=== PATIENT | female | born 1960 | race Caucasian/White ===

== ENCOUNTER 2017-02-21 10:47 | Day surgery (SDC) | payer MEDICARE, MEDICAID ==
[~2017-02-21 10:47] MED LIST: PROPOFOL INJ 200 MG/20 ML VIAL IV ONE
[2017-02-21] MEDS ORDERED: SIMETHICONE 80 MG TAB.CHEW ONE ×2 (11:48→12:51)
[2017-02-21 13:30] VITALS: BP 110/62
--- NOTE | 2017-02-21 14:09 | Operative Report ---
Operative Report DATE OF SURGERY: 02/21/17 Operative Report: The risks benefits and alternatives of the procedure explained to the patient in detail and informed consent is obtained .A GIF Olympus video scope was inserted into the patient's mouth and hypopharynx, the esophagus is identified intubated and insufflated ,the scope was then advanced through the esophagus stomach and duodenum ,retroflexion maneuver is done, the esophagus stomach and first and second portions of the duodenum examined GIF 130 Olympus videoscope was then inserted through the stomach cavity. The surrounding area appears to be bleeding. I was able to evaluate between 60 and 70 cm of ileum. No AVMs are noted no blood is noted. Biopsies obtained. PREOPERATIVE DIAGNOSIS: GI bleeding POSTOPERATIVE DIAGNOSIS: Gastritis status post biopsy. 60-70 cm of ileum is evaluated, no AVMs or bleeding noted OPERATION: EGD with biopsy. SMINT with biopsy SURGEON: NELLI VASQUEZ ANESTHESIA: LMAC TISSUE REMOVED OR ALTERED: Biopsy to rule out Helicobacter pylori. COMPLICATIONS: None. ESTIMATED BLOOD LOSS: none. INTRAOPERATIVE FINDINGS: As described above. Esophagus normal. First and second portions of the duodenum normal. PROCEDURE: Patient tolerated the procedure well. No immediate postprocedure complications are noted. Patient is discharged in good condition. Discharge date 02/21/2017. Discharge diet: Regular. Discharge activity: Regular. 2-3 follow-up to discuss findings. Patient is instructed to call the office or proceed to the emergency room should there be any further problems or questions. We'll await on biopsies.
== END 2017-02-21 13:39 | disposition home or self-care (01) ==
LOC: END 10:47
PROVIDERS: ATTEND Internal Medicine Gastroenterology
PROC: 0DB68ZX Excision of Stomach, Via Natural or Artificial Opening Endoscopic, Diagnostic (ICD-10-PCS; principal; 2017-02-21 13:00)
PROC: 0DJD8ZZ Inspection of Lower Intestinal Tract, Via Natural or Artificial Opening Endoscopic (ICD-10-PCS; 2017-02-21 13:00)
DX: K29.50 Unspecified chronic gastritis without bleeding (principal); Z93.3 Colostomy status; G40.909 Epilepsy, unspecified, not intractable, without status epilepticus; Z85.038 Personal history of other malignant neoplasm of large intestine; Z88.0 Allergy status to penicillin; Z88.8 Allergy status to other drugs, medicaments and biological substances; Z88.5 Allergy status to narcotic agent
CPT/HCPCS: 43239; 44382; 88342 ×2; 88305 ×2; 74000; A9270; J2704; 740

== ENCOUNTER → 2017-02-28 | Outpatient (CLI) | payer MEDICARE, MEDICAID ==
--- NOTE | 2017-02-28 15:07 | RADIOLOGY REPORT (SQ) ---
EXAM DESCRIPTION: CT ABD/PELVIS WITH IV ORAL COMPLETED DATE/TIME: 02/28/2017 2:21 pm REASON FOR STUDY: PARA ILEOSTOMY HERNIA/PAIN R52 PAIN, UNSPECIFIED K94.19 OTHER COMPLICATIONS OF E NTEROSTOMY COMPARISON: 08/28/2015. TECHNIQUE: CT scan of the abdomen and pelvis performed with intravenous and oral contrast using ruy karan scanning technique with dynamic intravenous contrast injection. Images reviewed with lung, soft t issue, and bone windows. Reconstructed coronal and sagittal MPR images reviewed. Delayed images for e valuation of the urinary system also acquired. All images stored on PACS. All CT scanners at this facility use dose modulation, iterative reconstruction, and/or weight based d osing when appropriate to reduce radiation dose to as low as reasonably achievable (ALARA). [facility]: Dose Right [facility]: CareDose [facility]: Dose Right [facility]: Teradose 4D [facility]: Odilo CONTRAST TYPE AND DOSE: 89 mL Isovue 370- low osmolar. RENAL FUNCTION: Creatinine 0.5. RADIATION DOSE: 16.88 mGy. LIMITATIONS: None. FINDINGS: LOWER CHEST: No significant findings. No nodules or infiltrates. LIVER: Normal size. No masses or dilated ducts. SPLEEN: Normal size. No focal lesions. PANCREAS: No masses. No significant calcifications. No adjacent inflammation or peripancreatic fluid collections. Pancreatic duct not dilated. GALLBLADDER: Surgically absent. ADRENAL GLANDS: No significant masses or asymmetry. RIGHT KIDNEY AND URETER: No solid masses. No significant calcifications. No hydronephrosis or hyd roureter. LEFT KIDNEY AND URETER: No solid masses. No significant calcifications. No hydronephrosis or hydr oureter. AORTA AND VESSELS: No aneurysm. No dissection. Renal arteries, SMA, celiac without stenosis. RETROPERITONEUM: No retroperitoneal adenopathy, hemorrhage or masses. BOWEL AND PERITONEAL CAVITY: Previous colectomy with ostomy in the right lower quadrant. No obstruct ion. No visualized masses. No free fluid. No inflammatory changes or thickening of bowel wall. APPENDIX: Surgically absent. PELVIS: No significant masses. Normal bladder. No free fluid. ABDOMINAL WALL: No masses. No hernias. BONES: No significant or acute findings. OTHER: No other significant finding. Stimulator device in the posterior soft tissues. IMPRESSION: PREVIOUS SUBTOTAL COLECTOMY WITH OSTOMY IN THE RIGHT LOWER QUADRANT. NO PARASTOMAL ROBERT IA OR OTHER SIGNIFICANT FINDINGS IN RELATION TO THE OSTOMY. NO OTHER SIGNIFICANT OR ACUTE FINDINGS I N THE ABDOMEN OR PELVIS. TECHNICAL DOCUMENTATION: JOB ID: [id number] Quality ID # [id number]: Final reports with documentation of one or more dose reduction techniques (e.g., Au tomated exposure control, adjustment of the mA and/or kV according to patient size, use of iterative reconstruction technique) 2010 [employer]- All Rights Reserved
== END ==
LOC: RAD 13:11
PROVIDERS: ATTEND Surgery
DX: K94.19 Other complications of enterostomy (principal); R10.84 Generalized abdominal pain
CPT/HCPCS: 74177; 82565

== ENCOUNTER 2017-05-01 10:19 | Emergency (ER) | payer MEDICARE, MEDICAID ==
--- NOTE | 2017-05-01 10:56 | ER Document Report ---
HPI - HPI Patient complains to provider of: Bilateral ear pain Onset: Yesterday Onset/Duration: Sudden, Persistent Pain Level: 5 Context: 56-year-old female crying and moaning complaining that she has water in both of her ears after swimming in a pool yesterday. She wants water removed. No fever and no recent upper respiratory infection. Associated Symptoms: None Exacerbated by: Denies Relieved by: Denies Similar symptoms previously: Yes Recently seen / treated by doctor: No - ROS ROS below otherwise negative: Yes Systems Reviewed and Negative: Yes All other systems reviewed and negative - REPRODUCTIVE Reproductive: DENIES: : - DERM Skin Color: Normal Past Medical History - General Information source: Patient - Social History Smoking Status: Never Smoker Frequency of alcohol use: None Drug Abuse: None Lives with: Family Family History: Hypertension, Other Neurological Medical History: Reports: Hx Migraine, Hx Seizures - Last one 12 yrs ago Renal/ Medical History: Denies: Hx Peritoneal Dialysis Malignancy Medical History: Reports: Hx Colorectal Cancer - Status post chemoirradiation and complete colectomy Musculoskeltal Medical History: Reports Hx Arthritis - Back, Reports Hx Musculoskeletal Trauma Skin Medical History: Reports Hx Cellulitis Psychiatric Medical History: Reports: Hx Anxiety, Hx Depression Traumatic Medical History: Reports: Hx Fractures Past Surgical History: Reports: Hx Appendectomy, Hx Cholecystectomy, Hx Hysterectomy, Hx Ileostomy, Hx Kidney (Renal Surgery), Hx Neurologic Surgery, Hx Orthopedic Surgery, Hx Tonsillectomy - Immunizations Immunizations up to date: Yes Hx Diphtheria, Pertussis, Tetanus Vaccination: Yes Vertical Provider Document - CONSTITUTIONAL Agree With Documented VS: Yes Exam Limitations: No Limitations General Appearance: Severe Distress - Very distressed and emotional about the situation - INFECTION CONTROL TRAVEL OUTSIDE OF THE [place] IN LAST 30 DAYS: No - HEENT HEENT: Normal ENT Exam, Normocephalic. negative: Conjuctival Injection, Pharyngeal Erythema Notes: Both ear canals and and TMs are normal. No pain with pinna or tragus movement in either ear. There is no external ear swelling. No ear canal swelling. There is minimal wax in her right base ear canal. Mastoids are nontender. - NECK Neck: Supple. negative: Lymphadenopathy-Left, Lymphadenopathy-Right - RESPIRATORY Respiratory: Breath Sounds Normal, No Respiratory Distress - MUSCULOSKELETAL/EXTREMETIES Musculoskeletal/Extremeties: LIZZY BURT - NEURO Level of Consciousness: Awake, Alert, Appropriate, Agitated Motor/Sensory: No Motor Deficit, No Sensory Deficit - DERM Integumentary: Warm, Dry, No Rash Course - Re-evaluation Re-evalutation: 05/01/17 Exhibition of pain was out of proportion to the physical exam. Discharge - Discharge Clinical Impression: possible serous otitis media Eustachian tube dysfunction Qualifiers: Laterality: right Qualified Code(s): H69.81 - Other specified disorders of Eustachian tube, right ear Condition: Good Disposition: HOME, SELF-CARE Instructions: ENT, Anti-Inflammatory Medication ([facility]), Warm Packs ([facility]), Acetaminophen, Use of Diphenhydramine Additional Instructions: warm compess take the motrin and tylenol start antihistamine benadryl four times per day see ENT doctor if persists to er if worse Forms: Return to Work Referrals: ELIZABETH POWELL PA-C [Primary Care Provider] - Follow up as needed
[2017-05-01] MEDS ORDERED: IBUPROFEN 800 MG TABLET PO ONE (10:58)
[2017-05-01] MEDS ORDERED: ACETAMINOPHEN 325 MG TABLET PO ONE (10:58)
[2017-05-01] MEDS ORDERED: ONDANSETRON 4 MG TAB.RAPDIS PO ONE (10:58)
[2017-05-01 13:06] VITALS: BP 96/59
== END 2017-05-01 12:10 | disposition home or self-care (01) ==
LOC: ER 10:19
DX: H69.81 Other specified disorders of Eustachian tube, right ear (principal); H92.03 Otalgia, bilateral
CPT/HCPCS: 99282; A9270 ×2

== ENCOUNTER → 2017-06-27 | Outpatient (CLI) | payer MEDICARE, MEDICAID ==
--- NOTE | 2017-06-27 12:37 | RADIOLOGY REPORT (SQ) ---
EXAM DESCRIPTION: T SPINE AP/LAT COMPLETED DATE/TIME: 06/27/2017 11:06 am REASON FOR STUDY: PAIN IN THORACIC SPINE COMPARISON: None. NUMBER OF VIEWS: Two views. TECHNIQUE: AP and lateral radiographic images acquired of the thoracic spine. LIMITATIONS: None. FINDINGS: MINERALIZATION: Normal. ALIGNMENT: Normal. No scoliosis. VERTEBRAE: No fracture or bone lesion. Maintained height, normal segmentation. DISCS: No significant loss of height or significant narrowing. No large osteophytes. HARDWARE: None in the spine. MEDIASTINUM AND SOFT TISSUES: Normal heart size and aortic contour. No soft tissue abnormality. VISUALIZED LUNG FRENCH: Clear. OTHER: No other significant finding. IMPRESSION: NO SIGNIFICANT RADIOGRAPHIC FINDING IN THE THORACIC SPINE. TECHNICAL DOCUMENTATION: JOB ID: [id number] [employer]- All Rights Reserved
== END ==
LOC: RAD 10:47
PROVIDERS: ATTEND Pain Medicine Interventional Pain Medicine
DX: M54.6 Pain in thoracic spine (principal)
CPT/HCPCS: 72070

== ENCOUNTER 2017-07-22 14:18 | Emergency (ER) | payer MEDICARE, MEDICAID ==
[2017-07-22] MEDS ORDERED: PROMETHAZINE HCL INJ 25 MG/1 ML VIAL IV ONE (17:15)
--- NOTE | 2017-07-22 17:15 | ER Document Report ---
ED Medical Screen (RME) - General Chief Complaint: Vomiting Stated Complaint: VOMITING Time Seen by Provider: 07/22/17 16:52 Mode of Arrival: Ambulatory Information source: Patient Notes: Patient is a 57-year-old female that reports today with abdominal pain and flank pain. Patient had a colostomy on July 11 and was discharged home on July 17. Patient is not a very good historian so it is somewhat unclear why she had a colostomy placed. This colostomy was an actual revision of the first one, she had the location from her first one moved. Patient complains of diffuse abdominal pain. Patient states she has morphine at home. Patient states she has had nausea and vomiting since discharge and she has been able to keep her medicine down. TRAVEL OUTSIDE OF THE [place] IN LAST 30 DAYS: No - Related Data Allergies/Adverse Reactions: Penicillins Allergy (Severe, Verified 07/22/17 16:41) RASH, DIFFICULTY BREATHING prochlorperazine maleate [From Compazine] Adverse Reaction (Severe, Verified 16:41) VIOLENT BEHAVIOR haloperidol [From Haldol] Adverse Reaction (Intermediate, Verified 07/22/17 16: 41) Hyperactivity, HEADACHE metoclopramide HCl [From Reglan] Adverse Reaction (Intermediate, Verified 16:41) Hyperactivity ondansetron HCl [From Zofran] Adverse Reaction (Intermediate, Verified 07/22/17 16:41) VOMITING zolpidem [From Ambien] Adverse Reaction (Intermediate, Verified 07/22/17 16:41) SLEEP WALKING diazepam [From Valium] Adverse Reaction (Mild, Verified 07/22/17 16:41) CONFUSION,UNCOOPERATIVE Past Medical History - General Information source: Patient - Social History Cigarette use (# per day): No Chew tobacco use (# tins/day): No Frequency of alcohol use: None Drug Abuse: None Lives with: Family Family history: Reviewed & Not Pertinent Neurological Medical History: Reports: Hx Migraine, Hx Seizures - Last one 12 yrs ago Malignancy Medical History: Reports: Hx Colorectal Cancer - Status post chemoirradiation and complete colectomy Musculoskeltal Medical History: Reports Hx Arthritis - Back, Reports Hx Musculoskeletal Trauma Skin Medical History: Reports Hx Cellulitis Psychiatric Medical History: Reports: Hx Anxiety, Hx Depression Traumatic Medical History: Reports: Hx Fractures Past Surgical History: Reports: Hx Appendectomy, Hx Cholecystectomy, Hx Hysterectomy, Hx Ileostomy, Hx Kidney (Renal Surgery), Hx Neurologic Surgery, Hx Orthopedic Surgery, Hx Tonsillectomy - Immunizations Immunizations up to date: Yes Hx Diphtheria, Pertussis, Tetanus Vaccination: Yes Review of Systems - Review of Systems Gastrointestinal: See HPI, Abdominal pain, Nausea, Vomiting Genitourinary: See HPI, Flank pain Physical Exam - Vital signs Vitals: Temp Pulse Resp BP Pulse Ox 98.1 F 103 H 20 114/68 98 07/22/17 14:49 07/22/17 14:49 07/22/17 14:49 07/22/17 14:49 07/22/17 14:49 - Notes Notes: Physical Exam: General: Alert, appears well. HEENT: Normocephalic. Atraumatic. PERRLA. Extraocular movements intact. Oropharynx clear. Neck: Supple. Respiratory: No respiratory distress. Abdominal: Dressing over old incision, new incision stapled, colostomy in place , diffuse tenderness with palpation. No distension. Extremities: Moves all four extremities. Neurological: Normal cognition. AAOx4. Normal speech. Psychological: Normal affect. Normal Mood. Skin: Warm. Dry. Normal color. Course - Vital Signs Vital signs: Temp Pulse Resp BP Pulse Ox 98.1 F 103 H 20 114/68 98 07/22/17 14:49 07/22/17 14:49 07/22/17 14:49 07/22/17 14:49 07/22/17 14:49 Scribe Documentation - Scribe Written by Renate:: Renate Bejarano, 07/22/2017 1916 acting as scribe for :: Prince
[2017-07-22] MEDS ORDERED: MORPHINE SULFATE 10 MG/ML INJ IV ONE (17:16)
[2017-07-22] MEDS ORDERED: NORMAL SALINE 1000 ML 1,000 ML IV ONE (17:17)
[2017-07-22 19:32] LABS: ABSOLUTE BASOPHILS # (AUTO) 0.1 10^3/uL (0.0-0.2); ABSOLUTE EOSINOPHILS # (AUTO) 0.1 10^3/uL (0.0-0.6); ABSOLUTE LYMPHOCYTES (AUTO) 1.5 10^3/uL (0.5-4.7); ABSOLUTE MONOCYTES (AUTO) 0.8 10^3/uL (0.1-1.4); ABSOLUTE NEUT (AUTO) 7.9 10^3/uL (1.7-8.2); BASOPHILS % (AUTO) 0.6 % (0-2); EOSINOPHILS % (AUTO) 1.2 % (0-6); HEMATOCRIT 36.4 % (36.0-47.0); HEMOGLOBIN 12.9 g/dL (12.0-15.5); HGB HCT DIFFERENCE 2.3; LYMPHOCYTES % (AUTO) 14.1 % (13-45); MEAN CORPUSCULAR HEMOGLOBIN 33.7 pg (27.0-33.4); MEAN CORPUSCULAR HGB CONC 35.5 g/dL (32.0-36.0); MEAN CORPUSCULAR VOLUME 95 fl (80-97); MONOCYTES % (AUTO) 7.6 % (3-13); RED BLOOD COUNT 3.84 10^6/uL (3.72-5.28); RED CELL DISTRIBUTION WIDTH 12.9 % (11.5-14.0); SEGMENTED NEUTROPHILS % (AUTO) 76.5 % (42-78); WHITE BLOOD COUNT 10.4 10^3/uL (4.0-10.5)
[2017-07-22 19:49] LABS: ALANINE AMINOTRANSFERASE 33 U/L (9-52); ALBUMIN 4.2 g/dL (3.5-5.0); ALKALINE PHOSPHATASE 276 U/L (38-126); ANION GAP 18 (5-19); ASPARTATE AMINO TRANSFERASE 35 U/L (14-36); BILIRUBIN,DIRECT 0.6 mg/dL (0.0-0.4); BILIRUBIN,TOTAL 0.7 mg/dL (0.2-1.3); BLOOD UREA NITROGEN 14 mg/dL (7-20); CALCIUM 9.8 mg/dL (8.4-10.2); CARBON DIOXIDE 27 mmol/L (22-30); CHLORIDE 89 mmol/L (98-107); CREATININE RESULT 0.63 mg/dL (0.52-1.25); GLUCOSE 108 mg/dL (75-110); LIPASE 1439.3 U/L (23-300); POTASSIUM 3.1 mmol/L (3.6-5.0); SODIUM 133.6 mmol/L (137-145); TOTAL PROTEIN 8.1 g/dL (6.3-8.2)
[2017-07-22] MEDS ORDERED: NORMAL SALINE 1000 ML 1,000 ML IV PRN (20:08)
--- NOTE | 2017-07-22 20:10 | ER Document Report ---
ED GI/ - General Chief Complaint: Vomiting Stated Complaint: VOMITING Time Seen by Provider: 07/22/17 16:52 Mode of Arrival: Ambulatory Information source: Patient TRAVEL OUTSIDE OF THE [place] IN LAST 30 DAYS: No - HPI Patient complains to provider of: Abdominal pain, Vomiting Onset: Other - 3-4 days Timing/Duration: Persistent Quality of pain: Achy, Pressure, Sharp, Stabbing Severity at maximum: Moderate Severity in ED: Moderate Pain Level: 4 Location: Epigastric Associated symptoms: Nausea, Vomiting Exacerbated by: Denies Relieved by: Denies Similar symptoms previously: Yes Recently seen / treated by doctor: Yes Notes: 07/22/17 22:43 Patient is a 57-year-old female with a history of colon cancer requiring a colon resection several years ago, she had an ileostomy placed at that time, on July 11, just 11 short days ago patient had a revision of that surgery at [facility] in [place], she states since being discharged she has had difficulty tolerating p.o. intake, she has had decreased urine production and had increased upper abdominal pain, she denies any fevers, she has been having a decent amount of output from her ileostomy, patient takes both Phenergan and morphine at home which is not currently controlling her symptoms - Related Data Allergies/Adverse Reactions: Penicillins Allergy (Severe, Verified 07/22/17 16:41) RASH, DIFFICULTY BREATHING prochlorperazine maleate [From Compazine] Adverse Reaction (Severe, Verified 16:41) VIOLENT BEHAVIOR haloperidol [From Haldol] Adverse Reaction (Intermediate, Verified 07/22/17 16: 41) Hyperactivity, HEADACHE metoclopramide HCl [From Reglan] Adverse Reaction (Intermediate, Verified 16:41) Hyperactivity ondansetron HCl [From Zofran] Adverse Reaction (Intermediate, Verified 07/22/17 16:41) VOMITING zolpidem [From Ambien] Adverse Reaction (Intermediate, Verified 07/22/17 16:41) SLEEP WALKING diazepam [From Valium] Adverse Reaction (Mild, Verified 07/22/17 16:41) CONFUSION,UNCOOPERATIVE Past Medical History - General Information source: Patient - Social History Smoking Status: Never Smoker Cigarette use (# per day): No Chew tobacco use (# tins/day): No Frequency of alcohol use: None Drug Abuse: None Lives with: Family Family History: Hypertension, Other Patient has suicidal ideation: No Patient has homicidal ideation: No - Past Medical History Cardiac Medical History: Denies: Hx Coronary Artery Disease, Hx Heart Attack, Hx Hypertension Pulmonary Medical History: Denies: Hx Asthma, Hx Bronchitis, Hx COPD, Hx Pneumonia Neurological Medical History: Reports: Hx Migraine, Hx Seizures - Last one 12 yrs ago. Denies: Hx Cerebrovascular Accident Renal/ Medical History: Denies: Hx Peritoneal Dialysis Malignancy Medical History: Reports: Hx Colorectal Cancer - Status post chemoirradiation and complete colectomy Musculoskeltal Medical History: Reports Hx Arthritis - Back, Reports Hx Musculoskeletal Trauma Skin Medical History: Reports Hx Cellulitis Psychiatric Medical History: Reports: Hx Anxiety, Hx Depression Traumatic Medical History: Reports: Hx Fractures Past Surgical History: Reports: Hx Appendectomy, Hx Cholecystectomy, Hx Hysterectomy, Hx Ileostomy, Hx Kidney (Renal Surgery), Hx Neurologic Surgery, Hx Orthopedic Surgery, Hx Tonsillectomy - Immunizations Immunizations up to date: Yes Hx Diphtheria, Pertussis, Tetanus Vaccination: Yes Review of Systems - Review of Systems Constitutional: No symptoms reported EENT: No symptoms reported Cardiovascular: No symptoms reported Respiratory: No symptoms reported Gastrointestinal: See HPI, Abdominal pain, Nausea, Vomiting Genitourinary: No symptoms reported Female Genitourinary: No symptoms reported Musculoskeletal: No symptoms reported Skin: No symptoms reported Hematologic/Lymphatic: No symptoms reported Neurological/Psychological: No symptoms reported -: Yes All other systems reviewed and negative Physical Exam - Vital signs Vitals: Temp Pulse Resp BP Pulse Ox 98.1 F 103 H 20 114/68 98 07/22/17 14:49 07/22/17 14:49 07/22/17 14:49 07/22/17 14:49 07/22/17 14:49 Interpretation: Normal - General General appearance: Appears well, Alert - HEENT Head: Normocephalic, Atraumatic Eyes: Normal Pupils: PERRL - Respiratory Respiratory status: No respiratory distress Chest status: Nontender Breath sounds: Normal Chest palpation: Normal - Cardiovascular Rhythm: Regular Heart sounds: Normal auscultation Murmur: No - Abdominal Inspection: Other - Radha in place in mid-line wound which is healing well, no active drainage, erythema, mild distention, mild diffuse tenderness, increased in epigastric region, ileostomy in place in the right mid abdomen, a small amount of brownish liquid drainage - Back Back: Normal, Nontender - Extremities General upper extremity: Normal inspection, Nontender, Normal color, Normal ROM , Normal temperature General lower extremity: Normal inspection, Nontender, Normal color, Normal ROM , Normal temperature, Normal weight bearing. No: Brinda's sign - Neurological Neuro grossly intact: Yes Cognition: Normal Orientation: AAOx4 [place] Coma Scale Eye Opening: Spontaneous Demetria Coma Scale Verbal: Oriented Demetria Coma Scale Motor: Obeys Commands [place] Coma Scale Total: 15 Speech: Normal Motor strength normal: LUE, RUE, LLE, RLE Sensory: Normal - Psychological Associated symptoms: Normal affect, Normal mood - Skin Skin Temperature: Warm Skin Moisture: Dry Skin Color: Normal Course - Re-evaluation Re-evalutation: 07/22/17 20:11 A call was placed to [facility], requested callback from patient surgeon Dr. Lowery 07/22/17 20:56 Patient was discussed with Dr. Lowery who accepts patient for transfer, however there is currently a 48-96 hour wait list at [facility] Patient was discussed with our on-call surgeon, but Dr. Hennessy who agrees to consult on patient but states the patient is not currently in a position requiring surgery, therefore he recommends admission to the hospitalist service Patient was discussed with Dr. Craft who requested that abdominal imaging be obtained prior to excepting patient for admission 07/22/17 22:[address] scan was obtained and the results were discussed with the hospitalist who is now refusing to admit the patient stating that her symptoms appear to be the result of surgical complications This CT scan findings were discussed with the surgeon who states he will consult on the patient but the patient does not require surgery and therefore does not need to be admitted to his service, as she is afebrile and has no leukocytosis and therefore the small rim-enhancing fluid collection in the deep pelvis does not require surgical intervention at this time Patient has been accepted [facility], however as previously stated there is a long waiting list to get patient transferred there , therefore the emergency room will continue to hold patient and provide appropriate treatment until patient can be transferred to tertiary care center for further treatment - Vital Signs Vital signs: Temp Pulse Resp BP Pulse Ox 98.1 F 103 H 20 114/68 98 07/22/17 14:49 10/13/17 14:49 07/22/17 14:49 07/22/17 14:49 07/22/17 14:49 - Laboratory Result Diagrams: 07/22/17 19:15 07/22/17 19:15 Laboratory results interpreted by me: 07/22/17 07/22/17 07/22/17 19:15 19:15 21:09 [facility] 33.7 H Plt Count 514 H Sodium 133.6 L Potassium 3.1 L Chloride 89 L Direct Bilirubin 0.6 H Alkaline Phosphatase 276 H Lipase 1439.3 H Urine Ketones 20 H Urine Blood SMALL H Ur Leukocyte Esterase MODERATE H - Diagnostic Test Radiology reviewed: Image reviewed, Reports reviewed Discharge - Discharge Clinical Impression: Acute pancreatitis Qualifiers: Pancreatitis type: unspecified pancreatitis type Acute pancreatitis complication: unspecified Qualified Code(s): K85.90 - Acute pancreatitis without necrosis or infection, unspecified Condition: Fair Disposition: [facility]
--- NOTE | 2017-07-22 21:47 | RADIOLOGY REPORT (SQ) ---
EXAM DESCRIPTION: CT ABD/PELVIS WITH IV ONLY COMPLETED DATE/TIME: 07/22/2017 9:26 pm REASON FOR STUDY: abd pain, recent ileostomy revision, elev lipase COMPARISON: 02/28/2017 TECHNIQUE: CT scan of the abdomen and pelvis performed using helical scanning technique with dynamic intravenous contrast injection. No oral contrast. Images reviewed with lung, soft tissue, and bone windows. Reconstructed coronal and sagittal MPR images reviewed. Delayed images for evaluation of the urinary system also acquired. All images stored on PACS. All CT scanners at this facility use dose modulation, iterative reconstruction, and/or weight based d osing when appropriate to reduce radiation dose to as low as reasonably achievable (ALARA). [facility]: Dose Right [facility]: CareDose [facility]: Dose Right [facility]: Teradose 4D [facility]: [employer] CONTRAST TYPE AND DOSE: contrast/concentration: Isovue 370.00 mg/ml; Total Contrast Delivered: 79.0 ml; Total Saline Delivered: 68.1 ml RENAL FUNCTION: GFR > 60. RADIATION DOSE: Up-to-date CT equipment and radiation dose reduction techniques were employed. CTDIv ol: 11.0 - 15.1 mGy. DLP: 1329 mGy-cm.. LIMITATIONS: None. FINDINGS: LOWER CHEST: No significant findings. No nodules or infiltrates. LIVER: Normal size. No masses. No dilated ducts. SPLEEN: Normal size. No focal lesions. PANCREAS: No masses. No significant calcifications. No adjacent inflammation or peripancreatic fluid collections. Pancreatic duct not dilated. GALLBLADDER: Surgically absent. ADRENAL GLANDS: No significant masses or asymmetry. RIGHT KIDNEY AND URETER: No solid masses. No significant calcifications. No hydronephrosis or hyd roureter. LEFT KIDNEY AND URETER: No solid masses. No significant calcifications. No hydronephrosis or hydr oureter. AORTA AND VESSELS: No aneurysm. No dissection. Renal arteries, SMA, celiac without stenosis. RETROPERITONEUM: No retroperitoneal adenopathy, hemorrhage or masses. BOWEL AND PERITONEAL CAVITY: Stable postsurgical change related to prior subtotal colectomy. Patient 's original right lower quadrant ostomy has been taken down with new ileostomy in the right mid abdom en. No gross free air. No evidence of obstruction. APPENDIX: Surgically absent. PELVIS: Rim enhancing fluid collection deep within the pelvis seen on series 5, image 69, series 601, image 44, and series 602, image 45 measuring 2.3 x 2.8 x 1.4 cm. ABDOMINAL WALL: Expected postsurgical change. Otherwise unremarkable. BONES: No significant or acute findings. OTHER: No other significant finding. IMPRESSION: INTERVAL POSTSURGICAL CHANGE RELATED TO REVISION OF ILEOSTOMY DESCRIBED ABOVE. 2.8 C M RIM ENHANCING FLUID COLLECTION DEEP WITHIN THE PELVIS VERSUS MAY REPRESENT EARLY ABSCESS FORMATION WHICH IS LIKELY TOO SMALL THE DRAIN AT THIS TIME. CORRELATE WITH FEVER/ELEVATED WHITE BLOOD CELL COU NT TECHNICAL DOCUMENTATION: JOB ID: [id number] Quality ID # [id number]: Final reports with documentation of one or more dose reduction techniques (e.g., Au tomated exposure control, adjustment of the mA and/or kV according to patient size, use of iterative reconstruction technique) 2010 [employer]- All Rights Reserved
[2017-07-22 21:53] LABS: APPEARANCE,URINE CLOUDY; BILIRUBIN,URINE NEGATIVE (NEGATIVE); GLUCOSE, URINE NEGATIVE (NEGATIVE); KETONES,URINE 20 mg/dL (NEGATIVE); LEUKOCYTE ESTERASE,URINE MODERATE (NEGATIVE); NITRITE,URINE NEGATIVE (NEGATIVE); PROTEIN,URINE NEGATIVE (NEGATIVE); URINE SPECIFIC GRAVITY 1.008; UROBILINOGEN,URINE NEGATIVE mg/dL (<2.0)
[2017-07-22] MEDS: MORPHINE SULFATE 10 MG/ML INJ IV PRN (23:42)
[2017-07-22] MEDS: PROMETHAZINE HCL INJ 25 MG/1 ML VIAL IV PRN (23:43)
[2017-07-23] MEDS: NORMAL SALINE 1000 ML 1,000 ML IV PRN (00:14)
[2017-07-23] MEDS ORDERED: PHENOBARBITAL 64.8 MG TABLET PO ONE (00:30)
[2017-07-23] MEDS ORDERED: MEMANTINE HCL 10 MG TABLET PO ONE (00:30)
[2017-07-23] MEDS ORDERED: PROPRANOLOL HCL 40 MG TABLET PO ONE (00:30)
[2017-07-23] MEDS ORDERED: LEVETIRACETAM 500 MG TABLET PO ONE (00:30)
[2017-07-23] MEDS ORDERED: TOPIRAMATE 100 MG TABLET PO ONE (00:45)
[2017-07-23] MEDS ORDERED: LAMOTRIGINE 100 MG TABLET PO ONE (01:00)
--- NOTE | 2017-07-23 02:23 | CONSULTATION REPORT E ---
Consultation Report NAME: ELIZABETH FERRARI : 1960 AGE: 57Y DATE: 07/22/2017 TO: MARITZA FLYNN M.D. FROM: Michaela TRIVEDI, Requesting Physician REASON FOR CONSULTATION: Patient with pancreatitis, and status post revision of ileostomy 07/11 at [facility]. HISTORY OF PRESENT ILLNESS: This is a 57-year-old female who had revision of an ileostomy 07/11 at [facility], done by Dr. Lowery. The patient had a history of colon cancer about 10 years ago and had an ileostomy done at [place] by Dr. Yung. About 2 years ago developed a hernia that was operated at [facility], where they apparently removed her rectum for colon cancer. She was operated 07/11 at [facility] and discharged home on 07/17. She has been having nausea and vomiting and abdominal pains ever since. She also has severe migraines and had a nerve stimulator placed at the back of the head 5 years ago at [place] and recently placed in front of the head. She is quite anxious and almost tearful because of what is going to happen to her. In the emergency room, she had a CAT scan of the abdomen which showed fluid around the pancreas. Her amylases and lipases are markedly elevated. [facility] was called by ER physician and said that they are booked for the next 48-72 hours. PAST HISTORY: 1. History of colon cancer. 2. History of seizures. 3. L4 L5 disks. 4. History of migraine headaches and had surgery with placement of nerve stimulator at the back of the head and now at the front of the head. Initially this was placed at [facility] 5 years ago. 5. She had a laparoscopic cholecystectomy about 15 years ago at [facility]. MEDICATIONS: Takes medications for seizures. SOCIAL HISTORY: Denies alcohol or tobacco use or drug use. ALLERGIES: No known allergies. REVIEW OF SYSTEMS: Complains of headaches. Denies any visual or hearing problems. Complaining of chills. Complaining of abdominal pains and nausea and vomiting since discharge 07/17/2017. Denies any cough, chest pains. The ileostomy has been functioning well. Denies any loss of balance. GI as in HPI. Rest of the systems negative. PHYSICAL EXAMINATION: PSYCH: Well-developed, well-nourished 57-year-old female, alert and quite oriented and quite anxious. She is almost tearful since she feels she is not sure what is going to happen, despite assuring her that she needs to be treated with medical management for now. We will give her some pain medications and put on bowel rest. NECK: Supple. No thyromegaly. LUNGS: Clear. HEART: Regular sinus rhythm. ABDOMEN: Soft with diffuse tenderness. Has a low midline incision with stewart. The ileostomy has been functioning well. There is mild, diffuse tenderness. EXTREMITIES: No edema. IMPRESSION: Acute pancreatitis. PLANS: 1. Hydration. 2. Pain management. 3. Supportive measures. 4. The patient will eventually be transferred to [facility], where she had her recent surgery. 5. In the meantime, as far as the collection along the pancreas on the CAT scan, it does not look like this is infected at this time, since the patient is afebrile and the white count is normal. This will be monitored while awaiting transfer to [facility]. DICTATING PHYSICIAN: MARITZA FLYNN M.D. [id number] PHY#: [id number] ID: [id number] JOB#: [id number] ACCT: [id number] cc:MARITZA FLYNN M.D. >
[2017-07-23] MEDS: PROMETHAZINE HCL INJ 25 MG/1 ML VIAL IV PRN ×2 (08:19→14:58)
[2017-07-23] MEDS: MORPHINE SULFATE 10 MG/ML INJ IV PRN ×4 (08:19→22:44)
[2017-07-23] MEDS: PHENOBARBITAL 64.8 MG TABLET PO SCH ×2 (09:33→18:13)
[2017-07-23] MEDS: LEVETIRACETAM 500 MG TABLET PO SCH ×2 (09:36→18:15)
[2017-07-23] MEDS: LAMOTRIGINE 100 MG TABLET PO SCH ×2 (09:36→18:16)
[2017-07-23] MEDS: MEMANTINE HCL 10 MG TABLET PO SCH ×2 (09:37→18:16)
[2017-07-23] MEDS: TOPIRAMATE 100 MG TABLET PO SCH ×2 (09:37→18:17)
[2017-07-23] MEDS ORDERED: NORMAL SALINE 1000 ML 1,000 ML IV PRN (09:39)
--- NOTE | 2017-07-23 10:11 | ER Document Report ---
Doctor's Note Notes: 07/23/17 10:10 Patient sleeping comfortably on stretcher, easily awakens, reports that she does not feel much better at this point in time despite IV fluids, medications, patient also reports that she has not produced any urine since being in the emergency room, IV fluids will continue to be administered, as well as as needed pain meds and nausea meds, patient's home medications have been ordered as well, she will remain in the emergency room until a bed can be secured for her at tertiary care facility, otherwise patient remains stable at this point in time
[2017-07-23 11:18] LABS: ABSOLUTE EOSINOPHILS # (AUTO) 0.2 10^3/uL (0.0-0.6); ABSOLUTE LYMPHOCYTES (AUTO) 0.8 10^3/uL (0.5-4.7); ABSOLUTE MONOCYTES (AUTO) 0.6 10^3/uL (0.1-1.4); ABSOLUTE NEUT (AUTO) 5.9 10^3/uL (1.7-8.2); BASOPHILS % (AUTO) 0.6 % (0-2); EOSINOPHILS % (AUTO) 2.8 % (0-6); HEMATOCRIT 29.6 % (36.0-47.0); LYMPHOCYTES % (AUTO) 10.9 % (13-45); MEAN CORPUSCULAR HGB CONC 34.6 g/dL (32.0-36.0); MEAN CORPUSCULAR VOLUME 95 fl (80-97); RED CELL DISTRIBUTION WIDTH 12.8 % (11.5-14.0); SEGMENTED NEUTROPHILS % (AUTO) 77.7 % (42-78); WHITE BLOOD COUNT 7.5 10^3/uL (4.0-10.5)
[2017-07-23 11:21] LABS: HEMOGLOBIN 10.2 g/dL (12.0-15.5)
[2017-07-23 11:39] LABS: ALANINE AMINOTRANSFERASE 29 U/L (9-52); ALBUMIN 2.9 g/dL (3.5-5.0); ALKALINE PHOSPHATASE 166 U/L (38-126); ANION GAP 13 (5-19); ASPARTATE AMINO TRANSFERASE 27 U/L (14-36); BILIRUBIN,DIRECT 0.5 mg/dL (0.0-0.4); BILIRUBIN,TOTAL 0.5 mg/dL (0.2-1.3); BLOOD UREA NITROGEN 9 mg/dL (7-20); CALCIUM 8.3 mg/dL (8.4-10.2); CARBON DIOXIDE 24 mmol/L (22-30); CHLORIDE 102 mmol/L (98-107); CREATININE RESULT 0.54 mg/dL (0.52-1.25); GLUCOSE 76 mg/dL (75-110); LIPASE 1645.7 U/L (23-300); POTASSIUM 3.3 mmol/L (3.6-5.0); SODIUM 138.5 mmol/L (137-145)
[2017-07-23] MEDS: PROPRANOLOL HCL 40 MG TABLET PO SCH ×2 (14:59→18:17)
[2017-07-23] MEDS ORDERED: PROMETHAZINE HCL 25 MG TABLET PO PRN (22:22)
[2017-07-23] MEDS ORDERED: PROMETHAZINE HCL 25 MG TABLET PO SCH (22:30)
[2017-07-24] MEDS ORDERED: DIPHENHYDRAMINE HCL 50 MG/ML VIAL ONE (00:30)
[2017-07-24] MEDS ORDERED: DIPHENHYDRAMINE HCL 50 MG/ML VIAL IV ONE (00:32)
[2017-07-24] MEDS: MORPHINE SULFATE 10 MG/ML INJ IV PRN ×3 (03:48→13:24)
[2017-07-24] MEDS ORDERED: POTASSIUM CHLORIDE 10 MEQ TABLET.SA PO ONE (04:10)
[2017-07-24] MEDS: PROMETHAZINE HCL INJ 25 MG/1 ML VIAL IV PRN ×2 (07:55→14:29)
[2017-07-24] MEDS: NORMAL SALINE 1000 ML 1,000 ML IV PRN (08:02)
[2017-07-24] MEDS: LEVETIRACETAM 500 MG TABLET PO SCH (09:56)
[2017-07-24] MEDS: PROPRANOLOL HCL 40 MG TABLET PO SCH (09:57)
[2017-07-24] MEDS: PHENOBARBITAL 64.8 MG TABLET PO SCH (09:57)
[2017-07-24] MEDS: TOPIRAMATE 100 MG TABLET PO SCH (10:02)
[2017-07-24] MEDS: MEMANTINE HCL 10 MG TABLET PO SCH (10:02)
[2017-07-24] MEDS: LAMOTRIGINE 100 MG TABLET PO SCH (10:02)
[2017-07-24 10:09] LABS: ABSOLUTE BASOPHILS # (AUTO) 0.1 10^3/uL (0.0-0.2); ABSOLUTE EOSINOPHILS # (AUTO) 0.4 10^3/uL (0.0-0.6); ABSOLUTE LYMPHOCYTES (AUTO) 1.1 10^3/uL (0.5-4.7); ABSOLUTE MONOCYTES (AUTO) 0.4 10^3/uL (0.1-1.4); BASOPHILS % (AUTO) 1.2 % (0-2); EOSINOPHILS % (AUTO) 5.1 % (0-6); HEMATOCRIT 30.7 % (36.0-47.0); HEMOGLOBIN 10.7 g/dL (12.0-15.5); HGB HCT DIFFERENCE 1.4; LYMPHOCYTES % (AUTO) 15.6 % (13-45); MEAN CORPUSCULAR HEMOGLOBIN 33.4 pg (27.0-33.4); MEAN CORPUSCULAR HGB CONC 34.8 g/dL (32.0-36.0); MEAN CORPUSCULAR VOLUME 96 fl (80-97); MONOCYTES % (AUTO) 6.2 % (3-13); RED BLOOD COUNT 3.21 10^6/uL (3.72-5.28); RED CELL DISTRIBUTION WIDTH 12.8 % (11.5-14.0); SEGMENTED NEUTROPHILS % (AUTO) 71.9 % (42-78); WHITE BLOOD COUNT 6.9 10^3/uL (4.0-10.5)
[2017-07-24 10:26] LABS: ALANINE AMINOTRANSFERASE 34 U/L (9-52); ALBUMIN 3.1 g/dL (3.5-5.0); ALKALINE PHOSPHATASE 154 U/L (38-126); ANION GAP 18 (5-19); ASPARTATE AMINO TRANSFERASE 31 U/L (14-36); BILIRUBIN,DIRECT 0.5 mg/dL (0.0-0.4); BILIRUBIN,TOTAL 0.6 mg/dL (0.2-1.3); BLOOD UREA NITROGEN 5 mg/dL (7-20); CALCIUM 8.7 mg/dL (8.4-10.2); CARBON DIOXIDE 17 mmol/L (22-30); CHLORIDE 104 mmol/L (98-107); CREATININE RESULT 0.54 mg/dL (0.52-1.25); GLUCOSE 51 mg/dL (75-110); LIPASE 1088.4 U/L (23-300); POTASSIUM 3.2 mmol/L (3.6-5.0); SODIUM 138.5 mmol/L (137-145); TOTAL PROTEIN 6.1 g/dL (6.3-8.2)
--- NOTE | 2017-07-24 10:34 | ER Document Report ---
Doctor's Note Notes: 07/24/17 10:31 Reevaluation: Chart reviewed and patient interviewed briefly. Vital signs remained stable. Repeat laboratory values are pending. Patient states her pain is adequately controlled with morphine, but tends to recur when the morphine wears off. Likewise, the nausea has been recurrent and is adequately managed with Phenergan. She appears to be in no distress. Contact has been made with the transfer center at [facility], and they are optimistic that transfer can be accomplished sometime today.
[2017-07-24] MEDS ORDERED: DEXTROSE 5%-NORMAL SALINE 1,000 ML IV PRN (10:44)
[2017-07-24 11:15] VITALS: BP 127/76
--- NOTE | 2017-07-24 16:13 | ER Document Report ---
Doctor's Note Notes: 07/24/17 13:32 Patient resting comfortably on stretcher's, vital signs have been stable, labs today show slight decrease in her lipase, she reports that she is not feeling much better at this point in time, transport team is in the department to transport patient to tertiary [facility], patient remained stable for transport
[2017-07-27 12:03] LABS: LEVETIRACETAM (KEPPRA) 4.4 ug/mL (10.0-40.0)
== END 2017-07-24 15:54 | disposition short-term general hospital (02) ==
LOC: ER 14:18
DX: K85.90 Acute pancreatitis without necrosis or infection, unspecified (principal); R11.10 Vomiting, unspecified; R10.9 Unspecified abdominal pain; Z93.3 Colostomy status; Z88.0 Allergy status to penicillin; Z90.49 Acquired absence of other specified parts of digestive tract; Z90.710 Acquired absence of both cervix and uterus; Z85.038 Personal history of other malignant neoplasm of large intestine
CPT/HCPCS: 96376; 99285; 96361; 96374; 96375; 36415; 80177; 83690; 85025; 80053; 80175; 81001; 74177; J1200; J2270 ×3; A9270 ×12; J2550 ×3; J7030 ×3; J3490

== ENCOUNTER → 2017-09-29 | Outpatient (CLI) | payer MEDICARE, MEDICAID ==
--- NOTE | 2017-09-29 12:59 | RADIOLOGY REPORT (SQ) ---
EXAM DESCRIPTION: CHEST PA/LAT COMPLETED DATE/TIME: 09/29/2017 11:56 am REASON FOR STUDY: R06.02 SHORTNESS OF BREATH COMPARISON: Prior chest films 01/26/2016, 01/27/2016, 07/29/2016 EXAM PARAMETERS: NUMBER OF VIEWS: two views TECHNIQUE: Digital Frontal and Lateral radiographic views of the chest acquired. RADIATION DOSE: NA LIMITATIONS: none FINDINGS: LUNGS AND PLEURA: No opacities, masses or pneumothorax. No pleural effusion. MEDIASTINUM AND HILAR STRUCTURES: No masses or contour abnormalities. HEART AND VASCULAR STRUCTURES: Heart normal size. No evidence for failure. BONES: No acute findings. HARDWARE: Left-sided neurostimulator battery pack and leads over the left chest. Right-sided perman ent central line tip superior vena cava. OTHER: No other significant finding. IMPRESSION: No acute findings TECHNICAL DOCUMENTATION: JOB ID: [id number] [employer]- All Rights Reserved
== END ==
LOC: RAD 11:37
PROVIDERS: ATTEND Physician Assistant
DX: R06.02 Shortness of breath (principal)
CPT/HCPCS: 71020

== ENCOUNTER → 2017-12-28 | Outpatient (CLI) | payer MEDICARE, MEDICAID ==
[2017-12-28 10:45] LABS: ABSOLUTE EOSINOPHILS # (AUTO) 0.1 10^3/uL (0.0-0.6); ABSOLUTE LYMPHOCYTES (AUTO) 1.3 10^3/uL (0.5-4.7); ABSOLUTE MONOCYTES (AUTO) 0.3 10^3/uL (0.1-1.4); ABSOLUTE NEUT (AUTO) 3.4 10^3/uL (1.7-8.2); BASOPHILS % (AUTO) 0.8 % (0-2); EOSINOPHILS % (AUTO) 2.2 % (0-6); HEMATOCRIT 39.1 % (36.0-47.0); HEMOGLOBIN 13.1 g/dL (12.0-15.5); LYMPHOCYTES % (AUTO) 25.6 % (13-45); MEAN CORPUSCULAR HEMOGLOBIN 32.5 pg (27.0-33.4); MEAN CORPUSCULAR HGB CONC 33.5 g/dL (32.0-36.0); MEAN CORPUSCULAR VOLUME 97 fl (80-97); MONOCYTES % (AUTO) 5.8 % (3-13); PLATELET COUNT 244 10^3/uL (150-450); RED BLOOD COUNT 4.02 10^6/uL (3.72-5.28); RED CELL DISTRIBUTION WIDTH 13.6 % (11.5-14.0); SEGMENTED NEUTROPHILS % (AUTO) 65.6 % (42-78); TOTAL CELLS COUNTED % (AUTO) 100 %; WHITE BLOOD COUNT 5.1 10^3/uL (4.0-10.5)
[2017-12-28 11:16] LABS: ALANINE AMINOTRANSFERASE 55 U/L (9-52); ALKALINE PHOSPHATASE 124 U/L (38-126); ANION GAP 10 (5-19); ASPARTATE AMINO TRANSFERASE 52 U/L (14-36); BILIRUBIN,DIRECT 0.3 mg/dL (0.0-0.4); BILIRUBIN,TOTAL 0.3 mg/dL (0.2-1.3); BLOOD UREA NITROGEN 13 mg/dL (7-20); CALCIUM 9.5 mg/dL (8.4-10.2); CARBON DIOXIDE 25 mmol/L (22-30); CHLORIDE 110 mmol/L (98-107); GLUCOSE 94 mg/dL (75-110); IRON 131.6 ug/dL (37-170); POTASSIUM 4.1 mmol/L (3.6-5.0); SODIUM 144.9 mmol/L (137-145); TOTAL PROTEIN 7.2 g/dL (6.3-8.2)
--- NOTE | 2017-12-28 11:33 | RADIOLOGY REPORT (SQ) ---
EXAM DESCRIPTION: CTA NECK; CTA HEAD COMPLETED DATE/TIME: 12/28/2017 11:09 am REASON FOR STUDY: DIZZINESS AND GIDDINESS (R42) R42 DIZZINESS AND GIDDINESS G25.81 RESTLESS LEGS S YNDROME COMPARISON: [address] brain exams 2007, most recently 06/15/[address] cervical spine exams since 2007 TECHNIQUE: Axial dynamic scanning technique with dynamic contrast enhancement through the extra-auto crane driver nial carotid and vertebral arteries. Multiplanar reconstruction. 3-D MIPS and Volume-rendered imag es acquired at the workstation and saved to PACS. Images are reviewed in soft tissue, bone, lung w indows. Axial dynamic scanning technique with dynamic contrast enhancement through the intracranial [place] W illis. Multiplanar reconstruction. 3-D MIPS and Volume-rendered images acquired at the workstation and saved to PACS. All CT scanners at this facility use dose modulation, iterative reconstruction, and/or weight based d osing when appropriate to reduce radiation dose to as low as reasonably achievable (ALARA). [facility]: Dose Right [facility]: CareDose [facility]: Dose Right [facility]: Teradose 4D [facility]: Conecta 2 CONTRAST TYPE AND DOSE: contrast/concentration: Isovue 370.00 mg/ml; Total Contrast Delivered: 80.0 ml; Total Saline Delivered: 74.9 ml RENAL FUNCTION: Creatinine 0.8 LIMITATIONS: None. FINDINGS: AORTIC ARCH: Normal three-vessel origin. Bilateral subclavian arteries are patent. No d issection. RIGHT CAROTIDS: Patent common, internal and external carotid arteries without suggestion of significa nt stenosis or irregular plaque. No dissection. RIGHT VERTEBRAL: Patent. No dissection. LEFT CAROTIDS: Patent common, internal and external carotid arteries without suggestion of significan t stenosis or irregular plaque. No dissection. LEFT VERTEBRAL: Patent. No dissection. [place]: No [place] stenosis, vascular malformation, or aneurysm. OTHER: No abnormal brain parenchymal enhancement. Ventricles and extra-axial CSF spaces are normal. There are atelectasis scalp over the left frontal region and bilateral occipital regions. Neck soft tissues are unremarkable. Major salivary glands are normal. Set naso, kye, hypopharynx no rmal. No adenopathy. Normal cervical spine. Normal lung apices. Right-sided permanent central line tip in the superior vena cava. Left upper chest battery pack for electrodes. OTHER: 3-D reconstructions confirm findings. IMPRESSION: NORMAL CTA OF THE [place] AND EXTRA-CRANIAL CAROTID AND VERTEBRAL ARTERIES. COMMENT: Quality ID #195: Measurements of distal internal carotid diameter were used as the denomina tor for stenosis measurement. TECHNICAL DOCUMENTATION: JOB ID: [id number] Quality ID # 436: Final reports with documentation of one or more dose reduction techniques (e.g., Au tomated exposure control, adjustment of the mA and/or kV according to patient size, use of iterative reconstruction technique) 2010 [employer]- All Rights Reserved Reading location - IP/workstation name: [facility]
--- NOTE | 2017-12-28 11:33 | RADIOLOGY REPORT (SQ) ---
EXAM DESCRIPTION: CTA NECK; CTA HEAD COMPLETED DATE/TIME: 12/28/2017 11:09 am REASON FOR STUDY: DIZZINESS AND GIDDINESS (R42) R42 DIZZINESS AND GIDDINESS G25.81 RESTLESS LEGS S YNDROME COMPARISON: [address] brain exams 2007, most recently 06/15/[address] cervical spine exams since 2007 TECHNIQUE: Axial dynamic scanning technique with dynamic contrast enhancement through the extra-aircraft parts assembler nial carotid and vertebral arteries. Multiplanar reconstruction. 3-D MIPS and Volume-rendered imag es acquired at the workstation and saved to PACS. Images are reviewed in soft tissue, bone, lung w indows. Axial dynamic scanning technique with dynamic contrast enhancement through the intracranial [place] W illis. Multiplanar reconstruction. 3-D MIPS and Volume-rendered images acquired at the workstation and saved to PACS. All CT scanners at this facility use dose modulation, iterative reconstruction, and/or weight based d osing when appropriate to reduce radiation dose to as low as reasonably achievable (ALARA). [facility]: Dose Right [facility]: CareDose [facility]: Dose Right [facility]: Teradose 4D [facility]: Proxible CONTRAST TYPE AND DOSE: contrast/concentration: Isovue 370.00 mg/ml; Total Contrast Delivered: 80.0 ml; Total Saline Delivered: 74.9 ml RENAL FUNCTION: Creatinine 0.8 LIMITATIONS: None. FINDINGS: AORTIC ARCH: Normal three-vessel origin. Bilateral subclavian arteries are patent. No d issection. RIGHT CAROTIDS: Patent common, internal and external carotid arteries without suggestion of significa nt stenosis or irregular plaque. No dissection. RIGHT VERTEBRAL: Patent. No dissection. LEFT CAROTIDS: Patent common, internal and external carotid arteries without suggestion of significan t stenosis or irregular plaque. No dissection. LEFT VERTEBRAL: Patent. No dissection. [place]: No [place] stenosis, vascular malformation, or aneurysm. OTHER: No abnormal brain parenchymal enhancement. Ventricles and extra-axial CSF spaces are normal. There are atelectasis scalp over the left frontal region and bilateral occipital regions. Neck soft tissues are unremarkable. Major salivary glands are normal. Set naso, kye, hypopharynx no rmal. No adenopathy. Normal cervical spine. Normal lung apices. Right-sided permanent central line tip in the superior vena cava. Left upper chest battery pack for electrodes. OTHER: 3-D reconstructions confirm findings. IMPRESSION: NORMAL CTA OF THE [place] AND EXTRA-CRANIAL CAROTID AND VERTEBRAL ARTERIES. COMMENT: Quality ID #195: Measurements of distal internal carotid diameter were used as the denomina tor for stenosis measurement. TECHNICAL DOCUMENTATION: JOB ID: [id number] Quality ID # 436: Final reports with documentation of one or more dose reduction techniques (e.g., Au tomated exposure control, adjustment of the mA and/or kV according to patient size, use of iterative reconstruction technique) 2010 [employer]- All Rights Reserved Reading location - IP/workstation name: [facility]
== END ==
LOC: RAD 09:29
PROVIDERS: ATTEND Psychiatry & Neurology Neurology
DX: G25.81 Restless legs syndrome (principal); G40.909 Epilepsy, unspecified, not intractable, without status epilepticus; R06.02 Shortness of breath; R42 Dizziness and giddiness
CPT/HCPCS: 36415; 70496; 70498; 80053; 82565; 83540; 84443; 85025

== ENCOUNTER 2018-03-05 13:22 | Observation (INO) | payer MEDICARE, MEDICAID ==
[2018-03-05] MEDS ORDERED: ASPIRIN 81 MG TABLET, CHEWABLE PO ONE (13:28)
--- NOTE | 2018-03-05 13:28 | ER Document Report ---
ED General - General Stated Complaint: CHEST PAIN Time Seen by Provider: 03/05/18 13:28 Mode of Arrival: Medic Information source: Patient TRAVEL OUTSIDE OF THE [place] IN LAST 30 DAYS: No - HPI Notes: 57-year-old female with a past medical history of seizures, CVA ileostomy presents to the emergency room via EMS today for complaints of left-sided chest pain with nausea that radiated to left arm and shot through her back while she was at religious approximately 3 hours ago, pain lasted for approximately 20 minutes. Reports pain is subsided. 324 baby aspirin was given in the ambulance. Reports pain was sharp and sudden with onset. Denies any trauma. Patient states she was sitting when the pain had occurred. Denies any shortness of breath. Patient denies any new medications. Patient does not take a baby aspirin. patient was recently consulted with Dr. So, cardiology, where she had a stress test is done last year however she is not sure of the results. Patient is a poor historian. Denies fevers, chills, palpitations, shortness of breath, dyspnea, vomiting, diarrhea, abdominal pain , hematuria,blurred vision, double vision, loss of vision, speech changes, LH, dizziness, syncope, headaches, wheezing, ST, URI, neck pain, weakness, bowel or bladder dysfunction, saddle anesthesia, numbness or tingling in bilateral upper or lower extremities equally, muscle paralysis, weakness in bilateral upper or lower extremities equally or rash. Denies IV drug use. - Related Data Allergies/Adverse Reactions: Penicillins Allergy (Severe, Verified 03/05/18 14:50) RASH, DIFFICULTY BREATHING prochlorperazine maleate [From Compazine] Adverse Reaction (Severe, Verified 14:50) VIOLENT BEHAVIOR haloperidol [From Haldol] Adverse Reaction (Intermediate, Verified 03/05/18 14: 50) Hyperactivity, HEADACHE metoclopramide HCl [From Reglan] Adverse Reaction (Intermediate, Verified 14:50) Hyperactivity ondansetron HCl [From Zofran] Adverse Reaction (Intermediate, Verified 03/05/18 14:50) VOMITING zolpidem [From Ambien] Adverse Reaction (Intermediate, Verified 03/05/18 14:50) SLEEP WALKING diazepam [From Valium] Adverse Reaction (Mild, Verified 03/05/18 14:50) CONFUSION,UNCOOPERATIVE Past Medical History - General Information source: Patient - Social History Smoking Status: Unknown if Ever Smoked Family History: Reviewed & Not Pertinent, Hypertension, Other - Past Medical History Cardiac Medical History: Denies: Hx Coronary Artery Disease, Hx Heart Attack, Hx Hypertension Pulmonary Medical History: Denies: Hx Asthma, Hx Bronchitis, Hx COPD, Hx Pneumonia Neurological Medical History: Reports: Hx Migraine, Hx Seizures - Last one 12 yrs ago. Denies: Hx Cerebrovascular Accident Renal/ Medical History: Denies: Hx Peritoneal Dialysis Malignancy Medical History: Reports: Hx Colorectal Cancer - Status post chemoirradiation and complete colectomy Musculoskeltal Medical History: Reports Hx Arthritis - Back, Reports Hx Musculoskeletal Trauma Skin Medical History: Reports Hx Cellulitis Psychiatric Medical History: Reports: Hx Anxiety, Hx Depression Traumatic Medical History: Reports: Hx Fractures Past Surgical History: Reports: Hx Appendectomy, Hx Cholecystectomy, Hx Hysterectomy, Hx Ileostomy, Hx Kidney (Renal Surgery), Hx Neurologic Surgery, Hx Orthopedic Surgery, Hx Tonsillectomy - Immunizations Immunizations up to date: Yes Hx Diphtheria, Pertussis, Tetanus Vaccination: Yes Review of Systems - Review of Systems Constitutional: See HPI EENT: No symptoms reported Cardiovascular: See HPI Respiratory: No symptoms reported Gastrointestinal: No symptoms reported Genitourinary: No symptoms reported Female Genitourinary: No symptoms reported Musculoskeletal: No symptoms reported Skin: No symptoms reported Hematologic/Lymphatic: No symptoms reported Neurological/Psychological: No symptoms reported Physical Exam - Vital signs Vitals: Pulse Ox 98 03/05/18 13:55 - Notes Notes: PHYSICAL EXAMINATION: GENERAL: Well-appearing, well-nourished and in no acute distress. HEAD: Atraumatic, normocephalic. EYES: Pupils equal round and reactive to light, extraocular movements intact, conjunctiva are normal. ENT: Nares patent, oropharynx clear without exudates. Moist mucous membranes. NECK: Normal range of motion, supple without lymphadenopathy LUNGS: Breath sounds clear to auscultation bilaterally and equal. No wheezes rales or rhonchi. HEART: bradycardia, normal rhythm without murmurs ABDOMEN: Soft, nontender, nondistended abdomen. No guarding, no rebound. No masses appreciated. Female : deferred Musculoskeletal: Normal range of motion, no pitting or edema. No cyanosis. NEUROLOGICAL: Cranial nerves grossly intact. Normal speech, normal gait. Normal sensory, motor exams PSYCH: Normal mood, normal affect. SKIN: Warm, Dry, normal turgor, no rashes or lesions noted. Course - Re-evaluation Re-evalutation: 03/05/18 17:41 57-year-old female with a past medical history of seizures CVA, colon cancer with ileostomy presents today for complaints of left-sided chest pain that radiates to left arm that occurred while she was at religious approximately 4 hours ago, sharp pain to left-sided chest with nausea that lasted for approximately 20 minutes, patient was sitting and not exerting herself. Denies any trauma to chest. Patient given 324 an ambulance. Patient has remained bradycardic in sinus rhythm. Cardiac enzymes negative. CBC negative for any leukocytosis, patient does have stable anemia. CMP negative for renal insufficiency hepatic deficiency, electrolytes without disturbances. Patient has remained chest pain-free since arrival to the ER. Patient given Phenergan for nausea, patient states she takes this at home. Patient states she felt a little sleepy from Phenergan. Patient was resting heart rate did go to 42 bpm in normal sinus rhythm. When patient awoke in, heart rate maintained at 50-55 bpm, patient's speech is clear, alert and orientated. On previous review of EKGs, patient has been bradycardic in normal sinus rhythm. EKG negative for STEMI. Consulted with Dr. Papi Branch, hospitalist at 1715, regarding patient's previous history of being evaluated by cardiology where a stress test was performed however patient does not know stress test results, left sided chest pain that radiated down left arm with bradycardia. Will observe overnight for chest pain for unstable angina with bradycardia. - Vital Signs Vital signs: Temp Pulse Resp BP Pulse Ox 9 L 92/58 L 94 03/05/18 16:01 03/05/18 16:09 03/05/18 16:01 - Laboratory Result Diagrams: 03/05/18 14:42 03/05/18 14:42 Laboratory results interpreted by me: 03/05/18 03/05/18 14:42 14:42 RBC 3.55 L Hgb 11.8 L Hct 34.7 L MCV 98 H Eosinophils % 6.1 H Chloride 112 H Carbon Dioxide 21 L AST 41 H Alkaline Phosphatase 134 H - EKG Interpretation by Ga EKG shows normal: Sinus rhythm Rate: Bradycardia Rhythm: NSR Additional EKG results interpreted by me: 03/05/18 16:49 Second EKG shows heart rate 53, normal sinus rhythm. Initial EKG heart rate sinus bradycardia Discharge - Discharge Clinical Impression: Unstable angina Condition: Good Disposition: ADMITTED OBSERVATION Admitting Provider: Hospitalist - Dr. Turpin On[facility] Unit Admitted: Telemetry
[2018-03-05] MEDS ORDERED: PROMETHAZINE HCL INJ 25 MG/1 ML VIAL IV ONE (13:37)
--- NOTE | 2018-03-05 14:22 | RADIOLOGY REPORT (SQ) ---
EXAM DESCRIPTION: CHEST SINGLE VIEW COMPLETED DATE/TIME: 03/05/2018 2:06 pm REASON FOR STUDY: cp COMPARISON: 09/29/2017 NUMBER OF VIEWS: One view. TECHNIQUE: Single frontal radiographic image of the chest acquired. LIMITATIONS: None. FINDINGS: LUNGS AND PLEURA: Subsegmental airspace disease left lower lobe most likely atelectasis. MEDIASTINUM AND HILAR STRUCTURES: Stable heart size and mediastinal structures. HEART AND VASCULAR STRUCTURES: Stable appearance. SUPPORT DEVICES: Appropriate location without change. BONES: No acute findings. OTHER: No other significant finding. IMPRESSION: Atelectasis. TECHNICAL DOCUMENTATION: JOB ID: [id number] [employer]- All Rights Reserved Reading location - IP/workstation name: [email or web address]
--- NOTE | 2018-03-05 14:43 | EKG REPORT ---
SEVERITY:- BORDERLINE ECG - SINUS RHYTHM BORDERLINE T ABNORMALITIES, INFERIOR LEADS : Confirmed by: Panchito Landin MD 05-Mar-2018 14:43:23
[2018-03-05 15:13] LABS: ABSOLUTE BASOPHILS # (AUTO) 0.1 10^3/uL (0.0-0.2); ABSOLUTE EOSINOPHILS # (AUTO) 0.3 10^3/uL (0.0-0.6); ABSOLUTE LYMPHOCYTES (AUTO) 1.8 10^3/uL (0.5-4.7); ABSOLUTE MONOCYTES (AUTO) 0.4 10^3/uL (0.1-1.4); EOSINOPHILS % (AUTO) 6.1 % (0-6); HEMATOCRIT 34.7 % (36.0-47.0); HEMOGLOBIN 11.8 g/dL (12.0-15.5); LYMPHOCYTES % (AUTO) 31.5 % (13-45); MEAN CORPUSCULAR HEMOGLOBIN 33.1 pg (27.0-33.4); MEAN CORPUSCULAR HGB CONC 33.9 g/dL (32.0-36.0); MEAN CORPUSCULAR VOLUME 98 fl (80-97); PLATELET COUNT 224 10^3/uL (150-450); RED BLOOD COUNT 3.55 10^6/uL (3.72-5.28); RED CELL DISTRIBUTION WIDTH 13.5 % (11.5-14.0); SEGMENTED NEUTROPHILS % (AUTO) 54.4 % (42-78); TOTAL CELLS COUNTED % (AUTO) 100 %; WHITE BLOOD COUNT 5.6 10^3/uL (4.0-10.5)
[2018-03-05 15:19] LABS: INTERNATIONAL RATION (INR) 0.94; PROTHROMBIN TIME 13.1 SEC (11.4-15.4)
[2018-03-05 15:20] LABS: ALANINE AMINOTRANSFERASE 42 U/L (9-52); ALBUMIN 3.6 g/dL (3.5-5.0); ALKALINE PHOSPHATASE 134 U/L (38-126); ANION GAP 9 (5-19); ASPARTATE AMINO TRANSFERASE 41 U/L (14-36); BILIRUBIN,DIRECT 0.3 mg/dL (0.0-0.4); BILIRUBIN,TOTAL 0.4 mg/dL (0.2-1.3); BLOOD UREA NITROGEN 12 mg/dL (7-20); CALCIUM 9.2 mg/dL (8.4-10.2); CARBON DIOXIDE 21 mmol/L (22-30); CHLORIDE 112 mmol/L (98-107); CREATINE KINASE 47 U/L (30-135); GLUCOSE 78 mg/dL (75-110); POTASSIUM 4.5 mmol/L (3.6-5.0); SODIUM 142.2 mmol/L (137-145); TOTAL PROTEIN 6.8 g/dL (6.3-8.2)
[2018-03-05 15:32] LABS: CREATINE KINASE MB 0.24 ng/mL (<4.55)
[2018-03-05 15:34] LABS: TROPONIN I < 0.012 ng/mL
[2018-03-05] MEDS: NORMAL SALINE 1000 ML 1,000 ML IV PRN ×2 (16:49→21:51)
--- NOTE | 2018-03-05 18:18 | PDOC H&P ---
History of Present Illness Admission Date/PCP: 03/05/18 17:30 ELIZABETH POWELL PA-C Patient complains of: Chest pain History of Present Illness: ELIZABETH FERRARI is a 57 year old female, with history of CVA, seizure disorder, colon cancer status post ileostomy. She presented to the ED with complaint of chest pain while at [employer]. Radiates up to left jaw. Has had problems with nausea, takes Phenergan. Also has had problems with chest pain, reports had stress test in past but not sure of the result. She does not take nitroglycerin at home. Evaluation in the ED revealed no ischemic changes. Patient treated with aspirin and nitro with some relief. He was referred for admission for further evaluation and to rule out CO. Patient denies palpitations, has some chronic abdominal discomfort, chronic pain syndrome including in the back for which she takes morphine. Denies vomiting, no dysuria , no urinary frequency. Past Medical History Cardiac Medical History: Denies: Coronary Artery Disease, Myocardial Infarction, Hypertension Pulmonary Medical History: Denies: Asthma, Bronchitis, Chronic Obstructive Pulmonary Disease (COPD), Pneumonia Neurological Medical History: Reports: Migraine, Seizures - Last one 12 yrs ago Malignancy Medical History: Reports: Colorectal Cancer - Status post chemoirradiation and complete colectomy Musculoskeltal Medical History: Reports: Arthritis - Back Psychiatric Medical History: Reports: Depression Hematology: Denies: Anemia Past Surgical History Past Surgical History: Reports: Appendectomy, Cholecystectomy, Hysterectomy, Ileostomy, Orthopedic Surgery, Tonsillectomy Social History Smoking Status: Unknown if Ever Smoked Frequency of Alcohol Use: None Hx Recreational Drug Use: No Hx Prescription Drug Abuse: No Family History Family History: Reviewed & Not Pertinent, Hypertension, Other Parental Family History Reviewed: Yes Children Family History Reviewed: Unknown Sibling(s) Family History Reviewed.: Unknown Medication/Allergy Home Medications: Lamotrigine [Lamictal] 200 mg PO BID 10/28/11 Memantine HCl [Namenda 10 mg Tablet] 10 mg PO BID 10/28/11 Propranolol HCl 80 mg PO BID 10/28/11 Topiramate [Topamax] 150 mg PO BID #0 10/28/11 Levetiracetam [Keppra] 250 mg PO BID 02/18/17 Phenobarbital [Phenobarbital 64.8 Mg Tablet] 2 tab PO BID 07/22/17 Allergies/Adverse Reactions: Penicillins Allergy (Severe, Verified 03/05/18 14:50) RASH, DIFFICULTY BREATHING prochlorperazine maleate [From Compazine] Adverse Reaction (Severe, Verified 14:50) VIOLENT BEHAVIOR haloperidol [From Haldol] Adverse Reaction (Intermediate, Verified 03/05/18 14: 50) Hyperactivity, HEADACHE metoclopramide HCl [From Reglan] Adverse Reaction (Intermediate, Verified 14:50) Hyperactivity ondansetron HCl [From Zofran] Adverse Reaction (Intermediate, Verified 03/05/18 14:50) VOMITING zolpidem [From Ambien] Adverse Reaction (Intermediate, Verified 03/05/18 14:50) SLEEP WALKING diazepam [From Valium] Adverse Reaction (Mild, Verified 03/05/18 14:50) CONFUSION,UNCOOPERATIVE Review of Systems Review of Systems: As in HPI. Otherwise patient poor historian. Physical Exam Vital Signs: Temp Pulse Resp BP Pulse Ox 9 L 92/58 L 94 03/05/18 16:01 03/05/18 16:09 03/05/18 16:01 GENERAL: Well-developed, no acute distress HEENT: Normocephalic/atraumatic NECK supple, no JVD CARDIOVASCULAR: RRR, normal S1-S2 LUNGS: CTA bilaterally ABDOMEN: Soft, mild diffuse tenderness, no rebound or guarding, has ileostomy NL bowel sounds EXTREMITIES: No edema, clubbing, cyanosis NEUROLOGICAL: Alert, oriented x 3, no acute weakness Results Laboratory Results: 03/05/18 03/05/18 14:42 14:42 RBC 3.55 L Hgb 11.8 L Hct 34.7 L MCV 98 H Eosinophils % 6.1 H Chloride 112 H Carbon Dioxide 21 L AST 41 H Alkaline Phosphatase 134 H Impressions: Chest X-Ray 03/05/18 13:28 IMPRESSION: Atelectasis. Assessment & Plan - Diagnosis (1) Chest pain Qualifiers: Ischemic chest pain type: unspecified angina pectoris type Is this a current diagnosis for this admission?: Yes Plan: We will admit to 24 hours observation. Check serial troponin to rule out CO. We will treat with nitro, aspirin, O2 if hypoxia. We will order Lexiscan Cardiolite to evaluate for ischemia (2) Chronic pain syndrome Is this a current diagnosis for this admission?: Yes Plan: Resume home medications. (4) Migraine Is this a current diagnosis for this admission?: Yes Plan: Stable. Resume home medications. (5) Seizure disorder Is this a current diagnosis for this admission?: Yes Plan: Resume home meds.
[2018-03-05 18:26] LABS: CREATINE KINASE MB < 0.22 ng/mL (<4.55); TROPONIN I < 0.012 ng/mL
[2018-03-05] MEDS ORDERED: MORPHINE SULFATE IR 30 MG TABLET PO PRN (21:12)
[2018-03-05] MEDS: MEMANTINE HCL 10 MG TABLET PO SCH (21:51)
[2018-03-05] MEDS: PHENOBARBITAL 64.8 MG TABLET PO SCH (21:51)
[2018-03-05] MEDS: LAMOTRIGINE 100 MG TABLET PO SCH (21:51)
[2018-03-05] MEDS: PROPRANOLOL HCL 40 MG TABLET PO SCH (21:51)
[2018-03-05] MEDS: LEVETIRACETAM 500 MG TABLET PO SCH (21:51)
--- NOTE | 2018-03-05 23:22 | EKG REPORT ---
SEVERITY:- ABNORMAL ECG - SINUS BRADYCARDIA NONSPECIFIC T ABNORMALITIES, ANTERIOR LEADS : Confirmed by: Panchito Landin MD 05-Mar-2018 23:22:00
[2018-03-06] MEDS: NITROGLYCERIN 2% OINTMENT 1 GM PACKET TP SCH ×3 (01:46→11:29)
[2018-03-06 07:18] LABS: HEMATOCRIT 32.1 % (36.0-47.0); HEMOGLOBIN 10.8 g/dL (12.0-15.5); MEAN CORPUSCULAR HEMOGLOBIN 33.3 pg (27.0-33.4); MEAN CORPUSCULAR HGB CONC 33.8 g/dL (32.0-36.0); MEAN CORPUSCULAR VOLUME 98 fl (80-97); PLATELET COUNT 192 10^3/uL (150-450); RED BLOOD COUNT 3.26 10^6/uL (3.72-5.28); RED CELL DISTRIBUTION WIDTH 13.5 % (11.5-14.0); WHITE BLOOD COUNT 4.5 10^3/uL (4.0-10.5)
[2018-03-06 07:41] LABS: ANION GAP 9 (5-19); BLOOD UREA NITROGEN 9 mg/dL (7-20); CALCIUM 8.3 mg/dL (8.4-10.2); CARBON DIOXIDE 24 mmol/L (22-30); CHLORIDE 112 mmol/L (98-107); GLUCOSE 80 mg/dL (75-110); POTASSIUM 4.3 mmol/L (3.6-5.0); SODIUM 144.8 mmol/L (137-145)
[2018-03-06 08:33] VITALS: BP 102/55
[2018-03-06] MEDS ORDERED: ENOXAPARIN SODIUM INJ 40 MG/0.4 ML DISP.SYRIN SUBCUT SCH (10:00)
[2018-03-06] MEDS ORDERED: ASPIRIN 81 MG TABLET, ENT COATED PO SCH (10:00)
[2018-03-06] MEDS: MEMANTINE HCL 10 MG TABLET PO SCH (10:25)
[2018-03-06] MEDS: PHENOBARBITAL 64.8 MG TABLET PO SCH (10:25)
[2018-03-06] MEDS: LAMOTRIGINE 100 MG TABLET PO SCH (10:25)
[2018-03-06] MEDS: LEVETIRACETAM 500 MG TABLET PO SCH (10:25)
[2018-03-06] MEDS: PROPRANOLOL HCL 40 MG TABLET PO SCH (10:35)
--- NOTE | 2018-03-06 20:48 | PDOC DISCHARGE SUMMARY ---
General - Admit/Disc Date/PCP Admission Date/Primary Care Provider: 03/05/18 17:30 ELIZABETH POWELL PA-C Discharge Date: 03/06/18 - Discharge Diagnosis (1) Chest pain Is this a current diagnosis for this admission?: Yes (2) Chronic pain syndrome Is this a current diagnosis for this admission?: Yes (4) Migraine Is this a current diagnosis for this admission?: Yes (5) Seizure disorder Is this a current diagnosis for this admission?: Yes - Additional Information Prescriptions: Propranolol HCl 60 mg PO Q12 #60 tablet Home Medications: Lamotrigine [Lamictal] 200 mg PO Q12 10/28/11 Memantine HCl [Namenda 10 mg Tablet] 10 mg PO Q12 10/28/11 Topiramate [Topamax] 150 mg PO Q12 #0 10/28/11 Levetiracetam [Keppra] 250 mg PO Q12 02/18/17 Phenobarbital [Phenobarbital 64.8 mg Tablet] 129.6 mg PO Q12 07/22/17 Aspirin [Ecotrin 81 mg EC Tablet] 81 mg PO DAILY tabec 03/06/18 Diclofenac Sodium [Voltaren] 75 mg PO Q12 03/06/18 Gabapentin [Neurontin 300 mg Capsule] 600 mg PO Q12 03/06/18 Levorphanol Tartrate [Levo-Dromoran] 2 mg PO Q6HP PRN 03/06/18 Morphine Sulfate [Morphine Ir 30 mg Tablet] 30 mg PO Q6HP PRN 03/06/18 Oxycodone HCl [Oxy-Ir 5 mg Tablet] 20 mg PO Q6HP PRN 03/06/18 Propranolol HCl 60 mg PO Q12 #60 tablet 03/06/18 Rizatriptan Benzoate [Maxalt] 10 mg PO ASDIR PRN 03/06/18 History of Present Illness History of Present Illness: Patient admitted after presentation to the ED as in HPI below: ELIZABETH FERRARI is a 57 year old female, with history of CVA, seizure disorder, colon cancer status post ileostomy. She presented to the ED with complaint of chest pain while at [employer]. Radiates up to left jaw. Has had problems with nausea, takes Phenergan. Also has had problems with chest pain, reports had stress test in past but not sure of the result. She does not take nitroglycerin at home. Evaluation in the ED revealed no ischemic changes. Patient treated with aspirin and nitro with some relief. He was referred for admission for further evaluation and to rule out TX. Patient denies palpitations, has some chronic abdominal discomfort, chronic pain syndrome including in the back for which she takes morphine. Denies vomiting, no dysuria , no urinary frequency. Hospital Course Hospital Course: Patient was admitted to the hospitalist service. She ruled out for TX with serial troponin 3. She was bradycardic in the 50s and her propranolol, which she took at 120 mg twice daily, was held. Her chest pain has resolved. I suspect part of her symptoms were secondary to bradycardia from the medication. She states the propranolol was increased to this dose because of her migraines. She admitted that her chest pain symptoms seem related to the increase of the propranolol dose. Lexiscan Cardiolite was ordered, but patient refused to do that today, stating she just had one recently with her dairy supplies sales representative, Dr. oS. She is doing better, no more chest pain, and requesting to be discharged. She will follow-up with her dairy supplies sales representative in 1-3 days. She is also to follow with her PCP within 1 week. She states that she did well with regards to her chest symptoms when she was on propanolol 60 mg twice a day before it was increased to the current dose. She is being discharged on a decreased dose of propanolol at 60 mg every 12 due to bradycardia. Again, she is to follow-up with her pcp in 1 week, and with her [employer] supplies sales representative Dr. Sheikh in 1 to 3 days Physical Exam Vital Signs: Temp Pulse Resp BP Pulse Ox 98.7 F 60 16 102/55 L 100 03/06/18 07:57 03/06/18 07:57 03/06/18 07:57 03/06/18 07:57 03/06/18 07:57 Intake & Output 03/05/18 03/06/18 03/07/18 06:59 06:59 06:59 Intake Total 1422 Balance 1422 Weight 76.9 kg GEN: NAD, well-developed, well-nourished CV: RRR, NL S1S2 LUNGS: CTA bilaterally ABDOMEN Soft, NT, +BS EXTERMITIES: No e/c/c NEURO: Alert, oriented 3, nonfocal Results Laboratory Results: 03/06/18 06:55 03/06/18 06:55 03/06/18 03/06/18 06:55 06:55 WBC 4.5 RBC 3.26 L Hgb 10.8 L Hct 32.1 L MCV 98 H MCH 33.3 MCHC 33.8 RDW 13.5 Plt Count 192 Sodium 144.8 Potassium 4.3 Chloride 112 H Carbon Dioxide 24 Anion Gap 9 BUN 9 Creatinine 0.63 Est GFR ( Amer) > 60 Est GFR (Non-Af Amer) > 60 Glucose 80 Calcium 8.3 L 03/05/18 03/05/18 17:35 17:35 Creatine Kinase 39 CK-MB (CK-2) < 0.22 Troponin I < 0.012 Impressions: Chest X-Ray 03/05/18 13:28 IMPRESSION: Atelectasis. Qualifiers - * PATIENT BEING DISCHARGED WITH ANY OF THE FOLLOWING DIAGNOSIS: No
== END 2018-03-06 14:20 | disposition home or self-care (01) ==
LOC: ER 13:22 → EH 17:30 → 4N 20:00
PROVIDERS: ADMIT Internal Medicine; ATTEND Internal Medicine
DX: R07.9 Chest pain, unspecified (principal); G89.4 Chronic pain syndrome; G43.909 Migraine, unspecified, not intractable, without status migrainosus; G40.909 Epilepsy, unspecified, not intractable, without status epilepticus; R00.1 Bradycardia, unspecified; R11.0 Nausea; Z79.82 Long term (current) use of aspirin; Z79.899 Other long term (current) drug therapy; Z93.2 Ileostomy status; Z85.038 Personal history of other malignant neoplasm of large intestine; Z86.73 Personal history of transient ischemic attack (TIA), and cerebral infarction without residual deficits; Z79.891 Long term (current) use of opiate analgesic; Z90.49 Acquired absence of other specified parts of digestive tract; Z92.21 Personal history of antineoplastic chemotherapy; Z92.3 Personal history of irradiation; Z82.49 Family history of ischemic heart disease and other diseases of the circulatory system; Z90.710 Acquired absence of both cervix and uterus
CPT/HCPCS: 93005; 36591; 99285; 96374; 36415; 82553; 82550; 83690; 85025; 85027; 85610; 85730; 80048; 80053; 84484; 83880; 71045; 93010; G0378 ×3; A9270 ×11; J2550; J3490; J7030; J1642

== ENCOUNTER 2018-04-10 16:38 | Emergency (ER) | payer MEDICARE, MEDICAID ==
[2018-04-10] MEDS ORDERED: METOCLOPRAMIDE HCL INJ/PF 10 MG/2 ML SDV IV ONE (18:05)
[2018-04-10] MEDS ORDERED: NORMAL SALINE 1000 ML 1,000 ML IV ONE (18:05)
[2018-04-10] MEDS ORDERED: DIPHENHYDRAMINE HCL 50 MG/ML VIAL IV ONE (18:06)
[2018-04-10] MEDS ORDERED: FENTANYL CITRATE INJ/PF 100 MCG/2 ML AMPUL IV ONE (18:06)
--- NOTE | 2018-04-10 18:29 | ER Document Report ---
ED Allergic Reaction - General Mode of Arrival: Ambulatory Information source: Patient TRAVEL OUTSIDE OF THE [place] IN LAST 30 DAYS: No <BRI GOLDBERG - Last Filed: 04/10/18 20:41> <CLIVE PEÑA - Last Filed: 04/12/18 19:14> - General Chief Complaint: Allergic Reaction Stated Complaint: POSSIBLE ALLERGIC REACTION Time Seen by Provider: 04/10/18 16:53 Notes: 57 year old female presenting today with complaints of a possible allergic reaction to a shot of rocephin that she was given secondary to pneumonia by her PCP. Patient states she had chest burning and a hot feeling across her chest with an associated headache and shortness of breath. Patient states she was given epinephrine by her PCP prior to arrival here. (BRI GOLDBERG) - Related Data Allergies/Adverse Reactions: Penicillins Allergy (Severe, Verified 03/05/18 14:50) RASH, DIFFICULTY BREATHING prochlorperazine maleate [From Compazine] Adverse Reaction (Severe, Verified 14:50) VIOLENT BEHAVIOR haloperidol [From Haldol] Adverse Reaction (Intermediate, Verified 03/05/18 14: 50) Hyperactivity, HEADACHE metoclopramide HCl [From Reglan] Adverse Reaction (Intermediate, Verified 14:50) Hyperactivity ondansetron HCl [From Zofran] Adverse Reaction (Intermediate, Verified 03/05/18 14:50) VOMITING zolpidem [From Ambien] Adverse Reaction (Intermediate, Verified 03/05/18 14:50) SLEEP WALKING diazepam [From Valium] Adverse Reaction (Mild, Verified 03/05/18 14:50) CONFUSION,UNCOOPERATIVE Past Medical History - General Information source: Patient - Social History Smoking Status: Former Smoker Cigarette use (# per day): No Chew tobacco use (# tins/day): No Frequency of alcohol use: None Drug Abuse: None Lives with: Family Family History: Reviewed & Not Pertinent, Hypertension, Other Patient has suicidal ideation: No Patient has homicidal ideation: No Neurological Medical History: Reports: Hx Migraine, Hx Seizures - Last one 12 yrs ago Malignancy Medical History: Reports: Hx Colorectal Cancer - Status post chemoirradiation and complete colectomy Musculoskeltal Medical History: Reports Hx Arthritis - Back, Reports Hx Musculoskeletal Trauma Skin Medical History: Reports Hx Cellulitis Psychiatric Medical History: Reports: Hx Anxiety, Hx Depression Traumatic Medical History: Reports: Hx Fractures Past Surgical History: Reports: Hx Appendectomy, Hx Cholecystectomy, Hx Hysterectomy, Hx Ileostomy, Hx Kidney (Renal Surgery), Hx Neurologic Surgery, Hx Orthopedic Surgery, Hx Tonsillectomy - Immunizations Immunizations up to date: Yes Hx Diphtheria, Pertussis, Tetanus Vaccination: Yes <BRI GOLDBERG - Last Filed: 04/10/18 20:41> Review of Systems - Review of Systems Constitutional: No symptoms reported EENT: denies: Blurred vision, Double vision Cardiovascular: No symptoms reported Respiratory: See HPI, Short of breath Gastrointestinal: No symptoms reported Genitourinary: No symptoms reported Female Genitourinary: No symptoms reported Musculoskeletal: No symptoms reported Skin: No symptoms reported Hematologic/Lymphatic: No symptoms reported Neurological/Psychological: See HPI, Headaches -: Yes All other systems reviewed and negative <BRI GOLDBERG - Last Filed: 04/10/18 20:41> Physical Exam <BRI GOLDBERG - Last Filed: 04/10/18 20:41> <CLIVE PEÑA - Last Filed: 04/12/18 19:14> - Vital signs Vitals: Temp Pulse Resp BP Pulse Ox 98.5 F 65 20 119/79 98 04/10/18 17:15 04/10/18 17:15 04/10/18 17:15 04/10/18 17:15 04/10/18 17:15 - Notes Notes: Physical Exam: General: Alert, appears well. HEENT: Normocephalic. Atraumatic. PERRL. Extraocular movements intact. Oropharynx clear. Neck: Supple. Non-tender. Respiratory: No respiratory distress. Clear and equal breath sounds bilaterally. Cardiovascular: Regular rate and rhythm. Abdominal: Normal Inspection. Non-tender. No distension. Normal Bowel Sounds. Back: Non-tender. No deformity or step off. Extremities: Moves all four extremities. Upper extremities: Normal inspection. Normal ROM. Lower extremities: Normal inspection. No edema. Normal ROM. Neurological: Normal cognition. AAOx4. Normal speech. Psychological: Normal affect. Normal Mood. Skin: Warm. Dry. Normal color. (BRI GOLDBERG) Course - Laboratory Result Diagrams: 04/10/18 19:04 04/10/18 19:04 <BRI GOLDBERG - Last Filed: 04/10/18 20:41> - Laboratory Result Diagrams: 04/10/18 19:04 04/10/18 19:04 <CLIVE PEÑA - Last Filed: 04/12/18 19:14> - Re-evaluation Re-evalutation: 04/10/18 20:35 Patient's found to have left lower lobe pneumonia. labs within normal limits nonsignificant normal vitals oxygenating in 100% on room air. Will place patient on Levaquin and follow-up with primary care for reevaluation later this week. Return precautions provided. Will treat for community acquired pneumonia. (CLIVE PEÑA) - Vital Signs Vital signs: Temp Pulse Resp BP Pulse Ox 97.5 F 65 18 107/76 99 04/10/18 21:39 04/10/18 17:15 04/10/18 21:39 04/10/18 21:39 04/10/18 21:39 - Laboratory Laboratory results interpreted by me: 04/10/18 04/10/18 19:04 19:04 RBC 3.52 L Hgb 11.3 L Hct 33.8 L AST 43 H Alkaline Phosphatase 223 H Discharge <BRI GOLDBERG - Last Filed: 04/10/18 20:41> <CLIVE PEÑA - Last Filed: 04/12/18 19:14> - Discharge Clinical Impression: Pneumonia Qualifiers: Pneumonia type: due to unspecified organism Laterality: left Lung location: lower lobe of lung Qualified Code(s): J18.1 - Lobar pneumonia, unspecified organism Condition: Good Disposition: HOME, SELF-CARE Prescriptions: Levofloxacin [Levaquin 750 mg Tablet] 750 mg PO DAILY 7 Days #7 tablet Referrals: ELIZABETH POWELL PA-C [Primary Care Provider] - Follow up as needed (Plesae follow- up with your family doctor later this week for reevaluation.) Scribe Attestation: 04/12/18 19:14 I personally performed the services described documentation, reviewed and edited the documentation which was dictated to describe my presence, and it accurately records my words and actions. (CLIVE PEÑA) Scribe Documentation - Scribe Written by Scribe:: Renate Bejarano, [id number] acting as scribe for :: Jesus <BRI GOLDBERG - Last Filed: 04/10/18 20:41>
[2018-04-10] MEDS ORDERED: ALBUTEROL SULFATE HFA (90 MCG/PUFF) 8 GM MDI (1 MDI/ER DISP) IH ONE (18:33)
--- NOTE | 2018-04-10 18:36 | RADIOLOGY REPORT (SQ) ---
EXAM DESCRIPTION: CHEST 2 VIEWS COMPLETED DATE/TIME: 04/10/2018 6:28 pm REASON FOR STUDY: cough congestion COMPARISON: 09/29/2017 EXAM PARAMETERS: NUMBER OF VIEWS: two views TECHNIQUE: Digital Frontal and Lateral radiographic views of the chest acquired. RADIATION DOSE: NA LIMITATIONS: none FINDINGS: LUNGS AND PLEURA: Parenchymal opacity with air bronchograms at the left base. Right lung clear. MEDIASTINUM AND HILAR STRUCTURES: No masses or contour abnormalities. HEART AND VASCULAR STRUCTURES: Heart normal size. No evidence for failure. BONES: No acute findings. HARDWARE: Venous access catheter. Stimulator device. OTHER: No other significant finding. IMPRESSION: Left lower lobe pneumonia. TECHNICAL DOCUMENTATION: JOB ID: [id number] [employer]- All Rights Reserved Reading location - IP/workstation name: [email or web address]
[2018-04-10 19:18] LABS: ABSOLUTE EOSINOPHILS # (AUTO) 0.2 10^3/uL (0.0-0.6); ABSOLUTE MONOCYTES (AUTO) 0.7 10^3/uL (0.1-1.4); ABSOLUTE NEUT (AUTO) 4.7 10^3/uL (1.7-8.2); BASOPHILS % (AUTO) 0.5 % (0-2); EOSINOPHILS % (AUTO) 2.9 % (0-6); HEMATOCRIT 33.8 % (36.0-47.0); HEMOGLOBIN 11.3 g/dL (12.0-15.5); LYMPHOCYTES % (AUTO) 26.2 % (13-45); MEAN CORPUSCULAR HEMOGLOBIN 32.2 pg (27.0-33.4); MEAN CORPUSCULAR HGB CONC 33.5 g/dL (32.0-36.0); MEAN CORPUSCULAR VOLUME 96 fl (80-97); MONOCYTES % (AUTO) 9.4 % (3-13); PLATELET COUNT 348 10^3/uL (150-450); RED BLOOD COUNT 3.52 10^6/uL (3.72-5.28); RED CELL DISTRIBUTION WIDTH 13.2 % (11.5-14.0); TOTAL CELLS COUNTED % (AUTO) 100 %; WHITE BLOOD COUNT 7.7 10^3/uL (4.0-10.5)
[2018-04-10 19:39] LABS: ALANINE AMINOTRANSFERASE 42 U/L (9-52); ALBUMIN 3.9 g/dL (3.5-5.0); ALKALINE PHOSPHATASE 223 U/L (38-126); ANION GAP 11 (5-19); ASPARTATE AMINO TRANSFERASE 43 U/L (14-36); BILIRUBIN,DIRECT 0.3 mg/dL (0.0-0.4); BILIRUBIN,TOTAL 0.3 mg/dL (0.2-1.3); BLOOD UREA NITROGEN 16 mg/dL (7-20); CALCIUM 9.2 mg/dL (8.4-10.2); CARBON DIOXIDE 26 mmol/L (22-30); CHLORIDE 101 mmol/L (98-107); GLUCOSE 85 mg/dL (75-110); POTASSIUM 4.4 mmol/L (3.6-5.0); SODIUM 138.3 mmol/L (137-145); TOTAL PROTEIN 7.5 g/dL (6.3-8.2)
[2018-04-10 21:53] VITALS: BP 107/76
== END 2018-04-10 21:53 | disposition home or self-care (01) ==
LOC: ER 16:38
DX: J18.1 Lobar pneumonia, unspecified organism (principal); R51 Headache; R06.02 Shortness of breath; R20.8 Other disturbances of skin sensation; Z87.891 Personal history of nicotine dependence; Z85.048 Personal history of other malignant neoplasm of rectum, rectosigmoid junction, and anus; Z92.3 Personal history of irradiation; Z92.21 Personal history of antineoplastic chemotherapy; Z88.0 Allergy status to penicillin
CPT/HCPCS: 36591; 99284; 96361; 96374; 96375; 36415; 83735; 85025; 80053; 71046; J1200; J3010; J7030; J3490

== ENCOUNTER 2018-10-30 07:43 | Day surgery (SDC) | payer MEDICARE, MEDICAID ==
[2018-10-30 10:06] VITALS: BP 96/54
--- NOTE | 2018-10-30 13:29 | Operative Report ---
Operative Report DATE OF SURGERY: 10/30/18 Operative Report: The risks, benefits and alternatives of the procedure including the risk of bleeding, perforation requiring surgery have been explained to the patient in detail and informed consent is obtained. The patient is placed in the left, lateral decubital position. Timeout was called. Propofol medication is administered. Colonoscopy was performed through the stoma. The scope was advanced until small intestinal mucosa was noted biopsies are obtained. The risks benefits and alternatives of the procedure explained to the patient in detail and informed consent is obtained.A GIF Olympus video scope was inserted into the patient's mouth and hypopharynx ,the esophagus is identified intubated and insufflated, the scope was then advanced through the esophagus stomach and duodenum ,retroflexion maneuver is done, the esophagus stomach and first and second portions of the duodenum examined. PREOPERATIVE DIAGNOSIS: Change in bowel habits. Epigastric pain POSTOPERATIVE DIAGNOSIS: Ileitis status post biopsy rule out Crohn's disease. Gastritis. Gastric erosions status post biopsy OPERATION: Colonoscopy through stoma with biopsies. EGD with biopsies SURGEON: NELLI VASQUEZ ANESTHESIA: LMAC TISSUE REMOVED OR ALTERED: As noted above. COMPLICATIONS: None. ESTIMATED BLOOD LOSS: None. INTRAOPERATIVE FINDINGS: As noted above. PROCEDURE: Patient tolerated the procedure well. No immediate postprocedure comp occasions are noted. Patient discharged in good condition. Discharge date 10/30/2018. Discharge diet: Regular. Discharge activity: Regular. 2-3-week follow-up to discuss findings. Patient is instructed to call the office or proceed to the emergency room should there be any further problems or questions. I will wait on the pathology.
== END 2018-10-30 09:30 | disposition home or self-care (01) ==
LOC: END 07:43
PROVIDERS: ATTEND Internal Medicine Gastroenterology
DX: K29.50 Unspecified chronic gastritis without bleeding (principal); K52.9 Noninfective gastroenteritis and colitis, unspecified; Z85.038 Personal history of other malignant neoplasm of large intestine; G89.4 Chronic pain syndrome; L40.50 Arthropathic psoriasis, unspecified; G40.909 Epilepsy, unspecified, not intractable, without status epilepticus; Z88.0 Allergy status to penicillin; Z88.8 Allergy status to other drugs, medicaments and biological substances
CPT/HCPCS: 43239; 45380; 88342 ×2; 88305 ×2; J2704

== ENCOUNTER 2018-11-22 18:41 | Inpatient (IN) | payer MEDICARE, MEDICAID ==
[2018-11-22] MEDS ORDERED: METHYLPREDNISOLONE INJ 125 MG/2 ML SDV IV ONE (19:43)
[2018-11-22] MEDS ORDERED: IPRATROPIUM/ALBUTEROL 0.5-2.5 MG/3 ML AMPUL NEB ONE (19:43)
--- NOTE | 2018-11-22 19:45 | ER Document Report ---
ED Medical Screen (RME) - General Chief Complaint: Weakness Stated Complaint: SICK Time Seen by Provider: 11/22/18 19:40 Primary Care Provider: ELIZABETH POWELL PA-C [Primary Care Provider] - Follow up as needed Notes: Chief complaint: Difficulty breathing History of complain:( obtained from----patient) 58 years old female presents today with shortness of breath and wheezing coughing yellow-green sputum for the last few days. PHYSICAL EXAMINATION: GENERAL: Appears in moderate discomfort HEAD: Atraumatic, normocephalic. EYES: Pupils equal round and reactive to light, extraocular movements intact, conjunctiva are normal. ENT: Nares patent, oropharynx clear without exudates. Moist mucous membranes. NECK: Normal range of motion, supple without lymphadenopathy LUNGS: Decreased breath sounds bilaterally. Report air movement. No obvious wheezing heard. HEART: Regular rate and rhythm without murmurs ABDOMEN: Soft, nontender, nondistended abdomen. No guarding, no rebound. No masses appreciated. Examination of genitals-deferred Musculoskeletal: Normal range of motion, no pitting or edema. No cyanosis. NEUROLOGICAL: Cranial nerves grossly intact. Normal speech, normal gait. Normal sensory, motor exams PSYCH: Normal mood, normal affect. SKIN: Warm, Dry, normal turgor, no rashes or lesions noted. Dictation was performed using [employer] voice recognition software TRAVEL OUTSIDE OF THE [place] IN LAST 30 DAYS: No - Related Data Allergies/Adverse Reactions: Penicillins Allergy (Severe, Verified 11/22/18 18:42) RASH, DIFFICULTY BREATHING prochlorperazine maleate [From Compazine] Adverse Reaction (Severe, Verified 11/22/18 18:42) VIOLENT BEHAVIOR haloperidol [From Haldol] Adverse Reaction (Intermediate, Verified 11/22/18 18:42) Hyperactivity, HEADACHE metoclopramide HCl [From Reglan] Adverse Reaction (Intermediate, Verified 11/22/18 18:42) Hyperactivity ondansetron HCl [From Zofran] Adverse Reaction (Intermediate, Verified 11/22/18 18:42) VOMITING zolpidem [From Ambien] Adverse Reaction (Intermediate, Verified 11/22/18 18:42) SLEEP WALKING diazepam [From Valium] Adverse Reaction (Mild, Verified 11/22/18 18:42) CONFUSION,UNCOOPERATIVE Past Medical History - Social History Family history: Reviewed & Not Pertinent - Past Medical History Cardiac Medical History: Denies: Hx Coronary Artery Disease, Hx Heart Attack, Hx Hypertension Pulmonary Medical History: Denies: Hx Asthma, Hx Bronchitis, Hx COPD, Hx Pneumonia Neurological Medical History: Reports: Hx Migraine, Hx Seizures - Last one 12 yrs ago. Denies: Hx Cerebrovascular Accident Renal/ Medical History: Denies: Hx Peritoneal Dialysis Malignancy Medical History: Reports: Hx Colorectal Cancer - Status post chemoirradiation and complete colectomy Musculoskeltal Medical History: Reports Hx Arthritis - PSORIATIC, Reports Hx Musculoskeletal Trauma Skin Medical History: Reports Hx Cellulitis Psychiatric Medical History: Reports: Hx Anxiety, Hx Depression Traumatic Medical History: Reports: Hx Fractures Past Surgical History: Reports: Hx Appendectomy, Hx Cholecystectomy, Hx Hysterectomy, Hx Ileostomy, Hx Kidney (Renal Surgery), Hx Neurologic Surgery, Hx Orthopedic Surgery, Hx Tonsillectomy - Immunizations Immunizations up to date: Yes Hx Diphtheria, Pertussis, Tetanus Vaccination: Yes Physical Exam - Vital signs Vitals: Temp Pulse Resp BP Pulse Ox 98.3 F 92 16 107/79 95 11/22/18 19:21 11/22/18 19:21 11/22/18 19:21 11/22/18 19:21 11/22/18 19:21 Course - Vital Signs Vital signs: Temp Pulse Resp BP Pulse Ox 98.3 F 92 16 107/79 95 11/22/18 19:21 11/22/18 19:21 11/22/18 19:21 11/22/18 19:21 11/22/18 19:21 Doctor's Discharge - Discharge Referrals: ELIZABETH POWELL PA-C [Primary Care Provider] - Follow up as needed
--- NOTE | 2018-11-22 20:26 | RADIOLOGY REPORT (SQ) ---
EXAM DESCRIPTION: XR CHEST 1 VIEW COMPLETED DATE/TME: 11/22/2018 19:44 CLINICAL HISTORY: 58 years, Female, Shortness of breath and wheezing/ COMPARISON: None. NUMBER OF VIEWS: TECHNIQUE: LIMITATIONS: None. FINDINGS: There is possible emphysema. No evidence of acute pulmonary infiltrate or pleural effusion. The heart and mediastinum are unremarkable. There is a right-sided Port-A-Cath, with its tip in the superior vena cava. IMPRESSION: Possible emphysema. copyright 2010 [employer]- All Rights Reserved
[2018-11-22] MEDS: ALBUTEROL SULFATE 0.083% NEB 2.5 MG/3 ML AMPUL NEB SCH ×2 (20:39→23:23)
[2018-11-22] MEDS ORDERED: NORMAL SALINE 1000 ML 1,000 ML IV ONE (22:47)
[2018-11-22] MEDS ORDERED: PROMETHAZINE HCL INJ 25 MG/1 ML VIAL IV ONE (22:53)
[2018-11-22] MEDS ORDERED: METHYLPREDNISOLONE INJ 125 MG/2 ML SDV ONE (23:15)
--- NOTE | 2018-11-23 00:23 | EKG REPORT ---
SEVERITY:- ABNORMAL ECG - SINUS RHYTHM ABNORMAL T, CONSIDER ISCHEMIA, DIFFUSE LEADS : Confirmed by: Marisa Arthur MD 23-Nov-2018 00:22:37
[2018-11-23 00:29] LABS: VENOUS BLOOD BASE EXCESS -6.2 mmol/L; VENOUS BLOOD HCO3 21.3 mmol/L (20-32); VENOUS BLOOD PCO2 49.8 mmHg (35-63); VENOUS BLOOD PH 7.25 (7.30-7.42)
[2018-11-23 00:34] LABS: ABSOLUTE LYMPHOCYTES (AUTO) 1.3 10^3/uL (0.5-4.7); ABSOLUTE MONOCYTES (AUTO) 0.7 10^3/uL (0.1-1.4); BASOPHILS % (AUTO) 0.2 % (0-2); EOSINOPHILS % (AUTO) 0.1 % (0-6); HEMATOCRIT 35.5 % (36.0-47.0); HEMOGLOBIN 12.3 g/dL (12.0-15.5); LYMPHOCYTES % (AUTO) 14.6 % (13-45); MEAN CORPUSCULAR HGB CONC 34.7 g/dL (32.0-36.0); MEAN CORPUSCULAR VOLUME 95 fl (80-97); MONOCYTES % (AUTO) 8.1 % (3-13); PLATELET COUNT 218 10^3/uL (150-450); RED BLOOD COUNT 3.73 10^6/uL (3.72-5.28); RED CELL DISTRIBUTION WIDTH 13.9 % (11.5-14.0); TOTAL CELLS COUNTED % (AUTO) 100 %; WHITE BLOOD COUNT 9.1 10^3/uL (4.0-10.5)
[2018-11-23 00:43] LABS: PROTHROMBIN TIME 13.7 SEC (11.4-15.4)
[2018-11-23 00:57] LABS: ALANINE AMINOTRANSFERASE 34 U/L (9-52); ALBUMIN 3.9 g/dL (3.5-5.0); ALKALINE PHOSPHATASE 172 U/L (38-126); ANION GAP 14 (5-19); ASPARTATE AMINO TRANSFERASE 84 U/L (14-36); BILIRUBIN,TOTAL 0.5 mg/dL (0.2-1.3); BLOOD UREA NITROGEN 48 mg/dL (7-20); CARBON DIOXIDE 20 mmol/L (22-30); CHLORIDE 103 mmol/L (98-107); GLUCOSE 96 mg/dL (75-110); POTASSIUM 3.7 mmol/L (3.6-5.0); SODIUM 137.4 mmol/L (137-145); TOTAL PROTEIN 7.1 g/dL (6.3-8.2)
[2018-11-23 01:06] LABS: ACETAMINOPHEN < 10 ug/mL (10-30); ALCOHOL < 10 mg/dL (NONE DETECTED); SALICYLATE < 1.0 mg/dL (2.0-20.0)
--- NOTE | 2018-11-23 02:03 | RADIOLOGY REPORT (SQ) ---
CT HEAD WITHOUT IV CONTRAST HISTORY: Altered mental status. COMPARISON: None. TECHNIQUE: CT scan of the brain without IV contrast. This exam was performed according to our departmental dose-optimization program, which includes automated exposure control, adjustment of the mA and/or kV according to patient size and/or use of iterative reconstruction technique. FINDINGS: Evaluation of the bifrontal region is limited by overlying streak artifact. The ventricles, cisterns, and sulci are unremarkable. No focal white matter lesions are seen. No evidence of acute infarction, intracranial hemorrhage, extra-axial fluid collection, or midline shift. No air-fluid levels are seen in the paranasal sinuses to suggest acute sinusitis. No depressed skull fracture. IMPRESSION: No acute intracranial findings.
--- NOTE | 2018-11-23 02:06 | RADIOLOGY REPORT (SQ) ---
CT ABDOMEN PELVIS WITH IV CONTRAST HISTORY: Epigastric pain. COMPARISON: 07/22/2017 TECHNIQUE: CT scan of the abdomen and pelvis with IV contrast. This exam was performed according to our departmental dose-optimization program, which includes automated exposure control, adjustment of the mA and/or kV according to patient size and/or use of iterative reconstruction technique. FINDINGS: There is scattered areas of atelectasis/parenchymal scarring in the lower lobes. No pleural or pericardial effusions are seen. There is no hiatal hernia. There has been a prior cholecystectomy. The liver, spleen, pancreas, adrenal glands, and kidneys are unremarkable. No obstructing urinary stones are identified. There has been a prior hysterectomy. A right upper quadrant ostomy is noted. No evidence of small bowel obstruction or parastomal hernia. There has been prior subtotal colectomy and appendectomy. No intraperitoneal free fluid or free air is seen. No acute osseous findings are appreciated. The aorta is normal caliber. IMPRESSION: Prior right upper quadrant ostomy without evidence of parastomal hernia or small bowel obstruction.
[2018-11-23 02:31] LABS: ARTERIAL BLOOD BASE EXCESS -4.7 mmol/L; ARTERIAL BLOOD H2CO3 1.66 mmol/L (1.05-1.35); ARTERIAL BLOOD HCO3 23.1 mmol/L (20-24); ARTERIAL BLOOD O2 SATURATION 25.2 % (94-98); ARTERIAL BLOOD PH 7.24 (7.35-7.45); ARTERIAL BLOOD TOTAL CO2 24.8 mmol/L (21-25)
[2018-11-23 02:32] LABS: ARTERIAL BLOOD FIO2 ROOMAIR
[2018-11-23 02:33] LABS: ARTERIAL BLOOD PO2 20.2 mmHg (80-100)
[2018-11-23] MEDS ORDERED: NALOXONE HCL INJ/PF 0.4 MG/1 ML SDV IV ONE (03:08)
[2018-11-23] MEDS ORDERED: PROMETHAZINE HCL INJ 25 MG/1 ML VIAL ONE (03:31)
--- NOTE | 2018-11-23 03:44 | ER Document Report ---
Entered by BEN ESTRADA SCRIBE 11/22/18 [id number] Acting as scribe for:JAYSON BLACKMAN DO ED General - General Chief Complaint: Weakness Stated Complaint: SICK Time Seen by Provider: 11/22/18 19:40 Mode of Arrival: Ambulatory Information source: Patient Notes: Patient is a 58 year old female with a history of colon cancer (currently in remission) presents the emergency department complaining of multiple symptoms including general malaise, weakness, cough and congestion and confusion onset 2 weeks ago. Patient states she has not felt well for approximately 2 weeks. Son at bedside states the patient has had decreased appetite and weakness further stating the patient has been laying in bed all day for the past week. Son reports having to carry the patient because she is too weak to walk. He also reports confusion onset 1 week ago further stating she is far from baseline. Patient states she has not changed any of her doses of pain medications in several months. States she has not taken any extra doses of any of her pain medications. TRAVEL OUTSIDE OF THE [place] IN LAST 30 DAYS: No - Related Data Allergies/Adverse Reactions: Penicillins Allergy (Severe, Verified 11/22/18 18:42) RASH, DIFFICULTY BREATHING prochlorperazine maleate [From Compazine] Adverse Reaction (Severe, Verified 11/22/18 18:42) VIOLENT BEHAVIOR haloperidol [From Haldol] Adverse Reaction (Intermediate, Verified 11/22/18 18:42) Hyperactivity, HEADACHE metoclopramide HCl [From Reglan] Adverse Reaction (Intermediate, Verified 11/22/18 18:42) Hyperactivity ondansetron HCl [From Zofran] Adverse Reaction (Intermediate, Verified 11/22/18 18:42) VOMITING zolpidem [From Ambien] Adverse Reaction (Intermediate, Verified 11/22/18 18:42) SLEEP WALKING diazepam [From Valium] Adverse Reaction (Mild, Verified 11/22/18 18:42) CONFUSION,UNCOOPERATIVE Past Medical History - General Information source: Patient, Relative - Social History Smoking Status: Never Smoker Chew tobacco use (# tins/day): No Frequency of alcohol use: None Drug Abuse: None Family History: Reviewed & Not Pertinent, Hypertension, Other Patient has suicidal ideation: No Patient has homicidal ideation: No Neurological Medical History: Reports: Hx Migraine, Hx Seizures - Last one 12 yrs ago Malignancy Medical History: Reports: Hx Colorectal Cancer - Status post chemoirradiation and complete colectomy Musculoskeletal Medical History: Reports Hx Arthritis - PSORIATIC, Reports Hx Musculoskeletal Trauma Skin Medical History: Reports Hx Cellulitis Psychiatric Medical History: Reports: Hx Anxiety, Hx Depression Traumatic Medical History: Reports: Hx Fractures Past Surgical History: Reports: Hx Appendectomy, Hx Cholecystectomy, Hx Hysterectomy, Hx Ileostomy, Hx Kidney (Renal Surgery), Hx Neurologic Surgery, Hx Orthopedic Surgery, Hx Tonsillectomy - Immunizations Immunizations up to date: Yes Hx Diphtheria, Pertussis, Tetanus Vaccination: Yes Review of Systems - Review of Systems Constitutional: See HPI, Malaise, Weakness EENT: No symptoms reported Cardiovascular: See HPI, Dizziness Respiratory: See HPI, Cough Gastrointestinal: See HPI, Nausea Genitourinary: No symptoms reported Female Genitourinary: No symptoms reported Musculoskeletal: No symptoms reported Skin: No symptoms reported Hematologic/Lymphatic: No symptoms reported Neurological/Psychological: No symptoms reported -: Yes All other systems reviewed and negative Physical Exam - Vital signs Vitals: Temp Pulse Resp BP Pulse Ox 98.3 F 92 16 107/79 95 11/22/18 19:21 11/22/18 19:21 11/22/18 19:21 11/22/18 19:21 11/22/18 19:21 - Notes Notes: GENERAL: Awake, repetitive questioning, slow to respond, vacant gaze. No acute distress. HEAD: Normocephalic, atraumatic. EYES: Pupils equal, round, and reactive to light. Extraocular movements intact. ENT: Oral mucosa moist, tongue midline. NECK: Full range of motion. Supple. Trachea midline. LUNGS: Clear to auscultation bilaterally, no wheezes, rales, or rhonchi. No respiratory distress. HEART: Regular rate and rhythm. No murmurs, gallops, or rubs. ABDOMEN: Soft, tender to palpation to the epigastrum, ostomy in RUQ draining brown liquid. Non-distended. Bowel sounds present in all 4 quadrants. EXTREMITIES: Moves all 4 extremities spontaneously. No edema, radial and dorsalis pedis pulses 2/4 bilaterally. No cyanosis. NEUROLOGICAL: Awake and oriented to person and place, initially states the year is 2021 although she states the President is Trump. Repetitive questions, slow to respond, vacant gaze. Normal speech. Cranial nerves II through XII grossly intact. Biceps and patellar DTRs 2+ bilaterally. No focal deficits, no facial droop. PSYCH: Flat affect, appears somewhat suspicious SKIN: Warm, dry, normal turgor. No rashes or lesions noted. Course - Re-evaluation Re-evalutation: 11/23/18 03:41 CBC unremarkable, coags unremarkable, CMP shows acute renal failure with a BUN of 48 and creatinine of 1.7, lactic acid is normal, total and direct bilirubin are normal, ammonia is normal, test is negative, salicylates, acetaminophen and alcohol are on undetectable. Lamictal level is pending. Chest x-ray shows emphysema despite the fact that the patient has never smoked and does not have a significant occupational history or exposure to secondhand smoke. Venous blood gas shows acidosis with a pH of 7.25, this is likely metabolic as her PCO2 is 49.8. I do not have any source for a metabolic acidosis at this time. I did perform a CT scan of the head considering her altered mental status, generalized weakness and repetitive questioning and confusion, this was negative for any acute process. I also performed a CT scan of the abdomen pelvis given her epigastric tenderness to palpation, this was negative for acute process although it does show sequelae of multiple surgeries including cholecystectomy, hysterectomy, appendectomy and subtotal colectomy. I then discussed this case with Dr. Craft the hospitalist generation mechanic helper who requested that we do a trial of Narcan 0.4 mg IV given her large doses of narcotic pain medications. Patient became quite symptomatic, is vomiting, has rhinorrhea, is yawning and is complaining of abdominal pain and muscle cramping. Patient has been given Phenergan 25 mg IV to help control her vomiting. Narcan should hopefully be wearing off shortly. Buildup of narcotics in her system does not appear to be the cause of her alteration in mental status. Discussed the patient with Dr. Craft again who accepts the patient to his service on the telemetry care unit in observation status. Requests thyroid functions and a random cortisol level. - Vital Signs Vital signs: Temp Pulse Resp BP Pulse Ox 98.4 F 92 14 111/64 96 11/23/18 02:01 11/22/18 19:21 11/23/18 03:01 11/23/18 03:01 11/23/18 03:01 - Laboratory Result Diagrams: 11/23/18 00:10 11/23/18 00:10 Laboratory results interpreted by me: 11/23/18 11/23/18 11/23/18 00:10 00:10 00:10 Hct 35.5 L Carbonic Acid ABG pH ABG pCO2 ABG pO2 ABG O2 Saturation VBG pH Carbon Dioxide 20 L BUN 48 H Creatinine 1.70 H Est GFR ( Amer) 38 L Est GFR (Non-Af Amer) 31 L Lactic Acid 0.6 L Calcium 8.0 L AST 84 H Alkaline Phosphatase 172 H Salicylates Acetaminophen 11/23/18 11/23/18 11/23/18 00:10 00:10 01:50 Hct Carbonic Acid 1.66 H ABG pH 7.24 L ABG pCO2 55.0 H ABG pO2 20.2 L* ABG O2 Saturation 25.2 L VBG pH 7.25 L Carbon Dioxide BUN Creatinine Est GFR ( Amer) Est GFR (Non-Af Amer) Lactic Acid Calcium AST Alkaline Phosphatase Salicylates < 1.0 L Acetaminophen < 10 L - EKG Interpretation by Me Additional EKG results interpreted by me: 11/23/18 03:43 EKG shows sinus rhythm at a rate of 71, normal axis, normal intervals, no ST segment elevations, there is slight ST segment depressions in 2, 3, aVF, V3 and V4 with associated T wave inversions in 3, aVF, V1 through V4 which are un changed from prior EKG on 03/05/2018 per my interpretation. Discharge - Discharge Clinical Impression: Metabolic acidosis, History of colon cancer, Chronic pain syndrome Altered mental status Qualifiers: Altered mental status type: disorientation Qualified Code(s): R41.0 - Disorientation, unspecified Condition: Fair Disposition: ADMITTED OBSERVATION Admitting Provider: Hospitalist - [facility] Unit Admitted: Telemetry Scribe Attestation: 11/23/18 04:30 I personally performed the services described in the documentation, reviewed and edited the documentation which was dictated to the scribe in my presence, and it accurately records my words and actions. I personally performed the services described in the documentation, reviewed and edited the documentation which was dictated to the scribe in my presence, and it accurately records my words and actions.
[2018-11-23 03:45] LABS: FREE T3 3.95 pg/mL (2.77-5.27); FREE T4 (FREE THYROXINE) 1.95 ng/dL (0.78-2.19)
[2018-11-23] MEDS ORDERED: PROMETHAZINE HCL INJ 25 MG/1 ML VIAL IV ONE (03:52)
[2018-11-23 03:59] LABS: THYROID STIMULATING HORMONE 0.85 uIU/mL (0.47-4.68)
[2018-11-23] MEDS ORDERED: MAG HYDROX/AL HYDROX/SIMETH SUSP 30 ML UDCUP PO PRN (04:12)
[2018-11-23] MEDS ORDERED: ONDANSETRON 4 MG TAB.RAPDIS PO PRN (04:12)
[2018-11-23] MEDS ORDERED: ACETAMINOPHEN 325 MG TABLET PO PRN (04:12)
[2018-11-23] MEDS ORDERED: IPRATROPIUM/ALBUTEROL 0.5-2.5 MG/3 ML AMPUL NEB PRN (04:12)
[2018-11-23] MEDS ORDERED: MAGNESIUM HYDROXIDE SUSP 30 ML UDCUP PO PRN (04:12)
[2018-11-23 04:36] LABS: PHOSPHORUS 3.2 mg/dL (2.5-4.5)
[2018-11-23 05:02] LABS: CREATINE KINASE MB 9.09 ng/mL (<4.55); TROPONIN I < 0.012 ng/mL
[2018-11-23] MEDS: HEPARIN SOD (PORCINE) 5,000 UNIT/ML 1 ML SYRINGE SUBCUT SCH ×3 (06:02→21:59)
[2018-11-23] MEDS: NORMAL SALINE 1000 ML 1,000 ML IV PRN ×2 (06:17→08:35)
--- NOTE | 2018-11-23 06:31 | PDOC H&P ---
History of Present Illness Admission Date/PCP: 11/23/18 03:49 ELIZABETH POWELL PA-C Patient complains of: Shortness of breath and chest pain History of Present Illness: ELIZABETH FERRARI is a 58 year old female with a past medical history of colon cancer status post ileostomy, dementia, CVA, seizure disorder last greater than 10 years ago, depression, and opiate dependent chronic pain. She presents with several days of upper respiratory complaints, chest pain, shortness of breath, falls and fatigue. In the emergency room she is found hypotensive with expressive aphasia and to appearing sedated prompting a trial of Narcan 0.4 resulting in immediate withdrawal symptoms. She is subsequently more alert and responsive but repeating the same answer despite different questions. She is a very poor historian but is able to deny recent change in medications. Her workup reveals acute renal failure and rhabdomyolysis. She receives an IV fluid challenge and referred to the hospitalist for admission. Patient refuses urine sample, calls to her son go to voicemail. Past Medical History Cardiac Medical History: Denies: Coronary Artery Disease, Myocardial Infarction, Hypertension Pulmonary Medical History: Denies: Asthma, Bronchitis, Chronic Obstructive Pulmonary Disease (COPD), Pneumonia Neurological Medical History: Reports: Migraine, Seizures - Last one 12 yrs ago Malignancy Medical History: Reports: Colorectal Cancer - Status post chem oirradiation and complete colectomy Musculoskeltal Medical History: Reports: Arthritis - PSORIATIC Psychiatric Medical History: Reports: Depression Hematology: Denies: Anemia Past Surgical History Past Surgical History: Reports: Appendectomy, Cholecystectomy, Hysterectomy, Ileostomy, Orthopedic Surgery, Tonsillectomy Social History Information Source: Patient, Emergency Med Personnel, [facility] Records Lives with: Family Smoking Status: Never Smoker Frequency of Alcohol Use: None Hx Recreational Drug Use: No Drugs: None Hx Prescription Drug Abuse: No - Advance Directive Resuscitation Status: Full Code Family History Family History: Hypertension, Other Parental Family History Reviewed: Yes Children Family History Reviewed: Yes Sibling(s) Family History Reviewed.: Yes Medication/Allergy Home Medications: Lamotrigine [Lamictal] 200 mg PO Q12 10/28/11 Memantine HCl [Namenda 10 mg Tablet] 10 mg PO Q12 10/28/11 Topiramate [Topamax] 150 mg PO Q12 #0 10/28/11 Levetiracetam [Keppra] 250 mg PO Q12 02/18/17 Phenobarbital [Phenobarbital 64.8 mg Tablet] 129.6 mg PO Q12 07/22/17 Diclofenac Sodium [Voltaren] 75 mg PO Q12 03/06/18 Gabapentin [Neurontin 300 mg Capsule] 600 mg PO Q12 03/06/18 Levorphanol Tartrate [Levo-Dromoran] 2 mg PO QID 03/06/18 Morphine Sulfate [Morphine Ir 30 mg Tablet] 30 mg PO QID 03/06/18 Oxycodone HCl [Oxy-Ir 5 mg Tablet] 20 mg PO Q6HP PRN 03/06/18 Propranolol HCl 60 mg PO Q12 #60 tablet 03/06/18 Rizatriptan Benzoate [Maxalt] 10 mg PO ASDIR PRN 03/06/18 Allergies/Adverse Reactions: Penicillins Allergy (Severe, Verified 11/22/18 18:42) RASH, DIFFICULTY BREATHING prochlorperazine maleate [From Compazine] Adverse Reaction (Severe, Verified 11/22/18 18:42) VIOLENT BEHAVIOR haloperidol [From Haldol] Adverse Reaction (Intermediate, Verified 11/22/18 18:42) Hyperactivity, HEADACHE metoclopramide HCl [From Reglan] Adverse Reaction (Intermediate, Verified 11/22/18 18:42) Hyperactivity ondansetron HCl [From Zofran] Adverse Reaction (Intermediate, Verified 11/22/18 18:42) VOMITING zolpidem [From Ambien] Adverse Reaction (Intermediate, Verified 11/22/18 18:42) SLEEP WALKING diazepam [From Valium] Adverse Reaction (Mild, Verified 11/22/18 18:42) CONFUSION,UNCOOPERATIVE Review of Systems ROS unobtainable: Due to mental status Physical Exam Vital Signs: Temp Pulse Resp BP Pulse Ox 97.4 F 77 16 115/65 95 11/23/18 05:10 11/23/18 05:18 11/23/18 05:10 11/23/18 05:10 11/23/18 05:10 Intake & Output 11/21/18 11/22/18 11/23/18 11:59 11:59 11:59 Intake Total 0 Balance 0 Weight 78.2 kg General appearance: PRESENT: disheveled, mild distress, well-developed, well- nourished Head exam: PRESENT: atraumatic, normocephalic Eye exam: PRESENT: conjunctiva pink, EOMI, PERRLA. ABSENT: scleral icterus Ear exam: PRESENT: normal external ear exam Mouth exam: PRESENT: moist, tongue midline Neck exam: ABSENT: carotid bruit, JVD, lymphadenopathy, thyromegaly Respiratory exam: PRESENT: clear to auscultation duane. ABSENT: rales, rhonchi, wheezes Cardiovascular exam: PRESENT: RRR. ABSENT: diastolic murmur, rubs, systolic murmur Pulses: PRESENT: normal dorsalis pedis pul Vascular exam: PRESENT: normal capillary refill GI/Abdominal exam: PRESENT: normal bowel sounds, soft. ABSENT: distended, guard ing, mass, organolmegaly, rebound, tenderness Rectal exam: PRESENT: deferred Extremities exam: PRESENT: full ROM. ABSENT: calf tenderness, clubbing, pedal edema Neurological exam: PRESENT: alert, altered, awake, oriented to person, oriented to place, CN II-XII grossly intact, aphasic Psychiatric exam: PRESENT: flat affect Skin exam: PRESENT: dry, intact, warm. ABSENT: cyanosis, rash Results Laboratory Results: 11/23/18 00:10 11/23/18 00:10 11/23/18 11/23/18 11/23/18 00:10 00:10 00:10 WBC 9.1 RBC 3.73 Hgb 12.3 Hct 35.5 L MCV 95 MCH 33.0 MCHC 34.7 RDW 13.9 Plt Count 218 Seg Neutrophils % 77.0 Lymphocytes % 14.6 Monocytes % 8.1 Eosinophils % 0.1 Basophils % 0.2 Absolute Neutrophils 7.0 Absolute Lymphocytes 1.3 Absolute Monocytes 0.7 Absolute Eosinophils 0.0 Absolute Basophils 0.0 Carbonic Acid HCO3/H2CO3 Ratio ABG pH ABG pCO2 ABG pO2 ABG HCO3 ABG O2 Saturation ABG Base Excess VBG pH VBG pCO2 VBG HCO3 VBG Base Excess FiO2 Sodium 137.4 Potassium 3.7 Chloride 103 Carbon Dioxide 20 L Anion Gap 14 BUN 48 H Creatinine 1.70 H Est GFR ( Amer) 38 L Est GFR (Non-Af Amer) 31 L Glucose 96 Lactic Acid 0.6 L Calcium 8.0 L Phosphorus Magnesium Total Bilirubin 0.5 AST 84 H ALT 34 Alkaline Phosphatase 172 H Ammonia Total Protein 7.1 Albumin 3.9 TSH Free T4 Free T3 pg/mL Serum HCG, Qual 11/23/18 11/23/18 11/23/18 00:10 00:10 00:10 WBC RBC Hgb Hct MCV MCH MCHC RDW Plt Count Seg Neutrophils % Lymphocytes % Monocytes % Eosinophils % Basophils % Absolute Neutrophils Absolute Lymphocytes Absolute Monocytes Absolute Eosinophils Absolute Basophils Carbonic Acid HCO3/H2CO3 Ratio ABG pH ABG pCO2 ABG pO2 ABG HCO3 ABG O2 Saturation ABG Base Excess VBG pH 7.25 L VBG pCO2 49.8 VBG HCO3 21.3 VBG Base Excess -6.2 FiO2 Sodium Potassium Chloride Carbon Dioxide Anion Gap BUN Creatinine Est GFR ( Amer) Est GFR (Non-Af Amer) Glucose Lactic Acid Calcium Phosphorus Magnesium Total Bilirubin AST ALT Alkaline Phosphatase Ammonia 10.7 Total Protein Albumin TSH Free T4 Free T3 pg/mL Serum HCG, Qual NEGATIVE 11/23/18 11/23/18 11/23/18 00:10 00:10 01:50 WBC RBC Hgb Hct MCV MCH MCHC RDW Plt Count Seg Neutrophils % Lymphocytes % Monocytes % Eosinophils % Basophils % Absolute Neutrophils Absolute Lymphocytes Absolute Monocytes Absolute Eosinophils Absolute Basophils Carbonic Acid Cancelled HCO3/H2CO3 Ratio Cancelled ABG pH Cancelled ABG pCO2 Cancelled ABG pO2 Cancelled ABG HCO3 Cancelled ABG O2 Saturation Cancelled ABG Base Excess Cancelled VBG pH VBG pCO2 VBG HCO3 VBG Base Excess FiO2 Cancelled Sodium Potassium Chloride Carbon Dioxide Anion Gap BUN Creatinine Est GFR ( Amer) Est GFR (Non-Af Amer) Glucose Lactic Acid Calcium Phosphorus 3.2 Magnesium 2.4 H Total Bilirubin AST ALT Alkaline Phosphatase Ammonia Total Protein Albumin TSH 0.85 Free T4 1.95 Free T3 pg/mL 3.95 Serum HCG, Qual 11/23/18 01:50 WBC RBC Hgb Hct MCV MCH MCHC RDW Plt Count Seg Neutrophils % Lymphocytes % Monocytes % Eosinophils % Basophils % Absolute Neutrophils Absolute Lymphocytes Absolute Monocytes Absolute Eosinophils Absolute Basophils Carbonic Acid 1.66 H HCO3/H2CO3 Ratio 13:1 ABG pH 7.24 L ABG pCO2 55.0 H ABG pO2 20.2 L* ABG HCO3 23.1 ABG O2 Saturation 25.2 L ABG Base Excess -4.7 VBG pH VBG pCO2 VBG HCO3 VBG Base Excess FiO2 ROOMAIR Sodium Potassium Chloride Carbon Dioxide Anion Gap BUN Creatinine Est GFR ( Amer) Est GFR (Non-Af Amer) Glucose Lactic Acid Calcium Phosphorus Magnesium Total Bilirubin AST ALT Alkaline Phosphatase Ammonia Total Protein Albumin TSH Free T4 Free T3 pg/mL Serum HCG, Qual 11/23/18 11/23/18 00:10 00:10 Creatine Kinase 2321 H CK-MB (CK-2) 9.09 H Troponin I < 0.012 Impressions: Chest X-Ray 11/22/18 19:44 IMPRESSION: Possible emphysema. copyright 2010 [employer]- All Rights Reserved Head CT 11/22/18 22:49 IMPRESSION: No acute intracranial findings. Abdomen/Pelvis CT 11/22/18 22:53 IMPRESSION: Prior right upper quadrant ostomy without evidence of parastomal hernia or small bowel obstruction. Assessment & Plan - Diagnosis (1) Acute encephalopathy Is this a current diagnosis for this admission?: Yes Plan: No fever, neck rigidity, leukocytosis. Suspected polypharmacy, supportive care (2) Acute renal failure Is this a current diagnosis for this admission?: Yes Plan: Likely secondary to rhabdomyolysis from recurrent fall. IV fluid challenge, avoid nephrotoxic meds and doses follow-up chemistry. (3) Rhabdomyolysis Is this a current diagnosis for this admission?: Yes Plan: Secondary to falls and sedentary state. IV fluid challenge, follow-up serial CK (4) Polypharmacy Is this a current diagnosis for this admission?: Yes Plan: Patient's medication reconciliation includes Levopharnel, OxyIR 30 4 times daily, OxyIR 20 every 8 6 as needed, phenobarbital 130 every 12, Lamictal, Keppra, Topamax, Namenda. Follow-up Lamictal level. Wean narcotics as tolerated. Consider pain management consult, urine drug screen and database query (5) Chronic pain Is this a current diagnosis for this admission?: Yes Plan: Attempt opiate weaning, follow-up urinalysis, drug screen, consider database query and pain management consultation. (6) Dementia Is this a current diagnosis for this admission?: Yes Plan: Unclear etiology, continue Namenda - Time Time Spent: 50 to 70 Minutes - Inpatient Certification Medical Necessity: Need Close Monitoring Due to Risk of Patient Decompensation
[2018-11-23 07:42] LABS: CREATINE KINASE MB 7.78 ng/mL (<4.55); TROPONIN I 0.013 ng/mL
[2018-11-23] MEDS: IPRATROPIUM/ALBUTEROL 0.5-2.5 MG/3 ML AMPUL NEB SCH ×2 (07:50→16:21)
[2018-11-23 09:35] LABS: ARTERIAL BLOOD H2CO3 0.96 mmol/L (1.05-1.35); ARTERIAL BLOOD HCO3 16.7 mmol/L (20-24); ARTERIAL BLOOD O2 SATURATION 93.1 % (94-98); ARTERIAL BLOOD PCO2 31.9 mmHg (35-45); ARTERIAL BLOOD PH 7.34 (7.35-7.45); ARTERIAL BLOOD PO2 69.2 mmHg (80-100); ARTERIAL BLOOD TOTAL CO2 17.7 mmol/L (21-25)
[2018-11-23 09:37] LABS: ARTERIAL BLOOD FIO2 ROOMAIR
[2018-11-23] MEDS ORDERED: (PENDING PHARMACY ID) (Rizatriptan Benzoate [Maxalt] 10 MG) PO PRN (09:50)
[2018-11-23 09:53] LABS: APPEARANCE,URINE CLEAR; BILIRUBIN,URINE NEGATIVE (NEGATIVE); GLUCOSE, URINE NEGATIVE (NEGATIVE); KETONES,URINE 80 mg/dL (NEGATIVE); LEUKOCYTE ESTERASE,URINE NEGATIVE (NEGATIVE); NITRITE,URINE NEGATIVE (NEGATIVE); PROTEIN,URINE 30 mg/dL (NEGATIVE); URINE SPECIFIC GRAVITY 1.033; UROBILINOGEN,URINE NEGATIVE mg/dL (<2.0)
[2018-11-23 09:57] LABS: COLOR,URINE YELLOW
[2018-11-23] MEDS ORDERED: (PENDING PHARMACY ID) (Diclofenac Sodium [Voltaren] 75 MG) PO SCH (10:00)
[2018-11-23] MEDS ORDERED: (PENDING PHARMACY ID) (Levetiracetam [Keppra] 250 MG) PO SCH (10:00)
[2018-11-23] MEDS ORDERED: PROPRANOLOL HCL 80 MG PO SCH (10:00)
[2018-11-23] MEDS ORDERED: (PENDING PHARMACY ID) (Lamotrigine [Lamictal] 200 MG) PO SCH (10:00)
[2018-11-23] MEDS ORDERED: NORMAL SALINE 1000 ML 1,000 ML IV PRN (10:21)
[2018-11-23] MEDS: MORPHINE SULFATE IR 30 MG TABLET PO SCH ×3 (11:12→17:58)
[2018-11-23] MEDS: LEVETIRACETAM ORAL SOLN 500 MG/5 ML UDCUP PO SCH ×2 (11:17→21:56)
[2018-11-23] MEDS: SULFASALAZINE 500 MG TABLET.DR PO SCH ×2 (11:18→21:57)
[2018-11-23] MEDS: LAMOTRIGINE 100 MG TABLET PO SCH ×2 (11:18→21:56)
[2018-11-23] MEDS: TOPIRAMATE 100 MG TABLET PO SCH ×2 (11:19→22:08)
[2018-11-23] MEDS: DOCUSATE SODIUM 100 MG CAPSULE PO SCH ×2 (11:20→17:58)
[2018-11-23] MEDS: DICLOFENAC SODIUM 25 MG TABLET.DR PO SCH ×2 (11:20→21:56)
[2018-11-23] MEDS: MEMANTINE HCL 10 MG TABLET PO SCH ×2 (11:20→21:56)
[2018-11-23] MEDS: PROPRANOLOL HCL 40 MG TABLET PO SCH ×3 (11:21→18:10)
[2018-11-23] MEDS: GABAPENTIN 300 MG CAPSULE PO SCH ×2 (11:27→21:57)
[2018-11-23 15:14] LABS: CREATINE KINASE MB 5.52 ng/mL (<4.55)
[2018-11-23 15:18] LABS: TROPONIN I < 0.012 ng/mL
--- NOTE | 2018-11-23 15:29 | RADIOLOGY REPORT (SQ) ---
EXAM DESCRIPTION: NM LUNG VENT/PERF SCAN COMPLETED DATE/TIME: 11/23/2018 3:05 pm REASON FOR STUDY: hypoxia hypotension chest pain COMPARISON: 11/22/2018 chest films RADIONUCLIDE AND DOSE: 31.2 millicuries TC-99m MAA Intravenous 5.4 millicuries TC-99m DTPA Inhaled aerosol TECHNIQUE: Eight views of the lungs acquired post ventilation of DTPA aerosol. AP and PA views of t he lungs acquired following injection of MAA. Patient refused further imaging LIMITATIONS: None. FINDINGS: VENTILATION: Symmetric and homogeneous distribution of DTPA aerosol during ventilatory pha se. No significant areas of photopenia. PERFUSION: Perfusion images with normal homogenous activity and no wedge-shaped or segmental defects. No ventilation-perfusion mismatches. OTHER: No other significant finding. IMPRESSION: NORMAL VENTILATION-PERFUSION LUNG SCAN. NEGATIVE FOR PULMONARY EMBOLI. TECHNICAL DOCUMENTATION: JOB ID: [id number] [employer]- All Rights Reserved Reading location - IP/workstation name: [email or web address]
--- NOTE | 2018-11-23 17:30 | RADIOLOGY REPORT (SQ) ---
EXAM DESCRIPTION: CT CHEST WITHOUT COMPLETED DATE/TIME: 11/23/2018 5:17 pm REASON FOR STUDY: hypoxia J96.91 RESPIRATORY FAILURE, UNSPECIFIED WITH HYPOXIA COMPARISON: 2010. TECHNIQUE: CT scan performed of the chest without intravenous contrast. Images reviewed with lung, soft tissue and bone windows. Reconstructed coronal and sagittal MPR images reviewed. All images st ored on PACS. All CT scanners at this facility use dose modulation, iterative reconstruction, and/or weight based d osing when appropriate to reduce radiation dose to as low as reasonably achievable (ALARA). [facility]: Dose Right [facility]: CareDose [facility]: Dose Right [facility]: Teradose 4D [facility]: [employer] RADIATION DOSE: CT Rad equipment meets quality standard of care and radiation dose reduction techniq ues were employed. CTDIvol: 9.8 mGy. DLP: 365 mGy-cm. mGy. LIMITATIONS: No technical limitations. FINDINGS: LUNGS AND PLEURA: Patchy ground-glass attenuation in both lungs with relative sparing of t he right upper lobe. More focal consolidation along the left major fissure and in both lower lobes. No effusions. HILAR AND MEDIASTINAL STRUCTURES: No identified masses or abnormal nodes. No obvious aneurysm. HEART AND VASCULAR STRUCTURES: No aneurysm. No pericardial effusion. UPPER ABDOMEN: No significant findings. Limited exam. THYROID AND OTHER SOFT TISSUES: No masses. No adenopathy. BONES: No significant finding. HARDWARE: Left-sided pacemaker. Right-sided port tip in the SVC. OTHER: No other significant findings. IMPRESSION: Bilateral pneumonia. TECHNICAL DOCUMENTATION: JOB ID: [id number] Quality ID # [id number]: Final reports with documentation of one or more dose reduction techniques (e.g., Au tomated exposure control, adjustment of the mA and/or kV according to patient size, use of iterative reconstruction technique) 2010 [employer]- All Rights Reserved Reading location - IP/workstation name: [email or web address]
--- NOTE | 2018-11-23 18:21 | Progress Note ---
Provider Note Provider Note: This is 58 years old female patient brought by EMS for shortness of breath and acute confusional state. Patient has been on multiple opiates pain medications and also she has been on multiple antiepileptic medications. When I see her this morning patient is awake alert she only oriented to place but she is she does not know her date of or her home address. I reviewed her medications and her lab. Accept this patient and I will follow her.
[2018-11-24] MEDS: MORPHINE SULFATE IR 30 MG TABLET PO SCH ×5 (00:37→20:23)
[2018-11-24] MEDS: PROPRANOLOL HCL 40 MG TABLET PO SCH ×4 (00:39→17:38)
[2018-11-24] MEDS: HEPARIN SOD (PORCINE) 5,000 UNIT/ML 1 ML SYRINGE SUBCUT SCH ×3 (05:26→21:47)
[2018-11-24] MEDS ORDERED: DIPHENHYDRAMINE HCL 25 MG CAPSULE ONE (06:53)
[2018-11-24 07:43] LABS: HEPATITIS A AB IGM Negative (Negative); HEPATITIS B CORE AB IGM Negative (Negative); HEPATITS B SURFACE ANTIGEN Negative (Negative)
[2018-11-24] MEDS: IPRATROPIUM/ALBUTEROL 0.5-2.5 MG/3 ML AMPUL NEB SCH ×4 (07:45→23:51)
[2018-11-24 08:04] LABS: HEPATITIS C VIRUS ANTIBODY <0.1 s/co ratio (0.0-0.9)
[2018-11-24 08:49] LABS: ANION GAP 9 (5-19); BLOOD UREA NITROGEN 16 mg/dL (7-20); CALCIUM 8.1 mg/dL (8.4-10.2); CARBON DIOXIDE 25 mmol/L (22-30); CHLORIDE 106 mmol/L (98-107); GLUCOSE 96 mg/dL (75-110); POTASSIUM 3.1 mmol/L (3.6-5.0); SODIUM 139.7 mmol/L (137-145)
[2018-11-24 09:08] LABS: A TYPE INFLUENZA AG NEGATIVE (NEGATIVE); B INFLUENZA AG NEGATIVE (NEGATIVE)
[2018-11-24] MEDS: LEVETIRACETAM ORAL SOLN 500 MG/5 ML UDCUP PO SCH ×2 (09:14→21:45)
[2018-11-24] MEDS: MEMANTINE HCL 10 MG TABLET PO SCH ×2 (09:16→21:46)
[2018-11-24] MEDS: DICLOFENAC SODIUM 25 MG TABLET.DR PO SCH ×2 (09:16→21:47)
[2018-11-24] MEDS: GUAIFENESIN 600 MG TABLET.SA PO SCH ×2 (09:17→17:37)
[2018-11-24] MEDS: SULFASALAZINE 500 MG TABLET.DR PO SCH ×2 (09:17→21:45)
[2018-11-24] MEDS: GABAPENTIN 300 MG CAPSULE PO SCH ×2 (09:17→21:46)
[2018-11-24] MEDS: TOPIRAMATE 100 MG TABLET PO SCH ×2 (09:17→21:46)
[2018-11-24] MEDS: PROMETHAZINE HCL 25 MG TABLET PO PRN ×3 (09:17→21:46)
[2018-11-24] MEDS: LAMOTRIGINE 100 MG TABLET PO SCH ×2 (09:18→21:46)
[2018-11-24] MEDS: DOCUSATE SODIUM 100 MG CAPSULE PO SCH ×2 (09:19→17:38)
[2018-11-24] MEDS ORDERED: MORPHINE SULFATE IR 30 MG TABLET PO ONE (09:30)
[2018-11-24] MEDS ORDERED: POTASSIUM CHLORIDE 10 MEQ CAPSULE.ER PO ONE (13:55)
--- NOTE | 2018-11-24 14:11 | PDOC PROGRESS REPORT ---
Subjective Progress Note for:: 11/24/18 Subjective:: This is unfortunate 58 years old female patient with past medical history of colon cancer status post chemoradiation and complete colectomy and status post ileostomy, dementia, history of CVA, seizure disorder, chronic pain syndrome, depression and COPD, brought by EMS for shortness of breath and acute confusional state. Patient has been on multiple opiates pain medications and also she has been on multiple antiepileptic medications. I discontinued most of her pain medication except her extended release morphine sulfate. This morning patient is more awake alert and conversant. She complains of back pain. I witnessed also while she is intermittently coughing. Has been started on Mucinex. Her morning labs revealed mild hypokalemia with potassium of 3.1 which is repleted. We will check her BMP in a.m. Reason For Visit: ACUTE RENAL FAILURE Physical Exam Vital Signs: Temp Pulse Resp BP Pulse Ox 98.2 F 74 18 99/55 L 96 11/24/18 11:33 11/24/18 11:33 11/24/18 11:33 11/24/18 11:33 11/24/18 11:33 Intake & Output 11/23/18 11/24/18 11/25/18 06:59 06:59 06:59 Intake Total 1000 2100 Balance 1000 2100 Weight 78.2 kg 78.2 kg General appearance: PRESENT: no acute distress Head exam: PRESENT: atraumatic Eye exam: PRESENT: conjunctiva pink Mouth exam: PRESENT: moist Neck exam: ABSENT: carotid bruit, JVD, lymphadenopathy, thyromegaly Respiratory exam: PRESENT: clear to auscultation duane. ABSENT: rales, rhonchi, wheezes Cardiovascular exam: PRESENT: RRR. ABSENT: diastolic murmur, rubs, systolic murmur GI/Abdominal exam: PRESENT: normal bowel sounds, soft, other - Colostomy bag in situ. ABSENT: distended, guarding, mass, organolmegaly, rebound, tenderness Neurological exam: PRESENT: alert, awake Results Laboratory Results: 11/23/18 00:10 11/24/18 06:45 11/24/18 06:45 Sodium 139.7 Potassium 3.1 L Chloride 106 Carbon Dioxide 25 Anion Gap 9 BUN 16 Creatinine 0.68 Est GFR ( Amer) > 60 Est GFR (Non-Af Amer) > 60 Glucose 96 Calcium 8.1 L 02/14/19 02/14/19 02/14/19 00:10 00:10 06:52 Creatine Kinase 2321 H 2283 H CK-MB (CK-2) 9.09 H Troponin I < 0.012 11/23/18 11/23/18 11/23/18 06:52 14:30 14:30 Creatine Kinase 1536 H CK-MB (CK-2) 7.78 H 5.52 H Troponin I 0.013 < 0.012 Impressions: Chest X-Ray 11/22/18 19:44 IMPRESSION: Possible emphysema. copyright 2010 [employer]- All Rights Reserved Head CT 11/22/18 22:49 IMPRESSION: No acute intracranial findings. Abdomen/Pelvis CT 11/22/18 22:53 IMPRESSION: Prior right upper quadrant ostomy without evidence of parastomal hernia or small bowel obstruction. Chest CT 11/23/18 00:00 IMPRESSION: Bilateral pneumonia. Lung Scan-VQ NM 11/23/18 00:00 IMPRESSION: NORMAL VENTILATION-PERFUSION LUNG SCAN. NEGATIVE FOR PULMONARY EMBOLI. Assessment & Plan - Diagnosis (1) Acute encephalopathy Is this a current diagnosis for this admission?: Yes Plan: Due to polypharmacy. It is improving. (2) Acute kidney injury Is this a current diagnosis for this admission?: Yes Plan: Patient has been treated with normal saline and her creatinine trended down to normal. (3) COPD (chronic obstructive pulmonary disease) Qualifiers: Emphysema type: unspecified Is this a current diagnosis for this admission?: Yes Plan: Continue as needed bronchodilators. (4) Seizure disorder Is this a current diagnosis for this admission?: Yes Plan: In remission and her last seizure activity was 10 years ago. Continue her home antiepileptic medications (5) History of colon cancer Is this a current diagnosis for this admission?: Yes Plan: Status post chemoradiation, total colectomy and ileostomy. (6) Depression Is this a current diagnosis for this admission?: Yes Plan: Continue home medication (7) Chronic pain syndrome Is this a current diagnosis for this admission?: Yes Plan: I will continue her home extended release morphine sulfate. Most of her opiate medications has been discontinued since admission.
[2018-11-24] MEDS: NORMAL SALINE 1000 ML 1,000 ML IV PRN (20:29)
[2018-11-25] MEDS: PROPRANOLOL HCL 40 MG TABLET PO SCH ×2 (00:05→05:04)
[2018-11-25] MEDS: MORPHINE SULFATE IR 30 MG TABLET PO SCH ×2 (02:54→09:58)
[2018-11-25] MEDS: NORMAL SALINE 1000 ML 1,000 ML IV PRN ×2 (02:56→09:55)
[2018-11-25] MEDS: HEPARIN SOD (PORCINE) 5,000 UNIT/ML 1 ML SYRINGE SUBCUT SCH (05:03)
[2018-11-25 06:21] LABS: ANION GAP 8 (5-19); BLOOD UREA NITROGEN 9 mg/dL (7-20); CARBON DIOXIDE 24 mmol/L (22-30); CHLORIDE 111 mmol/L (98-107); CREATINE KINASE 473 U/L (30-135); GLUCOSE 96 mg/dL (75-110); POTASSIUM 3.5 mmol/L (3.6-5.0); SODIUM 142.5 mmol/L (137-145)
[2018-11-25] MEDS: IPRATROPIUM/ALBUTEROL 0.5-2.5 MG/3 ML AMPUL NEB SCH (07:43)
[2018-11-25] MEDS: LEVETIRACETAM ORAL SOLN 500 MG/5 ML UDCUP PO SCH (09:55)
[2018-11-25] MEDS: DICLOFENAC SODIUM 25 MG TABLET.DR PO SCH (09:57)
[2018-11-25] MEDS: GABAPENTIN 300 MG CAPSULE PO SCH (09:58)
[2018-11-25] MEDS: SULFASALAZINE 500 MG TABLET.DR PO SCH (09:59)
[2018-11-25] MEDS: TOPIRAMATE 100 MG TABLET PO SCH (09:59)
[2018-11-25] MEDS: DOCUSATE SODIUM 100 MG CAPSULE PO SCH (10:00)
[2018-11-25] MEDS: MEMANTINE HCL 10 MG TABLET PO SCH (10:00)
[2018-11-25] MEDS: LAMOTRIGINE 100 MG TABLET PO SCH (10:00)
[2018-11-25] MEDS: GUAIFENESIN 600 MG TABLET.SA PO SCH (10:00)
--- NOTE | 2018-11-25 11:28 | PDOC DISCHARGE SUMMARY ---
General - Admit/Disc Date/PCP Admission Date/Primary Care Provider: 11/24/18 12:46 ELIZABETH POWELL PA-C Discharge Date: 11/25/18 - Discharge Diagnosis (1) Acute encephalopathy Is this a current diagnosis for this admission?: Yes (2) Acute kidney injury Is this a current diagnosis for this admission?: Yes (3) COPD (chronic obstructive pulmonary disease) Is this a current diagnosis for this admission?: Yes (4) Seizure disorder Is this a current diagnosis for this admission?: Yes (5) History of colon cancer Is this a current diagnosis for this admission?: Yes (6) Depression Is this a current diagnosis for this admission?: Yes (7) Chronic pain syndrome Is this a current diagnosis for this admission?: Yes - Additional Information Resuscitation Status: Full Code Home Medications: Lamotrigine [Lamictal] 200 mg PO Q12 10/28/11 Memantine HCl [Namenda 10 mg Tablet] 10 mg PO Q12 10/28/11 Topiramate [Topamax] 150 mg PO Q12 #0 10/28/11 Levetiracetam [Keppra] 250 mg PO Q12 02/18/17 Phenobarbital [Phenobarbital 64.8 mg Tablet] 129.6 mg PO Q12 07/22/17 Diclofenac Sodium [Voltaren] 75 mg PO Q12 03/06/18 Levorphanol Tartrate [Levo-Dromoran] 2 mg PO QID 03/06/18 Morphine Sulfate [Morphine Ir 30 mg Tablet] 30 mg PO QID 03/06/18 Oxycodone HCl [Oxy-Ir 5 mg Tablet] 20 mg PO Q6HP PRN 03/06/18 Rizatriptan Benzoate [Maxalt] 10 mg PO ASDIR PRN 03/06/18 Adalimumab [Humira Pen] 40 mg SQ Q14D 11/23/18 Gabapentin [Neurontin] 600 mg PO Q12 11/23/18 Propranolol HCl [Inderal Xl] 80 mg PO Q12 11/23/18 Sulfasalazine 500 mg PO Q12 11/23/18 History of Present Illness History of Present Illness: ELIZABETH FERRARI is a 58 year old female with a past medical history of colon cancer status post ileostomy, dementia, CVA, seizure disorder last greater than 10 years ago, depression, and opiate dependent chronic pain. She presents with several days of upper respiratory complaints, chest pain, shortness of breath, falls and fatigue. In the emergency room she is found hypotensive with expressive aphasia and to appearing sedated prompting a trial of Narcan 0.4 resulting in immediate withdrawal symptoms. She is subsequently more alert and responsive but repeating the same answer despite different questions. She is a very poor historian but is able to deny recent change in medications. Her workup reveals acute renal failure and rhabdomyolysis. She receives an IV fluid challenge and referred to the hospitalist for admission. Patient refuses urine sample, calls to her son go to [employer]. Hospital Course Hospital Course: This is unfortunate 58 years old female patient with past medical h istory of colon cancer status post chemoradiation and complete colectomy and status post ileostomy, dementia, history of CVA, seizure disorder, chronic pain syndrome, depression and COPD, brought by EMS for shortness of breath and acute confusional state. Patient has been on multiple opiates pain medications and also she has been on multiple antiepileptic medications. I discontinued most of her pain medication except her extended release morphine sulfate. This morning I seen and examined the patient at the bedside. I found her dressed up ready to go home. Patient reports that she feels much better she wants to go home. Her blood pressure on the monitor read as 97/46 but on manual BP apparatus the blood pressure is 110/57. I have a lengthy discussion with the patient regarding the consequence of. Taking multiple opiate analgesics. I told her to keep with the long-acting morphine sulfate and to discontinue the other opiate analgesics. Patient is stable enough to be discharged today. Physical Exam Vital Signs: Temp Pulse Resp BP Pulse Ox 98.3 F 74 16 97/46 L 97 11/25/18 08:53 11/25/18 08:53 11/25/18 08:53 11/25/18 08:53 11/25/18 08:53 Intake & Output 11/24/18 11/25/18 11/26/18 06:59 06:59 06:59 Intake Total 2100 1640 1000 Balance 2100 1640 1000 Weight 78.2 kg 78.1 kg General appearance: PRESENT: no acute distress Head exam: PRESENT: atraumatic Mouth exam: PRESENT: moist Neck exam: ABSENT: carotid bruit, JVD, lymphadenopathy, thyromegaly Respiratory exam: PRESENT: clear to auscultation duane. ABSENT: rales, rhonchi, wheezes Cardiovascular exam: PRESENT: RRR. ABSENT: diastolic murmur, rubs, systolic murmur GI/Abdominal exam: PRESENT: normal bowel sounds, soft, other - Left ileostomy. ABSENT: distended, guarding, mass, organolmegaly, rebound, tenderness Neurological exam: PRESENT: alert, awake, oriented to time, oriented to situation Results Laboratory Results: 11/23/18 00:10 11/25/18 05:26 11/25/18 05:26 Sodium 142.5 Potassium 3.5 L Chloride 111 H Carbon Dioxide 24 Anion Gap 8 BUN 9 Creatinine 0.56 Est GFR ( Amer) > 60 Est GFR (Non-Af Amer) > 60 Glucose 96 Calcium 8.0 L 11/23/18 11/23/18 11/23/18 00:10 00:10 06:52 Creatine Kinase 2321 H 2283 H CK-MB (CK-2) 9.09 H Troponin I < 0.012 11/23/18 11/23/18 11/23/18 06:52 14:30 14:30 Creatine Kinase 1536 H CK-MB (CK-2) 7.78 H 5.52 H Troponin I 0.013 < 0.012 11/25/18 05:26 Creatine Kinase 473 H CK-MB (CK-2) Troponin I Impressions: Chest X-Ray 11/22/18 19:44 IMPRESSION: Possible emphysema. copyright 2010 [employer] All Rights Reserved Head CT 11/22/18 22:49 IMPRESSION: No acute intracranial findings. Abdomen/Pelvis CT 11/22/18 22:53 IMPRESSION: Prior right upper quadrant ostomy without evidence of parastomal hernia or small bowel obstruction. Chest CT 11/23/18 00:00 IMPRESSION: Bilateral pneumonia. Lung Scan-VQ NM 11/23/18 00:00 IMPRESSION: NORMAL VENTILATION-PERFUSION LUNG SCAN. NEGATIVE FOR PULMONARY EMBOLI. Qualifiers - * PATIENT BEING DISCHARGED WITH ANY OF THE FOLLOWING DIAGNOSIS: No
[2018-11-25 11:50] VITALS: BP 110/64
== END 2018-11-25 13:45 | disposition home or self-care (01) | DRG 92 ==
LOC: ER 18:41 → EH 11-23 03:49 → 4N 11-23 05:15 → OBSVTOIN 11-24 12:46
PROVIDERS: ADMIT Internal Medicine; ATTEND Internal Medicine
DX: G92 Toxic encephalopathy (principal); N17.9 Acute kidney failure, unspecified; E87.2 Acidosis; M62.82 Rhabdomyolysis; R47.01 Aphasia; T42.6X5A Adverse effect of other antiepileptic and sedative-hypnotic drugs, initial encounter; T42.3X5A Adverse effect of barbiturates, initial encounter; J44.9 Chronic obstructive pulmonary disease, unspecified; E87.6 Hypokalemia; G40.909 Epilepsy, unspecified, not intractable, without status epilepticus; G89.4 Chronic pain syndrome; F41.8 Other specified anxiety disorders; F03.90 Unspecified dementia, unspecified severity, without behavioral disturbance, psychotic disturbance, mood disturbance, and anxiety; Y92.098 Other place in other non-institutional residence as the place of occurrence of the external cause; Z85.038 Personal history of other malignant neoplasm of large intestine; Z90.49 Acquired absence of other specified parts of digestive tract; Z93.2 Ileostomy status; Z79.891 Long term (current) use of opiate analgesic; Z79.899 Other long term (current) drug therapy
CPT/HCPCS: 36415; 36600; 70450; 71045; 71250; 74177; 78582; 80048; 80053; 80074; 80175; 80307; 81001; 82140; 82533; 82550; 82553; 82803; 83605; 83735; 84100; 84439; 84443; 84481; 84484; 84703; 85025; 85610; 85652; 87040; 87086; 87088; 87804; 93005; 93010; 94640; 96361; 96374; 96375; 96376; 99285; A9540; A9567; G0378; J1644; J2310; J2550; J2930; J3490; J7030; J7620; Q9969; S0119

== ENCOUNTER 2018-12-28 11:05 | Inpatient (IN) | payer MEDICARE, MEDICAID ==
[2018-12-28] MEDS ORDERED: MORPHINE SULFATE 10 MG/ML INJ IV ONE (11:31)
[2018-12-28 12:26] LABS: ABSOLUTE BASOPHILS # (AUTO) 0.1 10^3/uL (0.0-0.2); ABSOLUTE EOSINOPHILS # (AUTO) 0.1 10^3/uL (0.0-0.6); ABSOLUTE LYMPHOCYTES (AUTO) 1.5 10^3/uL (0.5-4.7); ABSOLUTE MONOCYTES (AUTO) 1.2 10^3/uL (0.1-1.4); ABSOLUTE NEUT (AUTO) 7.9 10^3/uL (1.7-8.2); BASOPHILS % (AUTO) 0.5 % (0-2); EOSINOPHILS % (AUTO) 1.2 % (0-6); HEMATOCRIT 30.3 % (36.0-47.0); HEMOGLOBIN 10.3 g/dL (12.0-15.5); LYMPHOCYTES % (AUTO) 14.1 % (13-45); MEAN CORPUSCULAR HGB CONC 34.1 g/dL (32.0-36.0); MEAN CORPUSCULAR VOLUME 100 fl (80-97); MONOCYTES % (AUTO) 11.4 % (3-13); PLATELET COUNT 243 10^3/uL (150-450); RED BLOOD COUNT 3.04 10^6/uL (3.72-5.28); RED CELL DISTRIBUTION WIDTH 14.6 % (11.5-14.0); SEGMENTED NEUTROPHILS % (AUTO) 72.8 % (42-78); TOTAL CELLS COUNTED % (AUTO) 100 %; WHITE BLOOD COUNT 10.9 10^3/uL (4.0-10.5)
--- NOTE | 2018-12-28 12:28 | RADIOLOGY REPORT (SQ) ---
EXAM DESCRIPTION: CHEST SINGLE VIEW COMPLETED DATE/TIME: 12/28/2018 12:20 pm REASON FOR STUDY: hypoxia, L chest pain COMPARISON: 11/22/2018 NUMBER OF VIEWS: One view. TECHNIQUE: Single frontal radiographic image of the chest acquired. LIMITATIONS: None. FINDINGS: LUNGS AND PLEURA: Segmental airspace disease with air bronchograms left lower lobe. MEDIASTINUM AND HEART: Stable heart size and mediastinal structures. SUPPORT DEVICES: Appropriate location without change. BONY STRUCTURES: No acute findings. HARDWARE: None. OTHER: No other significant finding. IMPRESSION: Left lower lobe pneumonia. Reading location - IP/workstation name: [email or web address]
[2018-12-28 12:41] LABS: INTERNATIONAL RATION (INR) 1.07; PROTHROMBIN TIME 14.4 SEC (11.4-15.4)
[2018-12-28 12:47] LABS: ALANINE AMINOTRANSFERASE 75 U/L (9-52); ALBUMIN 3.5 g/dL (3.5-5.0); ALKALINE PHOSPHATASE 352 U/L (38-126); ASPARTATE AMINO TRANSFERASE 111 U/L (14-36); BILIRUBIN,DIRECT 2.4 mg/dL (0.0-0.4); BLOOD UREA NITROGEN 13 mg/dL (7-20); CALCIUM 8.7 mg/dL (8.4-10.2); CARBON DIOXIDE 21 mmol/L (22-30); CHLORIDE 99 mmol/L (98-107); CREATINE KINASE 1265 U/L (30-135); GLUCOSE 99 mg/dL (75-110); POTASSIUM 3.6 mmol/L (3.6-5.0); TOTAL PROTEIN 6.8 g/dL (6.3-8.2)
[2018-12-28 12:52] LABS: ANION GAP 13 (5-19); SODIUM 133.1 mmol/L (137-145)
[2018-12-28] MEDS ORDERED: VANCOMYCIN HCL INJ 1000 MG VIAL IV ONE (13:04)
[2018-12-28] MEDS ORDERED: CEFEPIME 2 GM/D5W RTU 2 GM/50 ML RTUPB IV ONE ×2 (13:04→23:28)
[2018-12-28] MEDS ORDERED: NORMAL SALINE 1000 ML 1,000 ML IV ONE ×2 (13:04→19:15)
[2018-12-28] MEDS ORDERED: IPRATROPIUM/ALBUTEROL 0.5-2.5 MG/3 ML AMPUL NEB ONE (13:05)
[2018-12-28] MEDS ORDERED: LEVOFLOXACIN 750 MG/D5W RTU 750 MG/150 ML RTUPB IV ONE (13:05)
[2018-12-28 13:11] LABS: CREATINE KINASE MB 3.46 ng/mL (<4.55); NT PRO BNP 954 pg/mL (5-900)
[2018-12-28 13:13] LABS: TROPONIN I < 0.012 ng/mL
--- NOTE | 2018-12-28 13:23 | ER Document Report ---
ED General - General Chief Complaint: Chest Pressure Stated Complaint: CHEST PAIN Time Seen by Provider: 12/28/18 11:20 Primary Care Provider: ELIZABETH POWELL PA-C [Primary Care Provider] - Follow up as needed TRAVEL OUTSIDE OF THE [place] IN LAST 30 DAYS: No - HPI Notes: Patient is a 58-year-old female with multiple medical issues who comes into the emergency department for evaluation of left-sided chest pressure, cough, fever. She states her symptoms have been present for the last several days. She denies any nausea or vomiting. States she is eating and drinking normally. Normal bowel movements. No cuts or rashes. She was hospitalized last month. She was actually seen by her primary care provider, who sent her to the emergency department for further evaluation. She states her fever earlier today was 103 F orally. - Related Data Allergies/Adverse Reactions: Penicillins Allergy (Severe, Verified 11/22/18 18:42) RASH, DIFFICULTY BREATHING prochlorperazine maleate [From Compazine] Adverse Reaction (Severe, Verified 18:42) VIOLENT BEHAVIOR haloperidol [From Haldol] Adverse Reaction (Intermediate, Verified 11/22/18 18:42) Hyperactivity, HEADACHE metoclopramide HCl [From Reglan] Adverse Reaction (Intermediate, Verified 11/22/18 18:42) Hyperactivity ondansetron HCl [From Zofran] Adverse Reaction (Intermediate, Verified 11/22/18 18:42) VOMITING zolpidem [From Ambien] Adverse Reaction (Intermediate, Verified 11/22/18 18:42) SLEEP WALKING diazepam [From Valium] Adverse Reaction (Mild, Verified 11/22/18 18:42) CONFUSION,UNCOOPERATIVE ondansetron [From Zofran] Adverse Reaction (Verified 11/24/18 08:13) Past Medical History - General Information source: Patient - Social History Smoking Status: Never Smoker Chew tobacco use (# tins/day): No Frequency of alcohol use: None Drug Abuse: None Family History: Hypertension, Other Patient has suicidal ideation: No Patient has homicidal ideation: No - Past Medical History Cardiac Medical History: Denies: Hx Coronary Artery Disease, Hx Heart Attack, Hx Hypertension Pulmonary Medical History: Reports: Hx Pneumonia Denies: Hx Asthma, Hx Bronchitis, Hx COPD Neurological Medical History: Reports: Hx Migraine, Hx Seizures - Last one 12 yrs ago. Denies: Hx Cerebrovascular Accident Renal/ Medical History: Denies: Hx Peritoneal Dialysis Malignancy Medical History: Reports: Hx Colorectal Cancer - Status post chemoirradiation and complete colectomy Musculoskeletal Medical History: Reports Hx Arthritis - PSORIATIC, Reports Hx M usculoskeletal Trauma Skin Medical History: Reports Hx Cellulitis Psychiatric Medical History: Reports: Hx Anxiety, Hx Depression Traumatic Medical History: Reports: Hx Fractures Past Surgical History: Reports: Hx Appendectomy, Hx Bowel Surgery - colostomy bag, Hx Cholecystectomy, Hx Hysterectomy, Hx Ileostomy, Hx Kidney (Renal Surgery), Hx Neurologic Surgery, Hx Orthopedic Surgery, Hx Tonsillectomy - Immunizations Immunizations up to date: Yes Hx Diphtheria, Pertussis, Tetanus Vaccination: Yes Review of Systems - Review of Systems Constitutional: Fever, Malaise, Weakness EENT: No symptoms reported Cardiovascular: See HPI Respiratory: See HPI Gastrointestinal: No symptoms reported Genitourinary: No symptoms reported Musculoskeletal: No symptoms reported Skin: No symptoms reported Neurological/Psychological: No symptoms reported Physical Exam - Vital signs Vitals: Temp 99.9 F 12/28/18 11:28 Notes: Blood pressure 82/41, heart rate 71, oxygen 81% on 2 L, respiratory rate 14 and unlabored - Notes Notes: Vital signs reviewed, please refer to chart. Patient is in a mild amount of distress secondary to pain. Patient is normocephalic, atraumatic. Pupils equal round, reactive to light. Neck is supple without meningismus. Heart is regular rate and rhythm. Lungs show diminished breath sounds in the left base. Abdomen is soft, nontender, normoactive bowel sounds throughout. Extremities without cyanosis, clubbing, edema. Peripheral pulses are equal. Skin is warm and dry. Patient is awake, alert, neurological exam is nonfocal. Course - Re-evaluation Re-evalutation: 12/28/18 13:32 Patient presents emergency department for evaluation of left-sided chest pain. Her pain is easily reproducible with the slightest touch to the left side of the chest. She is hypoxic, blood pressure is moderately low upon arrival. She is given IV fluids. Laboratory investigations reveal an elevated CPK, findings consistent with rhabdomyolysis. Her renal function is unremarkable. Chest x- ray reveals a left lower lobe pneumonia. I did review this patient's recent medical history. She was admitted to the hospital just over a month ago with polypharmacy. Secondary to this she was covered for healthcare associated pneumonia. She was administered cefepime, vancomycin, Levaquin. She was feeling significantly improved after pain medication. I spoke with Leslie De Jesus NP, who will admit the patient for further care. - Vital Signs Vital signs: Temp Pulse Resp BP Pulse Ox 99.9 F 12/28/18 11:28 - Laboratory Result Diagrams: 12/28/18 12:00 12/28/18 12:00 Laboratory results interpreted by me: 12/28/18 12/28/18 12/28/18 12:00 12:00 12:00 WBC 10.9 H RBC 3.04 L Hgb 10.3 L Hct 30.3 L MCV 100 H MCH 34.0 H RDW 14.6 H APTT Sodium 133.1 L Carbon Dioxide 21 L Total Bilirubin 3.0 H Direct Bilirubin 2.4 H AST 111 H ALT 75 H Alkaline Phosphatase 352 H Creatine Kinase 1265 H NT-Pro-B Natriuret Pep 954 H 12/28/18 12:00 WBC RBC Hgb Hct MCV MCH RDW APTT 38.0 H Sodium Carbon Dioxide Total Bilirubin Direct Bilirubin AST ALT Alkaline Phosphatase Creatine Kinase NT-Pro-B Natriuret Pep - Diagnostic Test Radiology reviewed: Reports reviewed - Left lower lobe pneumonia Discharge - Discharge Clinical Impression: Pneumonia, Hypoxia, Rhabdomyolysis Condition: Stable Disposition: ADMITTED INPATIENT Unit Admitted: Telemetry Referrals: ELIZABETH POWELL PA-C [Primary Care Provider] - Follow up as needed
[2018-12-28] MEDS ORDERED: ACETAMINOPHEN 325 MG TABLET PO PRN (13:45)
[2018-12-28] MEDS ORDERED: (PENDING PHARMACY ID) (Rizatriptan Benzoate [Maxalt] 10 MG) PO PRN (18:11)
[2018-12-28] MEDS: OXYCODONE HCL IR 5 MG TABLET PO PRN (19:03)
--- NOTE | 2018-12-28 20:06 | PDOC H&P ---
History of Present Illness Admission Date/PCP: 12/28/18 14:59 ELIZABETH POWELL PA-C Patient complains of: L SIDED CHEST PAIN History of Present Illness: ELIZABETH FERRARI is a 58 year old female with a PMH of Colon cancer s/p ileostomy, dementia, CVA, seizure disorder, depression, psoriatic arthritis, migraines, back pain on chronically on opiates. The patient presents to [facility] with a 3 day history of L sided chest pain. The patient states her pain is sharp, non-radiati ng, and intermittent in nature. Pain is worse with inhalation, movement or palpation. She took motrin, MS contin and oxycodone for her pain but offered little relief. The patient states her pain is so severe it keeps her awake at night. In addition to her chest pain, the patient endorses GONZALEZ, non-productive cough and mild ataxia. The patient denies N/V/D. Self reports TMAX 103 when at PCP's office this week. Of note, the patient was recently admitted to [facility] last month and diagnosed with bilateral PNA seen on CT. Upon arrival to the ED, her CXR revealed LLL PNA. EKG showed NSR, inverted t waves in limb leads, unchanged from last month. Laboratory studies reveal mild hyponatremia, hyperbilirubinemia, transaminitis, and an elevated CK. The patient was treated with 1L IVF bolus and IV antibiotics - levaquin, vancomycin and cefepime by ED provider. Plan to admit to hospitalist service for healthcare associated PNA. Past Medical History Cardiac Medical History: Denies: Coronary Artery Disease, Myocardial Infarction, Hypertension Pulmonary Medical History: Reports: Pneumonia Denies: Asthma, Bronchitis, Chronic Obstructive Pulmonary Disease (COPD) Neurological Medical History: Reports: Migraine, Seizures - Last one 12 yrs ago Malignancy Medical History: Reports: Colorectal Cancer - Status post chemoirradiation and complete colectomy Musculoskeltal Medical History: Reports: Arthritis - PSORIATIC Psychiatric Medical History: Reports: Depression Hematology: Denies: Anemia Past Surgical History Past Surgical History: Reports: Appendectomy, Cholecystectomy, Hysterectomy, Ileostomy, Orthopedic Surgery, Tonsillectomy Social History Information Source: Patient Lives with: Family Smoking Status: Never Smoker Frequency of Alcohol Use: None Hx Recreational Drug Use: No Drugs: None Hx Prescription Drug Abuse: No - Advance Directive Resuscitation Status: Full Code Family History Family History: Hypertension, Malignancy - mother - ovarian, father - colon, Other Parental Family History Reviewed: Yes Children Family History Reviewed: No Sibling(s) Family History Reviewed.: Yes Medication/Allergy Home Medications: Diclofenac Sodium [Voltaren] 75 mg PO BID 12/28/18 Lamotrigine [Lamictal] 200 mg PO BID 12/28/18 Levetiracetam [Keppra] 250 mg PO BID 12/28/18 Memantine HCl [Namenda 10 mg Tablet] 10 mg PO BID 12/28/18 Morphine Sulfate [Morphine Ir 30 mg Tablet] 30 mg PO Q6 12/28/18 Phenobarbital [Phenobarbital 64.8 mg Tablet] 2 tab PO Q12 12/28/18 Promethazine HCl [Phenergan 25 mg Tablet] 25 mg PO Q8HP PRN 12/28/18 RX: Gabapentin [Neurontin] 600 mg PO QHS 12/28/18 RX: Oxycodone HCl 20 mg PO Q6 12/28/18 RX: Propranolol HCl 80 mg PO BID 12/28/18 Rizatriptan Benzoate [Maxalt] 10 mg PO DAILYP PRN 12/28/18 Topiramate [Topamax 100 mg Tablet] 150 mg PO BID 12/28/18 Allergies/Adverse Reactions: Penicillins Allergy (Severe, Verified 11/22/18 18:42) RASH, DIFFICULTY BREATHING prochlorperazine maleate [From Compazine] Adverse Reaction (Severe, Verified 11/22/18 18:42) VIOLENT BEHAVIOR haloperidol [From Haldol] Adverse Reaction (Intermediate, Verified 11/22/18 18:42) Hyperactivity, HEADACHE metoclopramide HCl [From Reglan] Adverse Reaction (Intermediate, Verified 11/22/18 18:42) Hyperactivity ondansetron HCl [From Zofran] Adverse Reaction (Intermediate, Verified 11/22/18 18:42) VOMITING zolpidem [From Ambien] Adverse Reaction (Intermediate, Verified 11/22/18 18:42) SLEEP WALKING diazepam [From Valium] Adverse Reaction (Mild, Verified 11/22/18 18:42) CONFUSION,UNCOOPERATIVE ondansetron [From Zofran] Adverse Reaction (Verified 11/24/18 08:13) Review of Systems All systems: reviewed and no additional remarkable complaints except as stated Physical Exam Vital Signs: Temp Pulse Resp BP Pulse Ox 99.2 F 65 12 91/56 L 97 12/28/18 16:29 12/28/18 16:29 12/28/18 16:29 12/28/18 16:29 12/28/18 18:04 Intake & Output 12/27/18 12/28/18 12/29/18 06:59 06:59 06:59 Intake Total 1050 Balance 1050 Weight 81.8 kg General appearance: PRESENT: no acute distress, well-developed, well-nourished Head exam: PRESENT: atraumatic Eye exam: PRESENT: conjunctiva pink, PERRLA Mouth exam: PRESENT: dry mucosa, tongue midline Neck exam: PRESENT: full ROM Respiratory exam: PRESENT: clear to auscultation duane, symmetrical, unlabored Cardiovascular exam: PRESENT: RRR Pulses: PRESENT: normal radial pulses, normal dorsalis pedis pul Vascular exam: PRESENT: normal capillary refill GI/Abdominal exam: PRESENT: soft. ABSENT: distended, tenderness Rectal exam: PRESENT: deferred Extremities exam: PRESENT: full ROM. ABSENT: pedal edema Musculoskeletal exam: PRESENT: full ROM, normal inspection Neurological exam: PRESENT: alert, awake, oriented to person, oriented to place, oriented to time, oriented to situation Psychiatric exam: PRESENT: appropriate affect Skin exam: PRESENT: dry, intact, normal color Results Laboratory Results: 12/28/18 12:00 12/28/18 12:00 12/28/18 12/28/18 12/28/18 12:00 12:00 12:00 WBC 10.9 H RBC 3.04 L Hgb 10.3 L Hct 30.3 L MCV 100 H MCH 34.0 H MCHC 34.1 RDW 14.6 H Plt Count 243 Seg Neutrophils % 72.8 Lymphocytes % 14.1 Monocytes % 11.4 Eosinophils % 1.2 Basophils % 0.5 Absolute Neutrophils 7.9 Absolute Lymphocytes 1.5 Absolute Monocytes 1.2 Absolute Eosinophils 0.1 Absolute Basophils 0.1 Sodium 133.1 L Potassium 3.6 Chloride 99 Carbon Dioxide 21 L Anion Gap 13 BUN 13 Creatinine 0.80 Est GFR ( Amer) > 60 Est GFR (Non-Af Amer) > 60 Glucose 99 Lactic Acid 0.7 Calcium 8.7 Total Bilirubin 3.0 H AST 111 H ALT 75 H Alkaline Phosphatase 352 H Total Protein 6.8 Albumin 3.5 12/28/18 12/28/18 12:00 12:00 Creatine Kinase 1265 H CK-MB (CK-2) 3.46 Troponin I < 0.012 NT-Pro-B Natriuret Pep 954 H Impressions: Chest X-Ray 12/28/18 11:29 IMPRESSION: Left lower lobe pneumonia. Status: Imported from PACS Assessment and Plan - Diagnosis (1) Pneumonia Is this a current diagnosis for this admission?: Yes Plan: Healthcare associated PNA Admitted to [facility] last month, diagnosed with bilateral PNA on CT LLL PNA seen on CXR today Supplemental O2 for SPO2>90% Sputum cultures pending Blood cultures pending Continue Cefepime 2G q8h, appropriate treatment for HAP (2) Chronic pain Qualifiers: Chronic pain type: chronic pain syndrome Qualified Code(s): G89.4 - Chronic pain syndrome Is this a current diagnosis for this admission?: Yes Plan: Followed by outpatient pain service for chronic back pain MS contin and oxycodone at home (3) History of colon cancer Is this a current diagnosis for this admission?: Yes Plan: History of colon cancer s/p chemoradiation s/p ileostomy (4) Seizure disorder Is this a current diagnosis for this admission?: Yes Plan: H seizure disorder Continue home dose keppra (5) Dementia Is this a current diagnosis for this admission?: Yes Plan: H dementia continue Namenda Encourage day/night cues Ambulate twice per shift - Time Time Spent with patient: 15-24 minutes Medications reviewed and adjusted accordingly: Yes Anticipated discharge: Home - Inpatient Certification Based on my medical assessment, after consideration of the patient's comorbidities, presenting symptoms, or acuity I expect that the services needed warrant INPATIENT care.: Yes I certify that my determination is in accordance with my understanding of Medicare's requirements for reasonable and necessary INPATIENT services [42 CFR 412.3e].: Yes Medical Necessity: Need for IV Antibiotics
[2018-12-28] MEDS: NORMAL SALINE 1000 ML 1,000 ML IV PRN (20:50)
--- NOTE | 2018-12-28 22:44 | EKG REPORT ---
SEVERITY:- ABNORMAL ECG - SINUS RHYTHM ABNORMAL T, CONSIDER ISCHEMIA, DIFFUSE LEADS : Confirmed by: Aj Spivey 28-Dec-2018 22:43:25
[2018-12-28] MEDS: FAMOTIDINE 20 MG TABLET PO SCH (23:13)
[2018-12-28] MEDS: TOPIRAMATE 100 MG TABLET PO SCH (23:13)
[2018-12-28] MEDS: PHENOBARBITAL 64.8 MG TABLET PO SCH (23:13)
[2018-12-28] MEDS: DICLOFENAC SODIUM 25 MG TABLET.DR PO SCH (23:15)
[2018-12-28] MEDS: GABAPENTIN 300 MG CAPSULE PO SCH (23:16)
[2018-12-28] MEDS: LEVETIRACETAM 500 MG TABLET PO SCH (23:16)
[2018-12-28] MEDS: PROPRANOLOL HCL 40 MG TABLET PO SCH (23:17)
[2018-12-28] MEDS: LAMOTRIGINE 100 MG TABLET PO SCH (23:17)
[2018-12-28] MEDS: CEFEPIME 2 GM/D5W RTU 2 GM/50 ML RTUPB IV SCH (23:58)
[2018-12-29] MEDS: KETOROLAC TROMETHAMINE INJ/PF 30 MG/1 ML SDV IV PRN ×2 (00:05→21:54)
[2018-12-29] MEDS: PROMETHAZINE HCL INJ 25 MG/1 ML VIAL IV PRN ×2 (00:06→21:55)
[2018-12-29 06:47] LABS: ABSOLUTE BASOPHILS # (AUTO) 0.1 10^3/uL (0.0-0.2); ABSOLUTE EOSINOPHILS # (AUTO) 0.2 10^3/uL (0.0-0.6); ABSOLUTE LYMPHOCYTES (AUTO) 0.9 10^3/uL (0.5-4.7); ABSOLUTE MONOCYTES (AUTO) 0.9 10^3/uL (0.1-1.4); ABSOLUTE NEUT (AUTO) 6.9 10^3/uL (1.7-8.2); BASOPHILS % (AUTO) 0.7 % (0-2); EOSINOPHILS % (AUTO) 2.3 % (0-6); HEMATOCRIT 27.1 % (36.0-47.0); HEMOGLOBIN 9.4 g/dL (12.0-15.5); MEAN CORPUSCULAR HEMOGLOBIN 34.5 pg (27.0-33.4); MEAN CORPUSCULAR HGB CONC 34.7 g/dL (32.0-36.0); MEAN CORPUSCULAR VOLUME 100 fl (80-97); MONOCYTES % (AUTO) 9.9 % (3-13); PLATELET COUNT 228 10^3/uL (150-450); RED BLOOD COUNT 2.72 10^6/uL (3.72-5.28); RED CELL DISTRIBUTION WIDTH 14.3 % (11.5-14.0); SEGMENTED NEUTROPHILS % (AUTO) 77.1 % (42-78); TOTAL CELLS COUNTED % (AUTO) 100 %
[2018-12-29 07:28] LABS: ALANINE AMINOTRANSFERASE 59 U/L (9-52); ALBUMIN 3.2 g/dL (3.5-5.0); ALKALINE PHOSPHATASE 278 U/L (38-126); ANION GAP 7 (5-19); ASPARTATE AMINO TRANSFERASE 63 U/L (14-36); BILIRUBIN,DIRECT 1.8 mg/dL (0.0-0.4); BILIRUBIN,TOTAL 2.4 mg/dL (0.2-1.3); BLOOD UREA NITROGEN 10 mg/dL (7-20); CALCIUM 8.6 mg/dL (8.4-10.2); CARBON DIOXIDE 24 mmol/L (22-30); CHLORIDE 107 mmol/L (98-107); GLUCOSE 84 mg/dL (75-110); POTASSIUM 3.2 mmol/L (3.6-5.0); SODIUM 138.4 mmol/L (137-145); TOTAL PROTEIN 6.9 g/dL (6.3-8.2)
[2018-12-29] MEDS: MEMANTINE HCL 10 MG TABLET PO SCH ×2 (09:35→17:25)
[2018-12-29] MEDS: PHENOBARBITAL 64.8 MG TABLET PO SCH ×2 (09:35→22:02)
[2018-12-29] MEDS: TOPIRAMATE 100 MG TABLET PO SCH ×2 (09:36→22:03)
[2018-12-29] MEDS: FAMOTIDINE 20 MG TABLET PO SCH ×2 (09:36→22:02)
[2018-12-29] MEDS: LEVETIRACETAM 500 MG TABLET PO SCH ×2 (09:36→22:00)
[2018-12-29] MEDS: ENOXAPARIN SODIUM INJ 30 MG/0.3 ML DISP.SYRIN SUBCUT SCH (09:37)
[2018-12-29] MEDS: LAMOTRIGINE 100 MG TABLET PO SCH ×2 (09:37→22:01)
[2018-12-29] MEDS: DICLOFENAC SODIUM 25 MG TABLET.DR PO SCH ×2 (09:37→22:04)
[2018-12-29] MEDS: PROPRANOLOL HCL 40 MG TABLET PO SCH ×2 (09:38→23:48)
[2018-12-29] MEDS: MORPHINE SULFATE IR 30 MG TABLET PO PRN ×2 (09:44→15:43)
[2018-12-29] MEDS: CEFEPIME 2 GM/D5W RTU 2 GM/50 ML RTUPB IV SCH ×2 (09:47→21:52)
[2018-12-29] MEDS ORDERED: (PENDING PHARMACY ID) (Lamotrigine [Lamictal] 200 MG) PO SCH (10:00)
[2018-12-29] MEDS ORDERED: (PENDING PHARMACY ID) (Diclofenac Sodium [Voltaren] 75 MG) PO SCH (10:00)
[2018-12-29] MEDS ORDERED: PROPRANOLOL HCL 80 MG PO SCH (10:00)
[2018-12-29] MEDS ORDERED: (PENDING PHARMACY ID) (Levetiracetam [Keppra] 250 MG) PO SCH (10:00)
--- NOTE | 2018-12-29 18:07 | PDOC PROGRESS REPORT ---
Subjective Progress Note for:: 12/29/18 Subjective:: ELIZABETH FERRARI is a 58 year old female with a PMH of Colon cancer s/p ileostomy, dementia, CVA, seizure disorder, depression, psoriatic arthritis, migraines, back pain on chronically on opiates. Patient seen this morning on rounds. She is resting comfortably in bed on supplemental oxygen. She still endorses sharp left-sided anterior chest wall pain with inhalation, movement and palpation. Patient states that she feels better with the use of supplemental oxygen. Lungs clear to auscultation. Diminished in the left lower lobe. Patient states she has been able to ambulate in the room and to the restroom without difficulty. Plan for CTA chest to evaluate for PE and/or other cardiopulmonary pathology Reason For Visit: PNEUMONIA Physical Exam Vital Signs: Temp Pulse Resp BP Pulse Ox 98.2 F 70 20 93/54 L 98 12/29/18 15:20 12/29/18 15:20 12/29/18 15:20 12/29/18 15:20 12/29/18 15:20 Intake & Output 12/28/18 12/29/18 12/30/18 06:59 06:59 06:59 Intake Total 2575 1322 Balance 2575 1322 Weight 83.1 kg General appearance: PRESENT: no acute distress, well-developed, well-nourished Head exam: PRESENT: atraumatic, normocephalic Eye exam: PRESENT: conjunctiva pink, EOMI, PERRLA. ABSENT: scleral icterus Ear exam: PRESENT: normal external ear exam Mouth exam: PRESENT: moist, tongue midline Neck exam: ABSENT: carotid bruit, JVD, lymphadenopathy, thyromegaly Respiratory exam: PRESENT: clear to auscultation duane, symmetrical, unlabored. ABSENT: rales, rhonchi, wheezes Cardiovascular exam: PRESENT: RRR. ABSENT: diastolic murmur, rubs, systolic murmur Pulses: PRESENT: normal radial pulses, normal dorsalis pedis pul Vascular exam: PRESENT: normal capillary refill GI/Abdominal exam: PRESENT: normal bowel sounds, soft. ABSENT: distended, guard ing, mass, organolmegaly, rebound, tenderness Rectal exam: PRESENT: deferred Extremities exam: PRESENT: full ROM. ABSENT: calf tenderness, clubbing, pedal edema Neurological exam: PRESENT: alert, awake, oriented to person, oriented to place, oriented to time, oriented to situation Psychiatric exam: PRESENT: appropriate affect, normal mood. ABSENT: homicidal ideation, suicidal ideation Skin exam: PRESENT: dry, intact, warm. ABSENT: cyanosis, rash Results Laboratory Results: 12/29/18 05:41 12/29/18 05:41 12/29/18 12/29/18 05:41 05:41 WBC 9.0 RBC 2.72 L Hgb 9.4 L Hct 27.1 L MCV 100 H MCH 34.5 H MCHC 34.7 RDW 14.3 H Plt Count 228 Seg Neutrophils % 77.1 Lymphocytes % 10.0 L Monocytes % 9.9 Eosinophils % 2.3 Basophils % 0.7 Absolute Neutrophils 6.9 Absolute Lymphocytes 0.9 Absolute Monocytes 0.9 Absolute Eosinophils 0.2 Absolute Basophils 0.1 Sodium 138.4 Potassium 3.2 L Chloride 107 Carbon Dioxide 24 Anion Gap 7 BUN 10 Creatinine 0.70 Est GFR ( Amer) > 60 Est GFR (Non-Af Amer) > 60 Glucose 84 Calcium 8.6 Total Bilirubin 2.4 H AST 63 H ALT 59 H Alkaline Phosphatase 278 H Total Protein 6.9 Albumin 3.2 L 12/28/18 12/28/18 12/29/18 12:00 12:00 05:41 Creatine Kinase 1265 H CK-MB (CK-2) 3.46 Troponin I < 0.012 NT-Pro-B Natriuret Pep 954 H 1500 H Impressions: Chest X-Ray 12/28/18 11:29 IMPRESSION: Left lower lobe pneumonia. Status: Imported from PACS Assessment and Plan - Diagnosis (1) Pneumonia Is this a current diagnosis for this admission?: Yes Plan: Healthcare associated PNA Admitted to [facility] last month, diagnosed with bilateral PNA on CT LLL PNA seen on CXR today Supplemental O2 for SPO2>90% Sputum cultures pending Blood cultures pending Continue Cefepime 2G q8h, appropriate treatment for HAP (2) Chronic pain Qualifiers: Chronic pain type: chronic pain syndrome Qualified Code(s): G89.4 - Chronic pain syndrome Is this a current diagnosis for this admission?: Yes Plan: Followed by outpatient pain service for chronic back pain MS contin and oxycodone at home (3) History of colon cancer Is this a current diagnosis for this admission?: Yes Plan: History of colon cancer s/p chemoradiation s/p ileostomy (4) Seizure disorder Is this a current diagnosis for this admission?: Yes Plan: PMH seizure disorder Continue home dose keppra (5) Dementia Is this a current diagnosis for this admission?: Yes Plan: PMH dementia continue Namenda Encourage day/night cues Ambulate twice per shift (6) Chest pain Qualifiers: Ischemic chest pain type: unspecified angina pectoris type Is this a current diagnosis for this admission?: Yes Plan: Patient endorses sharp left anterior chest wall pain Worse with inhalation, movement and palpation Patient currently taking home dose regimen of MS Contin and oxycodone Will initiate IV steroids Plan for CT chest to evaluate for PE and/or other cardio pulmonary pathology - Time Time Spent with patient: 15-24 minutes Medications reviewed and adjusted accordingly: Yes Anticipated discharge: Home - Inpatient Certification Based on my medical assessment, after consideration of the patient's comorbidities, presenting symptoms, or acuity I expect that the services needed warrant INPATIENT care.: Yes I certify that my determination is in accordance with my understanding of Medicare's requirements for reasonable and necessary INPATIENT services [42 CFR 412.3e].: Yes Medical Necessity: Need For Continuous Telemetry Monitoring, Risk of Complication if Not Cared For in Hospital
--- NOTE | 2018-12-29 20:09 | RADIOLOGY REPORT (SQ) ---
EXAM DESCRIPTION: CT CHEST ANGIOGRAPHY WITHOUT THEN WITH IV CONTRAST COMPLETED DATE/TME: 12/29/2018 00:00 CLINICAL HISTORY: 58 years Female Evaluate for PE tardus breath COMPARISON: 11/23/2018 TECHNIQUE: Contiguous axial images were obtained through the chest during the infusion of IV contrast. Reformatted images obtained. MIP reformatted images obtained. This exam was performed according to our department optimization program which includes automated exposure control, adjustment of the mA and/or kv according to patient size and/or use of iterative reconstruction technique. FINDINGS: Left pleural effusion with loculated fluid in the major fissure. No evidence of pulmonary embolus. No evidence of aortic dissection. Scattered small mediastinal and hilar lymph nodes. No significant pericardial effusion. Areas of atelectasis in the right lower lobe. Infiltrate and atelectasis in the left upper and lower lobe. There is an area of masslike consolidation in the lingula with convex margins. The possibility of a developing mass cannot be excluded on the basis of this exam. This measures 3 x 2.8 cm. Possibility of developing abscess could also be considered. IMPRESSION:No evidence of pulmonary embolus There has been progression of atelectasis and infiltrate in the left lower lobe and left upper lobe when compared to the previous examination with a focal area of masslike density in the lingula with convex margins. The possibility of developing abscess or mass is not excluded. Recommend continued follow-up Left pleural effusion with fluid loculated in the fissure Small amount of atelectasis in the right lung base
[2018-12-29] MEDS: GABAPENTIN 300 MG CAPSULE PO SCH (22:02)
--- NOTE | 2018-12-29 22:54 | EKG REPORT ---
SEVERITY:- BORDERLINE ECG - SINUS RHYTHM BORDERLINE T ABNORMALITIES, INFERIOR LEADS : Confirmed by: Aj Spivey 29-Dec-2018 22:54:12
[2018-12-30] MEDS ORDERED: METHYLPREDNISOLONE INJ 40 MG/1 ML SDV IV ONE (08:00)
[2018-12-30 08:38] LABS: HEMATOCRIT 26.6 % (36.0-47.0); HEMOGLOBIN 9.1 g/dL (12.0-15.5); MEAN CORPUSCULAR HEMOGLOBIN 33.9 pg (27.0-33.4); MEAN CORPUSCULAR HGB CONC 34.2 g/dL (32.0-36.0); MEAN CORPUSCULAR VOLUME 99 fl (80-97); PLATELET COUNT 263 10^3/uL (150-450); RED BLOOD COUNT 2.68 10^6/uL (3.72-5.28); RED CELL DISTRIBUTION WIDTH 14.3 % (11.5-14.0)
[2018-12-30 08:51] LABS: ALANINE AMINOTRANSFERASE 49 U/L (9-52); ALBUMIN 2.9 g/dL (3.5-5.0); ALKALINE PHOSPHATASE 275 U/L (38-126); ANION GAP 9 (5-19); ASPARTATE AMINO TRANSFERASE 31 U/L (14-36); BILIRUBIN,DIRECT 0.9 mg/dL (0.0-0.4); BILIRUBIN,TOTAL 1.1 mg/dL (0.2-1.3); BLOOD UREA NITROGEN 7 mg/dL (7-20); CALCIUM 7.9 mg/dL (8.4-10.2); CARBON DIOXIDE 23 mmol/L (22-30); CHLORIDE 109 mmol/L (98-107); GLUCOSE 94 mg/dL (75-110); POTASSIUM 3.2 mmol/L (3.6-5.0); SODIUM 140.5 mmol/L (137-145); TOTAL PROTEIN 5.6 g/dL (6.3-8.2)
[2018-12-30] MEDS: CEFEPIME 2 GM/D5W RTU 2 GM/50 ML RTUPB IV SCH ×2 (09:24→22:32)
[2018-12-30] MEDS: NORMAL SALINE 1000 ML 1,000 ML IV PRN ×2 (09:28→22:25)
[2018-12-30] MEDS: MEMANTINE HCL 10 MG TABLET PO SCH ×3 (10:18→17:52)
[2018-12-30] MEDS: LAMOTRIGINE 100 MG TABLET PO SCH ×3 (10:18→22:32)
[2018-12-30] MEDS: PROPRANOLOL HCL 40 MG TABLET PO SCH ×3 (10:18→22:31)
[2018-12-30] MEDS: TOPIRAMATE 100 MG TABLET PO SCH ×3 (10:18→22:33)
[2018-12-30] MEDS: PHENOBARBITAL 64.8 MG TABLET PO SCH ×3 (10:18→22:30)
[2018-12-30] MEDS: ENOXAPARIN SODIUM INJ 30 MG/0.3 ML DISP.SYRIN SUBCUT SCH (10:18)
[2018-12-30] MEDS: FAMOTIDINE 20 MG TABLET PO SCH ×2 (10:18→22:30)
[2018-12-30] MEDS: LEVETIRACETAM 500 MG TABLET PO SCH ×3 (10:18→22:30)
[2018-12-30] MEDS: DICLOFENAC SODIUM 25 MG TABLET.DR PO SCH ×3 (10:19→22:34)
[2018-12-30] MEDS: MORPHINE SULFATE IR 30 MG TABLET PO PRN ×2 (11:55→17:52)
[2018-12-30] MEDS: METHYLPREDNISOLONE INJ 40 MG/1 ML SDV IV SCH ×2 (15:22→22:26)
--- NOTE | 2018-12-30 15:23 | PDOC PROGRESS REPORT ---
Subjective Progress Note for:: 12/30/18 Subjective:: No adverse events overnight. Yesterday and overnight the patient was complaining of pain in whenever somebody would come back into check on the patient again later she would be asleep. There was some concern that was she was getting sedating medication from an exogenous source, because this morning she was very somnolent and her blood pressure and heart rates were low without is having giving her any of her medications yet. This morning when I talked to her she did seem a bit somnolent and she was intermittently slurring some of her words. Reason For Visit: PNEUMONIA Physical Exam Vital Signs: Temp Pulse Resp BP Pulse Ox 97.8 F 74 18 116/65 99 12/30/18 11:46 12/30/18 11:46 12/30/18 11:46 12/30/18 11:46 12/30/18 11:46 Intake & Output 12/29/18 12/30/18 12/31/18 06:59 06:59 06:59 Intake Total 2574 2021 286 Balance 2574 2021 286 Weight 83.1 kg 82.1 kg General appearance: PRESENT: no acute distress, cooperative, disheveled, obese Respiratory exam: PRESENT: crackles - Left mid and lower chest, unlabored. ABSENT: chest wall tenderness, prolonged expiratory phas, rhonchi, symmetrical, tachypnea, wheezes Cardiovascular exam: PRESENT: RRR, +S1, +S2 Pulses: PRESENT: normal carotid pulses Vascular exam: PRESENT: normal capillary refill GI/Abdominal exam: PRESENT: normal bowel sounds, soft. ABSENT: distended, guarding, rigid, tenderness Extremities exam: ABSENT: clubbing, pedal edema Musculoskeletal exam: PRESENT: normal inspection. ABSENT: deformity Neurological exam: PRESENT: awake, oriented to person, oriented to place, oriented to situation Psychiatric exam: PRESENT: flat affect Skin exam: PRESENT: dry, warm Results Laboratory Results: 12/30/18 08:20 12/30/18 08:20 12/30/18 12/30/18 08:20 08:20 WBC 6.0 RBC 2.68 L Hgb 9.1 L Hct 26.6 L MCV 99 H MCH 33.9 H MCHC 34.2 RDW 14.3 H Plt Count 263 Sodium 140.5 Potassium 3.2 L Chloride 109 H Carbon Dioxide 23 Anion Gap 9 BUN 7 Creatinine 0.59 Est GFR ( Amer) > 60 Est GFR (Non-Af Amer) > 60 Glucose 94 Calcium 7.9 L Magnesium 2.0 Total Bilirubin 1.1 AST 31 ALT 49 Alkaline Phosphatase 275 H Total Protein 5.6 L Albumin 2.9 L 12/28/18 12/28/18 12/29/18 12:00 12:00 05:41 Creatine Kinase 1265 H CK-MB (CK-2) 3.46 Troponin I < 0.012 NT-Pro-B Natriuret Pep 954 H 1500 H Impressions: Chest X-Ray 12/28/18 11:29 IMPRESSION: Left lower lobe pneumonia. Chest/Abdomen CTA 12/29/18 00:00 IMPRESSION:No evidence of pulmonary embolus There has been progression of atelectasis and infiltrate in the left lower lobe and left upper lobe when compared to the previous examination with a focal area of masslike density in the lingula with convex margins. The possibility of developing abscess or mass is not excluded. Recommend continued follow-up Left pleural effusion with fluid loculated in the fissure Small amount of atelectasis in the right lung base Assessment and Plan - Diagnosis (1) Pneumonia Qualifiers: Pneumonia type: due to unspecified organism Laterality: left Lung location: lower lobe of lung Qualified Code(s): J18.1 - Lobar pneumonia, unspecified organism Is this a current diagnosis for this admission?: Yes Plan: Cultures are pending, still trying to get a sputum culture, continue current antibiotics. Encourage ambulation and aggressive pulmonary toilet. (2) Rhabdomyolysis Qualifiers: Rhabdomyolysis type: non-traumatic Qualified Code(s): M62.82 - Rhabdomyolysis Is this a current diagnosis for this admission?: Yes Plan: Was very mild to begin with, and we are encouraging oral hydration (3) Opiate dependence, continuous Is this a current diagnosis for this admission?: Yes Plan: Were concerned that she might be taking some of her own medications, because we have not been giving her anything and she is been looking sedated. We watched her for a while and she became more awake as time went by her blood pressure heart rate came up. We will monitor for clues of exogenous medication administration. (4) Hypokalemia Is this a current diagnosis for this admission?: Yes Plan: Will replace with an oral supplement. - Time Time Spent with patient: 25-34 minutes
[2018-12-30] MEDS ORDERED: POTASSIUM CHLORIDE 10 MEQ CAPSULE.ER PO ONE (16:00)
[2018-12-30] MEDS: PROMETHAZINE HCL INJ 25 MG/1 ML VIAL IV PRN (22:25)
[2018-12-30] MEDS: KETOROLAC TROMETHAMINE INJ/PF 30 MG/1 ML SDV IV PRN (22:29)
[2018-12-30] MEDS: GABAPENTIN 300 MG CAPSULE PO SCH (22:30)
[2018-12-31] MEDS: NORMAL SALINE 1000 ML 1,000 ML IV PRN ×2 (04:47→17:00)
[2018-12-31] MEDS: METHYLPREDNISOLONE INJ 40 MG/1 ML SDV IV SCH ×3 (06:09→21:18)
[2018-12-31] MEDS: MORPHINE SULFATE IR 30 MG TABLET PO PRN ×3 (07:53→20:06)
--- NOTE | 2018-12-31 09:11 | RADIOLOGY REPORT (SQ) ---
EXAM DESCRIPTION: CHEST SINGLE VIEW COMPLETED DATE/TIME: 12/31/2018 8:55 am REASON FOR STUDY: left lower lobe pneumonia COMPARISON: 12/28/2018. FINDINGS: Single-view chest AP portable upright at approximately 0827 hours. No change in lines. Persistent density left base. Partially obscured by battery pack. No pneumothorax or new infiltrate s. Stable cardiomediastinal silhouette. IMPRESSION: Stable chest. TECHNICAL DOCUMENTATION: JOB ID: [id number] Reading location - IP/workstation name: [email or web address]
[2018-12-31 09:25] LABS: ANION GAP 11 (5-19); BLOOD UREA NITROGEN 7 mg/dL (7-20); CALCIUM 8.9 mg/dL (8.4-10.2); CARBON DIOXIDE 21 mmol/L (22-30); CHLORIDE 111 mmol/L (98-107); GLUCOSE 123 mg/dL (75-110); POTASSIUM 3.9 mmol/L (3.6-5.0); SODIUM 142.7 mmol/L (137-145)
[2018-12-31] MEDS: CEFEPIME 2 GM/D5W RTU 2 GM/50 ML RTUPB IV SCH ×2 (09:31→21:17)
[2018-12-31] MEDS: MEMANTINE HCL 10 MG TABLET PO SCH ×2 (09:31→17:00)
[2018-12-31] MEDS: LEVETIRACETAM 500 MG TABLET PO SCH ×2 (09:31→21:19)
[2018-12-31] MEDS: PHENOBARBITAL 64.8 MG TABLET PO SCH ×2 (09:31→21:21)
[2018-12-31] MEDS: TOPIRAMATE 100 MG TABLET PO SCH ×2 (09:32→21:17)
[2018-12-31] MEDS: DICLOFENAC SODIUM 25 MG TABLET.DR PO SCH ×2 (09:32→21:18)
[2018-12-31] MEDS: LAMOTRIGINE 100 MG TABLET PO SCH ×2 (09:33→21:20)
[2018-12-31] MEDS: PROPRANOLOL HCL 40 MG TABLET PO SCH ×2 (09:33→21:20)
[2018-12-31] MEDS: ENOXAPARIN SODIUM INJ 30 MG/0.3 ML DISP.SYRIN SUBCUT SCH (09:33)
[2018-12-31] MEDS: FAMOTIDINE 20 MG TABLET PO SCH ×2 (09:34→21:21)
--- NOTE | 2018-12-31 15:17 | PDOC PROGRESS REPORT ---
Subjective Progress Note for:: 12/31/18 Subjective:: No adverse events overnight. She is sitting on the edge of the bed eating lunch watching television. She looked comfortable whenever came in the room but when I open the door and she saw that it was me, she started to grimace and immediately started telling me how much pain she was in. She is able to get up and ambulate independently but says that after she been walking around for a while the pain is just too intense. Cough remains nonproductive. Reason For Visit: PNEUMONIA Physical Exam Vital Signs: Temp Pulse Resp BP Pulse Ox 97.8 F 66 19 111/62 100 12/31/18 13:00 12/31/18 14:00 12/31/18 13:00 12/31/18 13:00 12/31/18 13:00 Intake & Output 12/30/18 12/31/18 01/01/19 06:59 06:59 06:59 Intake Total 2021 2652 404 Balance 2021 265 404 Weight 82.1 kg 83.5 kg General appearance: PRESENT: no acute distress, cooperative, disheveled, obese Respiratory exam: PRESENT: crackles - Left mid and lower chest, unlabored. ABSENT: chest wall tenderness, prolonged expiratory phas, rhonchi, symmetrical, tachypnea, wheezes Cardiovascular exam: PRESENT: RRR, +S1, +S2 Pulses: PRESENT: normal carotid pulses Vascular exam: PRESENT: normal capillary refill GI/Abdominal exam: PRESENT: normal bowel sounds, soft. ABSENT: distended, guarding, rigid, tenderness Extremities exam: ABSENT: clubbing, pedal edema Musculoskeletal exam: PRESENT: normal inspection. ABSENT: deformity Neurological exam: PRESENT: awake, oriented to person, oriented to place, oriented to situation Psychiatric exam: PRESENT: flat affect Skin exam: PRESENT: dry, warm Results Laboratory Results: 12/30/18 08:20 12/31/18 08:14 12/31/18 08:14 Sodium 142.7 Potassium 3.9 Chloride 111 H Carbon Dioxide 21 L Anion Gap 11 BUN 7 Creatinine 0.70 Est GFR ( Amer) > 60 Est GFR (Non-Af Amer) > 60 Glucose 123 H Calcium 8.9 12/28/18 12/28/18 12/29/18 12:00 12:00 05:41 Creatine Kinase 1265 H CK-MB (CK-2) 3.46 Troponin I < 0.012 NT-Pro-B Natriuret Pep 954 H 1500 H Impressions: Chest/Abdomen CTA 12/29/18 00:00 IMPRESSION:No evidence of pulmonary embolus There has been progression of atelectasis and infiltrate in the left lower lobe and left upper lobe when compared to the previous examination with a focal area of masslike density in the lingula with convex margins. The possibility of developing abscess or mass is not excluded. Recommend continued follow-up Left pleural effusion with fluid loculated in the fissure Small amount of atelectasis in the right lung base Chest X-Ray 12/31/18 00:00 IMPRESSION: Stable chest. Assessment and Plan - Diagnosis (1) Pneumonia Qualifiers: Pneumonia type: due to unspecified organism Laterality: left Lung location: lower lobe of lung Qualified Code(s): J18.1 - Lobar pneumonia, unspecified organism Is this a current diagnosis for this admission?: Yes Plan: Cultures are pending, still trying to get a sputum culture, continue current antibiotics. Encourage ambulation and aggressive pulmonary toilet. Because of the appearance of the chest CT, I looked at old images, and found a CT scan from November of this year. She appears to have had something developing in the same region where the pneumonia is seen on the current chest CT. I am not sure the significance of this, and despite her improvement clinically, her chest x-ray is unchanged. I will likely get pulmonology to come see her in consultation tomorrow. (2) Rhabdomyolysis Qualifiers: Rhabdomyolysis type: non-traumatic Qualified Code(s): M62.82 - Rhabdomyolysis Is this a current diagnosis for this admission?: Yes Plan: Was very mild to begin with, and we are encouraging oral hydration (3) Opiate dependence, continuous Is this a current diagnosis for this admission?: Yes Plan: Were watching closely for signs of oversedation, and because she looked comfortable when I first came into the room, I will declined to increase her pain medication. (4) Hypokalemia Is this a current diagnosis for this admission?: Yes Plan: Resolved, replaced with an oral supplement. - Time Time Spent with patient: 25-34 minutes
[2018-12-31] MEDS: GABAPENTIN 300 MG CAPSULE PO SCH (21:21)
[2018-12-31] MEDS: KETOROLAC TROMETHAMINE INJ/PF 30 MG/1 ML SDV IV PRN (21:36)
[2018-12-31] MEDS: PROMETHAZINE HCL INJ 25 MG/1 ML VIAL IV PRN (21:36)
[2019-01-01] MEDS: MORPHINE SULFATE IR 30 MG TABLET PO PRN ×3 (02:44→17:09)
[2019-01-01] MEDS: NORMAL SALINE 1000 ML 1,000 ML IV PRN ×2 (05:18→16:04)
[2019-01-01] MEDS: METHYLPREDNISOLONE INJ 40 MG/1 ML SDV IV SCH ×3 (05:18→22:21)
[2019-01-01] MEDS: CEFEPIME 2 GM/D5W RTU 2 GM/50 ML RTUPB IV SCH ×2 (10:02→22:24)
[2019-01-01] MEDS: DICLOFENAC SODIUM 25 MG TABLET.DR PO SCH ×2 (10:05→22:21)
[2019-01-01] MEDS: PROPRANOLOL HCL 40 MG TABLET PO SCH ×2 (10:05→22:22)
[2019-01-01] MEDS: LAMOTRIGINE 100 MG TABLET PO SCH ×2 (10:05→22:21)
[2019-01-01] MEDS: MEMANTINE HCL 10 MG TABLET PO SCH ×2 (10:06→17:09)
[2019-01-01] MEDS: TOPIRAMATE 100 MG TABLET PO SCH ×2 (10:06→22:23)
[2019-01-01] MEDS: FAMOTIDINE 20 MG TABLET PO SCH ×2 (10:06→22:22)
[2019-01-01] MEDS: PHENOBARBITAL 64.8 MG TABLET PO SCH ×2 (10:06→22:22)
[2019-01-01] MEDS: LEVETIRACETAM 500 MG TABLET PO SCH ×2 (10:06→22:21)
[2019-01-01] MEDS: ENOXAPARIN SODIUM INJ 40 MG/0.4 ML DISP.SYRIN SUBCUT SCH (10:07)
[2019-01-01] MEDS: KETOROLAC TROMETHAMINE INJ/PF 30 MG/1 ML SDV IV PRN ×2 (13:14→22:30)
[2019-01-01] MEDS: PROMETHAZINE HCL INJ 25 MG/1 ML VIAL IV PRN (13:24)
--- NOTE | 2019-01-01 13:31 | PDOC PROGRESS REPORT ---
Subjective Progress Note for:: 01/01/19 Subjective:: No adverse events overnight. No fevers. Cough is been nonproductive. Patient was sitting on the edge of the bed leaning on the food tray watching television when I came into the room, looks comfortable initially and when I asked how she was doing she began to talk in a crying voice without tears about how painful her breathing was. She is breathing comfortably on room air. Reason For Visit: PNEUMONIA Physical Exam Vital Signs: Temp Pulse Resp BP Pulse Ox 98.4 F 62 15 117/73 97 01/01/19 12:00 01/01/19 12:00 01/01/19 12:00 01/01/19 12:00 01/01/19 12:00 Intake & Output 12/31/18 01/01/19 01/02/19 06:59 06:59 06:59 Intake Total 2652 2912 50 Balance 2652 2912 50 Weight 83.5 kg 84.2 kg General appearance: PRESENT: no acute distress, cooperative, disheveled, obese Respiratory exam: PRESENT: crackles - Left mid and lower chest, unlabored. ABSENT: chest wall tenderness, prolonged expiratory phas, rhonchi, symmetrical, tachypnea, wheezes Cardiovascular exam: PRESENT: RRR, +S1, +S2 Pulses: PRESENT: normal carotid pulses Vascular exam: PRESENT: normal capillary refill GI/Abdominal exam: PRESENT: normal bowel sounds, soft. ABSENT: distended, guarding, rigid, tenderness Extremities exam: ABSENT: clubbing, pedal edema Musculoskeletal exam: PRESENT: normal inspection. ABSENT: deformity Neurological exam: PRESENT: awake, oriented to person, oriented to place, oriented to situation Psychiatric exam: PRESENT: flat affect Skin exam: PRESENT: dry, warm Results Laboratory Results: 12/30/18 08:20 12/31/18 08:14 12/28/18 12/28/18 12/29/18 12:00 12:00 05:41 Creatine Kinase 1265 H CK-MB (CK-2) 3.46 Troponin I < 0.012 NT-Pro-B Natriuret Pep 954 H 1500 H Impressions: Chest/Abdomen CTA 12/29/18 00:00 IMPRESSION:No evidence of pulmonary embolus There has been progression of atelectasis and infiltrate in the left lower lobe and left upper lobe when compared to the previous examination with a focal area of masslike density in the lingula with convex margins. The possibility of developing abscess or mass is not excluded. Recommend continued follow-up Left pleural effusion with fluid loculated in the fissure Small amount of atelectasis in the right lung base Chest X-Ray 12/31/18 00:00 IMPRESSION: Stable chest. Assessment and Plan - Diagnosis (1) Pneumonia Qualifiers: Pneumonia type: due to unspecified organism Laterality: left Lung location: lower lobe of lung Qualified Code(s): J18.1 - Lobar pneumonia, unspecified organism Is this a current diagnosis for this admission?: Yes Plan: Cultures are pending, still trying to get a sputum culture, continue current antibiotics. Encourage ambulation and aggressive pulmonary toilet. Because of the appearance of the chest CT, I looked at old images, and found a CT scan from November of this year. She appears to have had something developing in the same region where the pneumonia is seen on the current chest CT. I am going to repeat the CT scan to see if this area has started to break up and resolve, and if it has not then I will consult pulmonology. (2) Rhabdomyolysis Qualifiers: Rhabdomyolysis type: non-traumatic Qualified Code(s): M62.82 - Rhabdomyolysis Is this a current diagnosis for this admission?: Yes Plan: Was very mild to begin with, and we are encouraging oral hydration (3) Opiate dependence, continuous Is this a current diagnosis for this admission?: Yes Plan: Were watching closely for signs of oversedation, and because she looked comfortable when I first came into the room, I will declined to increase her pain medication. (4) Hypokalemia Is this a current diagnosis for this admission?: Yes Plan: Resolved, replaced with an oral supplement. - Time Time Spent with patient: 25-34 minutes
[2019-01-01] MEDS: OXYCODONE HCL IR 5 MG TABLET PO PRN (14:59)
--- NOTE | 2019-01-01 18:02 | RADIOLOGY REPORT (SQ) ---
EXAM DESCRIPTION: CT CHEST WITH COMPLETED DATE/TIME: 01/01/2019 5:37 pm REASON FOR STUDY: masslike density in left chest on prior ct COMPARISON: 12/29/2018 TECHNIQUE: CT scan of the chest performed using helical scanning technique with dynamic intravenous contrast injection. Images reviewed with lung, soft tissue and bone windows. Reconstructed coronal and sagittal MPR and MIP images reviewed. All images stored on PACS. All CT scanners at this facility use dose modulation, iterative reconstruction, and/or weight based d osing when appropriate to reduce radiation dose to as low as reasonably achievable (ALARA). [facility]: Dose Right [facility]: CareDose [facility]: Dose Right [facility]: Teradose 4D [facility]: UNX CONTRAST TYPE AND DOSE: contrast/concentration: Isovue mg/ml; Total Contrast Delivered: 80.0 ml; To valerie Saline Delivered: 55.0 ml RENAL FUNCTION: BUN 17 creatinine 0.7 RADIATION DOSE: CT Rad equipment meets quality standard of care and radiation dose reduction techniq ues were employed. CTDIvol: 11.6 mGy. DLP: 453 mGy-cm. . LIMITATIONS: None. FINDINGS: LUNGS AND PLEURA: Mild ground-glass infiltrates in the upper lobes. Moderate left pleural effusion. Airspace disease in the left lower lobe and in the lingula. Masslike density described i n the lingula on the prior study is less prominent currently. HILAR AND MEDIASTINAL STRUCTURES: No identified masses or abnormal nodes. HEART AND VASCULAR STRUCTURES: No aneurysm or dissection. No central pulmonary emboli. No pericardi al effusion. HARDWARE: Pacemaker. UPPER ABDOMEN: No significant findings. Limited exam. THYROID AND OTHER SOFT TISSUES: No masses. No adenopathy. BONES: No significant finding. OTHER: No other significant finding. IMPRESSION: Improving airspace disease in the left lower lobe and the lingula. Pneumonia versus ate lectasis. Masslike density described in the lingula on the prior study is less prominent. Left pleu ral effusion persists. Recommend additional follow-up after treatment. TECHNICAL DOCUMENTATION: JOB ID: [id number] Quality ID # [id number]: Final reports with documentation of one or more dose reduction techniques (e.g., Au tomated exposure control, adjustment of the mA and/or kV according to patient size, use of iterative reconstruction technique) 2010 [employer]- All Rights Reserved Reading location - IP/workstation name: [email or web address]
[2019-01-01] MEDS: GABAPENTIN 300 MG CAPSULE PO SCH (22:22)
[2019-01-02] MEDS: MORPHINE SULFATE IR 30 MG TABLET PO PRN ×3 (03:08→19:53)
[2019-01-02] MEDS: NORMAL SALINE 1000 ML 1,000 ML IV PRN ×2 (03:38→13:39)
[2019-01-02] MEDS: PROMETHAZINE HCL INJ 25 MG/1 ML VIAL IV PRN ×3 (03:38→23:59)
[2019-01-02] MEDS: KETOROLAC TROMETHAMINE INJ/PF 30 MG/1 ML SDV IV PRN (04:43)
[2019-01-02] MEDS: METHYLPREDNISOLONE INJ 40 MG/1 ML SDV IV SCH ×3 (05:56→21:17)
[2019-01-02] MEDS: MEMANTINE HCL 10 MG TABLET PO SCH ×2 (09:30→17:04)
[2019-01-02] MEDS: CEFEPIME 2 GM/D5W RTU 2 GM/50 ML RTUPB IV SCH ×2 (09:30→21:14)
[2019-01-02] MEDS: FAMOTIDINE 20 MG TABLET PO SCH ×2 (09:30→21:15)
[2019-01-02] MEDS: PHENOBARBITAL 64.8 MG TABLET PO SCH ×2 (09:31→21:15)
[2019-01-02] MEDS: LEVETIRACETAM 500 MG TABLET PO SCH ×2 (09:31→21:21)
[2019-01-02] MEDS: TOPIRAMATE 100 MG TABLET PO SCH ×2 (09:31→21:16)
[2019-01-02] MEDS: ENOXAPARIN SODIUM INJ 40 MG/0.4 ML DISP.SYRIN SUBCUT SCH (09:31)
[2019-01-02] MEDS: DICLOFENAC SODIUM 25 MG TABLET.DR PO SCH ×2 (09:32→21:15)
[2019-01-02] MEDS: LAMOTRIGINE 100 MG TABLET PO SCH ×2 (09:32→21:15)
[2019-01-02] MEDS: PROPRANOLOL HCL 40 MG TABLET PO SCH ×2 (09:33→21:30)
[2019-01-02] MEDS: OXYCODONE HCL IR 5 MG TABLET PO PRN (13:39)
[2019-01-02] MEDS ORDERED: KETOROLAC TROMETHAMINE INJ/PF 30 MG/1 ML SDV IV ONE (16:30)
[2019-01-02] MEDS: DOXYCYCLINE HYCLATE 100 MG in DEXTROSE 5%-WATER 250 ML IV SCH (17:02)
[2019-01-02] MEDS: GABAPENTIN 300 MG CAPSULE PO SCH (21:15)
[2019-01-02] MEDS ORDERED: DIPHENHYDRAMINE HCL 50 MG/ML VIAL IV SCH (22:00)
[2019-01-03] MEDS: DOXYCYCLINE HYCLATE 100 MG in DEXTROSE 5%-WATER 250 ML IV SCH ×2 (05:24→17:32)
[2019-01-03] MEDS: METHYLPREDNISOLONE INJ 40 MG/1 ML SDV IV SCH ×3 (05:28→21:14)
[2019-01-03 05:50] LABS: ABSOLUTE LYMPHOCYTES (AUTO) 1.5 10^3/uL (0.5-4.7); ABSOLUTE MONOCYTES (AUTO) 0.4 10^3/uL (0.1-1.4); ABSOLUTE NEUT (AUTO) 4.3 10^3/uL (1.7-8.2); BASOPHILS % (AUTO) 0.3 % (0-2); EOSINOPHILS % (AUTO) 0.3 % (0-6); HEMATOCRIT 26.1 % (36.0-47.0); HEMOGLOBIN 8.9 g/dL (12.0-15.5); LYMPHOCYTES % (AUTO) 23.8 % (13-45); MEAN CORPUSCULAR HEMOGLOBIN 33.6 pg (27.0-33.4); MEAN CORPUSCULAR VOLUME 99 fl (80-97); MONOCYTES % (AUTO) 5.8 % (3-13); PLATELET COUNT 338 10^3/uL (150-450); RED BLOOD COUNT 2.64 10^6/uL (3.72-5.28); RED CELL DISTRIBUTION WIDTH 14.2 % (11.5-14.0); SEGMENTED NEUTROPHILS % (AUTO) 69.8 % (42-78); TOTAL CELLS COUNTED % (AUTO) 100 %; WHITE BLOOD COUNT 6.2 10^3/uL (4.0-10.5)
[2019-01-03 06:22] LABS: ALANINE AMINOTRANSFERASE 46 U/L (9-52); ALBUMIN 2.7 g/dL (3.5-5.0); ALKALINE PHOSPHATASE 281 U/L (38-126); ANION GAP 7 (5-19); ASPARTATE AMINO TRANSFERASE 34 U/L (14-36); BILIRUBIN,DIRECT 0.3 mg/dL (0.0-0.4); BILIRUBIN,TOTAL 0.4 mg/dL (0.2-1.3); BLOOD UREA NITROGEN 7 mg/dL (7-20); CALCIUM 8.5 mg/dL (8.4-10.2); CARBON DIOXIDE 24 mmol/L (22-30); CHLORIDE 113 mmol/L (98-107); GLUCOSE 92 mg/dL (75-110); PHOSPHORUS 3.2 mg/dL (2.5-4.5); POTASSIUM 3.7 mmol/L (3.6-5.0); SODIUM 143.8 mmol/L (137-145); TOTAL PROTEIN 5.7 g/dL (6.3-8.2)
[2019-01-03] MEDS: PROPRANOLOL HCL 40 MG TABLET PO SCH ×2 (09:03→21:13)
[2019-01-03] MEDS: MEMANTINE HCL 10 MG TABLET PO SCH ×2 (09:12→17:32)
[2019-01-03] MEDS: DICLOFENAC SODIUM 25 MG TABLET.DR PO SCH ×2 (09:12→21:15)
[2019-01-03] MEDS: FAMOTIDINE 20 MG TABLET PO SCH ×2 (09:12→21:15)
[2019-01-03] MEDS: LEVETIRACETAM 500 MG TABLET PO SCH ×2 (09:12→21:14)
[2019-01-03] MEDS: LAMOTRIGINE 100 MG TABLET PO SCH ×2 (09:13→21:24)
[2019-01-03] MEDS: MORPHINE SULFATE IR 30 MG TABLET PO PRN ×2 (09:13→15:30)
[2019-01-03] MEDS: PHENOBARBITAL 64.8 MG TABLET PO SCH ×2 (09:13→21:14)
[2019-01-03] MEDS: TOPIRAMATE 100 MG TABLET PO SCH ×2 (09:13→21:15)
[2019-01-03] MEDS: CEFEPIME 2 GM/D5W RTU 2 GM/50 ML RTUPB IV SCH ×2 (09:14→21:19)
[2019-01-03] MEDS: ENOXAPARIN SODIUM INJ 40 MG/0.4 ML DISP.SYRIN SUBCUT SCH (09:15)
[2019-01-03 10:28] LABS: ARTERIAL BLOOD BASE EXCESS -2.6 mmol/L; ARTERIAL BLOOD H2CO3 1.01 mmol/L (1.05-1.35); ARTERIAL BLOOD HCO3 21.2 mmol/L (20-24); ARTERIAL BLOOD PCO2 33.6 mmHg (35-45); ARTERIAL BLOOD PH 7.42 (7.35-7.45); ARTERIAL BLOOD PO2 72.7 mmHg (80-100); ARTERIAL BLOOD TOTAL CO2 22.2 mmol/L (21-25)
[2019-01-03 10:29] LABS: ARTERIAL BLOOD FIO2 21%
[2019-01-03 11:57] LABS: TOTAL PROTEIN 5.5 g/dL (6.3-8.2)
[2019-01-03 12:26] LABS: ABSOLUTE RETICS # 0.036 10^6/uL (0.028-0.122); RETICULOCYTE COUNT (AUTO) 1.36 % (0.66-2.85)
[2019-01-03 12:46] LABS: IRON(TIBC) 76.2 ug/dL (37-170)
[2019-01-03] MEDS: OXYCODONE HCL IR 5 MG TABLET PO PRN (13:45)
[2019-01-03] MEDS: NORMAL SALINE 1000 ML 1,000 ML IV PRN ×2 (13:46→16:27)
[2019-01-03 13:51] LABS: FOLATE 3.33 ng/mL (>2.76)
--- NOTE | 2019-01-03 14:51 | PDOC PROGRESS REPORT ---
Subjective Progress Note for:: 01/02/19 Subjective:: The patient is resting in her bed. She states she is having pain in her back and overall just does not feel well. We discussed getting an echocardiogram of her heart and she is agreeable. She also is agreeable to a pulmonology consult. She has a markedly abnormal CT scan of the chest. She denies fever or shaking chills. No chest pain or heart palpitations. She states she has a cough at times but she is stable and not too short of breath on room air. No nausea vomiting or diarrhea. No urinary complaints Reason For Visit: PNEUMONIA Physical Exam Vital Signs: Temp Pulse Resp BP Pulse Ox 98.6 F 55 L 16 115/65 95 01/03/19 12:02 01/03/19 14:00 01/03/19 12:02 01/03/19 12:02 01/03/19 12:02 Intake & Output 01/02/19 01/03/19 01/04/19 06:59 06:59 06:59 Intake Total 3870 3626 300 Balance 3870 3626 300 Weight 86.9 kg 86.5 kg General appearance: PRESENT: no acute distress, well-nourished, other - Somewhat ill-appearing Head exam: PRESENT: atraumatic, normocephalic Mouth exam: PRESENT: moist, tongue midline Neck exam: ABSENT: carotid bruit, JVD, lymphadenopathy, thyromegaly Respiratory exam: PRESENT: decreased breath sounds, rales. ABSENT: rhonchi, wheezes Cardiovascular exam: PRESENT: RRR. ABSENT: diastolic murmur, rubs, systolic murmur GI/Abdominal exam: PRESENT: normal bowel sounds, soft. ABSENT: distended, guarding, mass, organolmegaly, rebound, tenderness Rectal exam: PRESENT: deferred Extremities exam: PRESENT: full ROM. ABSENT: calf tenderness, clubbing, pedal edema Neurological exam: PRESENT: alert, awake, oriented to person, oriented to place, oriented to time, oriented to situation, CN II-XII grossly intact. ABSENT: motor sensory deficit Psychiatric exam: PRESENT: appropriate affect, normal mood. ABSENT: homicidal ideation, suicidal ideation Skin exam: PRESENT: dry, intact, warm. ABSENT: cyanosis, rash Results Laboratory Results: 01/03/19 05:25 01/03/19 05:25 0301/03/19 01/03/19 05:25 05:25 05:25 WBC 6.2 RBC 2.64 L Hgb 8.9 L Hct 26.1 L MCV 99 H MCH 33.6 H MCHC 34.0 RDW 14.2 H Plt Count 338 Seg Neutrophils % 69.8 Lymphocytes % 23.8 Monocytes % 5.8 Eosinophils % 0.3 Basophils % 0.3 Absolute Neutrophils 4.3 Absolute Lymphocytes 1.5 Absolute Monocytes 0.4 Absolute Eosinophils 0.0 Absolute Basophils 0.0 Retic Count (auto) Absolute Retic Carbonic Acid HCO3/H2CO3 Ratio ABG pH ABG pCO2 ABG pO2 ABG HCO3 ABG O2 Saturation ABG Base Excess FiO2 Sodium 143.8 Potassium 3.7 Chloride 113 H Carbon Dioxide 24 Anion Gap 7 BUN 7 Creatinine 0.61 Est GFR ( Amer) > 60 Est GFR (Non-Af Amer) > 60 Glucose 92 Calcium 8.5 Phosphorus 3.2 Magnesium 1.9 Iron 76.2 TIBC 266 % Saturation 29 Ferritin 101.00 Total Bilirubin 0.4 AST 34 ALT 46 Alkaline Phosphatase 281 H Total Protein 5.7 L Albumin 2.7 L Vitamin B12 227.0 L Folate 3.33 01/03/19 01/03/19 01/03/19 05:25 10:12 10:59 WBC RBC Hgb Hct MCV MCH MCHC RDW Plt Count Seg Neutrophils % Lymphocytes % Monocytes % Eosinophils % Basophils % Absolute Neutrophils Absolute Lymphocytes Absolute Monocytes Absolute Eosinophils Absolute Basophils Retic Count (auto) 1.36 Absolute Retic 0.036 Carbonic Acid 1.01 L HCO3/H2CO3 Ratio 20:1 ABG pH 7.42 ABG pCO2 33.6 L ABG pO2 72.7 L ABG HCO3 21.2 ABG O2 Saturation 95.0 ABG Base Excess -2.6 FiO2 21% Sodium Potassium Chloride Carbon Dioxide Anion Gap BUN Creatinine Est GFR ( Amer) Est GFR (Non-Af Amer) Glucose Calcium Phosphorus Magnesium Iron TIBC % Saturation Ferritin Total Bilirubin AST ALT Alkaline Phosphatase Total Protein 5.5 L Albumin Vitamin B12 Folate 12/28/18 18:10 Blood Blood Culture - Final NO GROWTH IN 5 DAYS 12/28/18 12:00 Blood Blood Culture - Final NO GROWTH IN 5 DAYS 12/28/18 12/28/18 12/29/18 12:00 12:00 05:41 Creatine Kinase 1265 H CK-MB (CK-2) 3.46 Troponin I < 0.012 NT-Pro-B Natriuret Pep 954 H 1500 H 01/02/19 16:05 Creatine Kinase CK-MB (CK-2) Troponin I NT-Pro-B Natriuret Pep 3410 H Impressions: Chest/Abdomen CTA 12/29/18 00:00 IMPRESSION:No evidence of pulmonary embolus There has been progression of atelectasis and infiltrate in the left lower lobe and left upper lobe when compared to the previous examination with a focal area of masslike density in the lingula with convex margins. The possibility of developing abscess or mass is not excluded. Recommend continued follow-up Left pleural effusion with fluid loculated in the fissure Small amount of atelectasis in the right lung base Chest X-Ray 12/31/18 00:00 IMPRESSION: Stable chest. Chest CT 01/01/19 00:00 IMPRESSION: Improving airspace disease in the left lower lobe and the lingula. Pneumonia versus atelectasis. Masslike density described in the lingula on the prior study is less prominent. Left pleural effusion persists. Recommend additional follow-up after treatment. Assessment and Plan - Diagnosis (1) Acute respiratory failure with hypoxia Is this a current diagnosis for this admission?: Yes Plan: This was transient and has resolved secondary to her underlying pneumonia. She did have increased work of breathing at the time of admission. She was found to be hypoxic and was placed on 2 L. She later dropped down to 81% on 2 L of oxygen and her oxygen had to be increased. This improved rather quickly with therapy and she has since been weaned off of oxygen. Her respiratory failure is due to underlying pneumonia. She also has a markedly abnormal CT scan of her chest as well as a pleural effusion. Continue aggressive breathing treatments, good pulmonary toilet and therapy will be outlined below (2) Pneumonia Qualifiers: Pneumonia type: due to unspecified organism Laterality: left Lung location: lower lobe of lung Qualified Code(s): J18.1 - Lobar pneumonia, unspecified organism Is this a current diagnosis for this admission?: Yes Plan: At this point she has been treated for a gram-negative or atypical pneumonia. Unfortunately she has not been able to give them a sputum sample. I am going to order Legionella antigen, strep pneumo and mycoplasma as well. (3) Pleural effusion Is this a current diagnosis for this admission?: Yes Plan: Noted on CT chest. I am going to get pulmonology to see the patient. (4) Seizure disorder Is this a current diagnosis for this admission?: Yes Plan: She has had no seizures during this hospitalization. Continue Lamictal. (5) Migraines Is this a current diagnosis for this admission?: Yes Plan: Continue Topamax. No complaints of headache today (6) Psoriatic arthritis Is this a current diagnosis for this admission?: Yes Plan: No evidence of flare (7) Cognitive changes Is this a current diagnosis for this admission?: Yes Plan: Possibly due to early dementia (8) Opiate dependence, continuous Is this a current diagnosis for this admission?: Yes Plan: She will continue her home dose of opiates. I have not escalated her narcotics. (9) Chronic pain Is this a current diagnosis for this admission?: Yes Plan: Chronic pain with continuous opiate use. Stable (10) Obesity (BMI 30.0-34.9) Is this a current diagnosis for this admission?: Yes Plan: Continue to encourage good p.o. intake. (11) Anemia Is this a current diagnosis for this admission?: Yes Plan: Stable. (12) Hypokalemia Is this a current diagnosis for this admission?: Yes Plan: Resolved, replaced with an oral supplement. (13) Elevated liver function tests Is this a current diagnosis for this admission?: Yes Plan: Of undetermined significance. She has an elevated alkaline phosphatase
--- NOTE | 2019-01-03 14:59 | PDOC PROGRESS REPORT ---
Subjective Progress Note for:: 01/03/19 Subjective:: The patient is a 58-year-old female who was admitted to the hospital with underlying pneumonia. She has multiple medical problems that will be outlined below. Overall she has been receiving IV cefepime and doxycycline. Her pneumonia has improved however she has a markedly abnormal CT scan of the chest. Pulmonology evaluated her today and she is scheduled to have a thoracentesis sometime in the near future. Today she is resting in the bed. She is having some pain in her back when she takes a deep breath. She has had no fever or shaking chills. No chest pain or heart palpitations. She gets short of breath when she moves around. No nausea vomiting or diarrhea. No urinary complaints. Reason For Visit: PNEUMONIA Physical Exam Vital Signs: Temp Pulse Resp BP Pulse Ox 98.6 F 55 L 16 115/65 95 01/03/19 12:02 01/03/19 14:00 01/03/19 12:02 01/03/19 12:02 01/03/19 12:02 Intake & Output 01/02/19 01/03/19 01/04/19 06:59 06:59 06:59 Intake Total 3870 3626 300 Balance 3870 3626 300 Weight 86.9 kg 86.5 kg General appearance: PRESENT: well-developed, other - Somewhat ill-appearing Head exam: PRESENT: atraumatic, normocephalic Respiratory exam: PRESENT: clear to auscultation duane. ABSENT: rales, rhonchi, wheezes Cardiovascular exam: PRESENT: RRR. ABSENT: diastolic murmur, rubs, systolic murmur GI/Abdominal exam: PRESENT: normal bowel sounds, soft. ABSENT: distended, guarding, mass, organolmegaly, rebound, tenderness Rectal exam: PRESENT: deferred Extremities exam: PRESENT: full ROM. ABSENT: calf tenderness, clubbing, pedal edema Neurological exam: PRESENT: alert, awake, oriented to person, oriented to place, oriented to time, oriented to situation, CN II-XII grossly intact. ABSENT: motor sensory deficit Psychiatric exam: PRESENT: appropriate affect, normal mood. ABSENT: homicidal ideation, suicidal ideation Skin exam: PRESENT: dry, intact, warm. ABSENT: cyanosis, rash Results Laboratory Results: 01/03/19 05:25 01/03/19 05:25 01/03/19 01/03/19 01/03/19 05:25 05:25 05:25 WBC 6.2 RBC 2.64 L Hgb 8.9 L Hct 26.1 L MCV 99 H MCH 33.6 H MCHC 34.0 RDW 14.2 H Plt Count 338 Seg Neutrophils % 69.8 Lymphocytes % 23.8 Monocytes % 5.8 Eosinophils % 0.3 Basophils % 0.3 Absolute Neutrophils 4.3 Absolute Lymphocytes 1.5 Absolute Monocytes 0.4 Absolute Eosinophils 0.0 Absolute Basophils 0.0 Retic Count (auto) Absolute Retic Carbonic Acid HCO3/H2CO3 Ratio ABG pH ABG pCO2 ABG pO2 ABG HCO3 ABG O2 Saturation ABG Base Excess FiO2 Sodium 143.8 Potassium 3.7 Chloride 113 H Carbon Dioxide 24 Anion Gap 7 BUN 7 Creatinine 0.61 Est GFR ( Amer) > 60 Est GFR (Non-Af Amer) > 60 Glucose 92 Calcium 8.5 Phosphorus 3.2 Magnesium 1.9 Iron 76.2 TIBC 266 % Saturation 29 Ferritin 101.00 Total Bilirubin 0.4 AST 34 ALT 46 Alkaline Phosphatase 281 H Total Protein 5.7 L Albumin 2.7 L Vitamin B12 227.0 L Folate 3.33 01/03/19 01/03/19 01/03/19 05:25 10:12 10:59 WBC RBC Hgb Hct MCV MCH MCHC RDW Plt Count Seg Neutrophils % Lymphocytes % Monocytes % Eosinophils % Basophils % Absolute Neutrophils Absolute Lymphocytes Absolute Monocytes Absolute Eosinophils Absolute Basophils Retic Count (auto) 1.36 Absolute Retic 0.036 Carbonic Acid 1.01 L HCO3/H2CO3 Ratio 20:1 ABG pH 7.42 ABG pCO2 33.6 L ABG pO2 72.7 L ABG HCO3 21.2 ABG O2 Saturation 95.0 ABG Base Excess -2.6 FiO2 21% Sodium Potassium Chloride Carbon Dioxide Anion Gap BUN Creatinine Est GFR ( Amer) Est GFR (Non-Af Amer) Glucose Calcium Phosphorus Magnesium Iron TIBC % Saturation Ferritin Total Bilirubin AST ALT Alkaline Phosphatase Total Protein 5.5 L Albumin Vitamin B12 Folate 12/28/18 18:10 Blood Blood Culture - Final NO GROWTH IN 5 DAYS 12/28/18 12:00 Blood Blood Culture - Final NO GROWTH IN 5 DAYS 12/28/18 12/28/18 12/29/18 12:00 12:00 05:41 Creatine Kinase 1265 H CK-MB (CK-2) 3.46 Troponin I < 0.012 NT-Pro-B Natriuret Pep 954 H 1500 H 01/02/19 16:05 Creatine Kinase CK-MB (CK-2) Troponin I NT-Pro-B Natriuret Pep 3410 H Impressions: Chest/Abdomen CTA 12/29/18 00:00 IMPRESSION:No evidence of pulmonary embolus There has been progression of atelectasis and infiltrate in the left lower lobe and left upper lobe when compared to the previous examination with a focal area of masslike density in the lingula with convex margins. The possibility of developing abscess or mass is not excluded. Recommend continued follow-up Left pleural effusion with fluid loculated in the fissure Small amount of atelectasis in the right lung base Chest X-Ray 12/31/18 00:00 IMPRESSION: Stable chest. Chest CT 01/01/19 00:00 IMPRESSION: Improving airspace disease in the left lower lobe and the lingula. Pneumonia versus atelectasis. Masslike density described in the lingula on the prior study is less prominent. Left pleural effusion persists. Recommend additional follow-up after treatment. Assessment and Plan - Diagnosis (1) Acute respiratory failure with hypoxia Is this a current diagnosis for this admission?: Yes Plan: This was transient and has resolved secondary to her underlying pneumonia. She did have increased work of breathing at the time of admission. She was found to be hypoxic and was placed on 2 L. She later dropped down to 81% on 2 L of oxygen and her oxygen had to be increased. This improved rather quickly with therapy and she has since been weaned off of oxygen. Her respiratory failure is due to underlying pneumonia as well as pleural effusion. She also has a markedly abnormal CT scan of her chest as well as a pleural effusion. Continue aggressive breathing treatments, good pulmonary toilet and therapy will be outlined below (2) Pneumonia Qualifiers: Pneumonia type: due to unspecified organism Laterality: left Lung location: lower lobe of lung Qualified Code(s): J18.1 - Lobar pneumonia, unspecified organism Is this a current diagnosis for this admission?: Yes Plan: At this point she has been treated for a gram-negative or atypical pneumonia. Unfortunately she has not been able to give them a sputum sample. I am going to order Legionella antigen, strep pneumo and mycoplasma as well. Continue IV cefepime and doxycycline (3) Pleural effusion Is this a current diagnosis for this admission?: Yes Plan: She is scheduled to have a diagnostic and therapeutic pleural effusion. Dr. Rosa feels like this may give us some information as to whether this is a parapneumonic effusion. She does have a history of underlying malignancy which is concerning. CT scan cannot rule out a mass lesion. Her pleural fluid will be sent for the usual studies as well as cytology (4) Seizure disorder Is this a current diagnosis for this admission?: Yes Plan: She has had no seizures during this hospitalization. Continue Lamictal. (5) Migraines Is this a current diagnosis for this admission?: Yes Plan: Continue Topamax. No complaints of headache today (6) Psoriatic arthritis Is this a current diagnosis for this admission?: Yes Plan: No evidence of flare (7) Cognitive changes Is this a current diagnosis for this admission?: Yes (8) Opiate dependence, continuous Is this a current diagnosis for this admission?: Yes (9) Chronic pain Is this a current diagnosis for this admission?: Yes (10) Obesity (BMI 30.0-34.9) Is this a current diagnosis for this admission?: Yes (11) Anemia Is this a current diagnosis for this admission?: Yes (12) Hypokalemia Is this a current diagnosis for this admission?: Yes (13) Elevated liver function tests Is this a current diagnosis for this admission?: Yes - Time Time Spent with patient: 35 or more minutes - Inpatient Certification Medical Necessity: Other - Inpatient hospitalization remains necessary. The patient is requiring parenteral therapies. She has a markedly abnormal CT scan that needs further workup. She is going to have a diagnostic and therapeutic thoracentesis performed probably tomorrow. Timing of disposition will be determined by her clinical course
[2019-01-03] MEDS: PROMETHAZINE HCL INJ 25 MG/1 ML VIAL IV PRN (16:38)
[2019-01-03 16:54] LABS: A TYPE INFLUENZA AG NEGATIVE (NEGATIVE); B INFLUENZA AG NEGATIVE (NEGATIVE)
[2019-01-03] MEDS: DIPHENHYDRAMINE HCL 50 MG/ML VIAL IV SCH (21:13)
[2019-01-03] MEDS: GABAPENTIN 300 MG CAPSULE PO SCH (21:15)
--- NOTE | 2019-01-03 22:42 | XCELERA REPORT ---
[address] [address] Transthoracic Echocardiogram Report Name: ELIZABETH FERRARI Age: 58 yrs Gender: Female : 1960 Patient Status: Inpatient Patient Location: [address] [place], [place] [id number] Study Date: 01/02/2019 07:03 PM Height: 60 in Weight: 191 lb BSA: 1.8 m2 Procedure: A two-dimensional transthoracic echocardiogram with color flow Doppler was performed. The study was technically difficult with many images being suboptimal in quality. Reason For Study: CHF History: CHF. Ordering Physician: SONNY HOUGH Performed By: Shayna Parada Interpretation Summary The left ventricle is normal in size. There is normal left ventricular wall thickness. LV EF is > THAN 60% The left ventricular ejection fraction is within normal limits. Doppler measurements suggest normal left ventricular diastolic function The left ventricular wall motion is normal. There is no thrombus. The right ventricle is normal in size and function. The right atrium is normal. The left atrial size is normal. There is no evidence of mitral valve prolapse. There is no vegetation seen on the mitral valve. There is no mitral valve stenosis. There is no aortic valvular vegetation. There is no aortic valve stenosis There is no LVOT obstruction. There is a trace to mild amount of aortic regurgitation There is no tricuspid stenosis. There is a mild to moderate amount of tricuspid regurgitation There is moderate pulmonary hypertension by echo RVSP is 48 to 53 mm of Hg , with R mean of 15 to 20. There is no pulmonic valvular stenosis. There is a trace amount of pulmonic regurgitation The aortic root is normal size. The inferior vena cava appeared dilated and decreased < 50% with respiration (RAP 15-20 mmHg) There is no pericardial effusion. Large left pleural effusion. MMode/2D Measurements & Calculations RVDd: 2.7 cm LVIDd: 5.1 cm FS: 37.1 % Ao root diam: 2.7 cm IVSd: 1.0 cm LVIDs: 3.2 cm EDV(Teich): 125.2 mlAo root area: 5.7 cm2 LVPWd: 0.77 cmESV(Teich): 41.7 ml LA dimension: 3.2 cm EF(Teich): 66.7 % LVLs ap4: 3.9 cm ESV(MOD-sp4): 11.0 ml Doppler Measurements & Calculations MV E max alexis: MV dec time: Ao V2 max: AI max alexis: 87.7 cm/sec 0.14 sec 115.1 cm/sec 258.4 cm/sec MV A max alexis: Ao max P.3 mmHg AI max P.4 mmHg 65.8 cm/sec AI dec slope: MV E/A: 1.3 123.4 cm/sec2 AI P1/2t: 613.4 msec LV V1 max PG: PA V2 max: PI end-d alexis: TR max alexis: 3.1 mmHg 73.0 cm/sec 144.2 cm/sec 286.7 cm/sec LV V1 max: PA max PG: TR max P.9 mmHg 87.7 cm/sec 2.1 mmHg AV P1/2t-pr_phl: 609.5 msec Left Ventricle The left ventricle is normal in size. There is normal left ventricular wall thickness. LV EF is > THAN 60%. The left ventricular ejection fraction is within normal limits. Doppler measurements suggest normal left ventricular diastolic function. The left ventricular wall motion is normal. There is no thrombus. Right Ventricle The right ventricle is normal in size and function. Atria The right atrium is normal. The left atrial size is normal. Mitral Valve There is no evidence of mitral valve prolapse. There is no vegetation seen on the mitral valve. There is no mitral valve stenosis. There is a trace amount of mitral regurgitation. Aortic Valve There is no aortic valvular vegetation. There is no aortic valve stenosis. There is no LVOT obstruction. There is a trace to mild amount of aortic regurgitation. Tricuspid Valve There is no tricuspid stenosis. There is a mild to moderate amount of tricuspid regurgitation. There is moderate pulmonary hypertension by echo. RVSP is 48 to 53 mm of Hg , with R mean of 15 to 20. Pulmonic Valve There is no pulmonic valvular stenosis. There is a trace amount of pulmonic regurgitation. Great Vessels The aortic root is normal size. The inferior vena cava appeared dilated and decreased < 50% with respiration (RAP 15-20 mmHg). Effusions There is no pericardial effusion. Large left pleural effusion. : SONNY HOUGH, Marisa
[2019-01-04] MEDS: PROMETHAZINE HCL INJ 25 MG/1 ML VIAL IV PRN ×2 (00:02→10:07)
[2019-01-04] MEDS: MORPHINE SULFATE IR 30 MG TABLET PO PRN ×2 (05:44→15:27)
[2019-01-04] MEDS: METHYLPREDNISOLONE INJ 40 MG/1 ML SDV IV SCH ×3 (05:46→23:11)
[2019-01-04] MEDS: DOXYCYCLINE HYCLATE 100 MG in DEXTROSE 5%-WATER 250 ML IV SCH ×2 (05:50→17:39)
[2019-01-04] MEDS: NORMAL SALINE 1000 ML 1,000 ML IV PRN ×2 (05:52→17:39)
[2019-01-04 07:33] LABS: ABSOLUTE EOSINOPHILS # (AUTO) 0.1 10^3/uL (0.0-0.6); ABSOLUTE LYMPHOCYTES (AUTO) 1.6 10^3/uL (0.5-4.7); ABSOLUTE MONOCYTES (AUTO) 0.3 10^3/uL (0.1-1.4); ABSOLUTE NEUT (AUTO) 4.6 10^3/uL (1.7-8.2); BASOPHILS % (AUTO) 0.5 % (0-2); EOSINOPHILS % (AUTO) 0.8 % (0-6); HEMATOCRIT 28.4 % (36.0-47.0); HEMOGLOBIN 9.6 g/dL (12.0-15.5); LYMPHOCYTES % (AUTO) 24.3 % (13-45); MEAN CORPUSCULAR HEMOGLOBIN 33.4 pg (27.0-33.4); MEAN CORPUSCULAR HGB CONC 33.8 g/dL (32.0-36.0); MEAN CORPUSCULAR VOLUME 99 fl (80-97); MONOCYTES % (AUTO) 5.1 % (3-13); PLATELET COUNT 417 10^3/uL (150-450); RED BLOOD COUNT 2.87 10^6/uL (3.72-5.28); RED CELL DISTRIBUTION WIDTH 14.2 % (11.5-14.0); SEGMENTED NEUTROPHILS % (AUTO) 69.3 % (42-78); TOTAL CELLS COUNTED % (AUTO) 100 %; WHITE BLOOD COUNT 6.7 10^3/uL (4.0-10.5)
[2019-01-04 07:59] LABS: ALBUMIN 2.7 g/dL (3.5-5.0); ANION GAP 8 (5-19); BLOOD UREA NITROGEN 9 mg/dL (7-20); CALCIUM 8.4 mg/dL (8.4-10.2); CARBON DIOXIDE 25 mmol/L (22-30); CHLORIDE 106 mmol/L (98-107); GLUCOSE 94 mg/dL (75-110); PHOSPHORUS 3.1 mg/dL (2.5-4.5); POTASSIUM 3.6 mmol/L (3.6-5.0); SODIUM 138.6 mmol/L (137-145)
[2019-01-04] MEDS: CEFEPIME 2 GM/D5W RTU 2 GM/50 ML RTUPB IV SCH ×3 (09:52→23:10)
[2019-01-04] MEDS: LEVETIRACETAM 500 MG TABLET PO SCH ×2 (09:53→23:08)
[2019-01-04] MEDS: PHENOBARBITAL 64.8 MG TABLET PO SCH ×2 (09:53→23:11)
[2019-01-04] MEDS: FAMOTIDINE 20 MG TABLET PO SCH ×2 (09:53→23:10)
[2019-01-04] MEDS: LAMOTRIGINE 100 MG TABLET PO SCH ×2 (09:53→23:09)
[2019-01-04] MEDS: TOPIRAMATE 100 MG TABLET PO SCH ×2 (09:53→23:11)
[2019-01-04] MEDS: MEMANTINE HCL 10 MG TABLET PO SCH ×2 (09:53→17:39)
[2019-01-04] MEDS: ENOXAPARIN SODIUM INJ 40 MG/0.4 ML DISP.SYRIN SUBCUT SCH (09:54)
[2019-01-04] MEDS: PROPRANOLOL HCL 40 MG TABLET PO SCH ×2 (09:54→23:07)
[2019-01-04] MEDS: DICLOFENAC SODIUM 25 MG TABLET.DR PO SCH ×2 (09:55→23:31)
[2019-01-04] MEDS ORDERED: SUMATRIPTAN SUCCINATE 25 MG TABLET PO PRN (10:19)
--- NOTE | 2019-01-04 14:09 | PDOC PROGRESS REPORT ---
Subjective Progress Note for:: 01/04/19 Subjective:: She is seen resting in bedside chair. She is awake, alert, oriented x3. She denies any chest pain, shortness of breath or dyspnea at rest. She states she becomes easily dyspneic with minimal exertion. She denies any fevers or chills overnight. She denies any nausea, vomiting or abdominal pain. She denies any dysuria or diarrhea. She denies any significant arthralgias or myalgias except for her right lower back where the effusion is. She is waiting to have her thoracentesis. Remaining review of systems are negative. Reason For Visit: PNEUMONIA Physical Exam Vital Signs: Temp Pulse Resp BP Pulse Ox 98.5 F 55 L 12 138/71 H 95 01/04/19 13:17 01/04/19 13:17 01/04/19 13:17 01/04/19 13:17 01/04/19 13:17 Intake & Output 01/03/19 01/04/19 01/05/19 06:59 06:59 06:59 Intake Total 3626 4252 300 Balance 3626 4252 300 Weight 86.5 kg 86.6 kg General appearance: PRESENT: no acute distress, well-developed, well-nourished Head exam: PRESENT: atraumatic, normocephalic Eye exam: PRESENT: conjunctiva pink, EOMI, PERRLA. ABSENT: scleral icterus Ear exam: PRESENT: normal external ear exam Mouth exam: PRESENT: moist, tongue midline Neck exam: ABSENT: carotid bruit, JVD, lymphadenopathy, thyromegaly Respiratory exam: PRESENT: decreased breath sounds - left base, symmetrical, unlabored. ABSENT: rales, rhonchi, wheezes Cardiovascular exam: PRESENT: RRR. ABSENT: diastolic murmur, rubs, systolic murmur Pulses: PRESENT: normal dorsalis pedis pul Vascular exam: PRESENT: normal capillary refill GI/Abdominal exam: PRESENT: normal bowel sounds, soft. ABSENT: distended, guarding, mass, organolmegaly, rebound, tenderness Rectal exam: PRESENT: deferred Extremities exam: PRESENT: full ROM. ABSENT: calf tenderness, clubbing, pedal edema Musculoskeletal exam: PRESENT: ambulatory, full ROM, normal inspection Neurological exam: PRESENT: alert, awake, oriented to person, oriented to place, oriented to time, oriented to situation, CN II-XII grossly intact. ABSENT: motor sensory deficit Psychiatric exam: PRESENT: appropriate affect, normal mood. ABSENT: homicidal ideation, suicidal ideation Skin exam: PRESENT: dry, intact, warm. ABSENT: cyanosis, rash Results Laboratory Results: 01/04/19 05:45 01/04/19 05:45 01/03/19 01/04/19 01/04/19 05:25 05:45 05:45 WBC 6.7 RBC 2.87 L Hgb 9.6 L Hct 28.4 L MCV 99 H MCH 33.4 MCHC 33.8 RDW 14.2 H Plt Count 417 Seg Neutrophils % 69.3 Lymphocytes % 24.3 Monocytes % 5.1 Eosinophils % 0.8 Basophils % 0.5 Absolute Neutrophils 4.6 Absolute Lymphocytes 1.6 Absolute Monocytes 0.3 Absolute Eosinophils 0.1 Absolute Basophils 0.0 Sodium 138.6 Potassium 3.6 Chloride 106 Carbon Dioxide 25 Anion Gap 8 BUN 9 Creatinine 0.61 Est GFR ( Amer) > 60 Est GFR (Non-Af Amer) > 60 Glucose 94 Calcium 8.4 Phosphorus 3.1 Magnesium 1.9 Iron 76.2 TIBC 266 % Saturation 29 Ferritin 101.00 Albumin 2.7 L Vitamin B12 227.0 L Folate 3.33 12/28/18 12/28/18 12/29/18 12:00 12:00 05:41 Creatine Kinase 1265 H CK-MB (CK-2) 3.46 Troponin I < 0.012 NT-Pro-B Natriuret Pep 954 H 1500 H 01/02/19 16:05 Creatine Kinase CK-MB (CK-2) Troponin I NT-Pro-B Natriuret Pep 3410 H Impressions: Chest/Abdomen CTA 12/29/18 00:00 IMPRESSION:No evidence of pulmonary embolus There has been progression of atelectasis and infiltrate in the left lower lobe and left upper lobe when compared to the previous examination with a focal area of masslike density in the lingula with convex margins. The possibility of developing abscess or mass is not excluded. Recommend continued follow-up Left pleural effusion with fluid loculated in the fissure Small amount of atelectasis in the right lung base Chest X-Ray 12/31/18 00:00 IMPRESSION: Stable chest. Chest CT 01/01/19 00:00 IMPRESSION: Improving airspace disease in the left lower lobe and the lingula. Pneumonia versus atelectasis. Masslike density described in the lingula on the prior study is less prominent. Left pleural effusion persists. Recommend additional follow-up after treatment. Assessment and Plan - Diagnosis (1) Acute respiratory failure with hypoxia Is this a current diagnosis for this admission?: Yes Plan: This was transient and has resolved secondary to her underlying pneumonia. She did have increased work of breathing at the time of admission. She was found to be hypoxic and was placed on 2 L. She later dropped down to 81% on 2 L of oxygen and her oxygen had to be increased. This improved rather quickly with therapy and she has since been weaned off of oxygen. Her respiratory failure is due to underlying pneumonia as well as pleural effusion. She also has a markedly abnormal CT scan of her chest as well as a pleural effusion. Continue aggressive breathing treatments, good pulmonary toilet and present medications. She was seen by Dr. Rosa, assistant production editor. He feels she should undergo thoracentesis which is scheduled for later today of the left pleural effusion. (3) Pneumonia Qualifiers: Pneumonia type: due to unspecified organism Laterality: left Lung location: lower lobe of lung Qualified Code(s): J18.1 - Lobar pneumonia, unspecified organism Is this a current diagnosis for this admission?: Yes Plan: At this point she has been treated for a gram-negative or atypical pneumonia. Unfortunately she has not been able to give them a sputum sample. I am going to order Legionella antigen, strep pneumo and mycoplasma as well. Continue IV cefepime and doxycycline (4) Psoriatic arthritis Is this a current diagnosis for this admission?: Yes Plan: No evidence of flare (5) Seizure disorder Is this a current diagnosis for this admission?: Yes Plan: She has had no seizures during this hospitalization. Continue Lamictal. (6) COPD (chronic obstructive pulmonary disease) Qualifiers: Emphysema type: unspecified Is this a current diagnosis for this admission?: Yes Plan: Continue current inhalers and nebulizer treatments. (7) Chronic pain syndrome Is this a current diagnosis for this admission?: Yes Plan: Continue home medications. (9) History of colon cancer Is this a current diagnosis for this admission?: Yes Plan: History of colon cancer s/p chemoradiation s/p ileostomy - Time Time Spent with patient: 25-34 minutes Total Critical Time (Minutes): 35 Medications reviewed and adjusted accordingly: Yes Anticipated discharge: Home Within: within 48 hours - Inpatient Certification Based on my medical assessment, after consideration of the patient's comorbidities, presenting symptoms, or acuity I expect that the services needed warrant INPATIENT care.: Yes I certify that my determination is in accordance with my understanding of Medicare's requirements for reasonable and necessary INPATIENT services [42 CFR 412.3e].: Yes Medical Necessity: Failure to Improve With Outpatient Therapy, Significant Comorbidiites Make Outpatient Treatment Too Risky, Need for IV Antibiotics, Risk of Complication if Not Cared For in Hospital
--- NOTE | 2019-01-04 15:03 | RADIOLOGY REPORT (SQ) ---
EXAM DESCRIPTION: U/S CHEST COMPLETED DATE/TIME: 01/04/2019 2:24 pm REASON FOR STUDY: L pleural effusion COMPARISON: CT chest 01/01/2019, 12/29/2018, 11/23/2018 Chest films 12/28/2018, 11/22/2018 TECHNIQUE: Ultrasound of the right and left chest was performed to assess pleural effusions prior to possible thoracentesis. Grayscale and cine loop images saved to pac's LIMITATIONS: None. FINDINGS: No significant right pleural effusion. There is trace pleural fluid in the left posterior costophrenic sulcus. This is less prominent than on CT exam 01/01/2019. No thoracentesis was performed. IMPRESSION: No right pleural effusion Near complete resolution of the left pleural effusion compared to chest CT 01/01/2019. No thoracentes is was performed. TECHNICAL DOCUMENTATION: JOB ID: [id number] [employer]- All Rights Reserved Reading location - IP/workstation name: [email or web address]
[2019-01-04] MEDS: DIPHENHYDRAMINE HCL 50 MG/ML VIAL IV SCH (23:05)
[2019-01-04] MEDS: GABAPENTIN 300 MG CAPSULE PO SCH (23:10)
[2019-01-05] MEDS: PROMETHAZINE HCL INJ 25 MG/1 ML VIAL IV PRN ×3 (01:33→13:48)
[2019-01-05] MEDS: METHYLPREDNISOLONE INJ 40 MG/1 ML SDV IV SCH ×2 (05:27→13:20)
[2019-01-05] MEDS: DOXYCYCLINE HYCLATE 100 MG in DEXTROSE 5%-WATER 250 ML IV SCH (05:28)
[2019-01-05] MEDS: MORPHINE SULFATE IR 30 MG TABLET PO PRN ×2 (08:33→16:04)
[2019-01-05] MEDS: PHENOBARBITAL 64.8 MG TABLET PO SCH (10:39)
[2019-01-05] MEDS: DICLOFENAC SODIUM 25 MG TABLET.DR PO SCH (10:39)
[2019-01-05] MEDS: MEMANTINE HCL 10 MG TABLET PO SCH ×2 (10:39→17:08)
[2019-01-05] MEDS: TOPIRAMATE 100 MG TABLET PO SCH (10:39)
[2019-01-05] MEDS: PROPRANOLOL HCL 40 MG TABLET PO SCH (10:40)
[2019-01-05] MEDS: LEVETIRACETAM 500 MG TABLET PO SCH (10:40)
[2019-01-05] MEDS: FAMOTIDINE 20 MG TABLET PO SCH (10:40)
[2019-01-05] MEDS: ENOXAPARIN SODIUM INJ 40 MG/0.4 ML DISP.SYRIN SUBCUT SCH (10:41)
[2019-01-05] MEDS: LAMOTRIGINE 100 MG TABLET PO SCH (10:41)
[2019-01-05] MEDS: CEFEPIME 2 GM/D5W RTU 2 GM/50 ML RTUPB IV SCH (10:46)
--- NOTE | 2019-01-05 13:10 | RADIOLOGY REPORT (SQ) ---
EXAM DESCRIPTION: CHEST 2 VIEWS COMPLETED DATE/TIME: 01/05/2019 12:44 pm REASON FOR STUDY: Follow up pneumonia COMPARISON: 12/31/2018 EXAM PARAMETERS: NUMBER OF VIEWS: two views TECHNIQUE: Digital Frontal and Lateral radiographic views of the chest acquired. RADIATION DOSE: NA LIMITATIONS: none FINDINGS: LUNGS AND PLEURA: There is improved aeration in the left lung base. Cannot exclude a smal l pleural effusion. MEDIASTINUM AND HILAR STRUCTURES: No masses or contour abnormalities. HEART AND VASCULAR STRUCTURES: Heart normal size. No evidence for failure. BONES: No acute findings. HARDWARE: Neurostimulator. Injection port on the right. OTHER: No other significant finding. IMPRESSION: Improved aeration in the left lung base. There appears to be a small left pleural effus ion. TECHNICAL DOCUMENTATION: JOB ID: [id number] [employer] All Rights Reserved Reading location - IP/workstation name: [email or web address]
[2019-01-05] MEDS: OXYCODONE HCL IR 5 MG TABLET PO PRN (13:38)
--- NOTE | 2019-01-05 14:56 | PDOC DISCHARGE SUMMARY ---
General - Admit/Disc Date/PCP Admission Date/Primary Care Provider: 12/28/18 14:59 ELIZABETH POWELL PA-C Discharge Date: 01/05/19 - Discharge Diagnosis (1) Acute respiratory failure with hypoxia Is this a current diagnosis for this admission?: Yes (3) Pneumonia Is this a current diagnosis for this admission?: Yes (4) Psoriatic arthritis Is this a current diagnosis for this admission?: Yes (5) Seizure disorder Is this a current diagnosis for this admission?: Yes (6) COPD (chronic obstructive pulmonary disease) Is this a current diagnosis for this admission?: Yes (7) Chronic pain syndrome Is this a current diagnosis for this admission?: Yes (9) History of colon cancer Is this a current diagnosis for this admission?: Yes - Additional Information Resuscitation Status: Full Code Discharge Activity: Activity As Tolerated, Balance Activity w/Rest Prescriptions: Doxycycline Hyclate [Vibramycin 100 mg Tablet] 100 mg PO Q12 #8 tablet Prednisone [Deltasone] 40 mg PO DAILY #10 tablet Home Medications: Diclofenac Sodium [Voltaren] 75 mg PO BID 12/28/18 Gabapentin [Neurontin] 600 mg PO QHS 12/28/18 Lamotrigine [Lamictal] 200 mg PO BID 12/28/18 Levetiracetam [Keppra] 250 mg PO BID 12/28/18 Memantine HCl [Namenda 10 mg Tablet] 10 mg PO BID 12/28/18 Morphine Sulfate [Morphine Ir 30 mg Tablet] 30 mg PO Q6 12/28/18 Oxycodone HCl 20 mg PO Q6 12/28/18 Phenobarbital [Phenobarbital 64.8 mg Tablet] 2 tab PO Q12 12/28/18 Promethazine HCl [Phenergan 25 mg Tablet] 25 mg PO Q8HP PRN 12/28/18 Propranolol HCl 80 mg PO BID 12/28/18 Rizatriptan Benzoate [Maxalt] 10 mg PO DAILYP PRN 12/28/18 Topiramate [Topamax 100 mg Tablet] 150 mg PO BID 12/28/18 Doxycycline Hyclate [Vibramycin 100 mg Tablet] 100 mg PO Q12 #8 tablet 01/05/19 Prednisone [Deltasone] 40 mg PO DAILY #10 tablet 01/05/19 History of Present Illness Patient complains of: Left lower back pain History of Present Illness: ELIZABETH FERRARI is a 58 year old female with a PMH of Colon cancer s/p ileostomy, dementia, CVA, seizure disorder, depression, psoriatic arthritis, migraines, back pain on chronically on opiates. The patient presents to [facility] with a 3 day history of L sided chest pain. The patient states her pain is sharp, non- radiating, and intermittent in nature. Pain is worse with inhalation, movement or palpation. She took motrin, MS contin and oxycodone for her pain but offered little relief. The patient states her pain is so severe it keeps her awake at night. In addition to her chest pain, the patient endorses GONZALEZ, non-productive cough and mild ataxia. The patient denies N/V/D. Self reports TMAX 103 when at PCP's office this week. Of note, the patient was recently admitted to [facility] last month and diagnosed with bilateral PNA seen on CT. Upon arrival to the ED, her CXR revealed LLL PNA. EKG showed NSR, inverted t waves in limb leads, unchanged from last month. Laboratory studies reveal mild hyponatremia, hyperbilirubinemia, transaminitis, and an elevated CK. The patient was treated with 1L IVF bolus and IV antibiotics - levaquin, vancomycin and cefepime by ED provider. Plan to admit to hospitalist service for healthcare associated PNA. Hospital Course Hospital Course: The patient is a 58-year-old female who was admitted to the hospital with underlying pneumonia. She has multiple medical problems that will be outlined below. Overall she has been receiving IV cefepime and doxycycline. Her pneumonia has improved however she has a markedly abnormal CT scan of the chest. In Shop Service Technician, Dr. Rosa, saw the patient in consult. He ordered he thoracentesis to be done on her left pleural effusion. This was scheduled for 01/04/2019, patient went to X ray ultrasound showed very small left pleural effusion therefore the radiologist did not feel it would be worth the risk to perform. She was therefore sent back to the floor. She has been off oxygen the end several last days. Changes to complain of pain at the left lung base. Repeat chest x-ray today shows marked improvement of the aeration of the left lower lobe. There is a very small pleural effusion remaining. She will be discharged home today with completion of 10 days of antibiotic therapy. She will follow-up with her primary care provider in the next 1 week. Follow-up with Dr. Rosa is available to make sure her pleural effusion has resolved. Physical Exam Vital Signs: Temp Pulse Resp BP Pulse Ox 98.0 F 74 19 132/81 H 93 01/05/19 11:36 01/05/19 11:36 01/05/19 11:36 01/05/19 11:36 01/05/19 11:36 Intake & Output 01/04/19 01/05/19 01/06/19 06:59 06:59 06:59 Intake Total 4252 2347 1272 Balance 4252 2347 1272 Weight 86.6 kg 86.6 kg General appearance: PRESENT: no acute distress, obese, well-developed, well- nourished Head exam: PRESENT: atraumatic, normocephalic Eye exam: PRESENT: conjunctiva pink, EOMI, PERRLA. ABSENT: scleral icterus Ear exam: PRESENT: normal external ear exam Mouth exam: PRESENT: moist, tongue midline Neck exam: ABSENT: carotid bruit, JVD, lymphadenopathy, thyromegaly Respiratory exam: PRESENT: crackles - Left base, symmetrical, unlabored Cardiovascular exam: PRESENT: RRR. ABSENT: diastolic murmur, rubs, systolic murmur Pulses: PRESENT: normal dorsalis pedis pul Vascular exam: PRESENT: normal capillary refill GI/Abdominal exam: PRESENT: normal bowel sounds, soft. ABSENT: distended, guarding, mass, organolmegaly, rebound, tenderness Rectal exam: PRESENT: deferred Extremities exam: PRESENT: full ROM. ABSENT: calf tenderness, clubbing, pedal edema Musculoskeletal exam: PRESENT: ambulatory, full ROM, tenderness - Left posterior lower thoracic region Neurological exam: PRESENT: alert, awake, oriented to person, oriented to place, oriented to time, oriented to situation, CN II-XII grossly intact. ABSENT: motor sensory deficit Psychiatric exam: PRESENT: appropriate affect, normal mood. ABSENT: homicidal ideation, suicidal ideation Skin exam: PRESENT: dry, intact, warm. ABSENT: cyanosis, rash Results Laboratory Results: 01/04/19 05:45 01/04/19 05:45 01/02/19 16:10 Clean Catch Midstream Legionella Urinary Antigen - Final 12/28/18 12/28/18 12/29/18 12:00 12:00 05:41 Creatine Kinase 1265 H CK-MB (CK-2) 3.46 Troponin I < 0.012 NT-Pro-B Natriuret Pep 954 H 1500 H 01/02/19 16:05 Creatine Kinase CK-MB (CK-2) Troponin I NT-Pro-B Natriuret Pep 3410 H Impressions: Chest/Abdomen CTA 12/29/18 00:00 IMPRESSION:No evidence of pulmonary embolus There has been progression of atelectasis and infiltrate in the left lower lobe and left upper lobe when compared to the previous examination with a focal area of masslike density in the lingula with convex margins. The possibility of developing abscess or mass is not excluded. Recommend continued follow-up Left pleural effusion with fluid loculated in the fissure Small amount of atelectasis in the right lung base Chest CT 01/01/19 00:00 IMPRESSION: Improving airspace disease in the left lower lobe and the lingula. Pneumonia versus atelectasis. Masslike density described in the lingula on the prior study is less prominent. Left pleural effusion persists. Recommend additional follow-up after treatment. Chest Ultrasound 01/04/19 09:36 IMPRESSION: No right pleural effusion Near complete resolution of the left pleural effusion compared to chest CT 01/01/2019. No thoracentesis was performed. Chest X-Ray 01/05/19 00:00 IMPRESSION: Improved aeration in the left lung base. There appears to be a small left pleural effusion. Qualifiers - * PATIENT BEING DISCHARGED WITH ANY OF THE FOLLOWING DIAGNOSIS: No Plan Discharge Plan: Home with family Time Spent: Less than 30 Minutes
[2019-01-05 16:14] VITALS: BP 122/64
[2019-01-05] MEDS ORDERED: DOXYCYCLINE HYCLATE 100 MG TABLET PO SCH (22:00)
[2019-01-06] MEDS ORDERED: PREDNISONE 20 MG TABLET PO SCH (10:00)
[2019-01-08 07:11] LABS: MYCOPLASMA PNEUMONIAE IGG AB 199 U/mL (0-99); MYCOPLASMA PNEUMONIAE IGM AB <770 U/mL (0-769)
--- NOTE | 2019-01-08 11:32 | PDOC CONSULTATION ---
Consultation Consult Date: 01/03/19 Attending physician:: SONNY HOUGH Consult reason:: p effusion/abn CT scan History of Present Illness Admission Date/PCP: 12/28/18 14:59 ELIZABETH POWELL PA-C History of Present Illness: ELIZABETH FERRARI is a 58 year old female 58-year-old female with multiple medical problems, including, long-standing dementia, history of a hospital-acquired of pneumonitis is approximately less she is less than 30 days since her prior admission and returns now with a left lower lobe pneumonia had a history of colon cancer. Past Medical History Cardiac Medical History: Denies: Coronary Artery Disease, Myocardial Infarction, Hypertension Pulmonary Medical History: Reports: Pneumonia Denies: Asthma, Bronchitis, Chronic Obstructive Pulmonary Disease (COPD) Neurological Medical History: Reports: Migraine, Seizures - Last one 12 yrs ago Malignancy Medical History: Reports: Colorectal Cancer - Status post chemoirradiation and complete colectomy Musculoskeltal Medical History: Reports: Arthritis - PSORIATIC Psychiatric Medical History: Reports: Depression Hematology: Denies: Anemia Past Surgical History Past Surgical History: Reports: Appendectomy, Cholecystectomy, Hysterectomy, Ileostomy, Orthopedic Surgery, Tonsillectomy Social History Information Source: [facility], [facility] Records Lives with: Family Smoking Status: Never Smoker Frequency of Alcohol Use: None Hx Recreational Drug Use: No Drugs: None Hx Prescription Drug Abuse: No - Advance Directive Resuscitation Status: Full Code Family History Family History: Hypertension, Malignancy - mother - ovarian, father - colon, Ot her Parental Family History Reviewed: No Children Family History Reviewed: No Sibling(s) Family History Reviewed.: No Medication/Allergy Home Medications: Diclofenac Sodium [Voltaren] 75 mg PO BID 12/28/18 Gabapentin [Neurontin] 600 mg PO QHS 12/28/18 Lamotrigine [Lamictal] 200 mg PO BID 12/28/18 Levetiracetam [Keppra] 250 mg PO BID 12/28/18 Memantine HCl [Namenda 10 mg Tablet] 10 mg PO BID 12/28/18 Morphine Sulfate [Morphine Ir 30 mg Tablet] 30 mg PO Q6 12/28/18 Oxycodone HCl 20 mg PO Q6 12/28/18 Phenobarbital [Phenobarbital 64.8 mg Tablet] 2 tab PO Q12 12/28/18 Promethazine HCl [Phenergan 25 mg Tablet] 25 mg PO Q8HP PRN 12/28/18 Propranolol HCl 80 mg PO BID 12/28/18 Rizatriptan Benzoate [Maxalt] 10 mg PO DAILYP PRN 12/28/18 Topiramate [Topamax 100 mg Tablet] 150 mg PO BID 12/28/18 Doxycycline Hyclate [Vibramycin 100 mg Tablet] 100 mg PO Q12 #8 tablet 01/05/19 Prednisone [Deltasone] 40 mg PO DAILY #10 tablet 01/05/19 Allergies/Adverse Reactions: Penicillins Allergy (Severe, Verified 11/22/18 18:42) RASH, DIFFICULTY BREATHING prochlorperazine maleate [From Compazine] Adverse Reaction (Severe, Verified 11/22/18 18:42) VIOLENT BEHAVIOR haloperidol [From Haldol] Adverse Reaction (Intermediate, Verified 11/22/18 18:42) Hyperactivity, HEADACHE metoclopramide HCl [From Reglan] Adverse Reaction (Intermediate, Verified 0 11/22/18 18:42) Hyperactivity ondansetron HCl [From Zofran] Adverse Reaction (Intermediate, Verified 11/22/18 18:42) VOMITING zolpidem [From Ambien] Adverse Reaction (Intermediate, Verified 11/22/18 18:42) SLEEP WALKING diazepam [From Valium] Adverse Reaction (Mild, Verified 11/22/18 18:42) CONFUSION,UNCOOPERATIVE ondansetron [From Zofran] Adverse Reaction (Verified 11/24/18 08:13) Review of Systems ROS unobtainable: Due to mental status Physical Exam Vital Signs: Temp Pulse Resp BP Pulse Ox 98.3 F 47 L 12 134/78 H 97 01/03/19 08:35 01/03/19 08:35 01/03/19 08:35 01/03/19 08:35 01/03/19 08:35 Intake & Output 01/02/19 01/03/19 01/04/19 06:59 06:59 06:59 Intake Total 3870 3626 Balance 3870 3626 Weight 86.9 kg 86.5 kg General appearance: PRESENT: no acute distress, disheveled, obese. ABSENT: cooperative Head exam: PRESENT: atraumatic, normocephalic Eye exam: PRESENT: conjunctiva pale, EOMI. ABSENT: nystagmus, periorbital swelling, scleral icterus Mouth exam: PRESENT: dry mucosa, neck supple, tongue midline Neck exam: ABSENT: carotid bruit, full ROM, JVD, lymphadenopathy, meningismus, tenderness, thyromegaly, tracheal deviation, tracheostomy, other Respiratory exam: PRESENT: crackles, decreased breath sounds, prolonged expiratory phas, rhonchi, unlabored. ABSENT: retraction, stridor Cardiovascular exam: PRESENT: RRR, +S1, +S2 Pulses: PRESENT: normal radial pulses GI/Abdominal exam: PRESENT: soft Extremities exam: ABSENT: calf tenderness, clubbing, joint swelling Musculoskeletal exam: ABSENT: ambulatory, deformity, dislocation Neurological exam: PRESENT: altered, awake Psychiatric exam: PRESENT: flat affect Skin exam: PRESENT: dry, warm Results Laboratory Results: 01/03/19 05:25 01/03/19 05:25 01/03/19 01/03/19 05:25 05:25 WBC 6.2 RBC 2.64 L Hgb 8.9 L Hct 26.1 L MCV 99 H MCH 33.6 H MCHC 34.0 RDW 14.2 H Plt Count 338 Seg Neutrophils % 69.8 Lymphocytes % 23.8 Monocytes % 5.8 Eosinophils % 0.3 Basophils % 0.3 Absolute Neutrophils 4.3 Absolute Lymphocytes 1.5 Absolute Monocytes 0.4 Absolute Eosinophils 0.0 Absolute Basophils 0.0 Sodium 143.8 Potassium 3.7 Chloride 113 H Carbon Dioxide 24 Anion Gap 7 BUN 7 Creatinine 0.61 Est GFR ( Amer) > 60 Est GFR (Non-Af Amer) > 60 Glucose 92 Calcium 8.5 Phosphorus 3.2 Magnesium 1.9 Total Bilirubin 0.4 AST 34 ALT 46 Alkaline Phosphatase 281 H Total Protein 5.7 L Albumin 2.7 L 12/28/18 18:10 Blood Blood Culture - Final NO GROWTH IN 5 DAYS 12/28/18 12:00 Blood Blood Culture - Final NO GROWTH IN 5 DAYS 12/28/18 12/28/18 12/29/18 12:00 12:00 05:41 Creatine Kinase 1265 H CK-MB (CK-2) 3.46 Troponin I < 0.012 NT-Pro-B Natriuret Pep 954 H 1500 H 01/02/19 16:05 Creatine Kinase CK-MB (CK-2) Troponin I NT-Pro-B Natriuret Pep 3410 H Impressions: Chest/Abdomen CTA 12/29/18 00:00 IMPRESSION:No evidence of pulmonary embolus There has been progression of atelectasis and infiltrate in the left lower lobe and left upper lobe when compared to the previous examination with a focal area of masslike density in the lingula with convex margins. The possibility of developing abscess or mass is not excluded. Recommend continued follow-up Left pleural effusion with fluid loculated in the fissure Small amount of atelectasis in the right lung base Chest X-Ray 12/31/18 00:00 IMPRESSION: Stable chest. Chest CT 01/01/19 00:00 IMPRESSION: Improving airspace disease in the left lower lobe and the lingula. Pneumonia versus atelectasis. Masslike density described in the lingula on the prior study is less prominent. Left pleural effusion persists. Recommend additional follow-up after treatment. Assessment & Plan - Diagnosis (1) COPD (chronic obstructive pulmonary disease) Qualifiers: Emphysema type: unspecified Is this a current diagnosis for this admission?: Yes Plan: Current bronchodilator therapy long-term prognosis poor as there are so many other comorbidities (2) Dementia Qualifiers: Alzheimer's disease onset: late-onset Is this a current diagnosis for this admission?: Yes Plan: Currently this is unchanged from the past
== END 2019-01-05 18:24 | disposition home or self-care (01) | DRG 193 ==
LOC: ER 11:05 → EH 14:59 → 4N 16:28
PROVIDERS: ADMIT Internal Medicine; ATTEND Internal Medicine
PROC: 3E0F73Z Introduction of Anti-inflammatory into Respiratory Tract, Via Natural or Artificial Opening (ICD-10-PCS; principal; 2018-12-28)
DX: J18.1 Lobar pneumonia, unspecified organism (principal); J96.01 Acute respiratory failure with hypoxia; E87.1 Hypo-osmolality and hyponatremia; M62.82 Rhabdomyolysis; F11.20 Opioid dependence, uncomplicated; L40.50 Arthropathic psoriasis, unspecified; G40.909 Epilepsy, unspecified, not intractable, without status epilepticus; J44.9 Chronic obstructive pulmonary disease, unspecified; G89.4 Chronic pain syndrome; F03.90 Unspecified dementia, unspecified severity, without behavioral disturbance, psychotic disturbance, mood disturbance, and anxiety; F32.9 Major depressive disorder, single episode, unspecified; E66.9 Obesity, unspecified; E87.6 Hypokalemia; D64.9 Anemia, unspecified; F41.9 Anxiety disorder, unspecified; Z68.31 Body mass index [BMI] 31.0-31.9, adult; Z85.038 Personal history of other malignant neoplasm of large intestine; Z79.891 Long term (current) use of opiate analgesic; Z79.899 Other long term (current) drug therapy; Z86.73 Personal history of transient ischemic attack (TIA), and cerebral infarction without residual deficits; Z92.21 Personal history of antineoplastic chemotherapy; Z90.49 Acquired absence of other specified parts of digestive tract; Z90.710 Acquired absence of both cervix and uterus; Z93.2 Ileostomy status; Z88.0 Allergy status to penicillin; Z88.8 Allergy status to other drugs, medicaments and biological substances; Z82.49 Family history of ischemic heart disease and other diseases of the circulatory system; Z80.41 Family history of malignant neoplasm of ovary; Z80.0 Family history of malignant neoplasm of digestive organs
CPT/HCPCS: 36415; 36600; 71045; 71046; 71260; 71275; 76604; 80048; 80053; 80069; 80076; 82550; 82553; 82607; 82728; 82746; 82803; 83540; 83550; 83605; 83615; 83735; 83880; 84155; 84484; 85025; 85027; 85045; 85610; 85730; 86738; 87040; 87804; 93005; 93010; 93306; 94668; 94799; J0692; J1200; J1650; J1885; J1956; J2270; J2550; J2920; J3370; J3490; J7030; J7060; J7620

== ENCOUNTER → 2019-01-18 | Outpatient (CLI) | payer MEDICARE, MEDICAID ==
--- NOTE | 2019-01-23 12:46 | WOMENS IMAGING REPORT ---
EXAM DESCRIPTION: 3D SCREENING MAMMO BILAT COMPLETED DATE/TIME: 01/18/2019 9:19 am REASON FOR STUDY: Z12.31 ENCOUNTER FOR SCREENING MAMMOGRAM FOR MALIGNANT NEOPLASM OF BREAST Z12.31 ENCNTR SCREEN MAMMOGRAM FOR MALIGNANT NEOPLASM OF BONG COMPARISON: 12/23/2015 and 12/21/2013. TECHNIQUE: Standard craniocaudal and mediolateral oblique views of each breast recorded using digita l acquisition and breast tomosynthesis. LIMITATIONS: None. FINDINGS: No masses, calcifications or architectural distortion. No areas of suspicion. Read with the assistance of CAD. .[facility] - R2 Cenova Version 1.3 .[facility] Imaging - R2 Cenova Version 2.1 .[facility] - R2 Cenova Version 2.4 .[facility] - R2 Cenova Version 2.4 .[facility] - R2 [employer] Version 9.2 IMPRESSION: NORMAL MAMMOGRAM. BIRADS 1. BREAST DENSITY: b. There are scattered areas of fibroglandular density. BIRAD: 1 NEGATIVE RECOMMENDATION: ROUTINE SCREENING COMMENT: The patient has been notified of the results by letter per SA requirements. Additional no tification policies are in place for contacting patient with suspicious or incomplete findings. Quality ID #225: The [employer] recommends an annual screening mammogram for women aged 40 years or over. This facility utilizes a reminder system to ensure that all patients receive reminder letters, and/or direct phone calls for appointments. This includes reminders for routine scr eening mammograms, diagnostic mammograms, or other Breast Imaging Interventions when appropriate. Th is patient will be placed in the appropriate reminder system. The [employer] (ACR) has developed recommendations for screening MRI of the breast s in certain patient populations, to be used in conjunction with mammography. Breast MRI surveillanc e may be appropriate for women with more than 20% lifetime risk of developing breast cancer as deter mined by genetic testing, significant family history of the disease, or history of mantle radiation f or Hodgkins Disease. ACR Practice Guidelines 2008. DBT Technology DBT is a type of tomographic mammography. With conventional mammography, overlapping breast tissue ma y make lesions difficult to detect, even with good compression. DBT uses an x-ray tube that rotates a round the breast, taking images at different angles. These images are then combined to create thin sl ices of the breast that the radiologist can view as a 3D reconstruction. The [employer] unit can perform full-field digital mammograms (2D imaging); or DBT (3D imaging); or both, in a combination mode that quickly performs both the mammogram and the tomosynthesis scan while the breast is still compressed. PQRS 6045F: Fluoroscopic imaging is not utilized for breast tomosynthesis. TECHNICAL DOCUMENTATION: FINDING NUMBER: (1) ASSESSMENT: (1) JOB ID: [id number] [employer]- All Rights Reserved Reading location - IP/workstation name: [email or web address]
== END ==
LOC: WI 08:47
PROVIDERS: ATTEND Physician Assistant
DX: Z12.31 Encounter for screening mammogram for malignant neoplasm of breast (principal)
CPT/HCPCS: 77063; 77067

== ENCOUNTER → 2019-02-08 | Outpatient (CLI) | payer MEDICARE, MEDICAID ==
--- NOTE | 2019-02-08 17:36 | RADIOLOGY REPORT (SQ) ---
EXAM DESCRIPTION: CHEST 2 VIEWS COMPLETED DATE/TIME: 02/08/2019 5:10 pm REASON FOR STUDY: R05 COUGH COMPARISON: 01/05/2019 EXAM PARAMETERS: NUMBER OF VIEWS: two views TECHNIQUE: Digital Frontal and Lateral radiographic views of the chest acquired. RADIATION DOSE: NA LIMITATIONS: none FINDINGS: LUNGS AND PLEURA: No opacities, masses or pneumothorax. No pleural effusion. MEDIASTINUM AND HILAR STRUCTURES: No masses or contour abnormalities. HEART AND VASCULAR STRUCTURES: Heart normal size. No evidence for failure. BONES: No acute findings. HARDWARE: Injection port on the right. Neural stimulator on the left. OTHER: No other significant finding. IMPRESSION: NO ACUTE RADIOGRAPHIC FINDING IN THE CHEST. TECHNICAL DOCUMENTATION: JOB ID: [id number] [employer]- All Rights Reserved Reading location - IP/workstation name: [email or web address]
== END ==
LOC: RAD 16:34
PROVIDERS: ATTEND Physician Assistant
DX: R05 Cough (principal)
CPT/HCPCS: 71046

== ENCOUNTER 2019-05-28 07:44 | Day surgery (SDC) | payer MEDICARE, MEDICAID ==
[2019-05-28 09:22] VITALS: BP 116/65
--- NOTE | 2019-05-28 12:56 | Operative Report ---
Operative Report DATE OF SURGERY: 05/28/19 PREOPERATIVE DIAGNOSIS: Follow-up ulcer POSTOPERATIVE DIAGNOSIS: Duodenitis. Gastritis status post biopsy OPERATION: EGD with biopsy SURGEON: NELLI VASQUEZ ANESTHESIA: LMAC TISSUE REMOVED OR ALTERED: As noted above. COMPLICATIONS: None. ESTIMATED BLOOD LOSS: None. INTRAOPERATIVE FINDINGS: As noted above. PROCEDURE: The risks benefits and alternatives of the procedure explained to the patient in detail and informed consent is obtained.A GIF Olympus video scope was inserted into the patient's mouth and hypopharynx, the esophagus is identified intubated and insufflated ,the scope was then advanced through the esophagus stomach and duodenum, retroflexion maneuver is done ,the esophagus stomach and first and second portions of the duodenum examined. Patient tolerated the procedure well. No immediate postprocedure complications are noted. Patient is discharged in good condition. Discharge date 05/28/2019. Discharge diet: Regular. Discharge activity: Regular. 2 to 3-week follow-up to discuss findings. Patient is instructed to call the office or proceed to the emergency room should there be any further problems or questions. Wait on the pathology.
== END 2019-05-28 09:21 | disposition home or self-care (01) ==
LOC: END 07:44
PROVIDERS: ATTEND Internal Medicine Gastroenterology
DX: K29.80 Duodenitis without bleeding (principal); K29.50 Unspecified chronic gastritis without bleeding; Z09 Encounter for follow-up examination after completed treatment for conditions other than malignant neoplasm; Z87.11 Personal history of peptic ulcer disease
CPT/HCPCS: 88342 ×2; 88305 ×2; 00731; J2704; J1642; 43239; 731

== ENCOUNTER → 2019-08-13 | Outpatient (CLI) | payer MEDICARE, MEDICAID ==
--- NOTE | 2019-08-13 13:30 | RADIOLOGY REPORT (SQ) ---
EXAM DESCRIPTION: CT CHEST WITHOUT COMPLETED DATE/TIME: 08/13/2019 10:51 am REASON FOR STUDY: COPD (J44.9) J44.9 CHRONIC OBSTRUCTIVE PULMONARY DISEASE, UNSPECIFIED COMPARISON: 01/01/2019 TECHNIQUE: CT scan performed of the chest without intravenous contrast. Images reviewed with lung, soft tissue and bone windows. Reconstructed coronal and sagittal MPR images reviewed. All images st ored on PACS. All CT scanners at this facility use dose modulation, iterative reconstruction, and/or weight based d osing when appropriate to reduce radiation dose to as low as reasonably achievable (ALARA). [facility]: Dose Right [facility]: CareDose [facility]: Dose Right [facility]: Teradose 4D [facility]: [employer] RADIATION DOSE: CT Rad equipment meets quality standard of care and radiation dose reduction techniq ues were employed. CTDIvol: 7.6 mGy. DLP: 284 mGy-cm. mGy. LIMITATIONS: No technical limitations. FINDINGS: LUNGS AND PLEURA: Mild pleural thickening along the left major fissure. Bandlike scarring in the middle lobe. Patchy areas of interlobular septal thickening medial right lower lobe. No con solidation or fibrosis. No effusions. HILAR AND MEDIASTINAL STRUCTURES: No identified masses or abnormal nodes. No obvious aneurysm. HEART AND VASCULAR STRUCTURES: No aneurysm. No pericardial effusion. UPPER ABDOMEN: No significant findings. Limited exam. THYROID AND OTHER SOFT TISSUES: Neurostimulator. Right-sided central line. BONES: Nothing acute. HARDWARE: See above. OTHER: No other significant findings. IMPRESSION: Resolved pneumonia. Mild chronic interstitial changes. TECHNICAL DOCUMENTATION: JOB ID: [id number] Quality ID # [id number]: Final reports with documentation of one or more dose reduction techniques (e.g., Au tomated exposure control, adjustment of the mA and/or kV according to patient size, use of iterative reconstruction technique) 2010 [employer]- All Rights Reserved Reading location - IP/workstation name: [email or web address]
== END ==
LOC: RAD 10:29
PROVIDERS: ATTEND Internal Medicine Pulmonary Disease
DX: J44.9 Chronic obstructive pulmonary disease, unspecified (principal); J18.9 Pneumonia, unspecified organism
CPT/HCPCS: 71250

== ENCOUNTER → 2020-02-08 | Outpatient (CLI) | payer MEDICARE, MEDICAID ==
--- NOTE | 2020-02-08 11:03 | ER RDC ASSESSMENT REPORT ---
Intake - In the Last 14 days Have you traveled outside [place]?: No Have you been in close contact with someone CONFIRMED: No Worked in Healthcare?: No - Symptoms Subjective Fever([place] feverish): No Chills: No Muscule Aches: No Runny Nose: Yes Sore Throat: Yes Cough (New or worsening chronic cough): Yes Shortness of breath: Yes Nausea or Vomiting: Yes Headache: No Abdominal Pain: No Diarrhea(3 or more loose stools in last 24 hours): No - Do you have any of the following Chronic lung disease: Asthma or emphysema or COPD: Yes Chronic Lung Disease Comment: Has a history of asthma states he gets pneumonia every year Cystic Fibrosis: No Diabetes: No High Blood Pressure: No Cardiovascular Disease: No Chronic Kidney Disease: No Chronic Liver Disease: No Chronic blood disorder like Sickle Cell Disease: No Weak immune system due to disease or medication: No Neurologic condition that limits movement: Yes Neurological Condition Comment: History of seizures Developmental delay - Moderate to Severe: No Recent (within past 2 weeks) or current : No Morbid Obesity (>100 pounds over ideal weight): No Obesity Comment: Height 5 feet 5 inches weight 188 pounds Other Comment: Has history of rectal removal and has an ostomy - Objective Temperature: 97.6 F Pulse Rate: 73 Respiratory Rate: 20 Blood Pressure: 125/80 O2 Sat by Pulse Oximetry: 97 Objective: Given above, testing performed: If Testing Performed: Test Specimen Type Sent to General - General Information source: Patient Notes: Patient has an extensive history long history of asthma with reported gets pneumonia every year has been taking 3 inhalers reports started feeling ill a week or so ago and worsening in the last few days saw PCP via telemedicine 2 days ago. Here at [facility] today for COVID testing. - Related Data Allergies/Adverse Reactions: Penicillins Allergy (Severe, Verified 05/28/19 07:55) RASH, DIFFICULTY BREATHING prochlorperazine maleate [From Compazine] Adverse Reaction (Severe, Verified 05/28/19 07:55) VIOLENT BEHAVIOR haloperidol [From Haldol] Adverse Reaction (Intermediate, Verified 05/28/19 07:55) Hyperactivity, HEADACHE metoclopramide HCl [From Reglan] Adverse Reaction (Intermediate, Verified 05/28/19 07:55) Hyperactivity ondansetron HCl [From Zofran] Adverse Reaction (Intermediate, Verified 05/28/19 07:55) VOMITING zolpidem [From Ambien] Adverse Reaction (Intermediate, Verified 05/28/19 07:55) SLEEP WALKING diazepam [From Valium] Adverse Reaction (Mild, Verified 05/28/19 07:55) CONFUSION,UNCOOPERATIVE ondansetron [From Zofran] Adverse Reaction (Verified 05/28/19 07:55) Past Medical History - Social History Smoking Status: Never Smoker Family History: Hypertension, Malignancy, Other - Past Medical History Cardiac Medical History: Denies: Hx Coronary Artery Disease, Hx Heart Attack, Hx Hypertension Pulmonary Medical History: Reports: Hx Pneumonia Denies: Hx Asthma, Hx Bronchitis, Hx COPD Neurological Medical History: Reports: Hx Migraine, Hx Seizures - Last one 14 yrs ago. Denies: Hx Cerebrovascular Accident Renal/ Medical History: Denies: Hx Peritoneal Dialysis Malignancy Medical History: Reports: Hx Colorectal Cancer - Status post chemoirradiation and complete colectomy Musculoskeletal Medical History: Reports Hx Arthritis - PSORIATIC, Reports Hx Musculoskeletal Trauma Skin Medical History: Reports Hx Cellulitis Psychiatric Medical History: Reports: Hx Anxiety, Hx Depression Traumatic Medical History: Reports: Hx Fractures Past Surgical History: Reports: Hx Appendectomy, Hx Bowel Surgery - colostomy bag, Hx Cholecystectomy, Hx Hysterectomy, Hx Ileostomy, Hx Kidney (Renal Surgery), Hx Neurologic Surgery, Hx Orthopedic Surgery, Hx Tonsillectomy Physical Exam - General General appearance: Appears well, Alert In distress: None Notes: PHYSICAL EXAMINATION: GENERAL: Well-appearing and in no acute distress. HEAD: Atraumatic, normocephalic. EYES: sclera anicteric, conjunctiva are normal. ENT: nares patent. Moist mucous membranes. NECK: Normal range of motion, supple without lymphadenopathy LUNGS: CTAB and equal. No wheezes rales or rhonchi. Lung sounds clear. dry cough with deep breath. HEART: Regular rate and rhythm without murmurs ABDOMEN: Soft, nontender, normal bowel sounds, no guarding. EXTREMITIES: . No cyanosis. NEUROLOGICAL: Normal speech. PSYCH: Normal mood, normal affect. SKIN: Warm, Dry, normal turgor, Diagnostic Results Laboratory Results: Patient instructed negative rapid strep and negative rapid flu results. Pending strep culture pending COVID testing results. patient provided instructions regarding COVID to include: As a person under investigation for Covid 19, the [facility] of Health and Human Services, division of public health advises you to adhere to the following guidance until your test results are reported to you. If your test result is positive, you will receive additional information from your provider and your local health department at that time. Remain at home until you are cleared by the health provider or public health authorities. Keep a log of visitors to your home, notify any visitors to your home of your isolation status. If you plan to move to a new address or leave the county, notify the local health department in your County. Call your doctor or seek care if you have an urgent medical need. Before seeking medical care, call ahead to get instructions from the provider before arriving at the medical office clinic or hospital. Notify them that you are being tested for the virus that causes Covid 19 so that arrangements can be made, as necessary, to prevent transmission to others in the healthcare setting. Next, notify the local health department in your county. If a medical emergency arises and you need to call 911, inform the first responders that you are being tested for the virus that causes Covid 19. Next, notify the local health department in your county. Patient Education/Counseling Counseling/Education: Patient presents with upper respiratory symptoms worrisome for possible Covid 19. Patient does not have emergency worring symptoms such as difficulty breathing, shortness of breath, chest pain, pressure, confusion or cyanosis. Patient appears suitable for discharge. Instructed to Follow up with PCP, DEVON Velasquez. To ED for persistent or worsening symptoms. Patient's vital signs are stable and patient is nontoxic in appearance. Good return precautions have been discussed with patient, patient verbalized understanding and is agreeable with discharge plan of care at this time. RDC Discharge - Discharge Clinical Impression: COVID - 19 SCREENING Condition: Stable Disposition: Home; Selfcare
[2020-02-08 11:30] VITALS: BP 125/80
[2020-02-08 12:29] LABS: A TYPE INFLUENZA AG NEGATIVE (NEGATIVE); B INFLUENZA AG NEGATIVE (NEGATIVE)
== END ==
LOC: RDC 10:43
PROVIDERS: ATTEND Nurse Practitioner Family
DX: Z20.828 Contact with and (suspected) exposure to other viral communicable diseases (principal); R06.02 Shortness of breath; R05 Cough; R11.0 Nausea; R09.89 Other specified symptoms and signs involving the circulatory and respiratory systems; J45.909 Unspecified asthma, uncomplicated; R56.9 Unspecified convulsions; L40.50 Arthropathic psoriasis, unspecified; Z85.038 Personal history of other malignant neoplasm of large intestine; Z87.01 Personal history of pneumonia (recurrent); Z88.0 Allergy status to penicillin; Z88.8 Allergy status to other drugs, medicaments and biological substances
CPT/HCPCS: 87070; 87880; 87804; U0003; G0463; 87635; 99211

== ENCOUNTER → 2020-03-11 | Outpatient (CLI) | payer MEDICARE, MEDICAID ==
--- NOTE | 2020-03-11 11:49 | RADIOLOGY REPORT (SQ) ---
EXAM DESCRIPTION: CHEST PA/LATERAL IMAGES COMPLETED DATE/TIME: 03/11/2020 10:42 am REASON FOR STUDY: HEMOPTYSIS COMPARISON: 07/06/2019. EXAM PARAMETERS: NUMBER OF VIEWS: two views TECHNIQUE: Digital Frontal and Lateral radiographic views of the chest acquired. RADIATION DOSE: NA LIMITATIONS: none FINDINGS: LUNGS AND PLEURA: Faint airspace disease in the medial right middle lobe. No pleural effu josesito. No pneumothorax. MEDIASTINUM AND HILAR STRUCTURES: No masses or contour abnormalities. HEART AND VASCULAR STRUCTURES: Heart normal size. No evidence for failure. BONES: No acute findings. HARDWARE: Vascular port. Stimulator device. OTHER: No other significant finding. IMPRESSION: POSSIBLE INFILTRATE/PNEUMONIA IN THE MEDIAL RIGHT MIDDLE LOBE. TECHNICAL DOCUMENTATION: JOB ID: [id number] 2010 [employer]- All Rights Reserved Reading location - IP/workstation name: [email or web address]
== END ==
LOC: OD 10:20
PROVIDERS: ATTEND Internal Medicine Pulmonary Disease
DX: R04.2 Hemoptysis (principal)
CPT/HCPCS: 71046

== ENCOUNTER 2020-03-19 18:20 | Emergency (ER) | payer MEDICARE, MEDICAID ==
[2020-03-19 19:56] LABS: ABSOLUTE BASOPHILS # (AUTO) 0.1 10^3/uL (0.0-0.2); ABSOLUTE EOSINOPHILS # (AUTO) 0.2 10^3/uL (0.0-0.6); ABSOLUTE LYMPHOCYTES (AUTO) 2.6 10^3/uL (0.5-4.7); ABSOLUTE MONOCYTES (AUTO) 0.6 10^3/uL (0.1-1.4); ABSOLUTE NEUT (AUTO) 3.4 10^3/uL (1.7-8.2); BASOPHILS % (AUTO) 0.9 % (0-2); EOSINOPHILS % (AUTO) 2.4 % (0-6); HEMATOCRIT 38.4 % (36.0-47.0); HEMOGLOBIN 13.2 g/dL (12.0-15.5); LYMPHOCYTES % (AUTO) 38.6 % (13-45); MEAN CORPUSCULAR HEMOGLOBIN 35.4 pg (27.0-33.4); MEAN CORPUSCULAR HGB CONC 34.5 g/dL (32.0-36.0); MEAN CORPUSCULAR VOLUME 103 fl (80-97); MONOCYTES % (AUTO) 8.8 % (3-13); PLATELET COUNT 355 10^3/uL (150-450); RED BLOOD COUNT 3.73 10^6/uL (3.72-5.28); RED CELL DISTRIBUTION WIDTH 14.1 % (11.5-14.0); SEGMENTED NEUTROPHILS % (AUTO) 49.3 % (42-78); TOTAL CELLS COUNTED % (AUTO) 100 %; WHITE BLOOD COUNT 6.8 10^3/uL (4.0-10.5)
--- NOTE | 2020-03-19 19:56 | RADIOLOGY REPORT (SQ) ---
EXAM DESCRIPTION: CHEST SINGLE VIEW IMAGES COMPLETED DATE/TIME: 03/19/2020 7:39 pm REASON FOR STUDY: SOB COMPARISON: 03/11/2020 EXAM PARAMETERS: NUMBER OF VIEWS: One view. TECHNIQUE: Single frontal radiographic view of the chest acquired. RADIATION DOSE: NA LIMITATIONS: None. FINDINGS: LUNGS AND PLEURA: There is improvement in the appearance of the lung bases common with the re is still some opacification in the region of the middle lobe. MEDIASTINUM AND HILAR STRUCTURES: No masses. Contour normal. HEART AND VASCULAR STRUCTURES: Heart normal in size. Normal vasculature. BONES: No acute findings. HARDWARE: Injection port. Neurostimulator. OTHER: No other significant finding. IMPRESSION: There appear to be chronic changes in the lung bases, but cannot entirely exclude limite d in right middle lobe pneumonia. TECHNICAL DOCUMENTATION: JOB ID: [id number] 2010 [employer]- All Rights Reserved Reading location - IP/workstation name: [email or web address]
[2020-03-19 20:13] LABS: ALBUMIN 4.4 g/dL (3.5-5.0); ALKALINE PHOSPHATASE 166 U/L (38-126); ANION GAP 8 (5-19); ASPARTATE AMINO TRANSFERASE 55 U/L (14-36); BILIRUBIN,TOTAL 0.4 mg/dL (0.2-1.3); BLOOD UREA NITROGEN 13 mg/dL (7-20); CALCIUM 9.3 mg/dL (8.4-10.2); CARBON DIOXIDE 23 mmol/L (22-30); CHLORIDE 106 mmol/L (98-107); GLUCOSE 100 mg/dL (75-110); POTASSIUM 4.2 mmol/L (3.6-5.0); TOTAL PROTEIN 8.5 g/dL (6.3-8.2)
[2020-03-19] MEDS ORDERED: HYDROMORPHONE HCL INJ/PF 2 MG/ML AMPULE IV ONE (20:56)
[2020-03-19] MEDS ORDERED: PROMETHAZINE HCL INJ 25 MG/1 ML VIAL IV ONE (20:56)
[2020-03-19] MEDS ORDERED: DIPHENHYDRAMINE HCL 50 MG/ML VIAL IV ONE (20:57)
[2020-03-19] MEDS ORDERED: HEPARIN SOD (PORCINE) 1,000 UNIT/ML 10 ML VIAL IV ONE (22:37)
--- NOTE | 2020-03-19 22:38 | ER Document Report ---
ED General - General Chief Complaint: Shortness Of Breath Stated Complaint: DIFFICULTY BREATHING Time Seen by Provider: 03/19/20 20:17 Primary Care Provider: ELIZABETH NIETO PA-C [Primary Care Provider] - Follow up as needed MINDI GONG MD [ACTIVE STAFF] - Follow up as needed Notes: 59 year old female arrives with several weeks - 12 or so - of cough and feeling poorly. Cough triggered emesis. No fever or chills. She has been covid tested thru this and levaquin and then zpak and now cephalosporin are being used. 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 TRAVEL OUTSIDE OF THE [place] IN LAST 30 DAYS: No - HPI Severity: Moderate Associated symptoms: None - Related Data Allergies/Adverse Reactions: Penicillins Allergy (Severe, Verified 03/19/20 18:47) RASH, DIFFICULTY BREATHING prochlorperazine maleate [From Compazine] Adverse Reaction (Severe, Verified 03/19/20 18:47) VIOLENT BEHAVIOR haloperidol [From Haldol] Adverse Reaction (Intermediate, Verified 03/19/20 18 :47) Hyperactivity, HEADACHE metoclopramide HCl [From Reglan] Adverse Reaction (Intermediate, Verified 03/19/20 18:47) Hyperactivity ondansetron HCl [From Zofran] Adverse Reaction (Intermediate, Verified 03/19/20 18:47) VOMITING zolpidem [From Ambien] Adverse Reaction (Intermediate, Verified 03/19/20 18:47) SLEEP WALKING diazepam [From Valium] Adverse Reaction (Mild, Verified 03/19/20 18:47) CONFUSION,UNCOOPERATIVE ondansetron [From Zofran] Adverse Reaction (Verified 03/19/20 18:47) Home Medications: Cefpoximine Past Medical History - Social History Smoking Status: Former Smoker Family History: Hypertension, Malignancy, Other Patient has homicidal ideation: No - Past Medical History Cardiac Medical History: Denies: Hx Coronary Artery Disease, Hx Heart Attack, Hx Hypertension Pulmonary Medical History: Reports: Hx Pneumonia Denies: Hx Asthma, Hx Bronchitis, Hx COPD Neurological Medical History: Reports: Hx Migraine, Hx Seizures - Last one 14 yrs ago. Denies: Hx Cerebrovascular Accident Renal/ Medical History: Denies: Hx Peritoneal Dialysis Malignancy Medical History: Reports: Hx Colorectal Cancer - Status post chemoirradiation and complete colectomy Musculoskeletal Medical History: Reports Hx Arthritis - PSORIATIC, Reports Hx Musculoskeletal Trauma Skin Medical History: Reports Hx Cellulitis Psychiatric Medical History: Reports: Hx Anxiety, Hx Depression Traumatic Medical History: Reports: Hx Fractures Past Surgical History: Reports: Hx Appendectomy, Hx Bowel Surgery - colostomy bag, Hx Cholecystectomy, Hx Hysterectomy, Hx Ileostomy, Hx Kidney (Renal Surg padma), Hx Neurologic Surgery, Hx Orthopedic Surgery, Hx Tonsillectomy - Immunizations Immunizations up to date: Yes Hx Diphtheria, Pertussis, Tetanus Vaccination: Yes Review of Systems - Review of Systems Constitutional: No symptoms reported EENT: No symptoms reported Cardiovascular: No symptoms reported Respiratory: No symptoms reported Gastrointestinal: No symptoms reported Genitourinary: No symptoms reported Female Genitourinary: No symptoms reported Musculoskeletal: No symptoms reported Skin: No symptoms reported Hematologic/Lymphatic: No symptoms reported Neurological/Psychological: No symptoms reported Physical Exam - Vital signs Vitals: Temp Pulse Resp BP Pulse Ox 97.8 F 72 18 112/86 H 95 03/19/20 18:47 03/19/20 18:47 03/19/20 18:47 03/19/20 18:47 03/19/20 18:47 Interpretation: Normal - General General appearance: Appears well, Alert - HEENT Head: Normocephalic, Atraumatic Eyes: Normal Pupils: PERRL - Respiratory Respiratory status: No respiratory distress Chest status: Nontender Breath sounds: Normal Chest palpation: Normal - Cardiovascular Rhythm: Regular Heart sounds: Normal auscultation Murmur: No - Abdominal Inspection: Normal Distension: No distension Bowel sounds: Normal Tenderness: Nontender Organomegaly: No organomegaly - Back Back: Normal, Nontender - Extremities General upper extremity: Normal inspection, Nontender, Normal color, Normal ROM, Normal temperature General lower extremity: Normal inspection, Nontender, Normal color, Normal ROM, Normal temperature, Normal weight bearing. No: Brinda's sign - Neurological Neuro grossly intact: Yes Cognition: Normal Orientation: AAOx4 [place] Coma Scale Eye Opening: Spontaneous [place] Coma Scale Verbal: Oriented [place] Coma Scale Motor: Obeys Commands [place] Coma Scale Total: 15 Speech: Normal Motor strength normal: LUE, RUE, LLE, RLE Sensory: Normal - Psychological Associated symptoms: Normal affect, Normal mood - Skin Skin Temperature: Warm Skin Moisture: Dry Skin Color: Normal Course - Re-evaluation Re-evalutation: 03/19/20 22:40 MDM 59 year old female arrives with cough and some post tussive emesis. Frustrated at her length of illness. Deals with chronic pain. No acs indicators and feel she may follow up. She does have local follow up Dr. Nieto and Pulmonary - Dr. Joseph. She tells me she will follow up. Fells improved after treatment here and still taking cephalosporin. - Vital Signs Vital signs: Temp Pulse Resp BP Pulse Ox 97.4 F 56 L 16 105/56 L 90 L 03/19/20 22:55 03/19/20 22:55 03/19/20 22:55 03/19/20 22:55 03/19/20 22:55 - Laboratory Result Diagrams: 03/19/20 19:00 03/19/20 19:00 Laboratory results interpreted by me: 03/19/20 03/19/20 19:00 19:00 MCV 103 H MCH 35.4 H RDW 14.1 H Sodium 136.9 L Est GFR (MDRD) Non-Af 55 L AST 55 H Alkaline Phosphatase 166 H Total Protein 8.5 H - Diagnostic Test Radiology reviewed: Image reviewed, Reports reviewed Discharge - Discharge Clinical Impression: Cough Emesis Qualifiers: Vomiting type: unspecified Vomiting Intractability: non-intractable Nausea presence: with nausea Qualified Code(s): R11.2 - Nausea with vomiting, unspecified Condition: Stable Disposition: HOME, SELF-CARE Instructions: Dyspnea, Nonspecific ([facility]), Nausea or Vomiting, Nonspecific ([facility]), Vomiting ([facility]) Additional Instructions: Rest, fluids, medicines as directed. Please return here for chest pain, shortness of breath or other concerns. Prescriptions: Promethazine HCl [Phenergan 25 mg Tablet] 1 - 2 tab PO Q6H PRN #10 tablet PRN Reason: Promethazine HCl 12.5 mg RC TID #8 supp.rect Referrals: ELIZABETH NIETO PA-C [Primary Care Provider] - Follow up as needed MINDI GONG MD [ACTIVE STAFF] - Follow up as needed
[2020-03-19 23:02] VITALS: BP 105/56
--- NOTE | 2020-03-20 07:47 | EKG REPORT ---
SEVERITY:- ABNORMAL ECG - SINUS RHYTHM REPOL ABNRM SUGGESTS ISCHEMIA, ANT-LAT LEADS : Confirmed by: Marisa Arthur MD 20-Mar-2020 07:47:04
== END 2020-03-19 23:15 | disposition home or self-care (01) ==
LOC: ER 18:20
DX: R05 Cough (principal); R11.2 Nausea with vomiting, unspecified; G89.29 Other chronic pain; Z87.01 Personal history of pneumonia (recurrent); Z87.891 Personal history of nicotine dependence; Z85.048 Personal history of other malignant neoplasm of rectum, rectosigmoid junction, and anus; Z92.21 Personal history of antineoplastic chemotherapy; Z92.3 Personal history of irradiation; Z88.0 Allergy status to penicillin
CPT/HCPCS: 93005; 99285; 96374; 96375; 36415; 85025; 80053; 84484; 71045; 93010; J1200; J1170; J2550; J1642; J1644

== ENCOUNTER 2020-04-24 10:23 | Emergency (ER) | payer MEDICARE, MEDICAID ==
--- NOTE | 2020-04-24 11:07 | RADIOLOGY REPORT (SQ) ---
EXAM DESCRIPTION: CHEST SINGLE VIEW IMAGES COMPLETED DATE/TIME: 04/24/2020 10:55 am REASON FOR STUDY: cough COMPARISON: 03/19/2020 NUMBER OF VIEWS: One view. TECHNIQUE: Single frontal radiographic image of the chest acquired. LIMITATIONS: Overlying breast tissue. FINDINGS: LUNGS AND PLEURA: Patchy increased density in the lung bases without consolidation. No ef fusions. MEDIASTINUM AND HEART: Stable heart size and mediastinal structures. SUPPORT DEVICES: Appropriate location without change. BONY STRUCTURES: No acute findings. HARDWARE: None. OTHER: No other significant finding. IMPRESSION: Atelectasis or developing pneumonia in the lower lobes. Reading location - IP/workstation name: [email or web address]
[2020-04-24 11:52] LABS: ABSOLUTE BASOPHILS # (AUTO) 0.1 10^3/uL (0.0-0.2); ABSOLUTE EOSINOPHILS # (AUTO) 0.4 10^3/uL (0.0-0.6); ABSOLUTE LYMPHOCYTES (AUTO) 1.9 10^3/uL (0.5-4.7); ABSOLUTE MONOCYTES (AUTO) 0.6 10^3/uL (0.1-1.4); ABSOLUTE NEUT (AUTO) 2.6 10^3/uL (1.7-8.2); BASOPHILS % (AUTO) 1.3 % (0-2); EOSINOPHILS % (AUTO) 7.2 % (0-6); HEMATOCRIT 36.2 % (36.0-47.0); HEMOGLOBIN 12.3 g/dL (12.0-15.5); LYMPHOCYTES % (AUTO) 34.1 % (13-45); MEAN CORPUSCULAR HEMOGLOBIN 34.7 pg (27.0-33.4); MEAN CORPUSCULAR HGB CONC 34.1 g/dL (32.0-36.0); MEAN CORPUSCULAR VOLUME 102 fl (80-97); MONOCYTES % (AUTO) 10.3 % (3-13); PLATELET COUNT 240 10^3/uL (150-450); RED BLOOD COUNT 3.56 10^6/uL (3.72-5.28); SEGMENTED NEUTROPHILS % (AUTO) 47.1 % (42-78); TOTAL CELLS COUNTED % (AUTO) 100 %; WHITE BLOOD COUNT 5.5 10^3/uL (4.0-10.5)
[2020-04-24 12:21] LABS: ALKALINE PHOSPHATASE 155 U/L (38-126); ANION GAP 8 (5-19); ASPARTATE AMINO TRANSFERASE 41 U/L (14-36); BLOOD UREA NITROGEN 7 mg/dL (7-20); CALCIUM 9.1 mg/dL (8.4-10.2); CARBON DIOXIDE 24 mmol/L (22-30); CHLORIDE 105 mmol/L (98-107); GLUCOSE 102 mg/dL (75-110); TOTAL PROTEIN 8.3 g/dL (6.3-8.2)
[2020-04-24 12:45] LABS: BILIRUBIN,TOTAL 0.4 mg/dL (0.2-1.3)
[2020-04-24] MEDS ORDERED: PROMETHAZINE HCL INJ 25 MG/1 ML VIAL IV ONE (14:46)
[2020-04-24] MEDS ORDERED: DIPHENHYDRAMINE HCL 50 MG/ML VIAL IV ONE (14:47)
[2020-04-24] MEDS ORDERED: NORMAL SALINE 1000 ML 1,000 ML IV ONE (14:53)
[2020-04-24] MEDS ORDERED: CLINDAMYCIN 600 MG/D5W RTU 600 MG/50 ML RTUPB IV ONE (15:01)
--- NOTE | 2020-04-24 15:04 | ER Document Report ---
ED Respiratory Problem - General Chief Complaint: Cough Stated Complaint: COUGH,CONGESTION,VOMITING Time Seen by Provider: 04/24/20 14:08 Primary Care Provider: MINDI ROSA MD [ACTIVE STAFF] - Follow up tomorrow Mode of Arrival: Ambulatory Information source: Patient Notes: Patient presents stating that she has had a cough for the past 4 months. Patient states she has been on various antibiotics. Patient states that she received a call from her drive in waiter/waitress office and they told her she should just come here to get admitted. Patient reports some nausea. Patient reports subjective fever. Patient reports a history of COPD. TRAVEL OUTSIDE OF THE [place] IN LAST 30 DAYS: No - HPI Patient complains to provider of: COPD, Cough. No: Asthma Onset: Other - 4 months Duration: Continuous Quality of pain: No pain Associated symptoms: Cough. denies: Bloody cough, Congestion, Fever, Wheezing Similar symptoms previously: Yes Recently seen / treated by doctor: Yes - Related Data Allergies/Adverse Reactions: Penicillins Allergy (Severe, Verified 03/19/20 18:47) RASH, DIFFICULTY BREATHING prochlorperazine maleate [From Compazine] Adverse Reaction (Severe, Verified 03/19/20 18:47) VIOLENT BEHAVIOR haloperidol [From Haldol] Adverse Reaction (Intermediate, Verified 03/19/20 18:47) Hyperactivity, HEADACHE metoclopramide HCl [From Reglan] Adverse Reaction (Intermediate, Verified 03/19/20 18:47) Hyperactivity ondansetron HCl [From Zofran] Adverse Reaction (Intermediate, Verified 03/19/20 18:47) VOMITING zolpidem [From Ambien] Adverse Reaction (Intermediate, Verified 03/19/20 18:47) SLEEP WALKING diazepam [From Valium] Adverse Reaction (Mild, Verified 03/19/20 18:47) CONFUSION,UNCOOPERATIVE ondansetron [From Zofran] Adverse Reaction (Verified 03/19/20 18:47) Past Medical History - General Information source: Patient - Social History Smoking Status: Never Smoker Frequency of alcohol use: None Drug Abuse: None Lives with: Family Family History: Hypertension, Malignancy, Other - Past Medical History Cardiac Medical History: Denies: Hx Coronary Artery Disease, Hx Heart Attack, Hx Hypertension Pulmonary Medical History: Reports: Hx Pneumonia Denies: Hx Asthma, Hx Bronchitis, Hx COPD Neurological Medical History: Reports: Hx Migraine, Hx Seizures - Last one 14 yrs ago. Denies: Hx Cerebrovascular Accident Renal/ Medical History: Denies: Hx Peritoneal Dialysis Malignancy Medical History: Reports: Hx Colorectal Cancer - Status post chemoirradiation and complete colectomy Musculoskeletal Medical History: Reports Hx Arthritis - PSORIATIC, Reports Hx Musculoskeletal Trauma Skin Medical History: Reports Hx Cellulitis Psychiatric Medical History: Reports: Hx Anxiety, Hx Depression Traumatic Medical History: Reports: Hx Fractures Past Surgical History: Reports: Hx Appendectomy, Hx Bowel Surgery - colostomy bag, Hx Cholecystectomy, Hx Hysterectomy, Hx Ileostomy, Hx Kidney (Renal Surgery), Hx Neurologic Surgery, Hx Orthopedic Surgery, Hx Tonsillectomy - Immunizations Immunizations up to date: Yes Hx Diphtheria, Pertussis, Tetanus Vaccination: Yes Review of Systems - Review of Systems Constitutional: Recent illness - pneumonia. denies: Fever EENT: No symptoms reported Cardiovascular: No symptoms reported Respiratory: Cough Gastrointestinal: Nausea. denies: Abdominal pain, Vomiting Genitourinary: No symptoms reported Female Genitourinary: No symptoms reported Musculoskeletal: No symptoms reported. denies: Back pain Skin: No symptoms reported Hematologic/Lymphatic: No symptoms reported Neurological/Psychological: No symptoms reported Physical Exam - Vital signs Vitals: Temp Pulse Resp BP Pulse Ox 98.9 F 81 22 H 93/68 L 93 04/24/20 10:29 04/24/20 10:29 04/24/20 10:29 04/24/20 10:29 04/24/20 10:29 - General General appearance: Appears well, Alert In distress: None - HEENT Head: Normocephalic, Atraumatic Eyes: Normal Conjunctiva: Normal Nasal: Normal Mouth/Lips: Normal Mucous membranes: Normal Pharynx: Normal Neck: Normal, Supple. No: Lymphadenopathy - Respiratory Respiratory status: No respiratory distress Chest status: Nontender Breath sounds: Nonproductive cough. No: Rales, Rhonchi, Stridor, Wheezing Chest palpation: Normal - Cardiovascular Rhythm: Regular Heart sounds: S1 appreciated, S2 appreciated - Abdominal Inspection: Morbidly Obese Distension: No distension Tenderness: Nontender Organomegaly: No organomegaly - Back Back: Normal, Nontender - Extremities General upper extremity: Normal inspection, Normal strength General lower extremity: Normal inspection, Normal strength - Neurological Neuro grossly intact: Yes Cognition: Normal [place] Coma Scale Eye Opening: Spontaneous [place] Coma Scale Verbal: Oriented [place] Coma Scale Motor: Obeys Commands [place] Coma Scale Total: 15 - Psychological Associated symptoms: Normal affect, Normal mood - Skin Skin Temperature: Warm Skin Moisture: Dry Skin Color: Normal Course - Re-evaluation Re-evalutation: 04/24/20 15:[address] Rosa patient's drive in waiter/waitress regarding her presentation as patient states that she was sent here at the direction of the drive in waiter/waitress office for further evaluation. Patient has right middle lobe syndrome and had a recent culture that did grow out staph that was sensitive to clindamycin. Dr. Rosa advises placing patient on IV clindamycin ideally as an outpatient. He states that oral medicines have not been effective as patient reports seeing the pills in her ileostomy. Dr. Rosa plans to attempt to eventually get patient referred to [facility] for lobectomy. 04/24/20 16:30 Consulted with hospital line installation supervisor, Akilah, regarding process needed to help patient get outpatient antibiotic infusion. Instrument And Electrical Technician states that his office needs to call the infusion floor to provide them with the orders that the ER staff does not typically initiate outpatient infusions. Spoke with Dr. Rosa's light armored vehicle officer about patient need for outpatient antibiotic administration, and for the need for the order for the medicines to come from his office. mobility manager states that she is spoke with the patient daily and that she was concerned that patient would require admission. mobility manager advised that per Dr. Rosa he felt that admission would be inappropriate use o f resources when her care could be managed on outpatient basis. Staff water resource project manager states that she is aware that patient takes care of her grandchild and would have issues with child development professor were she to have to come to the hospital for infusions. mobility manager was advised that patient would still have the childcare issue even if she was admitted as children are not allowed to stay in house with admitted patients. mobility manager states that she has not been able to get patient established with [facility] for [facility] infusions as they do not have capable staff that can manage Port-A-Cath. mobility manager states she will relay to Dr. Rosa the need for the orders to establish outpatient infusions. 04/24/20 17:30 Discussed with patient plan of care. Patient states that she does have the childcare issue resolved as another family member will be taking the child to stay with someone while she is getting her infusions. Patient advised that she will need to go to her drive in waiter/waitress office for follow-up and that they will initiate the orders to get her infusion started. - Vital Signs Vital signs: Temp Pulse Resp BP Pulse Ox 97.6 F 51 L 16 107/64 95 04/24/20 17:29 04/24/20 17:29 04/24/20 17:29 04/24/20 17:29 04/24/20 17:29 - Laboratory Result Diagrams: 04/24/20 11:27 04/24/20 11:27 Laboratory results interpreted by me: 04/24/20 04/24/20 11:27 11:27 RBC 3.56 L MCV 102 H MCH 34.7 H Eos % (Auto) 7.2 H Sodium 136.9 L AST 41 H Alkaline Phosphatase 155 H Total Protein 8.3 H - Diagnostic Test Radiology reviewed: Image reviewed, Reports reviewed Discharge - Discharge Clinical Impression: Right middle lobe syndrome Condition: Stable Disposition: HOME, SELF-CARE Instructions: Clindamycin ([facility]), Pneumonia ([facility]) Additional Instructions: Return immediately for any new or worsening symptoms Followup with your primary care provider, call tomorrow to make a followup appointment Follow-up with Dr. Rosa's office. The office staff will contact the infusion center to get you set up for scheduled infusions of your antibiotic. Referrals: MINDI ROSA MD [ACTIVE STAFF] - Follow up tomorrow
[2020-04-24 17:29] VITALS: BP 107/64
== END 2020-04-24 18:06 | disposition home or self-care (01) ==
LOC: ER 10:23
DX: J98.19 Other pulmonary collapse (principal); J44.9 Chronic obstructive pulmonary disease, unspecified; R05 Cough; R11.0 Nausea; Z87.01 Personal history of pneumonia (recurrent); Z88.0 Allergy status to penicillin; Z93.2 Ileostomy status
CPT/HCPCS: 36591; 99283; 96375; 96365; 36415; 87040; 83605; 85025; 80053; 71045; J1200; J2550; J7030; J1642

== ENCOUNTER 2020-05-01 12:53 | Inpatient (IN) | payer MEDICARE, MEDICAID ==
[2020-05-01] MEDS ORDERED: AZITHROMYCIN INJ 500 MG VIAL IV ONE (13:52)
[2020-05-01] MEDS ORDERED: CEFTRIAXONE 1 GM/D5W RTU 1 GM/50 ML RTUPB IV ONE (13:52)
--- NOTE | 2020-05-01 13:53 | ER Document Report ---
ED General - General Chief Complaint: Direct Admit/Private MD Stated Complaint: DIRECT ADMIT Time Seen by Provider: 05/01/20 13:52 Notes: Patient presents with ongoing cough shortness of breath. Diagnosed with right middle lobe pneumonia as outpatient. Tried oral antibiotics per pulmonology but they went in her G-tube and came out rapidly through diarrhea not being absorbed so she was sent here for admission for IV antibiotics. Was supposed to be a direct admission but there are no beds so she is checked in the emergency department. TRAVEL OUTSIDE OF THE [place] IN LAST 30 DAYS: No - Related Data Allergies/Adverse Reactions: Penicillins Allergy (Severe, Verified 03/19/20 18:47) RASH, DIFFICULTY BREATHING prochlorperazine maleate [From Compazine] Adverse Reaction (Severe, Verified 03/19/20 18:47) VIOLENT BEHAVIOR haloperidol [From Haldol] Adverse Reaction (Intermediate, Verified 03/19/20 18:47) Hyperactivity, HEADACHE metoclopramide HCl [From Reglan] Adverse Reaction (Intermediate, Verified 03/19/20 18:47) Hyperactivity ondansetron HCl [From Zofran] Adverse Reaction (Intermediate, Verified 03/19/20 18:47) VOMITING zolpidem [From Ambien] Adverse Reaction (Intermediate, Verified 03/19/20 18:47) SLEEP WALKING diazepam [From Valium] Adverse Reaction (Mild, Verified 03/19/20 18:47) CONFUSION,UNCOOPERATIVE ondansetron [From Zofran] Adverse Reaction (Verified 03/19/20 18:47) Past Medical History - Social History Smoking Status: Former Smoker Family History: Hypertension, Malignancy, Other - Past Medical History Cardiac Medical History: Denies: Hx Coronary Artery Disease, Hx Heart Attack, Hx Hypertension Pulmonary Medical History: Reports: Hx Pneumonia Denies: Hx Asthma, Hx Bronchitis, Hx COPD Neurological Medical History: Reports: Hx Migraine, Hx Seizures - Last one 14 yrs ago. Denies: Hx Cerebrovascular Accident Renal/ Medical History: Denies: Hx Peritoneal Dialysis Malignancy Medical History: Reports: Hx Colorectal Cancer - Status post chemoirradiation and complete colectomy Musculoskeletal Medical History: Reports Hx Arthritis - PSORIATIC, Reports Hx Musculoskeletal Trauma Skin Medical History: Reports Hx Cellulitis Psychiatric Medical History: Reports: Hx Anxiety, Hx Depression Traumatic Medical History: Reports: Hx Fractures Past Surgical History: Reports: Hx Appendectomy, Hx Bowel Surgery - colostomy bag, Hx Cholecystectomy, Hx Hysterectomy, Hx Ileostomy, Hx Kidney (Renal Surgery), Hx Neurologic Surgery, Hx Orthopedic Surgery, Hx Tonsillectomy - Immunizations Immunizations up to date: Yes Hx Diphtheria, Pertussis, Tetanus Vaccination: Yes Physical Exam - Vital signs Vitals: Temp Pulse Resp BP Pulse Ox 99.1 F 64 20 90/66 L 96 05/01/20 13:22 05/01/20 13:22 05/01/20 13:22 05/01/20 13:22 05/01/20 13:22 Course - Re-evaluation Re-evalutation: 05/01/20 15:36 For pneumonia with related cardioembolic secondary to autonomic dysfunction. X- ray shows bilateral infiltrates the patient appears stable with normal saturation Culture given Rocephin as a throw. Requested Phenergan Benadrylordered Pressure on the soft side but is up walking around and looks well. Will give fluids. Discussed with Kedar for admission. - Vital Signs Vital signs: Temp Pulse Resp BP Pulse Ox 99.1 F 64 20 90/66 L 92 05/01/20 13:22 05/01/20 13:22 05/01/20 13:22 05/01/20 13:22 05/01/20 15:07 - Laboratory Result Diagrams: 05/01/20 14:40 05/01/20 14:40 Laboratory results interpreted by me: 05/01/20 14:40 RBC 3.40 L Hgb 11.8 L Hct 34.7 L MCV 102 H MCH 34.8 H RDW 14.1 H Eos % (Auto) 6.1 H - Diagnostic Test Radiology reviewed: Image reviewed, Reports reviewed Discharge - Discharge Clinical Impression: Shortness of breath Condition: Good Disposition: ADMITTED OBSERVATION Admitting Provider: Kedar (Hospitalist) Unit Admitted: Medical Floor
[2020-05-01] MEDS ORDERED: PROMETHAZINE HCL INJ 25 MG/1 ML VIAL IV ONE (14:35)
[2020-05-01] MEDS ORDERED: DIPHENHYDRAMINE HCL 50 MG/ML VIAL IV ONE (14:35)
[2020-05-01 14:56] LABS: ABSOLUTE EOSINOPHILS # (AUTO) 0.4 10^3/uL (0.0-0.6); ABSOLUTE LYMPHOCYTES (AUTO) 2.3 10^3/uL (0.5-4.7); ABSOLUTE MONOCYTES (AUTO) 0.6 10^3/uL (0.1-1.4); ABSOLUTE NEUT (AUTO) 2.9 10^3/uL (1.7-8.2); BASOPHILS % (AUTO) 0.6 % (0-2); EOSINOPHILS % (AUTO) 6.1 % (0-6); HEMATOCRIT 34.7 % (36.0-47.0); HEMOGLOBIN 11.8 g/dL (12.0-15.5); LYMPHOCYTES % (AUTO) 36.4 % (13-45); MEAN CORPUSCULAR HEMOGLOBIN 34.8 pg (27.0-33.4); MEAN CORPUSCULAR HGB CONC 34.1 g/dL (32.0-36.0); MEAN CORPUSCULAR VOLUME 102 fl (80-97); MONOCYTES % (AUTO) 10.1 % (3-13); PLATELET COUNT 270 10^3/uL (150-450); RED CELL DISTRIBUTION WIDTH 14.1 % (11.5-14.0); SEGMENTED NEUTROPHILS % (AUTO) 46.8 % (42-78); TOTAL CELLS COUNTED % (AUTO) 100 %; VENOUS BLOOD BASE EXCESS -3.3 mmol/L; VENOUS BLOOD HCO3 23.2 mmol/L (20-32); VENOUS BLOOD PCO2 46.7 mmHg (35-63); VENOUS BLOOD PH 7.31 (7.30-7.42); WHITE BLOOD COUNT 6.2 10^3/uL (4.0-10.5)
[2020-05-01 15:04] LABS: INTERNATIONAL RATION (INR) 1.07; PROTHROMBIN TIME 13.9 SEC (11.4-15.4)
[2020-05-01] MEDS ORDERED: RINGERS SOLUTION,LACTATED 1,000 ML IV ONE (15:38)
[2020-05-01 15:46] LABS: ALBUMIN 3.7 g/dL (3.5-5.0); ALKALINE PHOSPHATASE 149 U/L (38-126); ANION GAP 5 (5-19); ASPARTATE AMINO TRANSFERASE 44 U/L (14-36); BILIRUBIN,TOTAL 0.3 mg/dL (0.2-1.3); BLOOD UREA NITROGEN 11 mg/dL (7-20); CALCIUM 8.1 mg/dL (8.4-10.2); CARBON DIOXIDE 22 mmol/L (22-30); CHLORIDE 109 mmol/L (98-107); GLUCOSE 90 mg/dL (75-110); TOTAL PROTEIN 7.7 g/dL (6.3-8.2)
[2020-05-01] MEDS ORDERED: MORPHINE SULFATE 10 MG/ML INJ IV ONE (17:57)
--- NOTE | 2020-05-01 18:19 | PDOC H&P ---
History of Present Illness Admission Date/PCP: 05/01/20 16:39 ELIZABETH POWELL PA-C Patient complains of: IV ABX. Severe dehydration History of Present Illness: ELIZABETH FERRARI is a 59 year old female patient of Dr. Rosa has been feeling poorly from a staph aureus pneumonia for over 1 month. She has had a colectomy and medications in pill form seem to pass through the GI tract without dissolving/absorbing. Dr. Rosa tried liquid form of antibiotics and they seem to be ineffective. She reports a cough since December. She was previously tested for COVID and was negative. She feels extremely weak. She gets lightheaded when changing positions. She has had poor appetite and is very dry. Her cough is productive she will have thick greenish tinged mucus and then slightly reddish mucus. She was sent over for admission for IV antibiotics since they have been unable to set up outpatient antibiotics because of her Port-A-Cath. Past Medical History Cardiac Medical History: Denies: Coronary Artery Disease, Myocardial Infarction, Hypertension Pulmonary Medical History: Reports: Pneumonia Denies: Asthma, Bronchitis, Chronic Obstructive Pulmonary Disease (COPD) Neurological Medical History: Reports: Migraine, Seizures - Last one 14 yrs ago Malignancy Medical History: Reports: Colorectal Cancer - Status post chemoirradiation and complete colectomy Musculoskeltal Medical History: Reports: Arthritis - PSORIATIC, Other - Chronic pain Psychiatric Medical History: Reports: Depression Hematology: Denies: Anemia Past Surgical History Past Surgical History: Reports: Appendectomy, Cholecystectomy, Hysterectomy, Ileostomy, Orthopedic Surgery, Tonsillectomy Social History Information Source: Patient, Dr. Castrejon, [facility] Records Lives with: Alone - She is Smoking Status: Former Smoker Electronic Cigarette use?: No Frequency of Alcohol Use: None Hx Recreational Drug Use: No Drugs: None Hx Prescription Drug Abuse: No - Dependent on multiple pain medications - Advance Directive Resuscitation Status: Full Code Family History Family History: Hypertension, Malignancy, Other Parental Family History Reviewed: Yes Children Family History Reviewed: Yes Sibling(s) Family History Reviewed.: Yes Medication/Allergy Home Medications: Diclofenac Sodium [Voltaren] 75 mg PO BID 12/28/18 Gabapentin [Neurontin] 600 mg PO BID 12/28/18 Lamotrigine [Lamictal] 200 mg PO BID 12/28/18 Levetiracetam [Keppra] 250 mg PO BID 12/28/18 Morphine Sulfate [Morphine Ir 30 mg Tablet] 30 mg PO Q6 12/28/18 Oxycodone HCl 20 mg PO Q6 12/28/18 Phenobarbital [Phenobarbital 64.8 mg Tablet] 2 tab PO Q12 12/28/18 Promethazine HCl [Phenergan 25 mg Tablet] 25 mg PO Q8HP PRN 12/28/18 Rizatriptan Benzoate [Maxalt] 10 mg PO DAILYP PRN 12/28/18 Topiramate [Topamax 100 mg Tablet] 150 mg PO BID 12/28/18 Levorphanol Tartrate 2 mg PO QID 05/01/20 Propranolol HCl [Propranolol HCl ER] 60 mg PO BID 05/01/20 Sulfasalazine 1,000 mg PO TID 05/01/20 Allergies/Adverse Reactions: Penicillins Allergy (Severe, Verified 03/19/20 18:47) RASH, DIFFICULTY BREATHING prochlorperazine maleate [From Compazine] Adverse Reaction (Severe, Verified 03/19/20 18:47) VIOLENT BEHAVIOR haloperidol [From Haldol] Adverse Reaction (Intermediate, Verified 03/19/20 18:47) Hyperactivity, HEADACHE metoclopramide HCl [From Reglan] Adverse Reaction (Intermediate, Verified 03/19/20 18:47) Hyperactivity ondansetron HCl [From Zofran] Adverse Reaction (Intermediate, Verified 03/19/20 18:47) VOMITING zolpidem [From Ambien] Adverse Reaction (Intermediate, Verified 03/19/20 18:47) SLEEP WALKING diazepam [From Valium] Adverse Reaction (Mild, Verified 03/19/20 18:47) CONFUSION,UNCOOPERATIVE ondansetron [From Zofran] Adverse Reaction (Verified 03/19/20 18:47) Review of Systems All systems: reviewed and no additional remarkable complaints except as stated Constitutional: PRESENT: anorexia, fatigue, weakness Respiratory: PRESENT: cough, dyspnea, sputum Musculoskeletal: PRESENT: back pain Physical Exam Vital Signs: Temp Pulse Resp BP Pulse Ox 99.1 F 64 20 90/66 L 92 05/01/20 13:22 05/01/20 13:22 05/01/20 13:22 05/01/20 13:22 05/01/20 15:07 Intake & Output 04/30/20 05/01/20 05/02/20 06:59 06:59 06:59 Intake Total 50 Balance 50 Weight 84.5 kg General appearance: PRESENT: cooperative, severe distress, well-developed Head exam: PRESENT: atraumatic, normocephalic Eye exam: PRESENT: conjunctiva pink, EOMI, PERRLA. ABSENT: scleral icterus Ear exam: PRESENT: normal external ear exam. ABSENT: bleeding, drainage Mouth exam: PRESENT: dry mucosa - Salo dry, tongue midline Throat exam: PRESENT: post pharyngeal erythema Neck exam: PRESENT: tenderness - When palpating lymph nodes. ABSENT: carotid br uit, JVD, lymphadenopathy Respiratory exam: PRESENT: rhonchi - Right base, symmetrical, unlabored. ABSENT: rales, tachypnea, wheezes Cardiovascular exam: PRESENT: RRR, +S1, +S2. ABSENT: bradycardia, irregular rhythm, tachycardia GI/Abdominal exam: PRESENT: normal bowel sounds, soft. ABSENT: guarding, tenderness Rectal exam: PRESENT: deferred, other - Colostomy in place Gentrourinary exam: ABSENT: indwelling catheter Extremities exam: PRESENT: pedal edema - Trace Musculoskeletal exam: PRESENT: ambulatory, normal inspection. ABSENT: deformity, dislocation Neurological exam: PRESENT: alert, awake, oriented to person, oriented to place, oriented to time, oriented to situation, CN II-XII grossly intact. ABSENT: altered Psychiatric exam: PRESENT: anxious, flat affect. ABSENT: agitated Focused psych exam: ABSENT: delusional, paranoid, restlessness Results Laboratory Results: 05/01/20 14:40 05/01/20 14:40 05/01/20 05/01/20 05/01/20 14:40 14:40 14:40 WBC 6.2 RBC 3.40 L Hgb 11.8 L Hct 34.7 L MCV 102 H MCH 34.8 H MCHC 34.1 RDW 14.1 H Plt Count 270 Seg Neutrophils % 46.8 VBG pH 7.31 VBG pCO2 46.7 VBG HCO3 23.2 VBG Base Excess -3.3 Sodium 136.3 L Potassium 4.0 Chloride 109 H Carbon Dioxide 22 Anion Gap 5 BUN 11 Creatinine 0.78 Est GFR ( Amer) > 60 Glucose 90 Lactic Acid Calcium 8.1 L Total Bilirubin 0.3 AST 44 H Alkaline Phosphatase 149 H Total Protein 7.7 Albumin 3.7 05/01/20 14:40 WBC RBC Hgb Hct MCV MCH MCHC RDW Plt Count Seg Neutrophils % VBG pH VBG pCO2 VBG HCO3 VBG Base Excess Sodium Potassium Chloride Carbon Dioxide Anion Gap BUN Creatinine Est GFR ( Amer) Glucose Lactic Acid 1.1 Calcium Total Bilirubin AST Alkaline Phosphatase Total Protein Albumin Assessment and Plan - Diagnosis (1) Pneumonia Qualifiers: Pneumonia type: due to methicillin-sensitive Staphylococcus aureus (MSSA) Laterality: right Lung location: lower lobe of lung Qualified Code(s): J15.211 - Pneumonia due to Methicillin susceptible Staphylococcus aureus Is this a current diagnosis for this admission?: Yes Plan: I will place the patient on cefepime and doxycycline. Dr. Rosa has tried multiple antibiotics. She did tolerate the dose of ceftriaxone earlier today so the cefepime should be okay to use. I have also asked for a sputum culture and sputum smear for the fungus. If she has been on multiple antibiotics then it is possible but this has morphed into a fungal infection. She is does not have a pronounced eosinophilia. Her white count is in fact normal but she has been receiving antibiotics on and off for a month. (2) COPD (chronic obstructive pulmonary disease) Qualifiers: COPD type: emphysema Emphysema type: unspecified Qualified Code(s): J43.9 - Emphysema, unspecified Is this a current diagnosis for this admission?: Yes Plan: Normally the patient uses Symbicort and Spiriva with an albuterol rescue inhaler at home. We will utilize Trelegy inhaler during hospitalization and she will have DuoNebs available as needed (3) Chronic pain Qualifiers: Chronic pain type: chronic pain syndrome Qualified Code(s): G89.4 - Chronic pain syndrome Is this a current diagnosis for this admission?: Yes Plan: The patient has degenerative disc disease but refuses to get surgery. She has become heavily dependent on pain medication. She is followed at a pain management clinic. (4) Dehydration Is this a current diagnosis for this admission?: Yes Plan: Her mouth is extremely dry. Despite a normal BUN and creatinine I believe she is quite dehydrated. She will receive aggressive fluids through the night. (5) Opiate dependence, continuous Is this a current diagnosis for this admission?: Yes Plan: Her home medication regimen has included morphine, oxycodone, tramadol and levorphanol to name a few. I have written for her scheduled morphine with as needed morphine available if needed. (6) Psoriatic arthritis Is this a current diagnosis for this admission?: Yes Plan: Continue sulfasalazine (7) Seizure disorder Is this a current diagnosis for this admission?: Yes Plan: Continue phenobarbital, Keppra and Topamax. She is also on Lamictal which is more likely for depression. (8) Depression Qualifiers: Depression Type: major depressive disorder Major depression recurrence: recurrent Active/Remission status: currently active Major depression episode severity: moderate Qualified Code(s): F33.1 - Major depressive disorder, recurrent, moderate Is this a current diagnosis for this admission?: Yes Plan: The patient is on phenobarbital, Keppra, Lamictal and Topamax. We will continue these medications. Some monitor for seizures with others are for depression. I have ordered a phenobarbital level. (9) History of colon cancer Is this a current diagnosis for this admission?: Yes Plan: Status post colectomy with a colostomy. - Time Time Spent with patient: 35 or more minutes Medications reviewed and adjusted accordingly: Yes Anticipated discharge: Home with Homehealth Within: Other - Likely 3 to 4 days - Inpatient Certification Medical Necessity: Failure to Improve With Outpatient Therapy, Need Close Monitoring Due to Risk of Patient Decompensation, Need For IV Fluids, Need for Pain Control, Need for IV Antibiotics, Risk of Complication if Not Cared For in Hospital Post Hospital Care: D/C Senior Scientist Documentation
[2020-05-01] MEDS ORDERED: ACETAMINOPHEN 325 MG TABLET PO PRN (19:56)
[2020-05-01] MEDS ORDERED: IPRATROPIUM/ALBUTEROL 0.5-2.5 MG/3 ML AMPUL NEB PRN (19:56)
[2020-05-01] MEDS: CEFEPIME 1 GM/D5W RTU 1 GM/50 ML RTUPB IV SCH (20:34)
[2020-05-01] MEDS: DOXYCYCLINE HYCLATE 100 MG in DEXTROSE 5%-WATER 250 ML IV SCH (21:53)
[2020-05-01] MEDS: PHENOBARBITAL 64.8 MG TABLET PO SCH (21:54)
[2020-05-01] MEDS: PROMETHAZINE HCL INJ 25 MG/1 ML VIAL IV PRN (21:54)
[2020-05-01] MEDS: LEVETIRACETAM ORAL SOLN 500 MG/5 ML UDCUP PO SCH (21:54)
[2020-05-01] MEDS: LAMOTRIGINE 100 MG TABLET PO SCH (21:55)
[2020-05-01] MEDS: TOPIRAMATE 100 MG TABLET PO SCH (21:55)
[2020-05-01] MEDS: DIPHENHYDRAMINE HCL 50 MG/ML VIAL IV PRN (21:55)
[2020-05-01] MEDS ORDERED: LEVETIRACETAM 500 MG TABLET PO SCH (22:00)
[2020-05-01] MEDS: MORPHINE SULFATE 10 MG/ML INJ IV PRN (22:10)
--- NOTE | 2020-05-02 01:05 | EKG REPORT ---
SEVERITY:- NORMAL ECG - SINUS RHYTHM NONSPECIFIC T WAVE INVERSIONS : Confirmed by: Aj Spivey 02-May-2020 01:03:49
[2020-05-02] MEDS: PROMETHAZINE HCL INJ 25 MG/1 ML VIAL IV PRN ×3 (05:13→17:45)
[2020-05-02] MEDS: MORPHINE SULFATE 10 MG/ML INJ IV PRN ×4 (05:13→23:44)
[2020-05-02] MEDS: MORPHINE SULFATE IR 30 MG TABLET PO SCH ×5 (05:14→23:38)
[2020-05-02] MEDS: RINGERS SOLUTION,LACTATED 1,000 ML IV PRN ×2 (05:14→14:14)
[2020-05-02 05:46] LABS: ABSOLUTE EOSINOPHILS # (AUTO) 0.4 10^3/uL (0.0-0.6); ABSOLUTE MONOCYTES (AUTO) 0.5 10^3/uL (0.1-1.4); ABSOLUTE NEUT (AUTO) 1.8 10^3/uL (1.7-8.2); EOSINOPHILS % (AUTO) 7.8 % (0-6); HEMATOCRIT 30.6 % (36.0-47.0); HEMOGLOBIN 10.7 g/dL (12.0-15.5); LYMPHOCYTES % (AUTO) 43.3 % (13-45); MEAN CORPUSCULAR HEMOGLOBIN 35.4 pg (27.0-33.4); MEAN CORPUSCULAR HGB CONC 34.9 g/dL (32.0-36.0); MEAN CORPUSCULAR VOLUME 102 fl (80-97); MONOCYTES % (AUTO) 10.1 % (3-13); PLATELET COUNT 251 10^3/uL (150-450); RED BLOOD COUNT 3.01 10^6/uL (3.72-5.28); RED CELL DISTRIBUTION WIDTH 14.5 % (11.5-14.0); SEGMENTED NEUTROPHILS % (AUTO) 37.8 % (42-78); TOTAL CELLS COUNTED % (AUTO) 100 %; WHITE BLOOD COUNT 4.7 10^3/uL (4.0-10.5)
[2020-05-02 05:59] LABS: ANION GAP 6 (5-19); BLOOD UREA NITROGEN 8 mg/dL (7-20); CALCIUM 8.6 mg/dL (8.4-10.2); CARBON DIOXIDE 25 mmol/L (22-30); CHLORIDE 107 mmol/L (98-107); GLUCOSE 89 mg/dL (75-110)
[2020-05-02] MEDS: CEFEPIME 1 GM/D5W RTU 1 GM/50 ML RTUPB IV SCH ×2 (09:18→20:34)
[2020-05-02] MEDS: LAMOTRIGINE 100 MG TABLET PO SCH ×2 (09:18→21:26)
[2020-05-02] MEDS: PHENOBARBITAL 64.8 MG TABLET PO SCH ×2 (09:18→21:26)
[2020-05-02] MEDS: TOPIRAMATE 100 MG TABLET PO SCH ×2 (09:19→21:26)
[2020-05-02] MEDS: FLUTICASONE/UMECLIDIN/VILANTER 100-62.5-25 MCG/DOSE IH SCH (09:19)
[2020-05-02] MEDS: ENOXAPARIN SODIUM INJ 40 MG/0.4 ML DISP.SYRIN SUBCUT SCH (09:19)
[2020-05-02] MEDS: LEVETIRACETAM ORAL SOLN 500 MG/5 ML UDCUP PO SCH ×2 (09:19→21:25)
[2020-05-02] MEDS ORDERED: CEFTRIAXONE 1 GM/D5W RTU 1 GM/50 ML RTUPB IV SCH (10:00)
[2020-05-02] MEDS ORDERED: TOPIRAMATE 100 MG TABLET PO SCH (10:00)
[2020-05-02] MEDS ORDERED: (PENDING PHARMACY ID) (Levetiracetam [Keppra] 250 MG) PO SCH (10:00)
[2020-05-02] MEDS ORDERED: (PENDING PHARMACY ID) (Lamotrigine [Lamictal] 200 MG) PO SCH (10:00)
[2020-05-02] MEDS: DOXYCYCLINE HYCLATE 100 MG in DEXTROSE 5%-WATER 250 ML IV SCH ×2 (10:18→21:27)
--- NOTE | 2020-05-02 10:53 | RADIOLOGY REPORT (SQ) ---
EXAM DESCRIPTION: CHEST SINGLE VIEW IMAGES COMPLETED DATE/TIME: 05/02/2020 10:38 am REASON FOR STUDY: pneumonia COMPARISON: 04/24/2020. EXAM PARAMETERS: NUMBER OF VIEWS: One view. TECHNIQUE: Single frontal radiographic view of the chest acquired. RADIATION DOSE: NA LIMITATIONS: None. FINDINGS: LUNGS AND PLEURA: Persistent airspace disease in the lung bases, slightly worse. No pleur al effusion. No pneumothorax. MEDIASTINUM AND HILAR STRUCTURES: No masses. Contour normal. HEART AND VASCULAR STRUCTURES: Heart normal in size. Normal vasculature. BONES: No acute findings. HARDWARE: Vascular port. Stimulator device. OTHER: No other significant finding. IMPRESSION: WORSENING AIRSPACE DISEASE IN THE LUNG BASES. TECHNICAL DOCUMENTATION: JOB ID: [id number] 2010 [employer]- All Rights Reserved Reading location - IP/workstation name: [email or web address]
[2020-05-02] MEDS: SULFASALAZINE 500 MG TABLET.DR PO SCH ×2 (14:14→17:31)
[2020-05-02] MEDS ORDERED: ALBUTEROL SULFATE 0.083% NEB 2.5 MG/3 ML AMPUL NEB PRN (14:43)
--- NOTE | 2020-05-02 14:43 | PDOC PROGRESS REPORT ---
Subjective Progress Note for:: 05/02/20 Subjective:: The patient still has a barking cough. It seems like she was trying to cough up the mucus. At times it seems as if she is trying to hard as could be irritating her own throat. Inspissated mucus trial of Mucomyst Reason For Visit: PNEUMONIA,COPD,DEHYDRATION,SEIZURE DISORDER, Physical Exam Vital Signs: Temp Pulse Resp BP Pulse Ox 98.0 F 63 12 89/45 L 90 L 05/02/20 11:07 05/02/20 11:07 05/02/20 11:07 05/02/20 11:07 05/02/20 11:07 Intake & Output 05/01/20 05/02/20 05/03/20 06:59 06:59 06:59 Intake Total 540 1840 Balance 540 1840 Weight 85.2 kg General appearance: PRESENT: cooperative, mild distress, well-developed Head exam: PRESENT: atraumatic, normocephalic Eye exam: PRESENT: conjunctiva pink. ABSENT: scleral icterus Ear exam: PRESENT: normal external ear exam. ABSENT: bleeding, drainage Mouth exam: PRESENT: dry mucosa, tongue midline Respiratory exam: PRESENT: symmetrical, wheezes, other - Expiratory wheeze with very congested cough. ABSENT: clear to auscultation duane, rales, rhonchi Cardiovascular exam: PRESENT: RRR, +S1, +S2 GI/Abdominal exam: PRESENT: normal bowel sounds, soft. ABSENT: distended, guarding, tenderness Rectal exam: PRESENT: deferred Gentrourinary exam: ABSENT: indwelling catheter Extremities exam: PRESENT: pedal edema Musculoskeletal exam: PRESENT: ambulatory, normal inspection. ABSENT: deformity, dislocation Neurological exam: PRESENT: alert, awake, oriented to person, oriented to place, oriented to time, oriented to situation, CN II-XII grossly intact Psychiatric exam: PRESENT: unusual affect. ABSENT: agitated, anxious Focused psych exam: ABSENT: delusional, paranoid, restlessness Skin exam: PRESENT: dry, normal color, warm. ABSENT: erythema, rash Results Laboratory Results: 05/02/20 05:10 05/02/20 05:10 05/01/20 05/01/20 05/01/20 14:40 14:40 14:40 WBC 6.2 RBC 3.40 L Hgb 11.8 L Hct 34.7 L MCV 102 H MCH 34.8 H MCHC 34.1 RDW 14.1 H Plt Count 270 Seg Neutrophils % 46.8 VBG pH 7.31 VBG pCO2 46.7 VBG HCO3 23.2 VBG Base Excess -3.3 Sodium 136.3 L Potassium 4.0 Chloride 109 H Carbon Dioxide 22 Anion Gap 5 BUN 11 Creatinine 0.78 Est GFR ( Amer) > 60 Glucose 90 Lactic Acid Calcium 8.1 L Phosphorus Magnesium Total Bilirubin 0.3 AST 44 H Alkaline Phosphatase 149 H Total Protein 7.7 Albumin 3.7 05/01/20 05/01/20 05/01/20 14:40 19:15 23:30 WBC RBC Hgb Hct MCV MCH MCHC RDW Plt Count Seg Neutrophils % VBG pH VBG pCO2 VBG HCO3 VBG Base Excess Sodium Potassium Chloride Carbon Dioxide Anion Gap BUN Creatinine Est GFR ( Amer) Glucose Lactic Acid 1.1 1.0 1.5 Calcium Phosphorus Magnesium Total Bilirubin AST Alkaline Phosphatase Total Protein Albumin 05/02/20 05/02/20 05:10 05:10 WBC 4.7 RBC 3.01 L Hgb 10.7 L Hct 30.6 L MCV 102 H MCH 35.4 H MCHC 34.9 RDW 14.5 H Plt Count 251 Seg Neutrophils % 37.8 L VBG pH VBG pCO2 VBG HCO3 VBG Base Excess Sodium 137.8 Potassium 4.0 Chloride 107 Carbon Dioxide 25 Anion Gap 6 BUN 8 Creatinine 0.63 Est GFR ( Amer) > 60 Glucose 89 Lactic Acid Calcium 8.6 Phosphorus 3.0 Magnesium 1.9 Total Bilirubin AST Alkaline Phosphatase Total Protein Albumin Impressions: Chest X-Ray 05/02/20 08:00 IMPRESSION: WORSENING AIRSPACE DISEASE IN THE LUNG BASES. Assessment and Plan - Diagnosis (1) Pneumonia Qualifiers: Pneumonia type: due to methicillin-sensitive Staphylococcus aureus (MSSA) Laterality: right Lung location: lower lobe of lung Qualified Code(s): J15.211 - Pneumonia due to Methicillin susceptible Staphylococcus aureus Is this a current diagnosis for this admission?: Yes Plan: Continue current antibiotics. The patient has been on several courses of antibiotics. He did ask for a sputum for fungal culture. Despite what the patient reports she has not coughed up much sputum. I am going to add nebulizer treatments including Mucomyst and chest physiotherapy (2) COPD (chronic obstructive pulmonary disease) Qualifiers: COPD type: emphysema Emphysema type: unspecified Qualified Code(s): J43.9 - Emphysema, unspecified Is this a current diagnosis for this admission?: Yes Plan: Changing nebulizer regimen as above. We will also encourage flutter valve. (3) Chronic pain Qualifiers: Chronic pain type: chronic pain syndrome Qualified Code(s): G89.4 - Chronic pain syndrome Is this a current diagnosis for this admission?: Yes Plan: Multiple psych and pain meds. It may be possible that polypharmacy is contributing to her overall condition (4) Dehydration Is this a current diagnosis for this admission?: Yes Plan: We will slow her IV fluids to 125 mL/h (5) Opiate dependence, continuous Is this a current diagnosis for this admission?: Yes Plan: Continue current regimen at this time. This may be contributing to her overall presentation. (6) Psoriatic arthritis Is this a current diagnosis for this admission?: Yes Plan: Continue sulfasalazine (7) Seizure disorder Is this a current diagnosis for this admission?: Yes Plan: Continue antiepileptic medication (8) Depression Qualifiers: Depression Type: major depressive disorder Major depression recurrence: recurrent Active/Remission status: currently active Major depression episode severity: moderate Qualified Code(s): F33.1 - Major depressive disorder, r ecurrent, moderate Is this a current diagnosis for this admission?: Yes Plan: Continue antidepressants (9) History of colon cancer Is this a current diagnosis for this admission?: Yes Plan: Continue colostomy care - Time Time Spent with patient: 15-24 minutes Medications reviewed and adjusted accordingly: Yes Anticipated Discharge Disposition: Home, Self Care Anticipated Discharge: within 72 hours
[2020-05-02] MEDS ORDERED: PHENOL/SODIUM PHENOLATE 100 SPRAY/177 ML BOTTLE PO PRN (14:46)
[2020-05-02] MEDS: ACETYLCYSTEINE 20% SOLN 800 MG/4 ML VIAL.NEB NEB SCH (20:33)
[2020-05-02] MEDS: ALBUTEROL SULFATE 0.083% NEB 2.5 MG/3 ML AMPUL NEB SCH (20:33)
[2020-05-02] MEDS: DIPHENHYDRAMINE HCL 50 MG/ML VIAL IV PRN (23:44)
[2020-05-03] MEDS: ALBUTEROL SULFATE 0.083% NEB 2.5 MG/3 ML AMPUL NEB SCH ×4 (02:57→19:52)
[2020-05-03] MEDS: MORPHINE SULFATE IR 30 MG TABLET PO SCH ×3 (05:28→18:13)
[2020-05-03] MEDS: PROMETHAZINE HCL INJ 25 MG/1 ML VIAL IV PRN ×3 (06:52→19:41)
[2020-05-03] MEDS: MORPHINE SULFATE 10 MG/ML INJ IV PRN ×3 (06:52→19:41)
[2020-05-03] MEDS: ACETYLCYSTEINE 20% SOLN 800 MG/4 ML VIAL.NEB NEB SCH ×2 (08:22→19:52)
[2020-05-03] MEDS: CEFEPIME 1 GM/D5W RTU 1 GM/50 ML RTUPB IV SCH ×2 (09:09→21:24)
[2020-05-03] MEDS: LEVETIRACETAM ORAL SOLN 500 MG/5 ML UDCUP PO SCH ×2 (09:11→21:26)
[2020-05-03] MEDS: TOPIRAMATE 100 MG TABLET PO SCH ×2 (09:12→21:27)
[2020-05-03] MEDS: LAMOTRIGINE 100 MG TABLET PO SCH ×2 (09:13→21:26)
[2020-05-03] MEDS: PHENOBARBITAL 64.8 MG TABLET PO SCH ×2 (09:13→21:27)
[2020-05-03] MEDS: SULFASALAZINE 500 MG TABLET.DR PO SCH ×3 (09:13→18:12)
[2020-05-03] MEDS: ENOXAPARIN SODIUM INJ 40 MG/0.4 ML DISP.SYRIN SUBCUT SCH (09:14)
[2020-05-03] MEDS: DOXYCYCLINE HYCLATE 100 MG in DEXTROSE 5%-WATER 250 ML IV SCH ×2 (10:00→23:31)
[2020-05-03] MEDS ORDERED: (PENDING PHARMACY ID) (Rizatriptan Benzoate [Maxalt] 10 MG) PO PRN (12:26)
[2020-05-03] MEDS: DIPHENHYDRAMINE HCL 50 MG/ML VIAL IV PRN (15:29)
[2020-05-03] MEDS: RINGERS SOLUTION,LACTATED 1,000 ML IV PRN (16:28)
--- NOTE | 2020-05-03 16:48 | PDOC PROGRESS REPORT ---
Subjective Progress Note for:: 05/03/20 Subjective:: ELIZABETH FERRARI is a 59 year old female with past medical history of recurrent pneumonia, COPD, migraine headaches, seizure disorder last year 14 years ago, colon cancer status post chemoradiation and colectomy with colostomy placed, psoriatic arthritis, depression, chronic musculoskeletal pain and opiate dependence, who is been seeing Dr. Rosa hemp fiber taker off for recurrent pneumonia and is stating that she has been tried on several p.o. antibiotics medication fo r his recurrent pneumonia however she still having persistent cough shortness of breath, stating that each time she is taking p.o. antibiotics patient was sent to ED by her hemp fiber taker off Dr. Rosa for IV antibiotics. 05/03/2020. No acute events overnight. Patient still complaining of persistent productive cough with generalized musculoskeletal pain, does not report any improvement since admission, patient asking for her pain meds to be restarted as she is opiate dependent. Denies any fever, chills, nausea, vomiting, diarrhea, constipation or any urinary symptoms. Reason For Visit: PNEUMONIA,COPD,DEHYDRATION,SEIZURE DISORDER, Physical Exam Vital Signs: Temp Pulse Resp BP Pulse Ox 98.4 F 65 18 108/60 93 05/02/20 23:12 05/03/20 14:11 05/03/20 14:11 05/02/20 23:12 05/03/20 14:11 Intake & Output 05/02/20 05/03/20 05/04/20 06:59 06:59 06:59 Intake Total 540 2860 300 Balance 540 2860 300 Weight 85.2 kg 84.6 kg 84.6 kg General appearance: PRESENT: no acute distress, obese, well-developed, well- nourished Head exam: PRESENT: atraumatic, normocephalic Respiratory exam: PRESENT: crackles - Bibasilar. ABSENT: rales, rhonchi, wheezes Cardiovascular exam: PRESENT: RRR. ABSENT: diastolic murmur, rubs, systolic murmur GI/Abdominal exam: PRESENT: normal bowel sounds, soft, other - Colostomy bag in place. Patent.. ABSENT: distended, guarding, mass, organolmegaly, rebound, tenderness Neurological exam: PRESENT: alert, awake, oriented to person, oriented to place, oriented to time, oriented to situation, CN II-XII grossly intact. ABSENT: motor sensory deficit Results Laboratory Results: 05/02/20 05:10 05/02/20 05:10 Impressions: Chest X-Ray 05/02/20 08:00 IMPRESSION: WORSENING AIRSPACE DISEASE IN THE LUNG BASES. Assessment and Plan - Diagnosis (1) Recurrent pneumonia Is this a current diagnosis for this admission?: Yes Plan: Patient she has been having recurrent pneumonias and has been followed by Dr. Rosa hemp fiber taker off and has been tried on several p.o. medication with no significant improvement. Patient seen by Dr. Rosa her hemp fiber taker off for IV antibiotics. X-ray on admission positive for worsening bibasilar airspace disease. Mycoplasma, influenza, hepatitis, Lyme serology has been negative in previous admissions. Denies any history of HIV. Day 2 IV antibiotics. Day 2 cefepime. Day 2 doxycycline. Blood cultures no growth so far. Patient has not produced any sputum for sputum culture. Continue empiric IV antibiotics. Pulmonology has been consulted. Recommendations pending. Meanwhile will check for HIV status. (2) COPD (chronic obstructive pulmonary disease) Qualifiers: COPD type: emphysema Emphysema type: unspecified Qualified Code(s): J43.9 - Emphysema, unspecified Is this a current diagnosis for this admission?: Yes Plan: History of non-oxygen dependent COPD. Not seem to be acutely exacerbated. Resume home meds. PRN supplemental oxygen. (3) History of colon cancer Is this a current diagnosis for this admission?: Yes Plan: History of colon cancer status post chemoradiation and colectomy. Ostomy in place. Ostomy patent. Tolerating p.o. intake. Outpatient PCP and oncology follow-up. (4) Migraines Qualifiers: Migraine type: without aura Intractability: intractable Is this a current diagnosis for this admission?: Yes Plan: History of migraine headaches. Sees neurologist as outpatient. Resume home meds. Denies any focal neurological symptoms. (5) Obesity (BMI 30.0-34.9) Is this a current diagnosis for this admission?: Yes Plan: BMI 31.9. Will obtain TSH. Diet and lifestyle modification recommended. (6) Opiate dependence, continuous Is this a current diagnosis for this admission?: Yes Plan: Chronic opiate dependency due to back pain. Sees pain management outpatient to resume home meds. Monitor for respiratory depression. Fall precautions. (7) Psoriatic arthritis Is this a current diagnosis for this admission?: Yes Plan: Not on acute flare. Resume home meds. Outpatient PCP and rheumatology follow- up. (8) Seizure disorder Is this a current diagnosis for this admission?: Yes Plan: Does not have any seizure on this hospitalization. Resume home meds. Seizure precaution. Phenobarbital level WNL. - Time Time Spent with patient: 35 or more minutes Anticipated Discharge Disposition: Home, Self Care Anticipated Discharge: within 48 hours
[2020-05-03] MEDS ORDERED: (PENDING PHARMACY ID) (Propranolol Hcl [Propranolol Hcl Er] 60 MG) PO SCH (18:00)
[2020-05-03] MEDS: OXYCODONE HCL IR 5 MG TABLET PO SCH (18:13)
[2020-05-04] MEDS: DIPHENHYDRAMINE HCL 50 MG/ML VIAL IV PRN ×3 (01:09→18:01)
[2020-05-04] MEDS: OXYCODONE HCL IR 5 MG TABLET PO SCH ×4 (01:57→18:05)
[2020-05-04] MEDS: MORPHINE SULFATE IR 30 MG TABLET PO SCH ×4 (01:57→18:05)
[2020-05-04] MEDS: MORPHINE SULFATE 10 MG/ML INJ IV PRN ×4 (02:00→22:38)
[2020-05-04] MEDS: PROMETHAZINE HCL INJ 25 MG/1 ML VIAL IV PRN ×4 (02:01→22:39)
[2020-05-04] MEDS: ALBUTEROL SULFATE 0.083% NEB 2.5 MG/3 ML AMPUL NEB SCH ×4 (02:14→20:01)
[2020-05-04] MEDS: RINGERS SOLUTION,LACTATED 1,000 ML IV PRN ×2 (03:27→13:06)
[2020-05-04] MEDS: ACETYLCYSTEINE 20% SOLN 800 MG/4 ML VIAL.NEB NEB SCH ×2 (08:15→20:01)
[2020-05-04] MEDS: CEFEPIME 1 GM/D5W RTU 1 GM/50 ML RTUPB IV SCH ×2 (08:33→21:30)
[2020-05-04] MEDS: PHENOBARBITAL 64.8 MG TABLET PO SCH ×2 (09:42→22:50)
[2020-05-04] MEDS: LAMOTRIGINE 100 MG TABLET PO SCH ×2 (09:42→22:49)
[2020-05-04] MEDS: LEVETIRACETAM ORAL SOLN 500 MG/5 ML UDCUP PO SCH ×2 (09:43→22:51)
[2020-05-04] MEDS: SULFASALAZINE 500 MG TABLET.DR PO SCH ×3 (09:43→18:01)
[2020-05-04] MEDS: DOXYCYCLINE HYCLATE 100 MG in DEXTROSE 5%-WATER 250 ML IV SCH ×2 (09:43→22:46)
[2020-05-04] MEDS: TOPIRAMATE 100 MG TABLET PO SCH ×2 (09:43→22:53)
[2020-05-04] MEDS: ENOXAPARIN SODIUM INJ 40 MG/0.4 ML DISP.SYRIN SUBCUT SCH (09:44)
--- NOTE | 2020-05-04 12:25 | PDOC PROGRESS REPORT ---
Subjective Progress Note for:: 05/04/20 Subjective:: ELIZABETH FERRARI is a 59 year old female with past medical history of recurrent pneumonia, COPD, migraine headaches, seizure disorder last year 14 years ago, colon cancer status post chemoradiation and colectomy with colostomy placed, psoriatic arthritis, depression, chronic musculoskeletal pain and opiate dependence, who is been seeing Dr. Rosa welding instructor for recurrent pneumonia and is stating that she has been tried on several p.o. antibiotics medication fo r his recurrent pneumonia however she still having persistent cough shortness of breath, stating that each time she is taking p.o. antibiotics patient was sent to ED by her welding instructor Dr. Rosa for IV antibiotics. 05/03/2020. No acute events overnight. Patient still complaining of persistent productive cough with generalized musculoskeletal pain, does not report any improvement since admission, patient asking for her pain meds to be restarted as she is opiate dependent. Denies any fever, chills, nausea, vomiting, diarrhea, constipation or any urinary symptoms. 05/04/2020. No acute events overnight. Endorsing mild improvement of symptoms, still complaining of nonproductive cough and generalized fatigue, complaining of headache and asking for her propranolol, has not had any seizures, alert and oriented, denies any focal neurology symptoms, denies any fever, chills, nausea, vomiting,, diarrhea, constipation. P.o. tolerant. Ostomy patent. Endorsing low appetite. Reason For Visit: PNEUMONIA,COPD,DEHYDRATION,SEIZURE DISORDER, Physical Exam Vital Signs: Temp Pulse Resp BP Pulse Ox 97.7 F 68 20 125/76 92 05/04/20 08:09 05/04/20 08:15 05/04/20 08:15 05/04/20 08:09 05/04/20 08:15 Intake & Output 05/03/20 05/04/20 05/05/20 06:59 06:59 06:59 Intake Total 2859 2056 300 Balance 2859 2056 300 Weight 84.6 kg 86.9 kg General appearance: PRESENT: no acute distress, obese, well-developed, well- nourished Head exam: PRESENT: atraumatic, normocephalic Respiratory exam: PRESENT: clear to auscultation duane. ABSENT: rales, rhonchi, wheezes Cardiovascular exam: PRESENT: RRR. ABSENT: diastolic murmur, rubs, systolic murmur GI/Abdominal exam: PRESENT: normal bowel sounds, soft, other - Ostomy in place. Patent.. ABSENT: distended, guarding, mass, organolmegaly, rebound, tenderness Neurological exam: PRESENT: alert, awake, oriented to person, oriented to place, oriented to time, oriented to situation, CN II-XII grossly intact. ABSENT: motor sensory deficit Results Laboratory Results: 05/02/20 05:10 05/02/20 05:10 Impressions: Chest X-Ray 05/02/20 08:00 IMPRESSION: WORSENING AIRSPACE DISEASE IN THE LUNG BASES. Assessment and Plan - Diagnosis (1) Recurrent pneumonia Is this a current diagnosis for this admission?: Yes (2) COPD (chronic obstructive pulmonary disease) Qualifiers: COPD type: emphysema Emphysema type: unspecified Qualified Code(s): J43.9 - Emphysema, unspecified Is this a current diagnosis for this admission?: Yes (3) History of colon cancer Is this a current diagnosis for this admission?: Yes (4) Migraines Qualifiers: Migraine type: without aura Intractability: intractable Is this a current diagnosis for this admission?: Yes (5) Obesity (BMI 30.0-34.9) Is this a current diagnosis for this admission?: Yes (6) Opiate dependence, continuous Is this a current diagnosis for this admission?: Yes (7) Psoriatic arthritis Is this a current diagnosis for this admission?: Yes (8) Seizure disorder Is this a current diagnosis for this admission?: Yes - Time Time Spent with patient: 25-34 minutes Medications reviewed and adjusted accordingly: Yes Anticipated Discharge Disposition: Home, Self Care Anticipated Discharge: within 72 hours
[2020-05-04] MEDS ORDERED: BENZOCAINE 20% AEROSOL SPRAY 60 GM TP PRN (17:14)
[2020-05-04] MEDS ORDERED: [UNRECOGNIZED DRUG - OTHER] PO SCH (17:15)
[2020-05-04] MEDS ORDERED: MULTIVITAMIN PO SCH (17:15)
[2020-05-04] MEDS ORDERED: BENZOCAINE 20% AEROSOL SPRAY 60 GM TP ONE (18:30)
[2020-05-05] MEDS: DIPHENHYDRAMINE HCL 50 MG/ML VIAL IV PRN ×3 (00:38→22:21)
[2020-05-05] MEDS: OXYCODONE HCL IR 5 MG TABLET PO SCH ×4 (00:39→17:07)
[2020-05-05] MEDS: MORPHINE SULFATE IR 30 MG TABLET PO SCH ×4 (00:39→17:07)
[2020-05-05] MEDS: ALBUTEROL SULFATE 0.083% NEB 2.5 MG/3 ML AMPUL NEB SCH ×4 (02:05→21:54)
[2020-05-05] MEDS: RINGERS SOLUTION,LACTATED 1,000 ML IV PRN ×2 (03:11→14:17)
[2020-05-05] MEDS: ACETYLCYSTEINE 20% SOLN 800 MG/4 ML VIAL.NEB NEB SCH ×2 (08:16→21:54)
[2020-05-05] MEDS: MORPHINE SULFATE 10 MG/ML INJ IV PRN ×3 (08:54→21:28)
[2020-05-05] MEDS: CEFEPIME 1 GM/D5W RTU 1 GM/50 ML RTUPB IV SCH ×2 (08:55→21:32)
[2020-05-05] MEDS: PROMETHAZINE HCL INJ 25 MG/1 ML VIAL IV PRN ×3 (08:55→21:28)
[2020-05-05] MEDS: DOXYCYCLINE HYCLATE 100 MG in DEXTROSE 5%-WATER 250 ML IV SCH ×2 (09:48→21:43)
[2020-05-05] MEDS: ENOXAPARIN SODIUM INJ 40 MG/0.4 ML DISP.SYRIN SUBCUT SCH (09:49)
[2020-05-05] MEDS: SULFASALAZINE 500 MG TABLET.DR PO SCH ×3 (09:50→17:29)
[2020-05-05] MEDS: PHENOBARBITAL 64.8 MG TABLET PO SCH ×2 (09:50→21:36)
[2020-05-05] MEDS: LAMOTRIGINE 100 MG TABLET PO SCH ×2 (09:50→21:35)
[2020-05-05] MEDS: TOPIRAMATE 100 MG TABLET PO SCH ×2 (09:50→21:37)
[2020-05-05] MEDS: LEVETIRACETAM ORAL SOLN 500 MG/5 ML UDCUP PO SCH ×2 (09:50→21:39)
[2020-05-05] MEDS: FLUTICASONE/UMECLIDIN/VILANTER 100-62.5-25 MCG/DOSE IH SCH (09:54)
[2020-05-05] MEDS ORDERED: SUMATRIPTAN SUCCINATE INJ/PF 6 MG/0.5 ML SDV SUBCUT ONE (11:00)
[2020-05-05] MEDS: BUTALB/ACETAMINOPHEN/CAFFEINE 1 TAB EACH PO PRN (11:13)
[2020-05-05] MEDS: MULTIVITS W-MIN/IRON SOLN 60 ML PO SCH (11:16)
[2020-05-05] MEDS: PROPRANOLOL HCL 40 MG TABLET PO SCH ×2 (14:14→21:38)
--- NOTE | 2020-05-05 14:56 | PDOC PROGRESS REPORT ---
Subjective Progress Note for:: 05/05/20 Subjective:: ELIZABETH FERRARI is a 59 year old female with past medical history of recurrent pneumonia, COPD, migraine headaches, seizure disorder last year 14 years ago, colon cancer status post chemoradiation and colectomy with colostomy placed, psoriatic arthritis, depression, chronic musculoskeletal pain and opiate dependence, who is been seeing Dr. Rosa retail parts professional for recurrent pneumonia and is stating that she has been tried on several p.o. antibiotics medication fo r his recurrent pneumonia however she still having persistent cough shortness of breath, stating that each time she is taking p.o. antibiotics patient was sent to ED by her retail parts professional Dr. Rosa for IV antibiotics. 05/03/2020. No acute events overnight. Patient still complaining of persistent productive cough with generalized musculoskeletal pain, does not report any improvement since admission, patient asking for her pain meds to be restarted as she is opiate dependent. Denies any fever, chills, nausea, vomiting, diarrhea, constipation or any urinary symptoms. 05/04/2020. No acute events overnight. Endorsing mild improvement of symptoms, still complaining of nonproductive cough and generalized fatigue, complaining of headache and asking for her propranolol, has not had any seizures, alert and oriented, denies any focal neurology symptoms, denies any fever, chills, nausea, vomiting,, diarrhea, constipation. P.o. tolerant. Ostomy patent. Endorsing low appetite. 05/05/2020. No acute events overnight. Patient still complaining of persistent migraine headache with nausea, denies any fever, chills, vomiting, abdominal pain, diarrhea, constipation. Patient is pending evaluation by retail parts professional. Reason For Visit: PNEUMONIA,COPD,DEHYDRATION,SEIZURE DISORDER, Physical Exam Vital Signs: Temp Pulse Resp BP Pulse Ox 97.9 F 68 16 107/55 L 93 05/05/20 07:22 05/05/20 13:46 05/05/20 13:46 05/05/20 07:22 05/05/20 13:46 Intake & Output 05/04/20 05/05/20 05/06/20 06:59 06:59 06:59 Intake Total 2056 3072 1250 Balance 2056 3072 1250 Weight 86.9 kg 85.1 kg General appearance: PRESENT: no acute distress, obese, well-developed, well- nourished Head exam: PRESENT: atraumatic, normocephalic Respiratory exam: PRESENT: clear to auscultation duane. ABSENT: rales, rhonchi, wheezes Cardiovascular exam: PRESENT: RRR. ABSENT: diastolic murmur, rubs, systolic murmur GI/Abdominal exam: PRESENT: normal bowel sounds, soft, other - Ostomy in place. Patent.. ABSENT: distended, guarding, mass, organolmegaly, rebound, tenderness Neurological exam: PRESENT: alert, awake, oriented to person, oriented to place, oriented to time, oriented to situation, CN II-XII grossly intact. ABSENT: motor sensory deficit Results Laboratory Results: 05/02/20 05:10 05/02/20 05:10 Impressions: Chest X-Ray 05/02/20 08:00 IMPRESSION: WORSENING AIRSPACE DISEASE IN THE LUNG BASES. Assessment and Plan - Diagnosis (1) Recurrent pneumonia Is this a current diagnosis for this admission?: Yes Plan: Patient she has been having recurrent pneumonias and has been followed by Dr. Rosa retail parts professional and has been tried on several p.o. medication with no significant improvement. Patient seen by Dr. Rosa her retail parts professional for IV antibiotics. X-ray on admission positive for worsening bibasilar airspace disease. Mycoplasma, influenza, hepatitis, Lyme serology has been negative in previous admissions. Denies any history of HIV. Day 3 IV antibiotics. Day 3 cefepime. Day 3 doxycycline. Blood cultures no growth so far. Patient has not produced any sputum for sputum culture. Continue empiric IV antibiotics. Pulmonology has been consulted. Recommendations pending. Meanwhile will check for HIV status. (2) COPD (chronic obstructive pulmonary disease) Qualifiers: COPD type: emphysema Emphysema type: unspecified Qualified Code(s): J43.9 - Emphysema, unspecified Is this a current diagnosis for this admission?: Yes Plan: History of non-oxygen dependent COPD. Not seem to be acutely exacerbated. Resume home meds. PRN supplemental oxygen. (3) History of colon cancer Is this a current diagnosis for this admission?: Yes Plan: History of colon cancer status post chemoradiation and colectomy. Ostomy in [place] ce. Ostomy patent. Tolerating p.o. intake. Outpatient PCP and oncology follow-up. (4) Migraines Qualifiers: Migraine type: without aura Intractability: intractable Is this a current diagnosis for this admission?: Yes Plan: History of migraine headaches. Sees neurologist as outpatient. Resume home meds. Denies any focal neurological symptoms. (5) Obesity (BMI 30.0-34.9) Is this a current diagnosis for this admission?: Yes Plan: BMI 31.9. Will obtain TSH. Diet and lifestyle modification recommended. (6) Opiate dependence, continuous Is this a current diagnosis for this admission?: Yes Plan: Chronic opiate dependency due to back pain. Sees pain management outpatient to resume home meds. Monitor for respiratory depression. Fall precautions. (7) Psoriatic arthritis Is this a current diagnosis for this admission?: Yes Plan: Not on acute flare. Resume home meds. Outpatient PCP and rheumatology follow- up. (8) Seizure disorder Is this a current diagnosis for this admission?: Yes Plan: Does not have any seizure on this hospitalization. Resume home meds. Seizure precaution. Phenobarbital level WNL. - Time Time Spent with patient: 15-24 minutes Medications reviewed and adjusted accordingly: Yes Anticipated Discharge Disposition: Home, Self Care Anticipated Discharge: within 48 hours
[2020-05-06] MEDS: ALBUTEROL SULFATE 0.083% NEB 2.5 MG/3 ML AMPUL NEB SCH ×4 (01:50→20:39)
[2020-05-06] MEDS: RINGERS SOLUTION,LACTATED 1,000 ML IV PRN ×3 (01:58→21:36)
[2020-05-06] MEDS: MORPHINE SULFATE 10 MG/ML INJ IV PRN ×3 (04:38→16:38)
[2020-05-06] MEDS: PROMETHAZINE HCL INJ 25 MG/1 ML VIAL IV PRN ×4 (04:38→23:49)
[2020-05-06] MEDS: BUTALB/ACETAMINOPHEN/CAFFEINE 1 TAB EACH PO PRN ×2 (04:39→11:00)
[2020-05-06] MEDS: OXYCODONE HCL IR 5 MG TABLET PO SCH ×5 (05:41→23:47)
[2020-05-06] MEDS: MORPHINE SULFATE IR 30 MG TABLET PO SCH ×5 (05:41→23:48)
[2020-05-06] MEDS: PROPRANOLOL HCL 40 MG TABLET PO SCH ×3 (05:42→21:27)
[2020-05-06] MEDS: ACETYLCYSTEINE 20% SOLN 800 MG/4 ML VIAL.NEB NEB SCH ×2 (09:11→20:39)
[2020-05-06] MEDS: LAMOTRIGINE 100 MG TABLET PO SCH ×2 (09:37→21:26)
[2020-05-06] MEDS: SULFASALAZINE 500 MG TABLET.DR PO SCH ×3 (09:37→19:39)
[2020-05-06] MEDS: TOPIRAMATE 100 MG TABLET PO SCH ×2 (09:38→21:26)
[2020-05-06] MEDS: PHENOBARBITAL 64.8 MG TABLET PO SCH ×2 (09:38→21:26)
[2020-05-06] MEDS: LEVETIRACETAM ORAL SOLN 500 MG/5 ML UDCUP PO SCH ×2 (09:40→21:25)
[2020-05-06] MEDS: CEFEPIME 1 GM/D5W RTU 1 GM/50 ML RTUPB IV SCH ×2 (09:42→21:27)
[2020-05-06] MEDS: ENOXAPARIN SODIUM INJ 40 MG/0.4 ML DISP.SYRIN SUBCUT SCH (09:45)
[2020-05-06] MEDS ORDERED: SUMATRIPTAN SUCCINATE 25 MG TABLET PO PRN (10:00)
[2020-05-06] MEDS: DOXYCYCLINE HYCLATE 100 MG in DEXTROSE 5%-WATER 250 ML IV SCH ×2 (10:54→21:28)
[2020-05-06] MEDS: MULTIVITS W-MIN/IRON SOLN 60 ML PO SCH (10:54)
[2020-05-06] MEDS: FLUTICASONE/UMECLIDIN/VILANTER 100-62.5-25 MCG/DOSE IH SCH (10:58)
--- NOTE | 2020-05-06 12:28 | PDOC CONSULTATION ---
Consultation Consult Date: 05/06/20 Attending physician:: GEM TERESA Provider Consulted: MINDI GONG Consult reason:: Staph pneumonia History of Present Illness Admission Date/PCP: 05/01/20 16:39 ELIZABETH POWELL PA-C History of Present Illness: ELIZABETH FERRARI is a 59 year old female diagnosed with staph pneumonia not MRSA/sensitive pneumonia unfortunately patient is allergic to penicillin . post surgery has ostomy and it appears that all the pills she takes come out through the ostomy site she complains of weakness cough chills but no fever. She has had a history of an indwelling catheter chemotherapy in the past and has a history of poor venous access. She tends to cough violently up until the time of admission and has improved somewhat since then. She states she feels much better but not yet well Past Medical History Cardiac Medical History: Denies: Coronary Artery Disease, Myocardial Infarction, Hypertension Pulmonary Medical History: Reports: Pneumonia Denies: Asthma, Bronchitis, Chronic Obstructive Pulmonary Disease (COPD) Neurological Medical History: Reports: Migraine, Seizures - Last one 14 yrs ago Malignancy Medical History: Reports: Colorectal Cancer - Status post chemoirradiation and complete colectomy Musculoskeltal Medical History: Reports: Arthritis - PSORIATIC, Other - Chronic pain Psychiatric Medical History: Reports: Depression Hematology: Denies: Anemia Infectious Medical History: Denies: Methicillin-Resistant Staph Aureus Past Surgical History Past Surgical History: Reports: Appendectomy, Cholecystectomy, Hysterectomy, Ileostomy, Orthopedic Surgery, Tonsillectomy Social History Information Source: Patient, [facility] Records Lives with: Alone - She is Smoking Status: Former Smoker Cigarettes Packs Per Day: 1 Number of Years Smokin Passive smoke exposure as: Both Frequency of Alcohol Use: None Hx Recreational Drug Use: No Drugs: None Hx Prescription Drug Abuse: No - Dependent on multiple pain medications Do you have pets?: Yes Have you had any respiratory illnesses as a child?: No Have you been exposed to any sick contacts recently?: No Have you had any recent respiratory illnesses?: No Have you travelled outside of [place] in the past 12 months?: No - Advance Directive Resuscitation Status: Full Code Family History Family History: Hypertension, Malignancy, Other Parental Family History Reviewed: Yes Children Family History Reviewed: Yes Sibling(s) Family History Reviewed.: Yes Medication/Allergy Home Medications: Diclofenac Sodium [Voltaren] 75 mg PO BID 12/28/18 Gabapentin [Neurontin] 600 mg PO BID 12/28/18 Lamotrigine [Lamictal] 200 mg PO BID 12/28/18 Levetiracetam [Keppra] 250 mg PO BID 12/28/18 Morphine Sulfate [Morphine Ir 30 mg Tablet] 30 mg PO Q6 12/28/18 Oxycodone HCl 20 mg PO Q6 12/28/18 Phenobarbital [Phenobarbital 64.8 mg Tablet] 2 tab PO Q12 12/28/18 Promethazine HCl [Phenergan 25 mg Tablet] 25 mg PO Q8HP PRN 12/28/18 Rizatriptan Benzoate [Maxalt] 10 mg PO DAILYP PRN 12/28/18 Topiramate [Topamax 100 mg Tablet] 150 mg PO BID 12/28/18 Levorphanol Tartrate 2 mg PO QID 05/01/20 Propranolol HCl [Propranolol HCl ER] 60 mg PO BID 05/01/20 Sulfasalazine 1,000 mg PO TID 05/01/20 Allergies/Adverse Reactions: Penicillins Allergy (Severe, Verified 03/19/20 18:47) RASH, DIFFICULTY BREATHING prochlorperazine maleate [From Compazine] Adverse Reaction (Severe, Verified 03/19/20 18:47) VIOLENT BEHAVIOR haloperidol [From Haldol] Adverse Reaction (Intermediate, Verified 03/19/20 18:47) Hyperactivity, HEADACHE metoclopramide HCl [From Reglan] Adverse Reaction (Intermediate, Verified 03/19/20 18:47) Hyperactivity ondansetron HCl [From Zofran] Adverse Reaction (Intermediate, Verified 03/19/20 18:47) VOMITING zolpidem [From Ambien] Adverse Reaction (Intermediate, Verified 03/19/20 18:47) SLEEP WALKING diazepam [From Valium] Adverse Reaction (Mild, Verified 03/19/20 18:47) CONFUSION,UNCOOPERATIVE ondansetron [From Zofran] Adverse Reaction (Verified 03/19/20 18:47) Review of Systems All systems: reviewed and no additional remarkable complaints except as stated Physical Exam Vital Signs: Temp Pulse Resp BP Pulse Ox 98.2 F 58 L 16 113/55 L 92 05/06/20 10:45 05/06/20 10:45 05/06/20 10:45 05/06/20 10:45 05/06/20 10:45 Intake & Output 05/05/20 05/06/20 05/07/20 06:59 06:59 06:59 Intake Total 3072 3950 50 Balance 3072 3950 50 Weight 85.1 kg 84.6 kg General appearance: PRESENT: no acute distress, cooperative, disheveled, obese, well-developed, well-nourished Head exam: PRESENT: atraumatic, normocephalic Eye exam: PRESENT: conjunctiva pale, EOMI. ABSENT: nystagmus, periorbital swelling, scleral icterus Mouth exam: PRESENT: dry mucosa, neck supple, tongue midline Throat exam: ABSENT: post pharyngeal erythema, tonsillar erythema, tonsillar exudate, tonsillogmegaly, other Neck exam: ABSENT: carotid bruit, full ROM, JVD, lymphadenopathy, meningismus, tenderness, thyromegaly, tracheal deviation, tracheostomy, other Respiratory exam: PRESENT: decreased breath sounds, prolonged expiratory phas, rhonchi, symmetrical, unlabored, wheezes. ABSENT: rales, retraction, stridor, tachypnea Cardiovascular exam: PRESENT: RRR, +S1, +S2. ABSENT: tachycardia Pulses: PRESENT: normal radial pulses GI/Abdominal exam: PRESENT: soft. ABSENT: distended, guarding, mass, rebound, tenderness Extremities exam: PRESENT: full ROM. ABSENT: calf tenderness, clubbing, joint swelling, pedal edema, tenderness Musculoskeletal exam: PRESENT: full ROM. ABSENT: deformity, dislocation Neurological exam: PRESENT: alert, awake Psychiatric exam: PRESENT: depressed Skin exam: PRESENT: dry, warm Results Laboratory Results: 05/02/20 05:10 05/02/20 05:10 Impressions: Chest X-Ray 05/02/20 08:00 IMPRESSION: WORSENING AIRSPACE DISEASE IN THE LUNG BASES. Assessment & Plan - Diagnosis (1) Chronic pain Qualifiers: Chronic pain type: chronic pain syndrome Qualified Code(s): G89.4 - Chronic pain syndrome Is this a current diagnosis for this admission?: Yes Plan: Managed on outpatient basis by pain management (2) Depression Qualifiers: Depression Type: major depressive disorder Major depression recurrence: recurrent Active/Remission status: currently active Major depression episode severity: moderate Qualified Code(s): F33.1 - Major depressive disorder, recurrent, moderate Is this a current diagnosis for this admission?: Yes Plan: Continue current antibiotic depression regimen (3) Recurrent pneumonia Is this a current diagnosis for this admission?: Yes Plan: Not well but much improved since IV antibiotics have been administered. She is rapidly approaching her baseline if she continues to make progress at this rate she should be at or near her baseline 24 to 48 hours - Time Time Spent with patient: 50 minutes Time Spent: 30 to 50 Minutes - Plan Summary Plan Summary: Patient needs primary care physician' pain management and a life specialist
[2020-05-06] MEDS: DIPHENHYDRAMINE HCL 50 MG/ML VIAL IV PRN ×2 (14:41→21:33)
--- NOTE | 2020-05-06 18:21 | PDOC PROGRESS REPORT ---
Subjective Progress Note for:: 05/06/20 Subjective:: Patient admitted for another episode of her recurrent pneumonia. Patient states she has pneumonias about every 3 months. Unclear if her construction project manager has worked her up for NURSING PROGRAM CHAIR which seems to be consistent with the timeline of her recurrent pneumonias. Overall, patient appears to be doing better since admission and her construction project manager states she may be able to go home tomorrow. Patient only has very minimal shortness of breath and cough otherwise no new complaints. I discussed with her that she should be using her oral home dose narcotics rather than IV narcotics here. IV narcotics will remain in place for breakthrough pain only. Patient voiced understanding. Reason For Visit: PNEUMONIA,COPD,DEHYDRATION,SEIZURE DISORDER, Physical Exam Vital Signs: Temp Pulse Resp BP Pulse Ox 98.6 F 62 17 116/62 96 05/06/20 16:00 05/06/20 16:00 05/06/20 16:00 05/06/20 16:00 05/06/20 16:00 Intake & Output 05/05/20 05/06/20 05/07/20 06:59 06:59 06:59 Intake Total 3072 3950 1300 Balance 3072 3950 1300 Weight 85.1 kg 84.6 kg General appearance: PRESENT: no acute distress, well-developed, well-nourished Head exam: PRESENT: atraumatic, normocephalic Eye exam: PRESENT: conjunctiva pink Mouth exam: PRESENT: moist Respiratory exam: PRESENT: clear to auscultation duane. ABSENT: rales, rhonchi, wheezes Cardiovascular exam: PRESENT: RRR. ABSENT: diastolic murmur, rubs, systolic murmur GI/Abdominal exam: PRESENT: normal bowel sounds, soft, other - Ostomy noted, well-appearing. ABSENT: distended, guarding, mass, organolmegaly, rebound, tenderness Musculoskeletal exam: PRESENT: ambulatory Neurological exam: PRESENT: alert, awake, oriented to person, oriented to place, oriented to time, oriented to situation Psychiatric exam: PRESENT: appropriate affect, normal mood Skin exam: PRESENT: dry, intact, warm Results Laboratory Results: 05/02/20 05:10 05/02/20 05:10 05/01/20 17:07 Blood Blood Culture - Final NO GROWTH IN 5 DAYS 05/01/20 16:00 Blood Blood Culture - Final NO GROWTH IN 5 DAYS Impressions: Chest X-Ray 05/02/20 08:00 IMPRESSION: WORSENING AIRSPACE DISEASE IN THE LUNG BASES. Assessment and Plan - Diagnosis (1) Recurrent pneumonia Is this a current diagnosis for this admission?: Yes Plan: Per previous physician: "Patient she has been having recurrent pneumonias and has been followed by Dr. Rosa construction project manager and has been tried on several p.o. medication with no significant improvement. Patient seen by Dr. Rosa her construction project manager for IV antibiotics. X-ray on admission positive for worsening bibasilar airspace disease. Mycoplasma, influenza, hepatitis, Lyme serology has been negative in previous admissions. Denies any history of HIV. Day 3 IV antibiotics. Day 3 cefepime. Day 3 doxycycline. Blood cultures no growth so far. Patient has not produced any sputum for sputum culture. Continue empiric IV antibiotics. Pulmonology has been consulted. Recommendations pending. Meanwhile will check for HIV status." 05/06/2020 Consider NURSING PROGRAM CHAIR as possible etiology of recurrent pneumonia, defer to pulmonology to work this up if they have not already Pulmonology has visited with patient and evaluated them, they may be able to be discharged tomorrow (2) COPD (chronic obstructive pulmonary disease) Qualifiers: COPD type: emphysema Emphysema type: unspecified Qualified Code(s): J43.9 - Emphysema, unspecified Is this a current diagnosis for this admission?: Yes Plan: History of non-oxygen dependent COPD. Not seem to be acutely exacerbated. Resume home meds. PRN supplemental oxygen. (3) History of colon cancer Is this a current diagnosis for this admission?: Yes Plan: History of colon cancer status post chemoradiation and colectomy. Ostomy in place. Ostomy patent. Tolerating p.o. intake. Outpatient PCP and oncology follow-up. (4) Migraines Qualifiers: Migraine type: without aura Intractability: intractable Is this a current diagnosis for this admission?: Yes Plan: History of migraine headaches. Sees neurologist as outpatient. Continue home medications, stable (5) Opiate dependence, continuous Is this a current diagnosis for this admission?: Yes Plan: Chronic opiate dependency due to back pain. Sees pain management outpatient to resume home meds. Monitor for respiratory depression. Fall precautions. Use oral home narcotics. IV narcotics available for breakthrough only (6) Psoriatic arthritis Is this a current diagnosis for this admission?: Yes Plan: Not on acute flare. Resume home meds. Outpatient PCP and rheumatology follow- up. (7) Seizure disorder Is this a current diagnosis for this admission?: Yes Plan: Does not have any seizure on this hospitalization. Resume home meds. Seizure precaution. Phenobarbital level WNL. - Time Time Spent with patient: 15-24 minutes Medications reviewed and adjusted accordingly: Yes Anticipated Discharge Disposition: Home, Self Care Anticipated Discharge: within 24 hours - Inpatient Certification Based on my medical assessment, after consideration of the patient's comorbidities, presenting symptoms, or acuity I expect that the services needed warrant INPATIENT care.: Yes I certify that my determination is in accordance with my understanding of Medicare's requirements for reasonable and necessary INPATIENT services [42 CFR 412.3e].: Yes Medical Necessity: Significant Comorbidiites Make Outpatient Treatment Too Risky, Need Close Monitoring Due to Risk of Patient Decompensation, Risk of Complication if Not Cared For in Hospital, Risk of Diagnosis Which Will Require Inpatient Eval/Care/Monitoring
[2020-05-07] MEDS: ALBUTEROL SULFATE 0.083% NEB 2.5 MG/3 ML AMPUL NEB SCH ×3 (01:56→14:07)
[2020-05-07] MEDS: PROPRANOLOL HCL 40 MG TABLET PO SCH ×2 (06:39→14:45)
[2020-05-07] MEDS: MORPHINE SULFATE IR 30 MG TABLET PO SCH ×3 (06:41→17:03)
[2020-05-07] MEDS: OXYCODONE HCL IR 5 MG TABLET PO SCH ×2 (06:42→17:02)
[2020-05-07] MEDS: ACETYLCYSTEINE 20% SOLN 800 MG/4 ML VIAL.NEB NEB SCH (08:19)
[2020-05-07] MEDS: CEFEPIME 1 GM/D5W RTU 1 GM/50 ML RTUPB IV SCH (08:30)
[2020-05-07] MEDS: RINGERS SOLUTION,LACTATED 1,000 ML IV PRN (08:31)
[2020-05-07] MEDS: ENOXAPARIN SODIUM INJ 40 MG/0.4 ML DISP.SYRIN SUBCUT SCH (09:43)
[2020-05-07] MEDS: PHENOBARBITAL 64.8 MG TABLET PO SCH (09:44)
[2020-05-07] MEDS: LAMOTRIGINE 100 MG TABLET PO SCH (09:44)
[2020-05-07] MEDS: SULFASALAZINE 500 MG TABLET.DR PO SCH ×2 (09:46→14:50)
[2020-05-07] MEDS: MULTIVITS W-MIN/IRON SOLN 60 ML PO SCH ×2 (09:47→10:26)
[2020-05-07] MEDS: LEVETIRACETAM ORAL SOLN 500 MG/5 ML UDCUP PO SCH (09:48)
[2020-05-07] MEDS: DOXYCYCLINE HYCLATE 100 MG in DEXTROSE 5%-WATER 250 ML IV SCH (09:51)
[2020-05-07] MEDS: TOPIRAMATE 100 MG TABLET PO SCH (09:56)
[2020-05-07] MEDS: FLUTICASONE/UMECLIDIN/VILANTER 100-62.5-25 MCG/DOSE IH SCH (10:01)
[2020-05-07] MEDS: PROMETHAZINE HCL INJ 25 MG/1 ML VIAL IV PRN ×2 (10:20→17:03)
--- NOTE | 2020-05-07 17:20 | PDOC DISCHARGE SUMMARY ---
Impression - Admit/DC Date/PCP Admission Date/Primary Care Provider: 05/01/20 16:39 ELIZABETH POWELL PA-C Discharge Date: 05/07/20 - Discharge Diagnosis (1) Recurrent pneumonia Is this a current diagnosis for this admission?: Yes (2) COPD (chronic obstructive pulmonary disease) Is this a current diagnosis for this admission?: Yes (3) History of colon cancer Is this a current diagnosis for this admission?: Yes (4) Migraines Is this a current diagnosis for this admission?: Yes (5) Opiate dependence, continuous Is this a current diagnosis for this admission?: Yes (6) Psoriatic arthritis Is this a current diagnosis for this admission?: Yes (7) Seizure disorder Is this a current diagnosis for this admission?: Yes - Additional Information Resuscitation Status: Full Code Discharge Diet: As Tolerated Discharge Activity: Activity As Tolerated, Balance Activity w/Rest Referrals: ELIZABETH POWELL PA-C [Primary Care Provider] - Follow up as needed MINDI ROSA MD [ACTIVE STAFF] - Prescriptions: Multivits W-Min/Ferrous Gluc [Certavite Multivit/Minerals/Iron Soln] 15 ml PO DAILY #450 ml Fluticasone/Umeclidin/Vilanter [Trelegy 100-62.5-25 Mcg Ellipta 14 Dose/Dpi] 1 inh IH DAILY #1 inhaler Home Medications: Diclofenac Sodium [Voltaren] 75 mg PO BID 12/28/18 Gabapentin [Neurontin] 600 mg PO BID 12/28/18 Lamotrigine [Lamictal] 200 mg PO BID 12/28/18 Levetiracetam [Keppra] 250 mg PO BID 12/28/18 Morphine Sulfate [Morphine Ir 30 mg Tablet] 30 mg PO Q6 12/28/18 Oxycodone HCl 20 mg PO Q6 12/28/18 Phenobarbital [Phenobarbital 64.8 mg Tablet] 2 tab PO Q12 12/28/18 Promethazine HCl [Phenergan 25 mg Tablet] 25 mg PO Q8HP PRN 12/28/18 Rizatriptan Benzoate [Maxalt] 10 mg PO DAILYP PRN 12/28/18 Topiramate [Topamax 100 mg Tablet] 150 mg PO BID 12/28/18 Levorphanol Tartrate 2 mg PO QID 05/01/20 Propranolol HCl [Propranolol HCl ER] 60 mg PO BID 05/01/20 Sulfasalazine 1,000 mg PO TID 05/01/20 Fluticasone/Umeclidin/Vilanter [Trelegy 100-62.5-25 Mcg Ellipta 14 Dose/Dpi] 1 inh IH DAILY #1 inhaler 05/07/20 Multivits W-Min/Ferrous Gluc [Certavite Multivit/Minerals/Iron Soln] 15 ml PO DAILY #450 ml 05/07/20 History of Present Illiness History of Present Illness: Per admitting physician: "ELIZABETH FERRARI is a 59 year old female patient of Dr. Rosa has been feeling poorly from a staph aureus pneumonia for over 1 month. She has had a colectomy and medications in pill form seem to pass through the GI tract without dissolving/absorbing. Dr. Rosa tried liquid form of antibiotics and they seem to be ineffective. She reports a cough since December. She was previously tested for COVID and was negative. She feels extremely weak. She gets lightheaded when changing positions. She has had poor appetite and is very dry. Her cough is productive she will have thick greenish tinged mucus and then slightly reddish mucus. She was sent over for admission for IV antibiotics since they have been unable to set up outpatient antibiotics because of her Port-A-Cath." Hospital Course Hospital Course: Patient managed for recurrent community-acquired pneumonia. Patient's been on multiple courses of oral antibiotics but states she frequently sees the unopened undissolved capsules in her colostomy bag. Unlikely she is absorbing these medications. It may be beneficial for her to only be given liquid oral antibiotics in the future rather than tablets or capsules. Patient's bond analyst Dr. Rosa was consulted and followed throughout admission. He stated patient is essentially back to baseline and can be discharged to home. Patient completed a 7-day course of IV antibiotics and does not require any further antibiotics at discharge. If pneumonia recurs, I believe patient should be worked up for cryptogenic organizing pneumonia or some alternate ILD diagnosis. I will defer this work-up to her bond analyst. Patient will resume her antiepileptics and other home medications at discharge. Patient must follow-up with her PCP within 1 week and also follow-up with her bond analyst within 1 week. (1) Recurrent pneumonia Is this a current diagnosis for this admission?: Yes Plan: Per previous physician: "Patient she has been having recurrent pneumonias and has been followed by Dr. Rosa bond analyst and has been tried on several p.o. medication with no significant improvement. Patient seen by Dr. Rosa her bond analyst for IV antibiotics. X-ray on admission positive for worsening bibasilar airspace disease. Mycoplasma, influenza, hepatitis, Lyme serology has been negative in previous admissions. Denies any history of HIV. Day 3 IV antibiotics. Day 3 cefepime. Day 3 doxycycline. Blood cultures no growth so far. Patient has not produced any sputum for sputum culture. Continue empiric IV antibiotics. Pulmonology has been consulted. Recommendations pending. Meanwhile will check for HIV status." 05/06/2020 Consider RECORD PRODUCER as possible etiology of recurrent pneumonia, defer to pulmonology to work this up if they have not already Pulmonology has visited with patient and evaluated them, they may be able to be discharged tomorrow (2) COPD (chronic obstructive pulmonary disease) Qualifiers: COPD type: emphysema Emphysema type: unspecified Qualified Code(s): J43.9 - Emphysema, unspecified Is this a current diagnosis for this admission?: Yes Plan: History of non-oxygen dependent COPD. Not seem to be acutely exacerbated. Resume home meds. PRN supplemental oxygen. (3) History of colon cancer Is this a current diagnosis for this admission?: Yes Plan: History of colon cancer status post chemoradiation and colectomy. Ostomy in place. Ostomy patent. Tolerating p.o. intake. Outpatient PCP and oncology follow-up. (4) Migraines Qualifiers: Migraine type: without aura Intractability: intractable Is this a current diagnosis for this admission?: Yes Plan: History of migraine headaches. Sees neurologist as outpatient. Continue home medications, stable (5) Opiate dependence, continuous Is this a current diagnosis for this admission?: Yes Plan: Chronic opiate dependency due to back pain. Sees pain management outpatient to resume home meds. Monitor for respiratory depression. Fall precautions. Use oral home narcotics. IV narcotics available for breakthrough only (6) Psoriatic arthritis Is this a current diagnosis for this admission?: Yes Plan: Not on acute flare. Resume home meds. Outpatient PCP and rheumatology follow- up. (7) Seizure disorder Is this a current diagnosis for this admission?: Yes Plan: Does not have any seizure on this hospitalization. Resume home meds. Seizure precaution. Phenobarbital level WNL. Physical Exam Vital Signs: Temp Pulse Resp BP Pulse Ox 97.3 F 63 12 107/58 L 97 05/07/20 12:00 05/07/20 12:00 05/07/20 12:00 05/07/20 12:00 05/07/20 12:00 Intake & Output 05/06/20 05/07/20 05/08/20 06:59 06:59 06:59 Intake Total 3950 3600 271 Balance 3950 3600 271 Weight 84.6 kg 83.6 kg General appearance: PRESENT: no acute distress, well-developed, well-nourished Head exam: PRESENT: atraumatic, normocephalic Mouth exam: PRESENT: moist Respiratory exam: PRESENT: clear to auscultation duane. ABSENT: rales, rhonchi, wheezes Cardiovascular exam: PRESENT: RRR. ABSENT: diastolic murmur, rubs, systolic murmur GI/Abdominal exam: PRESENT: normal bowel sounds, soft, other - Colostomy well- appearing, no stool in the bag. ABSENT: distended, guarding, mass, organolmegaly, rebound, tenderness Neurological exam: PRESENT: alert, awake, oriented to person, oriented to place, oriented to time, oriented to situation Psychiatric exam: PRESENT: appropriate affect, normal mood Skin exam: PRESENT: dry, intact, warm Results Laboratory Results: WBC 4.7 10^3/uL (4.0-10.5) 05/02/20 05:10 RBC 3.01 10^6/uL (3.72-5.28) L 05/02/20 05:10 Hgb 10.7 g/dL (12.0-15.5) L 05/02/20 05:10 Hct 30.6 % (36.0-47.0) L 05/02/20 05:10 MCV 102 fl (80-97) H 05/02/20 05:10 MCH 35.4 pg (27.0-33.4) H 05/02/20 05:10 MCHC 34.9 g/dL (32.0-36.0) 05/02/20 05:10 RDW 14.5 % (11.5-14.0) H 05/02/20 05:10 Plt Count 251 10^3/uL (150-450) 05/02/20 05:10 Lymph % (Auto) 43.3 % (13-45) 05/02/20 05:10 [place] % (Auto) 10.1 % (3-13) 05/02/20 05:10 Eos % (Auto) 7.8 % (0-6) H 05/02/20 05:10 Baso % (Auto) 1.0 % (0-2) 05/02/20 05:10 Absolute Neuts (auto) 1.8 10^3/uL (1.7-8.2) 05/02/20 05:10 Absolute Lymphs (auto) 2.0 10^3/uL (0.5-4.7) 05/02/20 05:10 Absolute Monos (auto) 0.5 10^3/uL (0.1-1.4) 05/02/20 05:10 Absolute Eos (auto) 0.4 10^3/uL (0.0-0.6) 05/02/20 05:10 Absolute Basos (auto) 0.0 10^3/uL (0.0-0.2) 05/02/20 05:10 Seg Neutrophils % 37.8 % (42-78) L 05/02/20 05:10 PT 13.9 SEC (11.4-15.4) 05/01/20 14:40 INR 1.07 05/01/20 14:40 VBG pH 7.31 (7.30-7.42) 05/01/20 14:40 VBG pCO2 46.7 mmHg (35-63) 05/01/20 14:40 VBG HCO3 23.2 mmol/L (20-32) 05/01/20 14:40 VBG Base Excess -3.3 mmol/L 05/01/20 14:40 Sodium 137.8 mmol/L (137-145) 05/02/20 05:10 Potassium 4.0 mmol/L (3.6-5.0) 05/02/20 05:10 Chloride 107 mmol/L (98-107) 05/02/20 05:10 Carbon Dioxide 25 mmol/L (22-30) 05/02/20 05:10 Anion Gap 6 (5-19) 05/02/20 05:10 BUN 8 mg/dL (7-20) 05/02/20 05:10 Creatinine 0.63 mg/dL (0.52-1.25) 05/02/20 05:10 Est GFR ( Amer) > 60 (>60) 05/02/20 05:10 Est GFR (MDRD) Non-Af > 60 (>60) 05/02/20 05:10 Glucose 89 mg/dL (75-110) 05/02/20 05:10 Lactic Acid 1.5 mmol/L (0.7-2.1) 05/01/20 23:30 Calcium 8.6 mg/dL (8.4-10.2) 05/02/20 05:10 Phosphorus 3.0 mg/dL (2.5-4.5) 05/02/20 05:10 Magnesium 1.9 mg/dL (1.6-2.3) 05/02/20 05:10 Total Bilirubin 0.3 mg/dL (0.2-1.3) 05/01/20 14:40 Direct Bilirubin mg/dL (0.0-0.4) 05/01/20 14:40 Neonat Total Bilirubin Not Reportable 05/01/20 14:40 Neonat Direct Bilirubin Not Reportable 05/01/20 14:40 Neonat Indirect Bili Not Reportable 05/01/20 14:40 AST 44 U/L (14-36) H 05/01/20 14:40 ALT 17 U/L (<35) 05/01/20 14:40 Alkaline Phosphatase 149 U/L (38-126) H 05/01/20 14:40 Total Protein 7.7 g/dL (6.3-8.2) 05/01/20 14:40 Albumin 3.7 g/dL (3.5-5.0) 05/01/20 14:40 Phenobarbital 40 ug/mL (15-40) 05/02/20 05:10 Impressions: Chest X-Ray 05/02/20 08:00 IMPRESSION: WORSENING AIRSPACE DISEASE IN THE LUNG BASES. Plan Plan of Treatment: Follow-up with PCP within 7 days Follow-up with pulmonology within 7 days Consider work-up for cryptogenic organizing pneumonia Time Spent: Greater than 30 Minutes Stroke Is this a Stroke Patient?: No Acute Heart Failure - Is this a Heart Failure Patient?: No
[2020-05-07 19:53] VITALS: BP 103/59
== END 2020-05-07 18:30 | disposition home or self-care (01) | DRG 178 ==
LOC: ER 12:53 → EH 16:39 → OBSVTOIN 16:39 → 4S 19:37
PROVIDERS: ADMIT Hospitalist; ATTEND Internal Medicine
DX: J15.211 Pneumonia due to Methicillin susceptible Staphylococcus aureus (principal); F11.20 Opioid dependence, uncomplicated; F33.1 Major depressive disorder, recurrent, moderate; F41.9 Anxiety disorder, unspecified; L40.50 Arthropathic psoriasis, unspecified; E86.0 Dehydration; E66.9 Obesity, unspecified; J43.9 Emphysema, unspecified; G43.909 Migraine, unspecified, not intractable, without status migrainosus; G89.4 Chronic pain syndrome; G40.909 Epilepsy, unspecified, not intractable, without status epilepticus; Z90.49 Acquired absence of other specified parts of digestive tract; Z90.710 Acquired absence of both cervix and uterus; Z93.1 Gastrostomy status; Z87.891 Personal history of nicotine dependence; Z82.49 Family history of ischemic heart disease and other diseases of the circulatory system; Z85.038 Personal history of other malignant neoplasm of large intestine; Z79.899 Other long term (current) drug therapy; Z92.21 Personal history of antineoplastic chemotherapy; Z88.0 Allergy status to penicillin; Z93.2 Ileostomy status; Z68.30 Body mass index [BMI] 30.0-30.9, adult
CPT/HCPCS: 36415; 71045; 80048; 80053; 80184; 82803; 83605; 83735; 84100; 85025; 85610; 87040; 93005; 93010; 94640; 94667; 94668; 96365; 96366; 96368; 96375; 99285; J0456; J0692; J0696; J1200; J1642; J1650; J2270; J2550; J3030; J3490; J7060; J7120

== ENCOUNTER → 2020-05-30 | Outpatient (CLI) | payer MEDICARE, MEDICAID ==
--- NOTE | 2020-05-30 14:27 | RADIOLOGY REPORT (SQ) ---
EXAM DESCRIPTION: VENOUS BILATERAL LOWER IMAGES COMPLETED DATE/TIME: 05/30/2020 1:53 pm REASON FOR STUDY: PAIN M79.661 PAIN IN RIGHT LOWER LEG COMPARISON: None. TECHNIQUE: Dynamic and static titus scale and color images acquired of both lower extremity venous sy stems. Selected spectral images acquired with additional compression and augmentation maneuvers. Imag es stored on PACS. LIMITATIONS: None. FINDINGS: RIGHT LEG COMMON FEMORAL AND FEMORAL: Normal phasicity, compression and augmentation. No visualized echogenic m aterial on titus scale. No defects on color images. POPLITEAL: Normal compression and augmentation. No visualized echogenic material on titus scale. No de fects on color images. CALF VESSELS: Normal compression and augmentation. No visualized echogenic material on titus scale. No defects on color image. GSV AND SSV: Normal compression. No visualized echogenic material on titus scale. No defects on color images. ANY DEEP VENOUS INSUFFICIENCY: Not evaluated. ANY EVIDENCE OF POPLITEAL CYST: No. OTHER: No other significant finding. LEFT LEG COMMON FEMORAL AND FEMORAL: Normal phasicity, compression and augmentation. No visualized echogenic m aterial on titus scale. No defects on color images. POPLITEAL: Normal compression and augmentation. No visualized echogenic material on titus scale. No de fects on color images. CALF VESSELS: Normal compression and augmentation. No visualized echogenic material on titus scale. No defects on color images. GSV AND SSV: Normal compression. No visualized echogenic material on titus scale. No defects on color images. ANY DEEP VENOUS INSUFFICIENCY: Not evaluated. ANY EVIDENCE POPLITEAL CYST: No. OTHER: No other significant finding. IMPRESSION: NO EVIDENCE DVT OR SVT IN EITHER LEG. TECHNICAL DOCUMENTATION: JOB ID: [id number] 2010 [email or web address]- All Rights Reserved Reading location - IP/workstation name: [email or web address]
== END ==
LOC: SP 12:49
PROVIDERS: ATTEND Physician Assistant
DX: M79.661 Pain in right lower leg (principal)
CPT/HCPCS: 93970

== ENCOUNTER → 2020-09-23 | Outpatient (CLI) | payer MEDICARE, MEDICAID ==
--- NOTE | 2020-09-23 11:18 | WOMENS IMAGING REPORT ---
EXAM DESCRIPTION: 3D SCREENING MAMMO BILAT IMAGES COMPLETED DATE/TIME: 09/23/2020 10:01 am REASON FOR STUDY: Z12.31 ENCNTR SCREEN MAMMOGRAM FOR MALIGNANT NEOPLASM OF BREAST Z12.31 ENCNTR SCR EEN MAMMOGRAM FOR MALIGNANT NEOPLASM OF BONG COMPARISON: Priors dating back to 2011 EXAM PARAMETERS: Views: Standard craniocaudal and mediolateral oblique views of each breast recorded using digital acquisition and breast tomosynthesis. Read with the assistance of CAD. .[facility] - [employer] Student Outreach Coordinator Version 9.2 LIMITATIONS: Left battery pack. FINDINGS: No suspicious masses, suspicious calcifications or architectural distortion. No areas of c oncern. IMPRESSION: NEGATIVE MAMMOGRAM. BIRADS 1. BREAST DENSITY: b. There are scattered areas of fibroglandular density. BIRAD: ASSESSMENT: 1 NEGATIVE RECOMMENDATION: ROUTINE SCREENING COMMENT: The patient has been notified of the results by letter per MQSA requirements. Additional no tification policies are in place for contacting patient with suspicious or incomplete findings. Quality ID #[id number]: The [employer] recommends an annual screening mammogram for women aged 40 years or over. This facility utilizes a reminder system to ensure that all patients receive reminder letters, and/or direct phone calls for appointments. This includes reminders for routine scr eening mammograms, diagnostic mammograms, or other Breast Imaging Interventions when appropriate. Th is patient will be placed in the appropriate reminder system. TECHNICAL DOCUMENTATION: FINDING NUMBER: (1) ASSESSMENT: (1) JOB ID: [id number] 2010 [email or web address]- All Rights Reserved Reading location - IP/workstation name: [email or web address]
== END ==
LOC: WI 09:46
PROVIDERS: ATTEND Physician Assistant
DX: Z12.31 Encounter for screening mammogram for malignant neoplasm of breast (principal)
CPT/HCPCS: 77063; 77067